=== PATIENT | male | born 1945 | race Caucasian/White ===

== ENCOUNTER → 2018-11-10 07:46 | Outpatient (CLI) | payer MEDICARE, OTHER, SELFPAY ==
--- NOTE | 2018-11-10 | DI.CT.S_ITS ---
PROCEDURE: CT CHEST ABD PEL W CON INDICATIONS: ESOPHAGEAL CANCER TECHNIQUE: After the administration of oral and intravenous contrast, 5 mm thick sections acquired from the lung apices to the symphysis. 5 mm coronal and sagittal reformats were performed, with additional 7 mm coronal MIP reformats through the lungs. For radiation dose reduction, the following was used: automated exposure control, adjustment of mA and/or kV according to patient size. COMPARISON: [facility], CT, ABDOMEN WITH CONTRAST, 01/10/2011, 13:27. FINDINGS: Image quality: Excellent. CHEST: Lungs and pleura: There is biapical scarring. Centrilobular emphysema is seen. There is no focal air space opacity. No discrete pulmonary nodule or mass is identified. No pleural effusions or pneumothorax. Central and peripheral airways appear patent and normal in caliber. Mediastinum: Heart size is normal. No pericardial effusion. No mediastinal or hilar adenopathy by size criteria. Subcentimeter lymph nodes are seen scattered in mediastinal and bilateral hilar region measures up to 8 mm in short axis diameter in the AP window. Thoracic aorta and central pulmonary arteries are normal in size. There is suggestion of prior esophagectomy with gastric pull-through. There is suggestion of circumferential wall thickening involving gastric wall within lower thorax, and may be related to posttreatment changes. No definite discrete esophageal or gastric wall mass is identified. Chest wall: No axillary or supraclavicular adenopathy by size criteria. 9 x 4 mm hypodense nodule is seen involving posterior aspect of mid pole right thyroid lobe. ABDOMEN: Solid organs: Liver is normal in size and enhancement. Gallbladder is within normal limits. Biliary system is non dilated. Pancreas enhances normally. Spleen is normal in size and enhancement. No adrenal nodules. Kidneys demonstrate normal size and enhancement, without hydronephrosis. Peritoneum and bowel: There is no evidence of bowel structure. Bowel loops demonstrate normal wall thickness and caliber. No free fluid or air. Fecal stasis throughout the colon is seen suggestive of mild constipation. Sigmoid diverticulosis is noted, no CT evidence of acute diverticulitis. Nodes and vessels: No retroperitoneal or mesenteric adenopathy by size criteria. Fusiform infrarenal abdominal aortic aneurysm is seen measures up to 3.3 x 3.5 cm in its largest AP and transverse dimensions. Thrombus formation within the aneurysmal sac is seen. IVC is normal in size and appearance. Miscellaneous: No ventral hernias. PELVIS: Genitourinary: There is mild diffuse bladder wall thickening, no discrete bladder wall mass is seen. Enlarged prostate gland with mass effect on floor of urinary bladder is noted. Miscellaneous: No inguinal hernias or adenopathy. Bones: No suspicious bony lesions. No vertebral body compression fractures. IMPRESSION: 1. There is suggestion of prior mid to distal esophagectomy with gastric pull-through. Questionable wall thickening involving stomach within lower thorax, which may represent posttreatment changes. Underlying tumor mass cannot be entirely excluded suggest clinical correlation. No bowel distraction. No small bowel colon wall thickening. No free fluid or free air. Sigmoid diverticulosis with no evidence of acute diverticulitis. 2. Biapical scarring. Moderate cystic emphysematous changes in bilateral lung ly. No definite pulmonary nodule or mass is seen. Airway is patent. 3. Subcentimeter lymph nodes in mediastinum as above. No enlarged lymph nodes are seen in chest, abdomen or pelvis. 4. Right thyroid lobe nodule as above, which may represent nodular goiter. 5. Enlarged prostate gland with mass effect on floor of urinary bladder. Mild diffuse bladder wall thickening. No hydronephrosis. 6. Fusiform infrarenal abdominal aortic aneurysm measures up to 3.3 cm in largest AP diameter. Dictated by: Jose Roberto Monzon M.D. on 11/10/2018 at 12:00 Approved by: Jose Roberto Monzon M.D. on 11/10/2018 at 12:11
--- NOTE | 2018-11-10 | DI.CT.S_ITS ---
PROCEDURE: CT SOFT TISSUE NECK W CON INDICATIONS: ESOPHAGEAL CANCER TECHNIQUE: After the administration of intravenous contrast, 3.0 mm axial sections acquired from the sella to the aortic arch. Additional oblique axial 3.0 mm sections acquired through the pharynx. 3 mm thick coronal and sagittal reformats were generated. For radiation dose reduction, the following was used: automated exposure control. COMPARISON: None. FINDINGS: Image quality: Excellent. Lymph nodes: No enlarged lymph nodes seen throughout the neck. Vessels: Visualized vasculature appears patent. Neck spaces: The oropharynx, nasopharynx, and pharynx demonstrate no mucosal lesions. The vocal cords, false vocal cords, pyriform sinuses, epiglottis, vallecula, and tongue base all appear normal. Extramucosal spaces appear unremarkable. Glands: The parotid and submandibular glands appear normal. 11 x 9 mm hypodense nodule in posterior aspect of mid pole right thyroid lobe is seen. Miscellaneous: Visualized brain and orbits appear normal. Biapical scarring and moderate centrilobular emphysema is seen. Superficial soft tissues appear normal. Post esophagectomy changes in the upper to mid esophagus is seen. Bones: No suspicious bony lesions. Visualized sinuses and mastoids appear unremarkable. IMPRESSION: 1. No evidence of neck soft tissue adenopathy. Airway is patent. No neck soft tissue mass. 2. Right thyroid lobe nodule as above, which may represent nodular goiter. 3. Post esophagectomy changes in the upper to mid esophagus. Dictated by: Jose Roberto Monzon M.D. on 11/10/2018 at 12:11 Approved by: Jose Roberto Monzon M.D. on 11/10/2018 at 12:18
== END ==
PROVIDERS: Family Provider Internal Medicine; PCP Internal Medicine
DX: C15.9 Malignant neoplasm of esophagus, unspecified (principal)
CPT/HCPCS: 70491; 71260; 74177; Q9967

== ENCOUNTER → 2018-11-10 08:10 | Outpatient (CLI) | payer MEDICARE, OTHER, SELFPAY ==
[2018-11-10 08:24] LABS: Add Manual Diff / Slide Review NO; Basophils Percent Auto 1.3 % (0-2); Eosinophils Percent Auto 6.3 % (2-4); Hematocrit 40.2 % (41-53); Hemoglobin 13.5 g/dL (13.5-17.5); Lymphocytes Percent Auto 20.3 % (25-40); Mean Corpuscular HGB Conc 33.6 % (30-36); Mean Corpuscular Hemoglobin 31.1 PG (26-34); Mean Corpuscular Volume 92.5 fL (80-100); Monocytes Percent Auto 8.3 % (3-14); Neutrophils Absolute Auto 4800 /uL (1500-7000); Neutrophils Percent Auto 63.8 % (50-75); Platelet Count 230 X10^3/uL (150-400); Red Blood Cell Count 4.34 X10^6/uL (4.5-5.9); Red Cell Distribution Width 14.7 % (11.6-14.8); White Blood Cell Count 7.6 X10^3/uL (4.5-11.0)
[2018-11-10 08:34] LABS: Alanine Aminotransferase 15 IU/L (21-72); Albumin 4.3 g/dL (3.5-5.0); Albumin Globulin Ratio 1.5 (1.0-2.8); Alkaline Phosphatase 79 U/L (38-126); Aspartate Aminotransferase 15 IU/L (17-59); BUN Creatinine Ratio 17.6 (6-22); Bilirubin Total 0.4 mg/dL (0.2-1.3); Blood Urea Nitrogen 30 mg/dL (9-20); Carbon Dioxide 21 mmol/L (22-32); Chloride 109 mmol/L (98-107); Estimated Glomerular Filt Rate 39.5 mL/min (>60); Globulin 2.8 g/dL (1.7-4.1); Glucose 93 mg/dL (80-110); HEMOLYSIS < 15 (0-50); Potassium 4.8 mmol/L (3.4-5.1); Sodium 139 mmol/L (137-145); Total Protein 7.1 g/dL (6.3-8.2)
== END ==
PROVIDERS: Family Provider Internal Medicine; PCP Internal Medicine
DX: C15.5 Malignant neoplasm of lower third of esophagus (principal)
CPT/HCPCS: 36415; 70491; 71260; 74177; 80053; 85025; Q9967

== ENCOUNTER → 2019-04-27 | Outpatient (ROUT) | payer MEDICARE, OTHER, SELFPAY | PROVIDERS: Family Provider Internal Medicine; PCP Internal Medicine ==

== ENCOUNTER → 2019-10-13 09:34 | Outpatient (CLI) | payer MEDICARE, OTHER, SELFPAY ==
--- NOTE | 2019-10-13 09:38 | DI.CT.S_ITS ---
PROCEDURE: CT CHEST ABD PEL W CON INDICATIONS: Esophageal cancer surveillance TECHNIQUE: After the administration of oral and intravenous contrast, 5 mm thick sections acquired from the lung apices to the symphysis. 5 mm coronal and sagittal reformats were performed, with additional 7 mm coronal MIP reformats through the lungs. For radiation dose reduction, the following was used: automated exposure control, adjustment of mA and/or kV according to patient size. COMPARISON: [facility], CT, CT CHEST ABD PEL W CON, 11/10/2018, 8:48. FINDINGS: Image quality: Excellent. CHEST: Lungs and pleura: No acute airspace opacities. Mild apical predominant emphysema. Mild biapical scarring. No change in 4 mm diameter nodule within the right upper lobe laterally. No pneumothorax. Small right pleural effusion. Mild scarring versus atelectasis within the right lower lobe dependently. Central and peripheral airways appear patent and normal in caliber. Mediastinum: Heart size is enlarged. There is calcification of the coronary vasculature. No pericardial effusion. No mediastinal or hilar adenopathy by size criteria. Thoracic aorta and central pulmonary arteries are normal in size. Left vertebral artery arises directly from the thoracic aortic arch. Gastric pull-through procedure has been performed, as before. Chest wall: No axillary or supraclavicular adenopathy by size criteria. Thyroid gland is within normal limits. ABDOMEN: Solid organs: Liver is normal in size and enhancement. Gallbladder is within normal limits. Biliary system is non dilated. Pancreas enhances normally. Spleen is normal in size and enhancement. No adrenal nodules. Kidneys demonstrate normal size and enhancement, without hydronephrosis. Peritoneum and bowel: Bowel loops demonstrate normal wall thickness and caliber. No free fluid or air. Nodes and vessels: No retroperitoneal or mesenteric adenopathy by size criteria. IVC is within normal limits. There is aneurysmal dilatation of the infrarenal abdominal aorta, measuring roughly 44 mm, as before. Miscellaneous: No ventral hernias. PELVIS: Genitourinary: Bladder wall thickness is normal. Miscellaneous: No inguinal hernias or adenopathy. Bones: No suspicious bony lesions. No vertebral body compression fractures. IMPRESSION: 1. New small right pleural effusion. 2. No change in right upper lobe pulmonary nodule; recommend attention to this region on followup imaging studies. 3. Postsurgical sequelae. 4. Infrarenal abdominal aortic aneurysm. Dictated by: Chester Sandhu M.D. on 10/13/2019 at 17:58 Approved by: Chester Sandhu M.D. on 10/13/2019 at 18:03
[2019-10-13 09:51] LABS: Add Manual Diff / Slide Review NO; Basophils Absolute Auto 100 /uL (0-100); Basophils Percent Auto 0.9 % (0-2); Eosinophils Absolute Auto 300 /uL (0-450); Hemoglobin 13.1 g/dL (13.5-17.5); Lymphocytes Absolute Auto 1300 /uL (1100-4500); Lymphocytes Percent Auto 15.3 % (25-40); Mean Corpuscular HGB Conc 34.5 % (30-36); Mean Corpuscular Hemoglobin 30.9 PG (26-34); Mean Corpuscular Volume 89.5 fL (80-100); Monocytes Absolute Auto 600 /uL (0-900); Monocytes Percent Auto 7.5 % (3-14); Neutrophils Absolute Auto 6000 /uL (1500-7000); Neutrophils Percent Auto 72.3 % (50-75); Platelet Count 245 X10^3/uL (150-400); Red Blood Cell Count 4.24 X10^6/uL (4.5-5.9); Red Cell Distribution Width 13.8 % (11.6-14.8); White Blood Cell Count 8.3 X10^3/uL (4.5-11.0)
[2019-10-13 10:06] LABS: Alanine Aminotransferase 11 IU/L (<50); Albumin 4.2 g/dL (3.5-5.0); Albumin Globulin Ratio 1.5 (1.0-2.8); Alkaline Phosphatase 83 U/L (38-126); Aspartate Aminotransferase 21 IU/L (17-59); Bilirubin Total 0.6 mg/dL (0.2-1.3); Blood Urea Nitrogen 21 mg/dL (9-20); Calcium 9.3 mg/dL (8.4-10.2); Carbon Dioxide 25 mmol/L (22-32); Chloride 104 mmol/L (98-107); Estimated Glomerular Filt Rate 49.3 mL/min (>60); Globulin 2.8 g/dL (1.7-4.1); Glucose 111 mg/dL (80-110); HEMOLYSIS < 15 (0-50); Potassium 4.3 mmol/L (3.4-5.1); Sodium 139 mmol/L (137-145)
== END ==
PROVIDERS: Family Provider Internal Medicine; PCP Internal Medicine
DX: C15.9 Malignant neoplasm of esophagus, unspecified (principal); J90 Pleural effusion, not elsewhere classified; R91.1 Solitary pulmonary nodule; I71.4 Abdominal aortic aneurysm, without rupture
CPT/HCPCS: 36415; 71260; 74177; 80053; 85025; Q9967

== ENCOUNTER → 2020-04-11 09:39 | Outpatient (CLI) | payer MEDICARE, OTHER, SELFPAY ==
[2020-04-11 10:00] LABS: Add Manual Diff / Slide Review NO; Basophils Absolute Auto 100 /uL (0-100); Basophils Percent Auto 0.9 % (0-2); Eosinophils Absolute Auto 300 /uL (0-450); Eosinophils Percent Auto 3.2 % (2-4); Lymphocytes Absolute Auto 1600 /uL (1100-4500); Lymphocytes Percent Auto 17.3 % (25-40); Mean Corpuscular HGB Conc 34.3 % (30-36); Mean Corpuscular Hemoglobin 31.2 PG (26-34); Monocytes Absolute Auto 800 /uL (0-900); Neutrophils Absolute Auto 6600 /uL (1500-7000); Neutrophils Percent Auto 70.6 % (50-75); Platelet Count 348 X10^3/uL (150-400); Red Blood Cell Count 4.18 X10^6/uL (4.5-5.9); Red Cell Distribution Width 14.4 % (11.6-14.8); White Blood Cell Count 9.4 X10^3/uL (4.5-11.0)
[2020-04-11 10:16] LABS: Alanine Aminotransferase 11 IU/L (<50); Albumin Globulin Ratio 1.3 (1.0-2.8); Alkaline Phosphatase 75 U/L (38-126); Aspartate Aminotransferase 21 IU/L (17-59); BUN Creatinine Ratio 17.6 (6-22); Bilirubin Total 0.4 mg/dL (0.2-1.3); Blood Urea Nitrogen 24 mg/dL (9-20); Calcium 9.3 mg/dL (8.4-10.2); Carbon Dioxide 25 mmol/L (22-32); Chloride 106 mmol/L (98-107); Estimated Glomerular Filt Rate 50.8 mL/min (>60); Globulin 3.2 g/dL (1.7-4.1); Glucose 95 mg/dL (80-110); HEMOLYSIS < 15 (0-50); Potassium 4.7 mmol/L (3.4-5.1); Sodium 136 mmol/L (137-145); Total Protein 7.2 g/dL (6.3-8.2)
--- NOTE | 2020-04-11 11:00 | DI.CT.S_ITS ---
PROCEDURE: CT CHEST ABD PEL W CON INDICATIONS: surveillance esophageal cancer TECHNIQUE: After the administration of oral and intravenous contrast, 5 mm thick sections acquired from the lung apices to the symphysis. 5 mm coronal and sagittal reformats were performed, with additional 7 mm coronal MIP reformats through the lungs. For radiation dose reduction, the following was used: automated exposure control, adjustment of mA and/or kV according to patient size. COMPARISON: [facility], CT, CT SOFT TISSUE NECK W CON, 11/10/2018, 8:48. [facility], CT, CT CHEST ABD PEL W CON, 10/13/2019, 10:39. [facility], CT, CT CHEST ABD PEL W CON, 11/10/2018, 8:48. FINDINGS: Image quality: Excellent. CHEST: Lungs and pleura: No acute airspace opacities. There is severe emphysematous change, centrilobular, and a 4 mm nodule at the lateral right upper lobe is stable over time. At the postero-medial pleural surface on the right at the axial level of the david area there is a small area of focal pleural thickening but this has been previously present without change from the prior study. No increasing pleural effusions, or pneumothorax. There is a small right pleural effusion posteriorly, previously present, without evidence of carcinomatosis as the underlying cause. Central and peripheral airways appear patent and normal in caliber. Mediastinum: Heart size is normal. No pericardial effusion. No mediastinal or hilar adenopathy by size criteria. Thoracic aorta and central pulmonary arteries are normal in size. Esophagus is unchanged in appearance in this patient who has undergone prior partial esophagectomy and gastric interposition. Chest wall: No axillary or supraclavicular adenopathy by size criteria. Thyroid gland appears stable over time with a very small nodule at the posterior aspect of the middle third of the right thyroid lobe. ABDOMEN: Solid organs: Liver is normal in size and enhancement. Gallbladder appears normal. Biliary system is non dilated. Pancreas enhances normally. Spleen is normal in size and enhancement. No adrenal nodules. Kidneys demonstrate normal size and enhancement, without hydronephrosis. Peritoneum and bowel: Bowel loops demonstrate normal wall thickness and caliber. No free fluid or air. Nodes and vessels: No retroperitoneal or mesenteric adenopathy by size criteria. Aorta and inferior vena cava are normal in size. Miscellaneous: No ventral hernias. PELVIS: Genitourinary: Bladder wall thickness is normal. Miscellaneous: No inguinal hernias or adenopathy. Bones: No suspicious bony lesions. No vertebral body compression fractures. IMPRESSION: Stable postoperative changes, after esophagectomy and gastric pullup procedure. No sign of development of metastatic disease. Stable appearance of a small 4 mm nodule right upper lobe, and a small degree of pleural scarring at the posterior medial right lung. Overall the appearance is excellent. 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 Small posterior right thyroid nodule is present, identical in appearance to prior studies. Dictated by: Sebastien Knight M.D. on 04/11/2020 at 15:17 Approved by: Sebastien Knight M.D. on 04/11/2020 at 15:24
== END ==
PROVIDERS: Family Provider Internal Medicine; PCP Internal Medicine
DX: C15.9 Malignant neoplasm of esophagus, unspecified (principal); R91.1 Solitary pulmonary nodule; J43.2 Centrilobular emphysema; E04.1 Nontoxic single thyroid nodule
CPT/HCPCS: 36415; 71260; 74177; 80053; 85025; Q9967

== ENCOUNTER 2020-12-21 17:03 | Inpatient (IN) | payer MEDICARE, OTHER, SELFPAY ==
[2020-12-21] VITALS (19 sets, daily range): BP systolic 165–212; BP diastolic 84–94; PULSE 71–84; RESP 14–35; TEMP 36.9–37.4; O2SAT 92–98; BMI 17.7; BMI 18.1
[2020-12-21] MEDS: SODIUM CHLORIDE 0.9% 1,000 ML 1000 ML IV ×2 (17:46→20:08)
[2020-12-21] MEDS: ONDANSETRON 4 MG/2 ML INJ IV ×2 (17:46→21:29)
[2020-12-21 17:55] LABS: INR 1.2 (0.9-1.3); Prothrombin Time 13.3 SECONDS (10.1-12.7)
[2020-12-21 17:57] LABS: PTT Partial Thromboplastin Tim 33 SECONDS (26.4-36.2)
[2020-12-21 17:58] LABS: Add Manual Diff / Slide Review NO; Basophils Absolute Auto 0 /uL (0-100); Basophils Percent Auto 0.1 % (0-2); COVID19 -Nasal RAPID Negative (Negative); Eosinophils Absolute Auto 0 /uL (0-450); Hematocrit 39.8 % (41-53); Hemoglobin 13.6 g/dL (13.5-17.5); Lymphocytes Absolute Auto 900 /uL (1100-4500); Lymphocytes Percent Auto 5.5 % (25-40); Mean Corpuscular HGB Conc 34.1 % (30-36); Mean Corpuscular Hemoglobin 31.1 PG (26-34); Mean Corpuscular Volume 91.2 fL (80-100); Monocytes Absolute Auto 1000 /uL (0-900); Monocytes Percent Auto 6.2 % (3-14); Neutrophils Absolute Auto 14400 /uL (1500-7000); Neutrophils Percent Auto 88.2 % (50-75); Platelet Count 304 X10^3/uL (150-400); Red Blood Cell Count 4.36 X10^6/uL (4.5-5.9); Red Cell Distribution Width 13.7 % (11.6-14.8); White Blood Cell Count 16.4 X10^3/uL (4.5-11.0)
[2020-12-21 18:03] LABS: Alanine Aminotransferase 14 IU/L (<50); Albumin 4.3 g/dL (3.5-5.0); Albumin Globulin Ratio 1.4 (1.0-2.8); Alkaline Phosphatase 82 U/L (38-126); Aspartate Aminotransferase 23 IU/L (17-59); BUN Creatinine Ratio 22.7 (6-22); Bilirubin Total 0.4 mg/dL (0.2-1.3); Blood Urea Nitrogen 34 mg/dL (9-20); Calcium 9.6 mg/dL (8.4-10.2); Carbon Dioxide 30 mmol/L (22-32); Chloride 101 mmol/L (98-107); Estimated Glomerular Filt Rate 45.4 mL/min (>60); Globulin 3.1 g/dL (1.7-4.1); Glucose 165 mg/dL (80-110); HEMOLYSIS < 15 (0-50); Lipase 27 U/L (23-300); Potassium 4.2 mmol/L (3.4-5.1); Sodium 138 mmol/L (137-145); Total Protein 7.4 g/dL (6.3-8.2)
[2020-12-21 18:04] LABS: Lactate (Lactic Acid) 1.7 mmol/L (0.7-2.1)
[2020-12-21 18:20] LABS: Procalcitonin 0.14 ng/mL (<0.5)
--- NOTE | 2020-12-21 19:22 | ED.GENADULT ---
HPI - General Adult General Chief complaint: Abdominal Pain Stated complaint: multiple complaints, has list Time Seen by Provider: 12/21/20 18:54 Source: patient Mode of arrival: Ambulatory Limitations: no limitations History of Present Illness HPI narrative: Patient is a 75-year-old male who arrives to the emergency department today for evaluation of worsening abdominal pain. He states that approximately 2 weeks ago he started noticing that he was having generalized abdominal pain although he did admit that it was left side greater than right. He states the pain seems to come and go. He has seen his primary doctor for this and a consult was placed for a ?abdominal ultrasound ?by his primary doctor although the patient does admit he is unsure as to what his primary doctor was looking for. The patient does have a history of esophageal cancer and has had part of his esophagus removed with reanastomosis so now his stomach is up higher in his chest. He states that yesterday and today he started to develop nausea. He states that the pain is a cramping sensation that builds to the point where he vomits and then he feels somewhat better afterwards. He states there are periods of time over the past couple days where he has not had any discomfort. He did have a bowel movement today which he states was normal for him. Denies any fevers. At the time of my evaluation was not complaining of any symptoms. Related Data Home Medications Medication Instructions Recorded Confirmed rosuvastatin 20 mg PO QPM #0 03/16/11 12/21/20 amlodipine 5 mg PO QPM 10/15/18 12/21/20 metoprolol tartrate 25 mg PO BID 10/15/18 12/21/20 prazosin 1 mg PO QPM 10/15/18 12/21/20 oxycodone 5 mg PO PRN PRN 11/12/18 12/21/20 Allergies Allergy/AdvReac Type Severity Reaction Status Date / Time No Known Drug Allergies Allergy Verified 12/21/20 17:08 Review of Systems Constitutional Constitutional: Denies fever(s) and Denies headache(s) ENT Ears, Nose, Mouth, and Throat: Denies headache(s) Cardiovascular Cardiovascular: Denies chest pain and Denies dyspnea Respiratory Respiratory: Denies dyspnea Gastrointestinal Gastrointestinal: Reports abdominal pain, Denies change in bowel habits, Denies coffee ground emesis, Denies constipation, Denies heartburn, Denies diarrhea, Reports nausea and Reports vomiting Genitourinary Genitourinary: Denies dysuria and Denies testicular pain Genitourinary: Denies dysuria Musculoskeletal Musculoskeletal: Denies arthralgias and Denies myalgias Integumentary/Breasts Skin/Breast: Denies lesions and Denies rash Neurologic Neurologic: Denies behavioral changes and Denies headache(s) Psychiatric Psychiatric: Denies behavioral changes Hematologic/Lymphatic On Anticoagulants: No Allergic/Immunologic Allergic/Immunologic: Denies urticaria Patient History Medical History COPD (chronic obstructive pulmonary disease) Esophageal cancer Hypertension Social History household members: spouse Smoking Status: Current every day smoker alcohol intake: current Smoking Status: Current every day smoker alcohol intake frequency: 0-2 drinks per day Substance Use Type: does not use Exam Initial Vital Signs Initial Vital Signs: Vital Signs Temperature 99.4 F 12/21/20 17:05 Const General: cooperative, healthy appearing, comfortable and well developed Limitations: mental status not altered HENWY Head: normal to inspection and normocephalic Resp Effort & Inspection: normal respiratory effort Auscultation: clear to auscultation bilaterally Cardio Rate: regular rate Rhythm: regular rhythm GI Inspection: non-distended Palpation: soft, No firm and No tender Skin Lesions: no lesions Rashes: no rashes Neuro General: patient alert and patient awake Cognition: normal cognition Speech: speech normal Extrem General: normal to inspection and capillary refill normal Psych Appearance: grossly normal and well kempt Scores GCS Ludmila coma scale eye opening: Spontaneous Ludmila coma scale verbal response: Orientated Ludmila coma scale motor response: Obey commands Ludmila coma scale total score: 15 Course Orders Ordered: ED Orders 12/21/20 17:24 EKG-12 Lead Stat 12/21/20 17:35 COVID19 Stat Complete Blood Count AUTO DIFF Stat Comprehensive Metabolic Panel Stat Lactate (Lactic Acid) Stat Lipase Stat Partial Thromboplastin Time Stat Procalcitonin Stat Prothrombin Time INR Stat 12/21/20 19:23 CT abdomen pelvis w con Stat Sodium Chloride (Normal Saline 0.9%) 1,000 mls @ 125 mls/hr IV CONT JOEY Last Infusion: 12/21/20 22:07 Dose: 125 mls/hr Documented by: Admin: 12/21/20 21:29 Dose: 125 mls/hr Documented by: EDSON Morphine Sulfate (Morphine 2 Mg/Ml Inj) 4 mg IV Q4HR PRN PRN Reason: Pain, Mild (1-3) Last Admin: 12/21/20 22:51 Dose: 4 mg Documented by: KIP Ondansetron HCl (Ondansetron 4 Mg/2 Ml Inj) 4 mg IV Q4HR PRN PRN Reason: Nausea And Vomiting Discontinued Medications Sodium Chloride (Normal Saline 0.9%) 1,000 mls @ 1,000 mls/hr IV BOLUS ONE Stop: 12/21/20 18:31 Last Infusion: 12/21/20 19:44 Dose: 0 mls/hr Documented by: Admin: 12/21/20 17:46 Dose: 1,000 mls/hr Documented by: RON Sodium Chloride (Normal Saline 0.9%) 1,000 mls @ 1,000 mls/hr IV BOLUS ONE Stop: 12/21/20 20:21 Last Infusion: 12/21/20 21:12 Dose: 0 mls/hr Documented by: Admin: 12/21/20 20:08 Dose: 1,000 mls/hr Documented by: VAISHALI Labetalol HCl (Labetalol 20 Mg/4 Ml Syringe) 10 mg IV NOW ONE Stop: 12/21/20 21:38 Last Admin: 12/21/20 21:42 Dose: 10 mg Documented by: EDSON Morphine Sulfate (Morphine 4 Mg/Ml Inj) 4 mg IV NOW ONE Stop: 12/21/20 21:17 Last Admin: 12/21/20 21:29 Dose: 4 mg Documented by: EDSON Ondansetron HCl (Ondansetron 4 Mg/2 Ml Inj) 4 mg IV NOW ONE Stop: 12/21/20 17:33 Last Admin: 12/21/20 17:46 Dose: 4 mg Documented by: RON Ondansetron HCl (Ondansetron 4 Mg/2 Ml Inj) 4 mg IV NOW ONE Stop: 12/21/20 21:17 Last Admin: 12/21/20 21:29 Dose: 4 mg Documented by: EDSON Vital Signs Vital signs: Vital Signs - 8 hr 12/21/20 17:05 02/17/21 17:52 12/21/20 18:00 Temperature 99.4 F Pulse Rate 76 83 Respiratory Rate 14 17 Blood Pressure 189/92 H Pulse Oximetry 98 97 12/21/20 18:30 12/21/20 19:00 12/21/20 19:30 Temperature Pulse Rate 75 75 80 Respiratory Rate 16 16 16 Blood Pressure Pulse Oximetry 95 96 96 12/21/20 20:00 12/21/20 20:09 12/21/20 20:30 Temperature Pulse Rate 76 76 77 Respiratory Rate 18 20 20 Blood Pressure 186/86 H 183/86 H Pulse Oximetry 97 97 95 12/21/20 21:00 Temperature Pulse Rate 79 Respiratory Rate 16 Blood Pressure 196/91 H Pulse Oximetry 98 Medical Decision Making Medical Records Medical records reviewed: Yes I reviewed the patient's medical records. Lab Data Lab results reviewed: Yes I reviewed the patient's lab results. Result diagrams: 12/21/20 17:35 12/21/20 17:35 Labs: Lab Results 12/21/20 12/21/20 12/21/20 Range/Units 17:35 17:35 17:35 WBC 16.4 H (4.5-11.0) X10^3/uL RBC 4.36 L (4.5-5.9) X10^6/uL Hgb 13.6 (13.5-17.5) g/dL Hct 39.8 L (41-53) % MCV 91.2 (80-100) fL MCH 31.1 (26-34) PG MCHC 34.1 (30-36) % RDW 13.7 (11.6-14.8) % Plt Count 304 (150-400) X10^3/uL Neut % (Auto) 88.2 H (50-75) % Lymph % (Auto) 5.5 L (25-40) % [place] % (Auto) 6.2 (3-14) % Eos % (Auto) 0.0 L (2-4) % Baso % (Auto) 0.1 (0-2) % Neut # (Auto) 79389 H (2955-7987) /uL Lymph # (Auto) 900 L (1411-7733) /uL [place] # (Auto) 1000 H (0-900) /uL Eos # (Auto) 0 (0-450) /uL Baso # (Auto) 0 (0-100) /uL PT 13.3 H (10.1-12.7) SECONDS INR 1.2 (0.9-1.3) APTT 33 (26.4-36.2) SECONDS Sodium 138 (137-145) mmol/L Potassium 4.2 (3.4-5.1) mmol/L Chloride 101 (98-107) mmol/L Carbon Dioxide 30 (22-32) mmol/L BUN 34 H (9-20) mg/dL Creatinine 1.50 H (0.66-1.25) mg/dL Estimated GFR 45.4 L (>60) mL/min BUN/Creatinine Ratio 22.7 H (6-22) Glucose 165 H (80-110) mg/dL Lactate (0.7-2.1) mmol/L Calcium 9.6 (8.4-10.2) mg/dL Total Bilirubin 0.4 (0.2-1.3) mg/dL AST 23 (17-59) IU/L ALT 14 (<50) IU/L Alkaline Phosphatase 82 (38-126) U/L Total Protein 7.4 (6.3-8.2) g/dL Albumin 4.3 (3.5-5.0) g/dL Globulin 3.1 (1.7-4.1) g/dL Albumin/Globulin Ratio 1.4 (1.0-2.8) Lipase 27 (23-300) U/L Procalcitonin (<0.5) ng/mL SARS-CoV-2 (PCR) (Negative) 12/21/20 12/21/20 12/21/20 Range/Units 17:35 17:35 17:35 WBC (4.5-11.0) X10^3/uL RBC (4.5-5.9) X10^6/uL Hgb (13.5-17.5) g/dL Hct (41-53) % MCV (80-100) fL MCH (26-34) PG MCHC (30-36) % RDW (11.6-14.8) % Plt Count (150-400) X10^3/uL Neut % (Auto) (50-75) % Lymph % (Auto) (25-40) % [place] % (Auto) (3-14) % Eos % (Auto) (2-4) % Baso % (Auto) (0-2) % Neut # (Auto) (4101-9900) /uL Lymph # (Auto) (1796-8920) /uL [place] # (Auto) (0-900) /uL Eos # (Auto) (0-450) /uL Baso # (Auto) (0-100) /uL PT (10.1-12.7) SECONDS INR (0.9-1.3) APTT (26.4-36.2) SECONDS Sodium (137-145) mmol/L Potassium (3.4-5.1) mmol/L Chloride (98-107) mmol/L Carbon Dioxide (22-32) mmol/L BUN (9-20) mg/dL Creatinine (0.66-1.25) mg/dL Estimated GFR (>60) mL/min BUN/Creatinine Ratio (6-22) Glucose (80-110) mg/dL Lactate 1.7 (0.7-2.1) mmol/L Calcium (8.4-10.2) mg/dL Total Bilirubin (0.2-1.3) mg/dL AST (17-59) IU/L ALT (<50) IU/L Alkaline Phosphatase (38-126) U/L Total Protein (6.3-8.2) g/dL Albumin (3.5-5.0) g/dL Globulin (1.7-4.1) g/dL Albumin/Globulin Ratio (1.0-2.8) Lipase (23-300) U/L Procalcitonin 0.14 (<0.5) ng/mL SARS-CoV-2 (PCR) Negative (Negative) Urine Dip Bedside Urine Glucose Negative Bedside Urine Bilirubin - Negative Bedside Urine Ketone - Negative Urine Specific [place] 1.015 Bedside Urine Occult Blood +/- Bedside Urine pH 6.0 Bedside Urine Protein + 30 Bedside Urine Urobilinogen - Negative Bedside Urine Nitrite - Negative Bedside Urine Leukocytes - Negative Esterase Point of care testing: Urine Dip Bedside Urine Glucose Negative Bedside Urine Bilirubin - Negative Bedside Urine Ketone - Negative Urine Specific [place] 1.015 Bedside Urine Occult Blood +/- Bedside Urine pH 6.0 Bedside Urine Protein + 30 Bedside Urine Urobilinogen - Negative Bedside Urine Nitrite - Negative Bedside Urine Leukocytes - Negative Esterase Imaging Data CT scan - abdomen/pelvis: Radiologist's Impression: [facility] [place] [id number] Scan ReportSigned Patient: Sergio Colón EMR#: [id number]: 3Acct:[id number]/Sex: 75 / MDate of Service: 12/21/20Loc: EDAccession Number: [id number] Procedure: CT abdomen pelvis w con Ordering Provider: Venancio Hartley D.O. PROCEDURE: CT ABDOMEN PELVIS W CON INDICATIONS: Generalized but left greater than right abdominal pain TECHNIQUE: After the administration of intravenous contrast, 5 mm thick sections acquired from the diaphragm to the symphysis. 5 mm coronal and sagittal reformats were acquired. For radiation dose reduction, the following was used: automated exposure control, adjustment of mA and/or kV according to patient size. COMPARISON: [facility], CT, CT CHEST ABD PEL W CON, 04/11/2020, 10:57. FINDINGS: Image quality: Excellent. ABDOMEN: Lung bases: A small right pleural effusion is seen with atelectasis of the right lung base, similar in size when compared to the CT from 04/11/2020. Postsurgical changes are seen from esophagectomy and gastric pull-through. Fluid is seen mildly distending the stomach. Solid organs: Liver is normal in size and enhancement. Gallbladder appears normal. Biliary system is non dilated. Pancreas enhances normally. Spleen is normal in size and enhancement. No adrenal nodules. Kidneys demonstrate normal size and enhancement, without hydronephrosis. Peritoneum and bowel: There is dilation of the distal stomach, duodenum, and the proximal portions of the jejunum with transition point to decompressed bowel in the left upper quadrant. Bowel loops measure up to 4.1 cm in diameter. Multiple diverticula are seen in the sigmoid colon without signs of acute diverticulitis. There is no significant ascites or pneumoperitoneum. Nodes and vessels: No retroperitoneal or mesenteric adenopathy by size criteria. Severe atherosclerotic disease is seen with a fusiform aneurysm of the infrarenal aorta measuring up to 4.1 x 4.0 cm in diameter. Miscellaneous: No ventral hernias. PELVIS: Genitourinary: Bladder wall thickness is normal. Miscellaneous: No inguinal hernias or adenopathy. Bones: No suspicious bony lesions. No vertebral body compression fractures. Multilevel degenerative changes are seen in the spine. IMPRESSION: 1. Acute small bowel obstruction involving the duodenum and proximal jejunum with transition point in the left upper quadrant. 2. Stable postsurgical changes from esophagectomy and gastric pull-through. 3. Small right pleural effusion with atelectasis of the right lung base. 4. Colonic diverticulosis without signs of acute diverticulitis. 5. Infrarenal abdominal aortic aneurysm measures up to 4.1 cm in maximum diameter. Dictated by: Shree Sharpe M.D. on 12/21/2020 at 20:16 Approved by: Shree Sharpe M.D. on 12/21/2020 at 20:28 MDM Narrative Medical decision making narrative: Patient is afebrile. Has a normal lactate. Does have a leukocytosis with a left shift. His CT scan is concerning for small bowel obstruction. This does fit with the symptoms that he presents with today. Discussed the case with Dr. Morales on-call for General surgery who will admit for further evaluation and treatment. Holding orders were placed. I did discuss the case with the patient. He expressed understanding and agreement. Patient was not actively vomiting in his nausea was controlled with Zofran so we will hold on an NG tube for now. General surgery agreed with this. Discharge Plan Departure Patient Disposition: Admitted As Inpatient Clinical Impression: Small bowel obstruction Admit Date/Time: 12/21/20 21:27 Admit Provider: Jimbo Morales
[2020-12-21] MEDS: MORPHINE 4 MG/ML INJ IV (21:29)
[2020-12-21] MEDS: SODIUM CHLORIDE 0.9% 1,000 ML 125 ML IV (21:29)
[2020-12-21] MEDS: LABETALOL 20 MG/4 ML SYRINGE 10 MG IV (21:42)
[2020-12-21] MEDS: MORPHINE 2 MG/ML INJ 4 MG IV (22:51)
[2020-12-22] VITALS (23 sets, daily range): BP systolic 150–202; BP diastolic 64–112; PULSE 67–97; RESP 14–23; TEMP 36.2–38.1; O2SAT 90–100; BMI 18.1
[2020-12-22] MEDS: MORPHINE 2 MG/ML INJ 4 MG IV ×2 (04:24→08:51)
[2020-12-22 05:25] LABS: Hematocrit 37.3 % (41-53); Hemoglobin 12.3 g/dL (13.5-17.5); Mean Corpuscular Hemoglobin 30.4 PG (26-34); Mean Corpuscular Volume 91.9 fL (80-100); Platelet Count 263 X10^3/uL (150-400); Red Blood Cell Count 4.06 X10^6/uL (4.5-5.9); Red Cell Distribution Width 13.6 % (11.6-14.8); White Blood Cell Count 9.2 X10^3/uL (4.5-11.0)
[2020-12-22 05:27] LABS: Add Manual Diff / Slide Review YES
[2020-12-22 05:29] LABS: Alanine Aminotransferase 11 IU/L (<50); Albumin 3.6 g/dL (3.5-5.0); Albumin Globulin Ratio 1.3 (1.0-2.8); Alkaline Phosphatase 72 U/L (38-126); Aspartate Aminotransferase 24 IU/L (17-59); Bilirubin Total 0.4 mg/dL (0.2-1.3); Blood Urea Nitrogen 29 mg/dL (9-20); Calcium 8.7 mg/dL (8.4-10.2); Carbon Dioxide 29 mmol/L (22-32); Chloride 106 mmol/L (98-107); Estimated Glomerular Filt Rate 55.5 mL/min (>60); Globulin 2.8 g/dL (1.7-4.1); Glucose 116 mg/dL (80-110); HEMOLYSIS < 15 (0-50); Potassium 4.3 mmol/L (3.4-5.1); Sodium 140 mmol/L (137-145); Total Protein 6.4 g/dL (6.3-8.2)
[2020-12-22 06:03] LABS: Neutrophils Absolute Manual 7084 /uL (3000-5900); Total Cells Counted 100
[2020-12-22 06:04] LABS: RBC Morphology Normal Morphology
[2020-12-22] MEDS: SODIUM CHLORIDE 0.9% 1,000 ML 125 ML IV (06:18)
--- NOTE | 2020-12-22 06:37 | PC.NURSE ---
Ota Note-Patient has had nausea with scant bile emesis. Medicated with 4mg IV morphine for pain. NS at 125ml/hr.
--- NOTE | 2020-12-22 08:51 | PC.NURSE ---
Addendum entered by Leslie Mora R.N. 12/22/20 14:02: Patient taken down to OR. Addendum entered by Leslie Mora R.N. 12/22/20 11:53: Patient c/o of increased abdominal pain since the small bowel follow through was started, patient vomited about 100cc. Dr Morales aware of patients increase in pain, new orders received. Patient given 4mg IVP morphine and 4mg IVP zofran. Original Note: Patient alert, oriented rates mid abdominal pain 5/10, denies nausea at this time, did had 100cc brown colored emesis at 0700.
--- NOTE | 2020-12-22 09:13 | DI.RAD.S_ITS ---
PROCEDURE: FL SMALL BOWEL FOLLOW THROUGH INDICATIONS: small bowel obstruction. Perform with gastrografin. COMPARISON: None. FINDINGS: KUB: Preprocedural cycle consultant film demonstrates a poorly visualized bowel gas pattern, suspected to represent small bowel dilatation. No suspicious abdominal calcifications. Visualized solid organ contours appear normal. No suspicious bony abnormalities. Small bowel: Small bowel dilatation with very slow transit of oral contrast, Gastrografin, was observed at the initial imaging. Subsequent 3.5 hour delayed imaging shows little additional progress of oral contrast into the fluid dilated small bowel. Emesis occurred over the later portion of the examination to a significant degree. Findings were discussed with the surgeon caring for the patient and the study will be now terminated and operative intervention is anticipated. IMPRESSION: High-grade small bowel obstruction, very little transit of oral contrast over 3.5 hours into the small bowel was observed. Surgeon notified, surgical intervention is anticipated. Dictated by: Sebastien Knight M.D. on 12/22/2020 at 16:32 Approved by: Sebastien Knight M.D. on 12/22/2020 at 16:34
--- NOTE | 2020-12-22 09:45 | P.HP_ITS ---
History of Present Illness History of Present Illness Date Patient Seen: 12/22/20 Time Patient Seen: 09:45 Chief complaint: multiple complaints, has list Narrative: 75-year-old male history of esophagectomy and COPD admitted for small-bowel obstruction. Two days ago he developed some left upper quadrant tenderness and had multiple episodes of emesis. He was evaluated in the emergency room last night underwent a CT abdomen pelvis which demonstrates small bowel obstruction dilated loops of small intestine and a possible transition point in the left upper quadrant. 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 He underwent neoadjuvant chemotherapy and is followed by Oncology here at [facility] T3 N0. At admission afebrile, WBC 9, 9% bands, lactate 1.7 Patient History Medical History COPD (chronic obstructive pulmonary disease) Esophageal cancer Hypertension Family & Social History Social History: household members spouse Prior Living Arrangements House Safety & Behavioral: Feels Safe in Current Yes Environment Been Physically Hurt or No Threatened By a Person Suicidal Ideation Description None Suicide Plan Description No Plan Tobacco & Substance use: Smoking Status Current every day smoker alcohol intake current alcohol intake frequency 0-2 drinks per day Substance Use Type does not use Meds Home Medications and Allergies Home Medications Medication Instructions Recorded Confirmed Type rosuvastatin 20 mg PO QPM #0 03/16/11 12/21/20 History amlodipine 5 mg PO QPM 10/15/18 12/21/20 History metoprolol tartrate 25 mg PO BID 10/15/18 12/21/20 History prazosin 1 mg PO QPM 10/15/18 12/21/20 History oxycodone 5 mg PO PRN PRN 11/12/18 12/21/20 History Allergies Allergy/AdvReac Type Severity Reaction Status Date / Time No Known Drug Allergies Allergy Verified 12/21/20 17:08 Review of Systems Review of Systems ROS: Yes All systems reviewed with the patient and are negative except as otherwise documented Exam Vital Signs (past 8 hours): - 12/22/20 04:20 12/22/20 08:00 12/22/20 09:44 Temperature 97.2 F L 98.0 F Pulse Rate 67 71 Respiratory Rate 18 14 Blood Pressure 173/77 H 156/76 H Pulse Oximetry 98 96 96 Oxygen Delivery Method Room Air Oxygen Flow Rate 0 Narrative Exam Narrative: General-no acute distress, thin elderly male HEENT-moist mucous membranes, no scleral icterus Neck-supple, well-healed left neck incision Chest- non labored respirations, Cardiac-regular rate no peripheral edema Abdomen-soft, minimally distended well-healed midline laparotomy Extremities-warm, well perfused Neurological-alert and oriented, no focal deficits Objective Labs Result Diagrams: 12/22/20 04:55 12/22/20 04:55 Labs: Laboratory Results - last 24 hr 12/21/20 12/21/20 12/21/20 17:35 17:35 17:35 WBC 16.4 H RBC 4.36 L Hgb 13.6 Hct 39.8 L MCV 91.2 MCH 31.1 MCHC 34.1 RDW 13.7 Plt Count 304 Neut % (Auto) 88.2 H Lymph % (Auto) 5.5 L [place] % (Auto) 6.2 Eos % (Auto) 0.0 L Baso % (Auto) 0.1 Neut # (Auto) 51325 H Lymph # (Auto) 900 L [place] # (Auto) 1000 H Eos # (Auto) 0 Baso # (Auto) 0 Total Counted Seg Neutrophils % Band Neutrophils % Lymphocytes % (Manual) Monocytes % (Manual) Eosinophils % (Manual) Basophils % (Manual) Myelocytes % Neutrophils # (Manual) RBC Morphology PT 13.3 H INR 1.2 APTT 33 Sodium 138 Potassium 4.2 Chloride 101 Carbon Dioxide 30 BUN 34 H Creatinine 1.50 H Estimated GFR 45.4 L BUN/Creatinine Ratio 22.7 H Glucose 165 H Lactate Calcium 9.6 Total Bilirubin 0.4 AST 23 ALT 14 Alkaline Phosphatase 82 Total Protein 7.4 Albumin 4.3 Globulin 3.1 Albumin/Globulin Ratio 1.4 Lipase 27 Procalcitonin SARS-CoV-2 (PCR) 12/21/20 12/21/20 12/21/20 17:35 17:35 17:35 WBC RBC Hgb Hct MCV MCH MCHC RDW Plt Count Neut % (Auto) Lymph % (Auto) [place] % (Auto) Eos % (Auto) Baso % (Auto) Neut # (Auto) Lymph # (Auto) [place] # (Auto) Eos # (Auto) Baso # (Auto) Total Counted Seg Neutrophils % Band Neutrophils % Lymphocytes % (Manual) Monocytes % (Manual) Eosinophils % (Manual) Basophils % (Manual) Myelocytes % Neutrophils # (Manual) RBC Morphology PT INR APTT Sodium Potassium Chloride Carbon Dioxide BUN Creatinine Estimated GFR BUN/Creatinine Ratio Glucose Lactate 1.7 Calcium Total Bilirubin AST ALT Alkaline Phosphatase Total Protein Albumin Globulin Albumin/Globulin Ratio Lipase Procalcitonin 0.14 SARS-CoV-2 (PCR) Negative 12/22/20 12/22/20 04:55 04:55 WBC 9.2 RBC 4.06 L Hgb 12.3 L Hct 37.3 L MCV 91.9 MCH 30.4 MCHC 33.0 RDW 13.6 Plt Count 263 Neut % (Auto) Not Reportable Lymph % (Auto) Not Reportable [place] % (Auto) Not Reportable Eos % (Auto) Not Reportable Baso % (Auto) Not Reportable Neut # (Auto) Lymph # (Auto) Not Reportable [place] # (Auto) Not Reportable Eos # (Auto) Baso # (Auto) Not Reportable Total Counted 100 Seg Neutrophils % 68.0 Band Neutrophils % 9.0 H Lymphocytes % (Manual) 9.0 L Monocytes % (Manual) 11.0 Eosinophils % (Manual) 1.0 L Basophils % (Manual) 1.0 Myelocytes % 1.0 H Neutrophils # (Manual) 7084 H RBC Morphology Normal morphology PT INR APTT Sodium 140 Potassium 4.3 Chloride 106 Carbon Dioxide 29 BUN 29 H Creatinine 1.26 H Estimated GFR 55.5 L BUN/Creatinine Ratio 23.0 H Glucose 116 H Lactate Calcium 8.7 Total Bilirubin 0.4 AST 24 ALT 11 Alkaline Phosphatase 72 Total Protein 6.4 Albumin 3.6 Globulin 2.8 Albumin/Globulin Ratio 1.3 Lipase Procalcitonin SARS-CoV-2 (PCR) Assessment & Plan Assessment & Plan narrative: 75-year-old male history of esophagectomy with gastric pull up admitted for a small-bowel obstruction. Laboratory studies and imaging were reviewed. CT abdomen pelvis demonstrates dilated loops of small bowel and a transition point in the left upper quadrant no free fluid or free air. Nontoxic in appearance no peritonitis. Will admit for conservative management of a small-bowel obstruction, there are no current operative indications. -NPO and IV fluids -NG tube if persistent emesis -small-bowel follow-through -SCDs for VTE prophylaxis
[2020-12-22] MEDS: ONDANSETRON 4 MG/2 ML INJ IV ×2 (10:11→23:57)
[2020-12-22] MEDS: METOPROLOL TARTRATE 5 MG/5 ML INJ IV ×3 (10:11→23:45)
[2020-12-22] MEDS: MORPHINE 4 MG/ML INJ IV ×4 (11:34→23:46)
[2020-12-22] MEDS: METOCLOPRAMIDE 10 MG/2 ML INJ IV (12:49)
--- NOTE | 2020-12-22 14:24 | CM.DANOTE ---
DCP: Case received, EMR reviewed and met with patient. , Fiona, was also at bedside. Introduced self and role. Was able to obtain information from patient regarding his baseline activity status prior to hospitalization. DCP assessment completed with information currently available. Patient is a 75 year old male who admitted yesterday evening to the care of the hospitalist team. PCP: Dr. Garcia. Payer: confirmed: Medicare/[facility]. Patient came to the hospital via private vehicle secondary to having abdominal discomfort. Patient was diagnosed with acute small bowel obstruction. He does not have NG tube, since he has had no emesis, but will be going down to surgery this afternoon. Patient has history of esophageal CA, and has had an esophagectomy. He does go to oncology here at [facility], but is not currently undergoing chemo. Met with patient and . He is pleasant, independent at baseline, he drives. Him and his spouse reside in [place]. His primary provider is Dr. Garcia. P: DCP to continue to follow. Patient should be able to go home when he is medically stable. Makenna Jones RN/Diagnostics Tech
[2020-12-22] MEDS: LACTATED RINGERS 1,000 ML 42 ML IV ×2 (14:28→16:11)
[2020-12-22] MEDS: PIPERACILLIN-TAZO 3.375 GM/50 ML FROZ.PIGGY IV (14:48)
[2020-12-22] MEDS: FAMOTIDINE 20 MG/50 ML PIGGYBACK 200 MG IV (15:10)
--- NOTE | 2020-12-22 15:19 | SUR.OPER ---
Supine on padded OR bed, head on pillow, arms secured on padded arm boards at <90 degrees abduction, legs uncrossed, safety belt at thigh, tape over blanket over lower legs.
[2020-12-22] MEDS: BUPIVACAINE 0.25% (PF) VIAL 30 ML INJ (15:27)
--- NOTE | 2020-12-22 16:27 | P.OP_ITS ---
Operative Date/Time/Diagnoses Date of procedure: 12/22/20 Time of procedure: 16:29 Pre-op diagnosis: small bowel obstruction Post-op diagnosis: same Procedure & Clinicians Procedure: exploratory laparotomy lysis of adhesions Same procedure as scheduled: Yes Indications: 75-year-old man with a history of esophagectomy for esophageal adenocarcinoma presented with a small-bowel obstruction. Small-bowel follow- through failed forward progress of the oral contrast and he had significant abdominal pain was therefore taken to the operating room for exploratory laparotomy. Surgeon: Jimbo Morales Autocad Operator: Cecelia Mcneill Anesthesia Type: General Operative Notes Findings: small bowel obstruction at prior J tube site secondary to adhesions. Specimen(s): none sent Estimated Blood Loss (mL): 20 Procedure in detail: The patient was brought to the operating room and placed supine on the table. Bilateral lower extremity compression devices applied. General anesthesia was induced he was intubated with an endotracheal tube. Austin catheter was sterilely placed. He received 3.375 g of Zosyn prior to skin incision. Time-out was performed. The midline laparotomy was made. The skin was divided with a knife the fascia was grasped elevated and sharply incised with a knife the abdomen was entered atraumatically. Upon entry to the abdomen dilated small bowel loops were evident most notably in the left upper quadrant. A Bookwalter was placed to aid with retraction. Careful examination demonstrated that there was adhesions between loops of small bowel and adjacent omentum as well as to the anterior abdominal wall at the site of his prior J- tube. The adhesions were taken down using sharp dissection. The bowel was then followed both proximally and distally to ensure there were no other areas of obstruction. I inspected the prior J-tube site of the small bowel and there was a partial serosal tear on the antimesenteric side of the small bowel was which I imbricated using silk suture in interrupted fashion. The abdomen was then irrigated with 1 L of sterile saline. The fascia was then closed in a running fashion using #1. PDS the skin closed with cesar. Tolerated the procedure well he was extubated and transferred to the recovery room in stable condition. Complications: none Post-operative Condition: stable Disposition: Acute Care
--- NOTE | 2020-12-22 17:12 | SUR.PHASEI ---
pt arrived from OR, lungs coarse and wet cough, per anesthesia, this was his baseline preop. Required 6L O2 via non rebreather to maintain O2 at 92%. easily arrousable and coherent. c/o needing to urinate, explained catheter. NGT to LCS, no output. report to frances rasmussen RN
[2020-12-22] MEDS: SODIUM CHLORIDE 0.9% 1,000 ML 100 ML IV (18:03)
[2020-12-22] MEDS: SODIUM CHLORIDE 0.9% FLUSH 10 ML IV (20:18)
[2020-12-23] VITALS (15 sets, daily range): BP systolic 144–175; BP diastolic 69–81; PULSE 79–90; RESP 16–20; TEMP 36.6–37.2; O2SAT 89–95
[2020-12-23] MEDS: MORPHINE 4 MG/ML INJ IV ×5 (03:43→19:10)
[2020-12-23] MEDS: SODIUM CHLORIDE 0.9% 1,000 ML 100 ML IV (03:43)
[2020-12-23 05:12] LABS: Hematocrit 39.8 % (41-53); Hemoglobin 13.2 g/dL (13.5-17.5); Mean Corpuscular HGB Conc 33.2 % (30-36); Mean Corpuscular Hemoglobin 30.7 PG (26-34); Mean Corpuscular Volume 92.5 fL (80-100); Platelet Count 215 X10^3/uL (150-400); Red Cell Distribution Width 13.7 % (11.6-14.8)
[2020-12-23 05:15] LABS: Add Manual Diff / Slide Review YES
[2020-12-23 05:16] LABS: BUN Creatinine Ratio 20.9 (6-22); Blood Urea Nitrogen 28 mg/dL (9-20); Carbon Dioxide 28 mmol/L (22-32); Chloride 109 mmol/L (98-107); Estimated Glomerular Filt Rate 51.7 mL/min (>60); Glucose 97 mg/dL (80-110); HEMOLYSIS < 15 (0-50); Magnesium 1.7 mg/dL (1.6-2.3); Potassium 4.8 mmol/L (3.4-5.1); Sodium 142 mmol/L (137-145)
[2020-12-23] MEDS: METOPROLOL TARTRATE 5 MG/5 ML INJ IV ×3 (05:44→18:50)
[2020-12-23 05:46] LABS: Total Cells Counted 100
[2020-12-23 05:47] LABS: Neutrophils Absolute Manual 3120 /uL (3000-5900); RBC Morphology Normal Morphology
[2020-12-23] MEDS: ENOXAPARIN 40 MG/0.4 ML SYRINGE SUBCUT (08:39)
--- NOTE | 2020-12-23 09:05 | RT ---
Addendum entered by Dennis Walters, RT 12/23/20 14:10: At 1345, O2 flow weaned to 5 lpm HFNC, O2 sats 92%. Noted that patient and PT accidently pulled out NGT during transfer. Pt now has strong loose cough. Original Note: Pt is post op bowel obstruction. Pt had DSD midline from umbilicus to sternal area. . Upon entering room, staff had Mr Colón on a Nonrebreather mask at 6 lpm; bag was empty. O2 sats low at 86%. Took NRB mask off, trial of standard nasal cannula at 2,3, finally 6 lpm, O2 sats 85%. Replaced standard nasal cannula with high flow humidified nasal cannula, titrated up to 8 lpm for sats of 88%, informed Nurse Rodriguez. Lung sounds distant with musical rhonchi and bibasilar crackles/atelectasis. IS issued, predicted vol is 2300, observed vols of 1200 witnessed. Pt instructed proper splint cough techniques. Requested to the fabulous Nurse Jennifer to try and decrease his ordered 4 mg MSO4 if poss to reduce resp depression and should result in better pulmonary toilet. [ End ]
--- NOTE | 2020-12-23 10:03 | P.PN_ITS ---
Subjective Subjective Date Patient Seen: 12/23/20 Time Patient Seen: 12:16 Interval history: No acute events overnight. The patient had an exploratory laparotomy and lysis of adhesions yesterday in order to resolve his bowel obstruction. He still has NG tube in place, and is not passing any flatus. He says his pain is well controlled, and he generally feels better. Exam Vital Signs (past 8 hours): - 12/23/20 03:43 12/23/20 05:00 12/23/20 05:46 Temperature 98.9 F Pulse Rate 90 85 Respiratory Rate 18 Blood Pressure 171/81 H 155/77 H Pulse Oximetry 93 94 94 12/23/20 06:19 12/23/20 08:00 12/23/20 09:06 Temperature 98.8 F Pulse Rate 79 83 80 Respiratory Rate 19 20 Blood Pressure 148/77 H 163/78 H Pulse Oximetry 91 Oxygen Delivery Method High Flow Nasal Cannula Oxygen Flow Rate 8 Narrative Exam Narrative: GENERAL: Alert, comfortable. Appears older than stated age. Cachectic. Answers questions promptly and appropriately. Vital signs noted. HENT: Normocephalic, atraumatic. Hearing intact. NG tube in place with bilious fluid EYES: Conjunctiva pink, sclera white, no periorbital swelling. CARDIOVASCULAR: Regular rate. No pedal edema. RESPIRATORY: Non-tachypneic, breathing comfortably on 8 L GASTROINTESTINAL: Abdomen soft and non-distended, dressings in place, with some blood staining on the gauze. Appropriate tenderness to palpation for postop day 1 GENITALURINARY: No flank tenderness. Austin in place with clearly straw-colored urine Objective Imaging Chest x-ray: Radiologist's impression: Bilateral infiltrates, possible pneumonia Labs Result Diagrams: 12/23/20 04:40 12/23/20 04:40 Labs: Laboratory Results - last 24 hr 12/23/20 12/23/20 04:40 04:40 WBC 4.0 L D RBC 4.30 L Hgb 13.2 L Hct 39.8 L MCV 92.5 MCH 30.7 MCHC 33.2 RDW 13.7 Plt Count 215 Neut % (Auto) Not Reportable Lymph % (Auto) Not Reportable [place] % (Auto) Not Reportable Eos % (Auto) Not Reportable Baso % (Auto) Not Reportable Lymph # (Auto) Not Reportable [place] # (Auto) Not Reportable Baso # (Auto) Not Reportable Total Counted 100 Seg Neutrophils % 25.0 L D Band Neutrophils % 53.0 H Lymphocytes % (Manual) 17.0 L Monocytes % (Manual) 4.0 Metamyelocytes % 1.0 H Neutrophils # (Manual) 3120 RBC Morphology Normal morphology Sodium 142 Potassium 4.8 Chloride 109 H Carbon Dioxide 28 BUN 28 H Creatinine 1.34 H Estimated GFR 51.7 L BUN/Creatinine Ratio 20.9 Glucose 97 Calcium 8.0 L Phosphorus 4.0 H Magnesium 1.7 PFSH Medical History COPD (chronic obstructive pulmonary disease) Esophageal cancer Hypertension Social History household members: spouse Smoking Status: Current every day smoker alcohol intake: current Assessment & Plan Assessment and plan (1) Small bowel obstruction: Status: Acute (2) Pneumonia: Qualifiers: Pneumonia type: due to unspecified organism Laterality: bilateral Lung location: unspecified part of lung Qualified Code(s): J18.9 - Pneumonia, unspecified organism Status: Acute (3) Status post laparotomy: Status: Acute (4) History of esophageal cancer: Status: Acute (5) COPD (chronic obstructive pulmonary disease): Qualifiers: COPD type: unspecified COPD Qualified Code(s): J44.9 - Chronic obstructive pulmonary disease, unspecified Status: Inactive (6) CKD (chronic kidney disease), stage III: Qualifiers: Chronic kidney disease stage 3 subtype: unspecified whether 3a or 3b Qualified Code(s): N18.30 - Chronic kidney disease, stage 3 unspecified Status: Acute Assessment & Plan narrative: This is a 75-year-old man postop day 1 from exp loratory laparotomy for bowel obstruction. He is on 8 L of oxygen, satting 91%. He looks like he is breathing comfortably, but his chest x-ray is suspicious for pneumonia with patchy bilateral infiltrates. We will put him back on antibiotics empirically. Plan: NG tube to stay in until passing flatus Continue IV fluid Okay to take sips and ice chips Removed Austin Ambulate as tolerated, 20 minutes t.i.d. Patient requested nicotine patch, this was ordered Patient requested his home with zinc supplement medication, and a substitute was ordered COVID-19 COVID-19 status: Negative Result date/Date tested (Pos, Neg/Pending): 12/21/20 Time Spent With Patient Time with patient: 15-24 minutes Quality VTE Deep Vein Thrombosis/Pulmonary Embolism Present on Admission: No
--- NOTE | 2020-12-23 10:03 | DI.RAD.S_ITS ---
PROCEDURE: XR CHEST 1V INDICATIONS: low oxygen saturation TECHNIQUE: One view of the chest was acquired. COMPARISON: [facility], CT, CT ABDOMEN PELVIS W CON, 12/21/2020, 19:36. [facility], CT, CT CHEST ABD PEL W CON, 04/11/2020, 10:57. FINDINGS: Surgical changes and devices: NG tube tip projects to the lower chest. Lungs and pleura: Asymmetric pulmonary infiltrates, left much greater than right. Findings may potentially represent asymmetric pulmonary edema versus bilateral pneumonia. Small right pleural effusion. Mediastinum: Mediastinal contours appear normal. Heart size is normal. Bones and chest wall: No suspicious bony lesions. Overlying soft tissues appear unremarkable. Question abdominal free air. IMPRESSION: 1. Asymmetric pulmonary edema versus bilateral pneumonia. 2. Free intra-abdominal air secondary to recent surgery. 3. NG tube is in the lower chest. However, the patient has had previous esophagectomy and gastric pull-through. Comment: Findings were discussed with Jennifer, the patient's clinical nurse, at the time of study dictation. Dictated by: Clifton Allred M.D. on 12/23/2020 at 10:48 Approved by: Clifton Allred M.D. on 12/23/2020 at 10:59
--- NOTE | 2020-12-23 11:03 | PT.IIE ---
Current Diagnoses Pneumonia, unspecified organism (12/21/20) Chronic obstructive pulmonary disease, unspecified (12/21/20) Intestinal adhesions [bands], unspecified as to partial versus complete obstruction (12/21/20) Unspecified intestinal obstruction, unspecified as to partial versus complete obstruction (12/21/20) Chronic kidney disease, stage 3 unspecified (12/21/20) Personal history of malignant neoplasm of esophagus (12/21/20) Other specified postprocedural states (12/21/20) Surgery Performed Operation Date: 12/22/20 14:30 Actual Procedures p Exploratory Laparotomy and lysis of adhesions - Jimbo Morales MD Medical History (Last Updated 12/23/20 @ 12:19 by Cecelia Mcneill MD) COPD (chronic obstructive pulmonary disease) Esophageal cancer Hypertension Physical Therapy Inpatient Evaluation/Re-Eval M1 PT/OT-IP Prior Functional Status Start: 12/23/20 12:28 Freq: NEEDED Status: Active Protocol: Document 12/23/20 11:03 AB (Rec: 12/23/20 12:38 AB [email or web address]) Medical Review Prior Functional Status Medical History Reviewed Yes Communication able to make needs known; [place] Mobility and Gait per spouse: pt is independent with all mobilities and ambulation without AD Social History Household Members spouse Living Arrangements House Number of Floors (Floors) One Floor Number of Stairs To Enter/Railing? 3 steps with bilateral rails to enter Home Environment Standard Height Toilet,Walk in Shower,Tub/Shower Home Equipment Front Wheel Walker,Straight Cane,Manual Wheelchair Employment Status Retired M2 PT-IP Current Condition Start: 12/23/20 12:28 Freq: NEEDED Status: Active Protocol: Document 12/23/20 11:03 AB (Rec: 12/23/20 12:38 AB [email or web address]) Physical Therapy Current Condition Current Condition Evaluation Date 12/23/20 Treatment Diagnosis SBO s/p ex-lap; difficulty in walking Onset Date 12/21/20 Precautions Abdominal Surgery Precautions Log Roll,Lifting Restrictions, Gait Belt above Incisional Area M3 PT-IP Subjective Start: 12/23/20 12:28 Freq: NEEDED Status: Active Protocol: Document 12/23/20 11:03 AB (Rec: 12/23/20 12:38 AB [email or web address]) Subjective Physical Therapy Visit Type Type Initial Evaluation Visit Start Time 11:03 Visit Stop Time 11:34 Total Visit Minutes 31 Number of EVS MANAGER Visits 0 Physical Therapy Visit Comments Patient Comments pt is agreeable to do PT Therapy Pain Assessment Pain When Pain Assessed At Rest Pain Present Pain Present Pain Reported Location ruq abd Intensity 9 Scale Used Numeric (0 - 10) Pain Management Techniques Distraction,Modification of Treatment,Re-positioning, Timing of Activity with Medications M4 PT-IP Mobility and Gait Start: 12/23/20 12:28 Freq: NEEDED Status: Active Protocol: Document 12/23/20 11:03 AB (Rec: 12/23/20 12:38 AB [email or web address]) PT-Bed Mobility Assessment Rolling Type of Rolling Log Rolling Level of Assist Minimal Assistance,1 Person Assistance PT-Transfer Assessment Sit to and From Stand Sit to and from Stand Minimal Assistance,1 Person Assistance,Use of Upper Extremities Equipment Transfer Assistive Device Gait Belt,Front Wheeled Walker Orthotic/Prosthetic Devices or Brace: No Transfers Transfer Destination Chair Transfer Technique Stand Step Pivot Transfer Ability Level of Assist Minimal Assistance,1 Person Assistance,Use of Upper Extremities Comments Mobility Comments educated pt on abdominal precautions and log roll bed mobility. completed supine to sit min A with HOB elevated. Pt has NG tube, IV tube, O2 tube and aguilar limiting mobility. pt was able to sit on EOB CGA. completed sit to stand min A and cues and was able to complete step transfer to chair min A using FWW. pt ambulated 3 ft forward and backwards using FWW min A. limited due to NG tube attachment. completed marching in place afterwards. agreed to sit up on chair. postiioned on chair. call light and table placed within reach. left pt with spouse in room. O2 sat at start of session: 94%; at end of session: 88-89% Gait Assessment Gait Distance (Feet) 6 Able to Maintain Weight Bearing Status Yes During Gait Assistive Devices Assistive Device Gait Belt,Front Wheeled Walker Orthotic/Prosthetic Devices or Brace: No Gait Deviations General Gait Pattern Decreased Stride Length, Decreased Feet Clearance Factors Limiting Gait Function Factors Limiting Gait Function Decreased Activity Tolerance, Decreased Strength,Pain,Poor Balance,Poor Safety Awareness, Respiratory Distress PT-Balance Assessment Sitting Balance and Reactions Static Sitting Balance Ability Good Dynamic Sitting Balance Ability Fair Standing Balance and Reactions Static Standing Balance Ability Fair Dynamic Standing Balance Ability Fair Device Used FWW M5 PT-IP Objective Assessments Start: 12/23/20 12:28 Freq: NEEDED Status: Active Protocol: Document 12/23/20 11:03 AB (Rec: 12/23/20 12:38 AB [email or web address]) Orientation Orientation/Cognition Level of Alertness Alert Orientation Name Language Function Ability Hard of Hearing Safety Awareness Understands Safety Issues Memory Description Short Term Impaired Gross Range of Motion Lower Extremity ROM Assessment Within Functional Limits Strength Lower Extremity Strength Assessment Within Functional Limits Coordination Assessment Gross Coordination Gross Coordination WNL Muscle Tone Muscle Tone WNL Yes M6 PT-IP Treatment Start: 12/23/20 12:28 Freq: NEEDED Status: Active Protocol: Document 12/23/20 11:03 AB (Rec: 12/23/20 12:38 AB [email or web address]) Physical Therapy Treatment Education Education Provided Precautions,Safety M7 PT-IP Assessment and Plan Start: 12/23/20 12:28 Freq: NEEDED Status: Active Protocol: Document 12/23/20 11:03 AB (Rec: 12/23/20 12:38 AB [email or web address]) PT Summary Assessment and Plan Potential Rehabilitation Potential Good Status of Condition at Evaluation Evolving Summary Impairments Pain,ROM,Strength,Balance, Coordination,Sensation,Tone, Cognition,Bed Mobility, Transfers,Gait,Activity Tolerance Assessment Summary pt requiring min A with mobility and ambulation using FWW. pt will likely progress during hospital stay and plan is for pt to go home with spouse to assist him. will continue to assess progress. Goals Bed Mobility Goal Independent Transfer Goal Independent,Front Wheeled Walker Gait Goal Independent,Front Wheel Walker Gait Distance 200 Other Goals improve ambulation without AD 250 ft SBA up/down 3 steps with B rail SBA Days to Meet Goals 10 Frequency of Treatment Frequency Of Treatment Once a Day Treatment Plan Physical Therapy Treatment Plan Bed Mobility Training,Transfer Training,Gait Training, Therapeutic Exercise,Balance Retraining,Post Op Education, Discharge Planning,Hot or Cold Pack,Neuromuscular Re-ed, Coordination Retraining Recommendations To Nursing Amount of Assist Needed 1 Person Assist Discharge Recommendations PT Discharge Recommendations Home with Assistance,Home Health Transportation Needs at Discharge Private Vehicle
[2020-12-23] MEDS: NICOTINE 14 PATCH 14 MG TOP (11:43)
[2020-12-23] MEDS: ZINC SULFATE 220 MG CAPSULE PO (11:44)
[2020-12-23] MEDS: PIPERACILLIN-TAZO 2.25 GM/50 ML FROZ.PIGGY IV ×2 (12:34→18:23)
[2020-12-23] MEDS: MAGNESIUM SULFATE 2 GM/50 ML PIGGYBACK IV (13:33)
--- NOTE | 2020-12-23 16:48 | DIET.PN ---
Dietary Progress Note Assessment: 75y M c hx of esophageal cancer, CKD 3, and COPD admitted for SBO and d1 s/p exploratory laparotomy and lysis of adhesions referred to nutrition for low BMI. Pt found to have small bowel adhesions at site of previous j-tube. Pt fed via j-tube after partial removal of esophagus and gastric pull up (into chest) for esophageal cancer in 2017. Prior to cancer dx pt was 200#. For the past 3y pt has maintained weight of 135# but has dropped to 122# secondary to poor oral intake related to SBO. Pt reports persistent nausea and vomiting prior to hospitalization with no PO x5d, i would drink a can of 7up, throw that up along with a gallon more liquid. Pt can only tolerate small amounts of food at one time. Pt would like to replete weight to 155# but has yet to be successful, pt dislikes most ONS protein drinks. Usual Day: B: toast c chino butter L: taco salad D: hamburger yamileth c onions and sour cream has bowl vanilla ice cream every other night Pt is current cigarette smoker (5/d) and etoh (0-2/d) HT: 175.2cm WT: 55.7kg UBW: since 2018: 62kg (-9.2% unintentional in <1mo, severe); prior to 2018: 91kg (-38.2% unintentional in 3y, severe) BMI: 18.1 (severe for age) Labs: Cr 1.34 H, eGFR 51.7 L, phos 4.0 H MNA: 11 @ risk Percy: 20 Nutrition Diagnosis: Severe Acute on Chronic PCM r/t altered GI function aeb 9.2% unintentional weight loss in 1mo (severe), BMI 18.1 (severe for age), pt is 40% less weight than prior to esophageal cancer dx, pt had portion of esophagus removed c stomach pull up leading to early satiety, pt experiencing N/V x2w c little to no PO intake x5d, pt currently NPO after SBO and lysis of adhesions. Interventions: 1. Recc ONS soymilk and fruit smoothie bid in addition to meal trays to support protein and kcal needs once safe to do so. 2. Provided pt and spouse handouts and education on high kcal/higher pro (renal in mind) meal and snack ideas to support lean body mass and nutrition repletion. Diet Order: NPO EER: 65g Pro (1.2g/kg), 1900kcal (35kcal/kg per PCM) Monitoring/Evaluations: Diet advancement, labs, POs
[2020-12-23] MEDS: ALBUTEROL/IPRATROPIUM 3 ML AMPUL INH (20:17)
[2020-12-23] MEDS: SODIUM CHLORIDE 0.9% FLUSH 10 ML IV (20:19)
[2020-12-23] MEDS: HEPARIN 5,000 UNIT/ML VIAL 5000 UNIT SUBCUT (20:19)
[2020-12-24] VITALS (18 sets, daily range): BP systolic 156–175; BP diastolic 74–91; PULSE 87–102; RESP 14–21; TEMP 36.4–37.4; O2SAT 85–94
[2020-12-24] MEDS: METOCLOPRAMIDE 10 MG/2 ML INJ IV (01:31)
[2020-12-24] MEDS: METOPROLOL TARTRATE 5 MG/5 ML INJ IV ×4 (01:39→17:17)
[2020-12-24] MEDS: SODIUM CHLORIDE 0.9% 1,000 ML 100 ML IV ×2 (03:48→13:40)
[2020-12-24] MEDS: MORPHINE 4 MG/ML INJ IV ×2 (04:24→13:35)
[2020-12-24] MEDS: PIPERACILLIN-TAZO 2.25 GM/50 ML FROZ.PIGGY IV ×4 (05:42→17:17)
[2020-12-24 05:43] LABS: Hematocrit 38.5 % (41-53); Hemoglobin 12.6 g/dL (13.5-17.5); Mean Corpuscular HGB Conc 32.9 % (30-36); Mean Corpuscular Hemoglobin 30.5 PG (26-34); Mean Corpuscular Volume 92.9 fL (80-100); Platelet Count 223 X10^3/uL (150-400); Red Blood Cell Count 4.14 X10^6/uL (4.5-5.9); Red Cell Distribution Width 13.9 % (11.6-14.8); White Blood Cell Count 13.5 X10^3/uL (4.5-11.0)
[2020-12-24 05:46] LABS: Add Manual Diff / Slide Review YES
[2020-12-24 05:51] LABS: HEMOLYSIS < 15 (0-50); Potassium 3.3 mmol/L (3.4-5.1)
[2020-12-24 05:53] LABS: BUN Creatinine Ratio 22.9 (6-22); Blood Urea Nitrogen 33 mg/dL (9-20); Carbon Dioxide 24 mmol/L (22-32); Chloride 111 mmol/L (98-107); Estimated Glomerular Filt Rate 47.6 mL/min (>60); Glucose 104 mg/dL (80-110); Magnesium 2.4 mg/dL (1.6-2.3); Phosphorous 3.7 mg/dL (2.3-3.7); Sodium 142 mmol/L (137-145)
[2020-12-24 06:16] LABS: Neutrophils Absolute Manual 12150 /uL (3000-5900); Total Cells Counted 100
[2020-12-24 06:17] LABS: Dohle Bodies 1+; RBC Morphology Normal Morphology
[2020-12-24 07:29] LABS: Hematocrit 38.8 % (41-53); Hemoglobin 12.8 g/dL (13.5-17.5); Mean Corpuscular HGB Conc 33.1 % (30-36); Mean Corpuscular Hemoglobin 30.7 PG (26-34); Mean Corpuscular Volume 92.6 fL (80-100); Platelet Count 244 X10^3/uL (150-400); Red Blood Cell Count 4.19 X10^6/uL (4.5-5.9); Red Cell Distribution Width 13.9 % (11.6-14.8); White Blood Cell Count 13.6 X10^3/uL (4.5-11.0)
[2020-12-24 07:33] LABS: Add Manual Diff / Slide Review YES; BUN Creatinine Ratio 23.3 (6-22); Blood Urea Nitrogen 34 mg/dL (9-20); Carbon Dioxide 26 mmol/L (22-32); Chloride 111 mmol/L (98-107); Estimated Glomerular Filt Rate 46.8 mL/min (>60); Glucose 107 mg/dL (80-110); HEMOLYSIS < 15 (0-50); Magnesium 2.4 mg/dL (1.6-2.3); Phosphorous 3.7 mg/dL (2.3-3.7); Sodium 143 mmol/L (137-145)
--- NOTE | 2020-12-24 07:55 | PC.NURSE ---
Day shift: Pt states this AM I sure wish they would take my Austin out. He is calm and cooperative w/ care. denies any chest pain or pain at ABD. Dressing has shadow drainage (approx 1/2 dollar size coin). Makes needds known proper. Agrees to not get OOB w/o help from staff. Denies passing any flatus. BT's.
[2020-12-24 07:59] LABS: Neutrophils Absolute Manual 11016 /uL (3000-5900); Total Cells Counted 100
[2020-12-24 08:00] LABS: Anisocytosis 1+
--- NOTE | 2020-12-24 08:50 | PM.PN.1 ---
Subjective Subjective Date Patient Seen: 12/24/20 Time Patient Seen: 10:30 Interval history: NGT was accidentally pulled out yesterday. Pt has tolerated it being out without nausea/vomiting. Denies passing any gas/stool. Denies significant pain except when he coughs. Exam Vital Signs (past 8 hours): - 12/24/20 02:07 12/24/20 02:37 12/24/20 04:00 Temperature 97.5 F L Pulse Rate 93 H Respiratory Rate 18 Blood Pressure 162/84 H Pulse Oximetry 88 L 94 93 12/24/20 06:00 Temperature Pulse Rate Respiratory Rate Blood Pressure Pulse Oximetry 94 Oxygen Delivery Method High Flow Nasal Cannula Oxygen Flow Rate 6 Narrative Exam Narrative: GENERAL: Alert, comfortable. Appears older than stated age. Cachectic. Answers questions promptly and appropriately. Vital signs noted. HENT: Normocephalic, atraumatic. Hearing intact. EYES: Conjunctiva pink, sclera white, no periorbital swelling. CARDIOVASCULAR: Regular rate. No pedal edema. RESPIRATORY: Non-tachypneic, breathing comfortably on 6 L GASTROINTESTINAL: Abdomen soft and non-distended, dressings in place, with some blood staining on the gauze. Appropriate tenderness to palpation for postop day 2 GENITALURINARY: No flank tenderness. Austin in place with clearly straw-colored urine Objective Labs Result Diagrams: 12/24/20 07:12 12/24/20 07:12 Labs: Laboratory Results - last 24 hr 12/24/20 12/24/20 12/24/20 05:11 05:11 07:12 WBC 13.5 H D 13.6 H RBC 4.14 L 4.19 L Hgb 12.6 L 12.8 L Hct 38.5 L 38.8 L MCV 92.9 92.6 MCH 30.5 30.7 MCHC 32.9 33.1 RDW 13.9 13.9 Plt Count 223 244 Neut % (Auto) Not Reportable Not Reportable Lymph % (Auto) Not Reportable Not Reportable [place] % (Auto) Not Reportable Not Reportable Eos % (Auto) Not Reportable Not Reportable Baso % (Auto) Not Reportable Not Reportable Lymph # (Auto) Not Reportable Not Reportable [place] # (Auto) Not Reportable Not Reportable Baso # (Auto) Not Reportable Not Reportable Total Counted 100 100 Seg Neutrophils % 40.0 D 12.0 L D Band Neutrophils % 50.0 H 69.0 H Lymphocytes % (Manual) 4.0 L 7.0 L Atypical Lymphs % 1.0 H Monocytes % (Manual) 6.0 3.0 Metamyelocytes % 7.0 H Myelocytes % 1.0 H Neutrophils # (Manual) 68838 H 41307 H Dohle Bodies 1+ H RBC Morphology Normal morphology See below Anisocytosis 1+ H Sodium 142 Potassium 3.3 L D Chloride 111 H Carbon Dioxide 24 BUN 33 H Creatinine 1.44 H Estimated GFR 47.6 L BUN/Creatinine Ratio 22.9 H Glucose 104 Calcium 8.0 L Phosphorus 3.7 Magnesium 2.4 H 12/24/20 12/24/20 07:12 07:12 WBC RBC Hgb Hct MCV MCH MCHC RDW Plt Count Neut % (Auto) Lymph % (Auto) [place] % (Auto) Eos % (Auto) Baso % (Auto) Lymph # (Auto) [place] # (Auto) Baso # (Auto) Total Counted Seg Neutrophils % Band Neutrophils % Lymphocytes % (Manual) Atypical Lymphs % Monocytes % (Manual) Metamyelocytes % Myelocytes % Neutrophils # (Manual) Dohle Bodies RBC Morphology Anisocytosis Sodium 143 Potassium 4.0 Chloride 111 H Carbon Dioxide 26 BUN 34 H Creatinine 1.46 H Estimated GFR 46.8 L BUN/Creatinine Ratio 23.3 H Glucose 107 Calcium 8.0 L Phosphorus 3.7 Cancelled Magnesium 2.4 H PFSH Medical History (Updated 12/24/20 @ 10:33 by Cecelia Mcneill MD) COPD (chronic obstructive pulmonary disease) Esophageal cancer Hypertension Social History household members: spouse Smoking Status: Current every day smoker alcohol intake: current Assessment & Plan Assessment and plan (1) Small bowel obstruction: Status: Acute (2) Pneumonia: Qualifiers: Pneumonia type: due to unspecified organism Laterality: bilateral Lung location: unspecified part of lung Qualified Code(s): J18.9 - Pneumonia, unspecified organism Status: Acute (3) Status post laparotomy: Status: Acute (4) History of esophageal cancer: Status: Acute (5) COPD (chronic obstructive pulmonary disease): Qualifiers: COPD type: unspecified COPD Qualified Code(s): J44.9 - Chronic obstructive pulmonary disease, unspecified Status: Inactive (6) CKD (chronic kidney disease), stage III: Qualifiers: Chronic kidney disease stage 3 subtype: unspecified whether 3a or 3b Qualified Code(s): N18.30 - Chronic kidney disease, stage 3 unspecified Status: Acute (7) Leukocytosis: Status: Acute Assessment & Plan narrative: This is a 75-year-old man postop day 2 from exploratory laparotomy for bowel obstruction. He is on 6 L of oxygen, satting 92%. He says he is breathing comfortably, but occasionally coughs which causes pain in the abdominal incision. He had a chest xray yesterday that is suspicious for pneumonia with patchy bilateral infiltrates. He is back on Zosyn. WBC is up today. Could be from pulmonary or urinary source. Austin to be removed today. Plan: DVT ppx heparin Continue IV fluid for now Start clears as tolerated Remove Austin Ambulate as tolerated, 20 minutes t.i.d. advance to full liquids once passing gas/stool COVID-19 COVID-19 status: Negative Result date/Date tested (Pos, Neg/Pending): 12/21/20 Time Spent With Patient Time with patient: 15-24 minutes Quality VTE Deep Vein Thrombosis/Pulmonary Embolism Present on Admission: No
[2020-12-24] MEDS: HEPARIN 5,000 UNIT/ML VIAL 5000 UNIT SUBCUT ×2 (09:45→20:38)
[2020-12-24] MEDS: NICOTINE 14 PATCH 14 MG TOP (09:45)
[2020-12-24] MEDS: ZINC SULFATE 220 MG CAPSULE PO (09:45)
[2020-12-24] MEDS: SODIUM CHLORIDE 0.9% FLUSH 10 ML IV (09:46)
--- NOTE | 2020-12-24 10:47 | CM.DPNOTE ---
DCP Cont Reviewed chart and spoke w/ Dr Mcneill this morning, she anticipates patient will have no DCP needs. Patient is postop day 2 from exploratory laparotomy for bowel obstruction. Patient will begin clears today. Patient is indp at baseline and is eager to return home w/spouse when medically cleared to do so. DCP team will follow closely in case any DC needs or concerns arise. MARÍA
[2020-12-24] MEDS: ALBUTEROL/IPRATROPIUM 3 ML AMPUL INH ×2 (14:04→19:14)
[2020-12-24] MEDS: ACETAMINOPHEN 650 MG SUPP PR (20:38)
[2020-12-25] VITALS (15 sets, daily range): BP systolic 161–186; BP diastolic 82–97; PULSE 84–101; RESP 12–20; TEMP 36.8–37.1; O2SAT 89–94
[2020-12-25] MEDS: SODIUM CHLORIDE 0.9% 1,000 ML 100 ML IV ×2 (00:02→14:12)
[2020-12-25] MEDS: METOPROLOL TARTRATE 5 MG/5 ML INJ IV ×4 (00:03→17:37)
[2020-12-25] MEDS: PIPERACILLIN-TAZO 2.25 GM/50 ML FROZ.PIGGY IV ×2 (00:04→05:40)
[2020-12-25 05:59] LABS: Hematocrit 36.3 % (41-53); Hemoglobin 12.1 g/dL (13.5-17.5); Mean Corpuscular HGB Conc 33.3 % (30-36); Mean Corpuscular Hemoglobin 30.3 PG (26-34); Mean Corpuscular Volume 90.9 fL (80-100); Platelet Count 228 X10^3/uL (150-400); Red Blood Cell Count 3.99 X10^6/uL (4.5-5.9); White Blood Cell Count 12.2 X10^3/uL (4.5-11.0)
[2020-12-25 06:08] LABS: Add Manual Diff / Slide Review YES; BUN Creatinine Ratio 20.2 (6-22); Blood Urea Nitrogen 26 mg/dL (9-20); Calcium 7.8 mg/dL (8.4-10.2); Carbon Dioxide 27 mmol/L (22-32); Chloride 109 mmol/L (98-107); Glucose 109 mg/dL (80-110); HEMOLYSIS < 15 (0-50); Magnesium 2.1 mg/dL (1.6-2.3); Phosphorous 2.3 mg/dL (2.3-3.7); Potassium 2.9 mmol/L (3.4-5.1); Sodium 139 mmol/L (137-145)
[2020-12-25 06:23] LABS: Total Cells Counted 100
[2020-12-25 06:24] LABS: Neutrophils Absolute Manual 11102 /uL (3000-5900); RBC Morphology Normal Morphology
[2020-12-25 06:27] LABS: Dohle Bodies 2+
[2020-12-25] MEDS: ZINC SULFATE 220 MG CAPSULE PO (08:13)
[2020-12-25 08:15] LABS: BUN Creatinine Ratio 22.4 (6-22); Blood Urea Nitrogen 26 mg/dL (9-20); Calcium 8.2 mg/dL (8.4-10.2); Carbon Dioxide 27 mmol/L (22-32); Chloride 108 mmol/L (98-107); Estimated Glomerular Filt Rate > 60.0 mL/min (>60); Glucose 103 mg/dL (80-110); HEMOLYSIS < 15 (0-50); Potassium 3.3 mmol/L (3.4-5.1); Sodium 140 mmol/L (137-145)
[2020-12-25] MEDS: METOCLOPRAMIDE 10 MG/2 ML INJ IV (08:18)
[2020-12-25] MEDS: HEPARIN 5,000 UNIT/ML VIAL 5000 UNIT SUBCUT ×2 (08:18→21:30)
[2020-12-25] MEDS: SODIUM CHLORIDE 0.9% FLUSH 10 ML IV (08:18)
[2020-12-25] MEDS: NICOTINE 14 PATCH 14 MG TOP (08:18)
--- NOTE | 2020-12-25 09:01 | PT.IPTN ---
Current Diagnoses Elevated white blood cell count, unspecified (12/21/20) Pneumonia, unspecified organism (12/21/20) Chronic obstructive pulmonary disease, unspecified (12/21/20) Intestinal adhesions [bands], unspecified as to partial versus complete obstruction (12/21/20) Unspecified intestinal obstruction, unspecified as to partial versus complete obstruction (12/21/20) Chronic kidney disease, stage 3 unspecified (12/21/20) Personal history of malignant neoplasm of esophagus (12/21/20) Other specified postprocedural states (12/21/20) Surgery Performed Operation Date: 12/22/20 14:30 Actual Procedures p Exploratory Laparotomy and lysis of adhesions - Jimbo Morales MD Physical Therapy Treatment Note M2 PT-IP Current Condition Start: 12/23/20 12:28 Freq: NEEDED Status: Active Protocol: Document 12/23/20 11:03 AB (Rec: 12/23/20 12:38 AB [id number]) Physical Therapy Current Condition Current Condition Evaluation Date 12/23/20 Treatment Diagnosis SBO s/p ex-lap; difficulty in walking Onset Date 12/21/20 Precautions Abdominal Surgery Precautions Log Roll,Lifting Restrictions, Gait Belt above Incisional Area M3 PT-IP Subjective Start: 12/23/20 12:28 Freq: NEEDED Status: Active Protocol: Document 12/24/20 10:06 PAWEL (Rec: 12/25/20 09:01 LJ [id number]) Subjective Physical Therapy Visit Type Type Treatment Note Visit Start Time 10:06 Visit Stop Time 10:28 Total Visit Minutes 22 Number of PROFESSOR SCULPTURE Visits 1 Physical Therapy Visit Comments Patient Comments pt is agreeable to do PT Therapy Pain Assessment Pain When Pain Assessed At Rest Pain Present Pain Present Pain Reported M4 PT-IP Mobility and Gait Start: 12/23/20 12:28 Freq: NEEDED Status: Active Protocol: Document 12/24/20 10:06 PAWEL (Rec: 12/25/20 09:01 LJ [id number]) PT-Bed Mobility Assessment Rolling Type of Rolling Log Rolling Level of Assist Contact Guard Assistance,1 Person Assistance PT-Transfer Assessment Sit to and From Stand Sit to and from Stand Contact Guard Assistance, Minimal Assistance,1 Person Assistance,Use of Upper Extremities Equipment Transfer Assistive Device Gait Belt,Front Wheeled Walker Orthotic/Prosthetic Devices or Brace: No Transfers Transfer Destination Chair Transfer Technique Stand Step Pivot Transfer Ability Level of Assist Contact Guard Assistance, Minimal Assistance,1 Person Assistance,Use of Upper Extremities Comments Mobility Comments Pt in bed upon arrival. present. Pt able to perform bed mobility CGA with [place] for lines. Pt stood CGA and ambulate to sink where he stood without support to wash hands. assisting with IV pole. Pt then did a [place] around room CG and assist with lines ~30' then sat in chair with controlled descent using UEs and CGA. Pts O2 dropped to 84% during ambulation and returned to 89% after 2 minutes of rest and PLB. Pt was left in room with and all needs within reach. Gait Assessment Gait Gait Assistance Required: Contact Guard Assist,Minimum Assistance,2 Person Assist Distance (Feet) 30 Able to Maintain Weight Bearing Status Yes During Gait Assistive Devices Assistive Device Gait Belt,Front Wheeled Walker Orthotic/Prosthetic Devices or Brace: No Gait Deviations General Gait Pattern Decreased Stride Length, Decreased Feet Clearance Factors Limiting Gait Function Factors Limiting Gait Function Decreased Activity Tolerance, Decreased Strength,Pain,Poor Balance,Poor Safety Awareness, Respiratory Distress Comments Gait Comments see mobility section. 2 person assist for lines only. Pt able to ambulate with FWW CGA. M5 PT-IP Objective Assessments Start: 12/23/20 12:28 Freq: NEEDED Status: Active Protocol: Document 12/23/20 11:03 AB (Rec: 12/23/20 12:38 AB [id number]) Orientation Orientation/Cognition Level of Alertness Alert Orientation Name Language Function Ability Hard of Hearing Safety Awareness Understands Safety Issues Memory Description Short Term Impaired Gross Range of Motion Lower Extremity ROM Assessment Within Functional Limits Strength Lower Extremity Strength Assessment Within Functional Limits Coordination Assessment Gross Coordination Gross Coordination WNL Muscle Tone Muscle Tone WNL Yes M6 PT-IP Treatment Start: 12/23/20 12:28 Freq: NEEDED Status: Active Protocol: Document 12/24/20 10:06 PAWEL (Rec: 12/25/20 09:01 PAWEL [id number]) Physical Therapy Treatment Education Education Provided Precautions,Safety M7 PT-IP Assessment and Plan Start: 12/23/20 12:28 Freq: NEEDED Status: Active Protocol: Document 12/24/20 10:06 PAWEL (Rec: 12/25/20 09:01 LJ [id number]) PT Summary Assessment and Plan Potential Rehabilitation Potential Good Status of Condition at Evaluation Evolving Summary Impairments Pain,ROM,Strength,Balance, Coordination,Sensation,Tone, Cognition,Bed Mobility, Transfers,Gait,Activity Tolerance Assessment Summary Pt requiring CGA with mobility and assist with lines. Gait remaiins slow with low foot clearance and shortened strides. Limited by respiratory distress and weakness. Progressing from previous treatment Goals Bed Mobility Goal Independent Transfer Goal Independent,Front Wheeled Walker Gait Goal Independent,Front Wheel Walker Gait Distance 200 Other Goals improve ambulation without AD 250 ft SBA up/down 3 steps with B rail SBA Days to Meet Goals 10 Frequency of Treatment Frequency Of Treatment Once a Day Treatment Plan Physical Therapy Treatment Plan Bed Mobility Training,Transfer Training,Gait Training, Therapeutic Exercise,Balance Retraining,Post Op Education, Discharge Planning,Hot or Cold Pack,Neuromuscular Re-ed, Coordination Retraining Recommendations To Nursing Amount of Assist Needed 1 Person Assist Discharge Recommendations PT Discharge Recommendations Home with Assistance,Home Health Transportation Needs at Discharge Private Vehicle
--- NOTE | 2020-12-25 09:09 | P.PN_ITS ---
Subjective Subjective Date Patient Seen: 12/25/20 Time Patient Seen: 09:28 Interval history: No acute events overnight. The patient is having some nausea. He had some pain in the abdomen when coughing. Has not passed any flatus or stool. Has walked around a little bit but not significantly. Exam Vital Signs (past 8 hours): - 12/25/20 02:11 12/25/20 02:12 12/25/20 05:05 Temperature 98.4 F Pulse Rate 88 Respiratory Rate 18 Blood Pressure 176/82 H 178/91 H Pulse Oximetry 93 93 12/25/20 06:00 12/25/20 08:00 12/25/20 08:08 Temperature 98.4 F Pulse Rate 86 Respiratory Rate 12 Blood Pressure 186/93 H Pulse Oximetry 92 90 L 92 Oxygen Delivery Method High Flow Nasal Cannula Oxygen Flow Rate 6 Narrative Exam Narrative: GENERAL: Alert, comfortable. Appears older than stated age. Cachectic. Answers questions promptly and appropriately. Vital signs noted. HENT: Normocephalic, atraumatic. Hearing intact. EYES: Conjunctiva pink, sclera white, no periorbital swelling. CARDIOVASCULAR: Regular rate. No pedal edema. RESPIRATORY: Non-tachypneic, breathing comfortably on 6 L GASTROINTESTINAL: Abdomen soft and non-distended, incision is clean dry and intact. Dressing replaced during exam. Appropriate tenderness to palpation for postop day 3 GENITALURINARY: No flank tenderness. Objective Labs Result Diagrams: 12/25/20 05:38 12/25/20 07:58 Labs: Laboratory Results - last 24 hr 12/25/20 12/25/20 12/25/20 05:38 05:38 07:58 WBC 12.2 H RBC 3.99 L Hgb 12.1 L Hct 36.3 L MCV 90.9 MCH 30.3 MCHC 33.3 RDW 14.0 Plt Count 228 Neut % (Auto) Not Reportable Lymph % (Auto) Not Reportable [place] % (Auto) Not Reportable Eos % (Auto) Not Reportable Baso % (Auto) Not Reportable Lymph # (Auto) Not Reportable [place] # (Auto) Not Reportable Baso # (Auto) Not Reportable Total Counted 100 Seg Neutrophils % 76.0 H D Band Neutrophils % 15.0 H Lymphocytes % (Manual) 5.0 L Monocytes % (Manual) 4.0 Neutrophils # (Manual) 71456 H Dohle Bodies 2+ H RBC Morphology Normal morphology Sodium 139 140 Potassium 2.9 L 3.3 L Chloride 109 H 108 H Carbon Dioxide 27 27 BUN 26 H 26 H Creatinine 1.29 H 1.16 Estimated GFR 54.0 L > 60.0 BUN/Creatinine Ratio 20.2 22.4 H Glucose 109 103 Calcium 7.8 L 8.2 L Phosphorus 2.3 D Magnesium 2.1 PFSH Medical History COPD (chronic obstructive pulmonary disease) Esophageal cancer Hypertension Social History household members: spouse Smoking Status: Current every day smoker alcohol intake: current Assessment & Plan Assessment and plan (1) Pneumonia: Problem details: The etiology of his pneumonia is not clear, but he does have a baseline COPD and emphysema and may have come in with some superimposed community-acquired pneum onia. There was no witnessed aspiration event that has happened during the hospital stay. The most likely thing is that he came in with something that was exacerbated by being on the ventilator during surgery and being sedentary in the bed allowing for atelectasis to contribute to the process. Overall he seems to be improving, as he has gradually come down on the oxygen from 9 L to 6 L. He will remain on Zosyn until his white count normalizes. We will repeat a chest x-ray tomorrow, or consider chest CT if white blood cell count increases again, and to determine whether not he needs to go home on oxygen or antibiotics. Qualifiers: Pneumonia type: due to unspecified organism Laterality: bilateral Lung location: unspecified part of lung Qualified Code(s): J18.9 - Pneumonia, unspecified organism Status: Acute (2) CKD (chronic kidney disease), stage III: Qualifiers: Chronic kidney disease stage 3 subtype: unspecified whether 3a or 3b Qualified Code(s): N18.30 - Chronic kidney disease, stage 3 unspecified Status: Acute (3) History of esophageal cancer: Status: Acute (4) Status post laparotomy: Status: Acute (5) Small bowel obstruction: Status: Acute (6) COPD (chronic obstructive pulmonary disease): Qualifiers: COPD type: unspecified COPD Qualified Code(s): J44.9 - Chronic obs tructive pulmonary disease, unspecified Status: Inactive (7) Leukocytosis: Qualifiers: Leukocytosis type: unspecified Qualified Code(s): D72.829 - Elevated white blood cell count, unspecified Status: Acute Assessment & Plan narrative: This is a 75-year-old man postop day 3 from exploratory laparotomy for bowel obstruction. He is still on 6 L of oxygen, satting 92%. He says he is breathing comfortably, but occasionally coughs which causes pain in the abdominal incision. He says he does not use oxygen at home, but I question whether not his saturations are normally this low at home and are just going on detected. He had a chest xray yesterday that is suspicious for pneumonia with patchy bilateral infiltrates. He was put back on Zosyn at renal dosing due to the suspicious chest x-ray, and today we will increase the dose as his creatinine has normalized. His white blood cell count is down to 12. We will continue clear liquids until he is passing some gas or stool. We will replete his potassium and recheck it later today. Plan: DVT ppx heparin Continue IV fluid for now Clear liquids as tolerated Ambulate as tolerated, 20 minutes t.i.d. advance to full liquids once passing gas/stool COVID-19 COVID-19 status: Negative Result date/Date tested (Pos, Neg/Pending): 12/21/20 Time Spent With Patient Time with patient: 15-24 minutes Quality VTE Deep Vein Thrombosis/Pulmonary Embolism Present on Admission: No
[2020-12-25] MEDS: POTASSIUM CHLORIDE 40 MEQ in SODIUM CHLORIDE 0.9% 500 ML 130 ML IV ×2 (09:28→22:31)
--- NOTE | 2020-12-25 10:17 | PT-IP ANOTE ---
Pt refused working with PT due to feeling too weak and short of breath. This was conveyed to his nurse.
[2020-12-25] MEDS: PIPERACILLIN-TAZO 3.375 GM/50 ML FROZ.PIGGY IV ×2 (11:00→17:37)
[2020-12-25] MEDS: MORPHINE 4 MG/ML INJ IV (14:05)
[2020-12-25 15:07] LABS: BUN Creatinine Ratio 20.7 (6-22); Blood Urea Nitrogen 24 mg/dL (9-20); Carbon Dioxide 26 mmol/L (22-32); Chloride 110 mmol/L (98-107); Estimated Glomerular Filt Rate > 60.0 mL/min (>60); Glucose 99 mg/dL (80-110); HEMOLYSIS < 15 (0-50); Magnesium 2.1 mg/dL (1.6-2.3); Potassium 3.3 mmol/L (3.4-5.1); Sodium 140 mmol/L (137-145)
--- NOTE | 2020-12-25 15:54 | PT.IPTN ---
Current Diagnoses Elevated white blood cell count, unspecified (12/21/20) Pneumonia, unspecified organism (12/21/20) Chronic obstructive pulmonary disease, unspecified (12/21/20) Intestinal adhesions [bands], unspecified as to partial versus complete obstruction (12/21/20) Unspecified intestinal obstruction, unspecified as to partial versus complete obstruction (12/21/20) Chronic kidney disease, stage 3 unspecified (12/21/20) Personal history of malignant neoplasm of esophagus (12/21/20) Other specified postprocedural states (12/21/20) Surgery Performed Operation Date: 12/22/20 14:30 Actual Procedures p Exploratory Laparotomy and lysis of adhesions - Jimbo Morales MD Physical Therapy Treatment Note M2 PT-IP Current Condition Start: 12/23/20 12:28 Freq: NEEDED Status: Active Protocol: Document 12/23/20 11:03 AB (Rec: 12/23/20 12:38 AB [id number]) Physical Therapy Current Condition Current Condition Evaluation Date 12/23/20 Treatment Diagnosis SBO s/p ex-lap; difficulty in walking Onset Date 12/21/20 Precautions Abdominal Surgery Precautions Log Roll,Lifting Restrictions, Gait Belt above Incisional Area M3 PT-IP Subjective Start: 12/23/20 12:28 Freq: NEEDED Status: Active Protocol: Document 12/25/20 15:39 AW (Rec: 12/25/20 15:54 AW [id number]) Subjective Physical Therapy Visit Type Type Treatment Note Visit Start Time 15:23 Visit Stop Time 15:39 Total Visit Minutes 16 Notes Pt's was present and providing encouragement throughout treatment session Number of JAVA SOFTWARE ENGINEER Visits 0 Physical Therapy Visit Comments Patient Comments pt is agreeable to do PT Therapy Pain Assessment Pain When Pain Assessed At Rest Pain Present Pain Present Denied Pain M4 PT-IP Mobility and Gait Start: 12/23/20 12:28 Freq: NEEDED Status: Active Protocol: Document 12/25/20 15:39 AW (Rec: 12/25/20 15:54 AW [id number]) PT-Bed Mobility Assessment Rolling Type of Rolling Log Rolling Level of Assist Contact Guard Assistance,1 Person Assistance PT-Transfer Assessment Sit to and From Stand Sit to and from Stand Contact Guard Assistance,1 Person Assistance,Use of Upper Extremities Equipment Transfer Assistive Device Gait Belt,Front Wheeled Walker Orthotic/Prosthetic Devices or Brace: No Transfers Transfer Destination Bed Transfer Technique Stand Step Pivot Transfer Ability Level of Assist Contact Guard Assistance,1 Person Assistance,Use of Upper Extremities Comments Mobility Comments Pt was reclined in bed upon arrival. SpO2 was 94% on 7L/ min O2. Educated pt again on log roll for bed mobility before he rolled to his right side and transitioned SL to sit CGA. Lines today included NC for O2 and IV line. Pt stood from the bed in lowest position CGA and used the FWW to ambulate a total of 50 feet around the room without rest break. Pt requested return to bed and completed reverse log roll CGA. SpO2 was 84% after activity and 89% after one minute of PLB. Pt was left with call light and all needs in reach. Gait Assessment Gait Gait Assistance Required: Contact Guard Assist,1 Person Assist Distance (Feet) 50 Able to Maintain Weight Bearing Status Yes During Gait Assistive Devices Assistive Device Gait Belt,Front Wheeled Walker Orthotic/Prosthetic Devices or Brace: No Gait Deviations General Gait Pattern Decreased Stride Length, Decreased Feet Clearance Factors Limiting Gait Function Factors Limiting Gait Function Decreased Activity Tolerance, Decreased Strength,Pain,Poor Balance,Poor Safety Awareness, Respiratory Distress Comments Gait Comments See mobility comments for details. PT-Balance Assessment Sitting Balance and Reactions Static Sitting Balance Ability Good Dynamic Sitting Balance Ability Fair Standing Balance and Reactions Static Standing Balance Ability Fair Dynamic Standing Balance Ability Fair Device Used FWW M5 PT-IP Objective Assessments Start: 12/23/20 12:28 Freq: NEEDED Status: Active Protocol: Document 12/23/20 11:03 AB (Rec: 12/23/20 12:38 AB [id number]) Orientation Orientation/Cognition Level of Alertness Alert Orientation Name Language Function Ability Hard of Hearing Safety Awareness Understands Safety Issues Memory Description Short Term Impaired Gross Range of Motion Lower Extremity ROM Assessment Within Functional Limits Strength Lower Extremity Strength Assessment Within Functional Limits Coordination Assessment Gross Coordination Gross Coordination WNL Muscle Tone Muscle Tone WNL Yes M6 PT-IP Treatment Start: 12/23/20 12:28 Freq: NEEDED Status: Active Protocol: Document 12/25/20 15:39 AW (Rec: 12/25/20 15:54 AW [id number]) Physical Therapy Treatment Education Education Provided Precautions,Safety Other Treatments Other Treatment Performed standing hip extension/pelvic tilt and scapular retraction for low-grade stretch across abdomen and postural awareness . M7 PT-IP Assessment and Plan Start: 12/23/20 12:28 Freq: NEEDED Status: Active Protocol: Document 12/25/20 15:39 AW (Rec: 12/25/20 15:54 AW [id number]) PT Summary Assessment and Plan Summary Impairments Pain,ROM,Strength,Balance, Coordination,Sensation,Tone, Cognition,Bed Mobility, Transfers,Gait,Activity Tolerance Progress Towards Goals Slow Progress due to Pain,Slow Progress due to Activity Tolerance Assessment Summary Pt continues to require CGA for mobility but shows improvement in activity tolerance. Pt has FWW at home and his is able to provide appropriate level of assist as needed. Anticipate pt will discharge home with assist and HH once medically cleared. Goals Bed Mobility Goal Independent Transfer Goal Independent,Front Wheeled Walker Gait Goal Independent,Front Wheel Walker Gait Distance 200 Other Goals improve ambulation without AD 250 ft SBA up/down 3 steps with B rail SBA Days to Meet Goals 10 Frequency of Treatment Frequency Of Treatment Once a Day Treatment Plan Physical Therapy Treatment Plan Bed Mobility Training,Transfer Training,Gait Training, Therapeutic Exercise,Balance Retraining,Post Op Education, Discharge Planning,Hot or Cold Pack,Neuromuscular Re-ed, Coordination Retraining Recommendations To Nursing Amount of Assist Needed 1 Person Assist Discharge Recommendations PT Discharge Recommendations Home with Assistance,Home Health Transportation Needs at Discharge Private Vehicle
[2020-12-25] MEDS: ACETAMINOPHEN 325 MG TABLET 650 MG PO (17:38)
[2020-12-25] MEDS: ALBUTEROL/IPRATROPIUM 3 ML AMPUL INH (18:04)
[2020-12-25] MEDS: POTASSIUM PHOSPHATE 15 MMOL in DEXTROSE 5% IN WATER 250 ML 63.75 ML IV (18:26)
[2020-12-26] VITALS (22 sets, daily range): BP systolic 154–184; BP diastolic 87–99; PULSE 80–108; RESP 17–24; TEMP 36.5–37.1; O2SAT 6–95
[2020-12-26] MEDS: METOPROLOL TARTRATE 5 MG/5 ML INJ IV ×4 (00:12→18:40)
[2020-12-26] MEDS: PIPERACILLIN-TAZO 3.375 GM/50 ML FROZ.PIGGY IV ×5 (00:17→23:43)
[2020-12-26] MEDS: ALBUTEROL/IPRATROPIUM 3 ML AMPUL INH ×3 (06:07→19:05)
[2020-12-26 06:29] LABS: Add Manual Diff / Slide Review NO; Basophils Absolute Auto 0 /uL (0-100); Basophils Percent Auto 0.1 % (0-2); Eosinophils Absolute Auto 0 /uL (0-450); Hematocrit 39.7 % (41-53); Hemoglobin 13.2 g/dL (13.5-17.5); Lymphocytes Absolute Auto 500 /uL (1100-4500); Lymphocytes Percent Auto 2.5 % (25-40); Mean Corpuscular HGB Conc 33.2 % (30-36); Mean Corpuscular Hemoglobin 30.1 PG (26-34); Mean Corpuscular Volume 90.6 fL (80-100); Monocytes Absolute Auto 600 /uL (0-900); Monocytes Percent Auto 3.3 % (3-14); Neutrophils Absolute Auto 18300 /uL (1500-7000); Neutrophils Percent Auto 94.1 % (50-75); Platelet Count 226 X10^3/uL (150-400); Red Blood Cell Count 4.38 X10^6/uL (4.5-5.9); Red Cell Distribution Width 14.1 % (11.6-14.8); White Blood Cell Count 19.5 X10^3/uL (4.5-11.0)
[2020-12-26] MEDS: ACETAMINOPHEN 325 MG TABLET 650 MG PO ×2 (06:35→23:17)
[2020-12-26 06:42] LABS: BUN Creatinine Ratio 21.7 (6-22); Blood Urea Nitrogen 25 mg/dL (9-20); Calcium 8.1 mg/dL (8.4-10.2); Carbon Dioxide 25 mmol/L (22-32); Chloride 110 mmol/L (98-107); Estimated Glomerular Filt Rate > 60.0 mL/min (>60); Glucose 97 mg/dL (80-110); HEMOLYSIS < 15 (0-50); Phosphorous 2.6 mg/dL (2.3-3.7); Potassium 3.5 mmol/L (3.4-5.1); Sodium 141 mmol/L (137-145)
--- NOTE | 2020-12-26 08:05 | PC.NURSE ---
Day shift: Pt off unit at approx [address]
--- NOTE | 2020-12-26 08:14 | DI.CT.S_ITS ---
PROCEDURE: CT CHEST W CON INDICATIONS: pneumonia TECHNIQUE: After the administration of intravenous contrast, 5 mm thick sections acquired from the pulmonary apices to the posterior costophrenic angles. 1 mm axial lung, 5 mm thick coronal and sagittal reformats and 7 mm axial MIP were acquired. For radiation dose reduction, the following was used: automated exposure control, adjustment of mA and/or kV according to patient size. COMPARISON: [facility], CT, CT ABDOMEN PELVIS W CON, 12/21/2020, 19:36. FINDINGS: Image quality: Excellent. Lungs and pleura: Small bilateral pleural effusions with adjacent atelectasis. No pneumothorax. Diffuse scarring and chronic atelectasis. Airway thickening in keeping with nonspecific bronchitis and/or reactive airways disease. Increased scattered bilateral ground-glass opacities and prominence of the interseptal lines. Mediastinum: Heart size is normal. Coronary artery calcifications are present. No pericardial effusion. No mediastinal or hilar adenopathy by size criteria. Thoracic aorta and central pulmonary arteries are normal in size. Scattered vascular calcifications seen in the aorta. Bones and chest wall: No suspicious bony lesions. No vertebral body compression fractures. No axillary or supraclavicular adenopathy by size criteria. Thyroid is grossly unremarkable Abdomen: Postsurgical changes related to prior esophagectomy and gastric pull-through are redemonstrated IMPRESSION: Increasing small bilateral pleural effusions with adjacent atelectasis since 12/21/20. Underlying pneumonia cannot be excluded, potentially viral or atypical nature. Also, recommend clinical correlation to exclude pulmonary edema. If there is persistent clinical diagnostic uncertainty, continued surveillance with short interval chest radiographs after treatment is recommended. Additional chronic and incidental findings as above. Dictated by: Alexsander Marshall M.D. on 12/26/2020 at 8:56 Approved by: Alexsander Marshall M.D. on 12/26/2020 at 9:11
--- NOTE | 2020-12-26 08:18 | PC.NURSE ---
Day shift: Pt back on AC unit. Eating regular breakfast. Agrees to go slow when eating today.
[2020-12-26] MEDS: ZINC SULFATE 220 MG CAPSULE PO (09:32)
[2020-12-26] MEDS: HEPARIN 5,000 UNIT/ML VIAL 5000 UNIT SUBCUT ×2 (09:33→21:17)
[2020-12-26] MEDS: FUROSEMIDE 40 MG/4 ML VIAL IV (10:11)
[2020-12-26] MEDS: SODIUM CHLORIDE 0.9% FLUSH 10 ML IV ×2 (10:12→23:44)
--- NOTE | 2020-12-26 10:15 | PM.PNPO.1 ---
Subjective Subjective Date Patient Seen: 12/26/20 Time Patient Seen: 10:16 Interval history: Minimal abdominal pain. +Flatus. Tolerating clears. Ambulating with physical therapy. Exam Vital Signs (past 8 hours): - 12/26/20 05:00 12/26/20 06:07 12/26/20 07:27 Temperature 98.8 F Pulse Rate 99 H 101 H 84 Respiratory Rate 18 21 24 Blood Pressure 157/87 H Pulse Oximetry 95 95 94 12/26/20 08:00 12/26/20 08:05 Temperature 97.7 F Pulse Rate 96 H Respiratory Rate 18 Blood Pressure 184/95 H Pulse Oximetry 89 L 91 Oxygen Delivery Method Nasal Cannula Oxygen Flow Rate 7 Narrative Exam Narrative: gen-Adult male alert and oriented chest-mild tachypnea abdomen-soft non tender, incision CDI Objective Labs Result Diagrams: 12/26/20 06:17 12/26/20 06:17 Labs: Laboratory Results - last 24 hr 12/25/20 12/25/20 12/26/20 14:45 14:45 06:17 WBC 19.5 H D RBC 4.38 L Hgb 13.2 L Hct 39.7 L MCV 90.6 MCH 30.1 MCHC 33.2 RDW 14.1 Plt Count 226 Neut % (Auto) 94.1 H Lymph % (Auto) 2.5 L [place] % (Auto) 3.3 Eos % (Auto) 0.0 L Baso % (Auto) 0.1 Neut # (Auto) 39302 H Lymph # (Auto) 500 L [place] # (Auto) 600 Eos # (Auto) 0 Baso # (Auto) 0 Sodium 140 Potassium 3.3 L Chloride 110 H Carbon Dioxide 26 BUN 24 H Creatinine 1.16 Estimated GFR > 60.0 BUN/Creatinine Ratio 20.7 Glucose 99 Calcium 8.0 L Phosphorus 2.0 L Magnesium 2.1 12/26/20 12/26/20 06:17 06:17 WBC RBC Hgb Hct MCV MCH MCHC RDW Plt Count Neut % (Auto) Lymph % (Auto) [place] % (Auto) Eos % (Auto) Baso % (Auto) Neut # (Auto) Lymph # (Auto) [place] # (Auto) Eos # (Auto) Baso # (Auto) Sodium 141 Potassium 3.5 Chloride 110 H Carbon Dioxide 25 BUN 25 H Creatinine 1.15 Estimated GFR > 60.0 BUN/Creatinine Ratio 21.7 Glucose 97 Calcium 8.1 L Phosphorus 2.6 Magnesium 2.0 PFSH Medical History COPD (chronic obstructive pulmonary disease) Esophageal cancer Hypertension Social History household members: spouse Smoking Status: Current every day smoker alcohol intake: current Assessment & Plan Post-op Postoperative Procedures: Procedures Operation Date: 12/22/20 14:30 Actual Procedures Side Surgeon p Exploratory Laparotomy and lysis of adhesions Jimbo Morales MD Postoperative plan narrative: 75M with COPD and hx of esophagectomy SP exlap lysis of adhesions POD 4 has return of bowel function #Leukocytosis-CT chest today demonstates pleural fluid possible pneumonia no jose consolidation. Start Zosyn. #Acute resp insufficiency-Possible pneumonia has COPD baseline. Wean oxygen as able titrate to maintain sat >88 suspect home O2 will be necessary currently at 8 L #Diet-Advance to regular #Dispo-home probably Saturday or Saturday if PNA responds to abx #SCDs and SQH for VTE prophylaxis Quality VTE Deep Vein Thrombosis/Pulmonary Embolism Present on Admission: No
--- NOTE | 2020-12-26 10:51 | PT.IPTN ---
Current Diagnoses Elevated white blood cell count, unspecified (12/21/20) Pneumonia, unspecified organism (12/21/20) Chronic obstructive pulmonary disease, unspecified (12/21/20) Intestinal adhesions [bands], unspecified as to partial versus complete obstruction (12/21/20) Unspecified intestinal obstruction, unspecified as to partial versus complete obstruction (12/21/20) Chronic kidney disease, stage 3 unspecified (12/21/20) Personal history of malignant neoplasm of esophagus (12/21/20) Other specified postprocedural states (12/21/20) Surgery Performed Operation Date: 12/22/20 14:30 Actual Procedures p Exploratory Laparotomy and lysis of adhesions - Jimbo Morales MD Physical Therapy Treatment Note M2 PT-IP Current Condition Start: 12/23/20 12:28 Freq: NEEDED Status: Active Protocol: Document 12/23/20 11:03 AB (Rec: 12/23/20 12:38 AB [id number]) Physical Therapy Current Condition Current Condition Evaluation Date 12/23/20 Treatment Diagnosis SBO s/p ex-lap; difficulty in walking Onset Date 12/21/20 Precautions Abdominal Surgery Precautions Log Roll,Lifting Restrictions, Gait Belt above Incisional Area M3 PT-IP Subjective Start: 12/23/20 12:28 Freq: NEEDED Status: Active Protocol: Document 12/26/20 10:14 LJ (Rec: 12/26/20 10:51 PAWEL [id number]) Subjective Physical Therapy Visit Type Type Treatment Note Visit Start Time 10:14 Visit Stop Time 10:34 Total Visit Minutes 20 Notes Pt in bed Therapy Pain Assessment Pain When Pain Assessed At Rest Pain Present Pain Present Denied Pain M4 PT-IP Mobility and Gait Start: 12/23/20 12:28 Freq: NEEDED Status: Active Protocol: Document 12/26/20 10:14 LJ (Rec: 12/26/20 10:51 PAWEL [id number]) PT-Bed Mobility Assessment Rolling Type of Rolling Log Rolling Level of Assist Standby Assistance PT-Transfer Assessment Sit to and From Stand Sit to and from Stand Contact Guard Assistance,1 Person Assistance,Use of Upper Extremities Equipment Transfer Assistive Device Gait Belt,Front Wheeled Walker Orthotic/Prosthetic Devices or Brace: No Transfers Transfer Destination Bed Transfer Technique Stand Step Pivot Transfer Ability Level of Assist Contact Guard Assistance,1 Person Assistance,Use of Upper Extremities Comments Mobility Comments Pt in bed upon arrival. O2 at 93%on 7L O2. Pt required assist with IV and O2 lines for preparing to ambulate around room. Pt ambulated around room x2 with multiple rest breaks at the sink and bedside. O2 remained 83%-84% during activity with 1-2 min deep breathing required to bring it up to 85%-86%. Lowest O2 sat at 80% when pt adjusted his positioning in bed. 2 minutes breathng require to bring levle back up to 86%. Pt left in bed with all needs within reach Gait Assessment Gait Gait Assistance Required: Contact Guard Assist,1 Person Assist Distance (Feet) 50 Able to Maintain Weight Bearing Status Yes During Gait Assistive Devices Assistive Device Gait Belt,Front Wheeled Walker Orthotic/Prosthetic Devices or Brace: No Gait Deviations General Gait Pattern Decreased Stride Length, Decreased Feet Clearance Factors Limiting Gait Function Factors Limiting Gait Function Decreased Activity Tolerance, Decreased Strength,Pain,Poor Balance,Poor Safety Awareness, Respiratory Distress Comments Gait Comments See mobility comments for details. M5 PT-IP Objective Assessments Start: 12/23/20 12:28 Freq: NEEDED Status: Active Protocol: Document 12/23/20 11:03 AB (Rec: 12/23/20 12:38 AB [id number]) Orientation Orientation/Cognition Level of Alertness Alert Orientation Name Language Function Ability Hard of Hearing Safety Awareness Understands Safety Issues Memory Description Short Term Impaired Gross Range of Motion Lower Extremity ROM Assessment Within Functional Limits Strength Lower Extremity Strength Assessment Within Functional Limits Coordination Assessment Gross Coordination Gross Coordination WNL Muscle Tone Muscle Tone WNL Yes M6 PT-IP Treatment Start: 12/23/20 12:28 Freq: NEEDED Status: Active Protocol: Document 12/26/20 10:14 PAWEL (Rec: 12/26/20 10:51 PAWEL [id number]) Physical Therapy Treatment Education Education Provided Precautions,Safety Other Treatments Other Treatment Performed PLBx3 for 1-2 minutes each M7 PT-IP Assessment and Plan Start: 12/23/20 12:28 Freq: NEEDED Status: Active Protocol: Document 12/26/20 10:14 PAWEL (Rec: 12/26/20 10:51 PAWEL [id number]) PT Summary Assessment and Plan Potential Rehabilitation Potential Good Status of Condition at Evaluation Evolving Summary Impairments Pain,ROM,Strength,Balance, Coordination,Sensation,Tone, Cognition,Bed Mobility, Transfers,Gait,Activity Tolerance Progress Towards Goals Slow Progress due to Pain,Slow Progress due to Activity Tolerance Assessment Summary Pt requires CGA for mobility and assist with lines. Possibly SBA when lines are no longer hindering his movements. O2 sat levels remain low during activity with pt able to breath appropriately to bring them back up. Goals Bed Mobility Goal Independent Transfer Goal Independent,Front Wheeled Walker Gait Goal Independent,Front Wheel Walker Gait Distance 200 Other Goals improve ambulation without AD 250 ft SBA up/down 3 steps with B rail SBA Days to Meet Goals 10 Frequency of Treatment Frequency Of Treatment Once a Day Treatment Plan Physical Therapy Treatment Plan Bed Mobility Training,Transfer Training,Gait Training, Therapeutic Exercise,Balance Retraining,Post Op Education, Discharge Planning,Hot or Cold Pack,Neuromuscular Re-ed, Coordination Retraining Recommendations To Nursing Amount of Assist Needed 1 Person Assist Discharge Recommendations PT Discharge Recommendations Home with Assistance,Home Health Transportation Needs at Discharge Private Vehicle
--- NOTE | 2020-12-26 13:08 | PC.NURSE ---
Day shift: RN student provided some of Pt's care today. Pt was OK with this. Pt on 4L HF NC at this time with O2 at 90%. Encouraged to use I.S. as much as he can tolerate. Tolerating his reg diet. Has denies any nausea today and reports passing some flatus. Will continue w/ plan of care. Asleep in bed at this time. No c/o pain or discomfort today as well. Call light in reach.
--- NOTE | 2020-12-26 15:45 | CM.DPC ---
DCP Continued: KEO Student met with patient at bedside this date, educated on role of SW and provided contact number. Patient aware and anticipates D/C home with Fiona Colón / , who will also provide transportation. Patient signed ABBEY form this date for potential D/C for tomorrow. Patient continues to need 02 currently on 8L, provider placed consult for respiratory therapy for home 02. PLAN: Anticipate D/C home. CM Team to closely follow. Loyda from [facility] aware of patient potential need for home OT. KEO Epps MSW Student Discharge Planning/Care Management Document 12/26/20 15:41 AL (Rec: 12/26/20 15:45 AL [id number]) Discharge Planning Assessment Assigned Director Of Academic KEO Merida Contact Information Fiona Colón Advance Directives? No History Provided By Patient,Medical Record Has Patient been admitted in last 30 No days? Prior Living Arrangements House Household Members spouse Type of transporation used prior to Drives own vehicle admit Independent with ADL's Yes Is patient alert and oriented? Yes Comment Possible O2 upon D/C Barriers to Discharge No Discharge Plan Home Transportation Arrangement Spouse Whiteboard Updated in Patient Room with Yes name and ext. # of Director Of Academic Review Status In Process Next Review Type Continued Stay Review
--- NOTE | 2020-12-26 19:58 | RT ---
Gave pt's 1899 Duo-neb treatment for COPD. Pt's SpO2 fluctuating 87%-88% with mild SOB/WOB. Pt's SpO2 steady at 87% on 15 LPM HFNC, pt's WOB slightly increased. At 1951, placed on HHFNC at 40 LPM and 50%, SpO2 increased from 88% to 90%. Pt and pt's educated on increasing O2 requirement. Will continue to monitor pt.
--- NOTE | 2020-12-26 20:01 | RT ---
At 2002, pt's WOB has decreased and pt looks more comfortable on HHFNC. Pt's SpO2 91% on 50% FiO2.
[2020-12-27] VITALS (26 sets, daily range): BP systolic 147–200; BP diastolic 72–101; PULSE 75–106; RESP 14–27; TEMP 36.4–37.2; O2SAT 88–96
[2020-12-27] MEDS: METOPROLOL TARTRATE 5 MG/5 ML INJ IV ×2 (00:44→06:19)
[2020-12-27] MEDS: PIPERACILLIN-TAZO 3.375 GM/50 ML FROZ.PIGGY IV ×4 (05:23→23:56)
[2020-12-27] MEDS: SODIUM CHLORIDE 0.9% FLUSH 10 ML IV ×3 (05:23→21:00)
[2020-12-27] MEDS: ACETAMINOPHEN 325 MG TABLET 650 MG PO ×2 (05:29→12:16)
[2020-12-27 05:52] LABS: Hematocrit 38.1 % (41-53); Hemoglobin 12.6 g/dL (13.5-17.5); Mean Corpuscular HGB Conc 32.9 % (30-36); Mean Corpuscular Hemoglobin 29.6 PG (26-34); Mean Corpuscular Volume 89.9 fL (80-100); Platelet Count 223 X10^3/uL (150-400); Red Blood Cell Count 4.24 X10^6/uL (4.5-5.9); Red Cell Distribution Width 13.6 % (11.6-14.8)
[2020-12-27 06:01] LABS: Blood Urea Nitrogen 32 mg/dL (9-20); Calcium 8.5 mg/dL (8.4-10.2); Carbon Dioxide 28 mmol/L (22-32); Chloride 107 mmol/L (98-107); Estimated Glomerular Filt Rate 49.5 mL/min (>60); Glucose 119 mg/dL (80-110); HEMOLYSIS < 15 (0-50); Phosphorous 3.4 mg/dL (2.3-3.7); Sodium 141 mmol/L (137-145)
[2020-12-27 06:02] LABS: Add Manual Diff / Slide Review YES
[2020-12-27 06:19] LABS: Neutrophils Absolute Manual 16380 /uL (3000-5900); RBC Morphology Normal Morphology; Total Cells Counted 100
[2020-12-27 06:34] LABS: Potassium 2.6 mmol/L (3.4-5.1)
--- NOTE | 2020-12-27 06:39 | PC.NURSE ---
Dr. Song paged to report critical lab. value Potassium level was 2.6 awaiting call back.
[2020-12-27] MEDS: POTASSIUM CHLORIDE 40 MEQ in SODIUM CHLORIDE 0.9% 500 ML 130 ML IV ×2 (06:59→14:47)
[2020-12-27] MEDS: ALBUTEROL/IPRATROPIUM 3 ML AMPUL INH ×4 (07:17→21:11)
[2020-12-27] MEDS: POTASSIUM CHLORIDE 20 MEQ TAB 80 MEQ PO (08:08)
[2020-12-27] MEDS: HEPARIN 5,000 UNIT/ML VIAL 5000 UNIT SUBCUT ×2 (08:09→21:29)
[2020-12-27] MEDS: ZINC SULFATE 220 MG CAPSULE PO (08:09)
--- NOTE | 2020-12-27 08:21 | P.PN_ITS ---
Subjective Subjective Date Patient Seen: 12/27/20 Time Patient Seen: 08:21 Interval history: Requiring high-flow O2 overnight of 35 liters/minute to maintain saturations of mid 90. began Zosyn for possible pneumonia yesterday. Has a productive cough. tolerating regular diet. Exam Vital Signs (past 8 hours): - 12/27/20 00:41 12/27/20 01:10 12/27/20 03:00 Temperature 97.6 F Pulse Rate 94 H 79 Respiratory Rate 27 H 20 Blood Pressure 159/95 H Pulse Oximetry 90 L 91 90 L 12/27/20 03:01 12/27/20 04:00 12/27/20 05:00 Temperature 97.8 F Pulse Rate 83 94 H Respiratory Rate 20 24 Blood Pressure 182/92 H Pulse Oximetry 90 L 88 L 12/27/20 05:25 12/27/20 07:17 12/27/20 07:26 Temperature Pulse Rate 86 86 86 Respiratory Rate 21 18 20 Blood Pressure Pulse Oximetry 88 L 92 92 Fraction of Inspired Oxygen 50 Oxygen Delivery Method High Flow Nasal Cannula Oxygen Flow Rate 35 Narrative Exam Narrative: General elderly man alert oriented no acute distress chest mildly labored respirations on high-flow oxygen Abdomen soft nontender incision clean dry intact with cesar Objective Labs Result Diagrams: 12/27/20 05:31 12/27/20 05:31 Labs: Laboratory Results - last 24 hr 12/27/20 12/27/20 05:31 05:31 WBC 18.0 H RBC 4.24 L Hgb 12.6 L Hct 38.1 L MCV 89.9 MCH 29.6 MCHC 32.9 RDW 13.6 Plt Count 223 Neut % (Auto) Not Reportable Lymph % (Auto) Not Reportable [place] % (Auto) Not Reportable Eos % (Auto) Not Reportable Baso % (Auto) Not Reportable Lymph # (Auto) Not Reportable [place] # (Auto) Not Reportable Baso # (Auto) Not Reportable Total Counted 100 Seg Neutrophils % 83.0 H Band Neutrophils % 8.0 H Lymphocytes % (Manual) 4.0 L Monocytes % (Manual) 5.0 Neutrophils # (Manual) 57460 H RBC Morphology Normal morphology Sodium 141 Potassium 2.6 L* Chloride 107 Carbon Dioxide 28 BUN 32 H Creatinine 1.39 H Estimated GFR 49.5 L BUN/Creatinine Ratio 23.0 H Glucose 119 H Calcium 8.5 Phosphorus 3.4 Magnesium 2.0 PFSH Medical History COPD (chronic obstructive pulmonary disease) Esophageal cancer Hypertension Social History household members: spouse Smoking Status: Current every day smoker alcohol intake: current Assessment & Plan Post-op Postoperative Procedures: Procedures Operation Date: 12/22/20 14:30 Actual Procedures Side Surgeon p Exploratory Laparotomy and lysis of adhesions Jimbo Morales MD Postoperative status narrative: 75-year-old man history of COPD and eso phagectomy postoperative day 5 status post laparotomy and lysis of adhesions for small-bowel obstruction. His intestinal function has returned, he is tolerating regular diet. #Acute on chronic respiratory failure-History of COPD, was probably requiring home oxygen prior to this admission however this had never been entirely worked up. Now requiring high-flow oxygen of 35 L/min to maintain oxygen saturation, goal >88%. CT chest yesterday demonstrates pleural effusions no jose consolidation. Given CT findings productive cough and leukocytosis began Zosyn for possible pneumonia. Of note he is at high risk for aspiration pneumonia given prior esophagectomy and admission for a SBO. -Internal Medicine consult for respiratory failure -Continue Zosyn -Wean oxygen as able to maintain sat >88% #Diet-regular #Hypokalemia-80 mEq now, BMP afternoon and replace as necessary #VTE prophylaxis-SCDs and subcutaneous heparin #Disposition-home when oxygen requirements have been weaned to nasal cannula Quality VTE Deep Vein Thrombosis/Pulmonary Embolism Present on Admission: No
--- NOTE | 2020-12-27 09:45 | PT.IPTN ---
Current Diagnoses Elevated white blood cell count, unspecified (12/21/20) Pneumonia, unspecified organism (12/21/20) Chronic obstructive pulmonary disease, unspecified (12/21/20) Intestinal adhesions [bands], unspecified as to partial versus complete obstruction (12/21/20) Unspecified intestinal obstruction, unspecified as to partial versus complete obstruction (12/21/20) Chronic kidney disease, stage 3 unspecified (12/21/20) Personal history of malignant neoplasm of esophagus (12/21/20) Other specified postprocedural states (12/21/20) Surgery Performed Operation Date: 12/22/20 14:30 Actual Procedures p Exploratory Laparotomy and lysis of adhesions - Jimbo Morales MD Physical Therapy Treatment Note M2 PT-IP Current Condition Start: 12/23/20 12:28 Freq: NEEDED Status: Active Protocol: Document 12/23/20 11:03 AB (Rec: 12/23/20 12:38 AB [id number]) Physical Therapy Current Condition Current Condition Evaluation Date 12/23/20 Treatment Diagnosis SBO s/p ex-lap; difficulty in walking Onset Date 12/21/20 Precautions Abdominal Surgery Precautions Log Roll,Lifting Restrictions, Gait Belt above Incisional Area M3 PT-IP Subjective Start: 12/23/20 12:28 Freq: NEEDED Status: Active Protocol: Document 12/27/20 09:45 AB (Rec: 12/27/20 12:42 AB [id number]) Subjective Physical Therapy Visit Type Type Treatment Note Visit Start Time 09:15 Visit Stop Time 10:05 Total Visit Minutes 20 Number of COMMODITY MANAGEMENT SPECIALIST Visits 0 Physical Therapy Visit Comments Patient Comments pt is agreeable to do PT Therapy Pain Assessment Pain When Pain Assessed During Mobility Location Left Chest Intensity 5 Scale Used during deep breathing Pain Management Techniques Distraction,Modification of Treatment,Re-positioning, Timing of Activity with Medications M4 PT-IP Mobility and Gait Start: 12/23/20 12:28 Freq: NEEDED Status: Active Protocol: Document 12/27/20 09:45 AB (Rec: 12/27/20 12:42 AB [id number]) PT-Bed Mobility Assessment Rolling Type of Rolling Log Rolling Level of Assist Standby Assistance Supine to Sit Supine to Sit Standby Assistance,Head of Bed Elevated,Bedrails Sit to Supine Sit to Supine Standby Assistance,Head of Bed Elevated,Bedrails PT-Transfer Assessment Sit to and From Stand Sit to and from Stand Contact Guard Assistance,1 Person Assistance,Use of Upper Extremities Equipment Transfer Assistive Device Gait Belt,Front Wheeled Walker Orthotic/Prosthetic Devices or Brace: No Comments Mobility Comments pt on high flow O2. completed supine to sit log roll SBA with HOB elevated and pt used bed rail to assist. pt completed sit to stand CGA ambulated in room ~ 25 ft using FWW SBA to CGA. limited due to high flow O2 and IV tubing. nurse wants pt back in bed due to room change. pt completed sit to supine log roll SBA and cues. positioned pt in bed. call light and table placed within reach. Left pt with spouse in room. Gait Assessment Gait Gait Assistance Required: Standby Assistance,Contact Guard Assist Distance (Feet) 25 Able to Maintain Weight Bearing Status Yes During Gait Assistive Devices Assistive Device Gait Belt,Front Wheeled Walker Orthotic/Prosthetic Devices or Brace: No Gait Deviations General Gait Pattern Decreased Stride Length, Decreased Feet Clearance,Step- to Gait Factors Limiting Gait Function Factors Limiting Gait Function Decreased Activity Tolerance, Decreased Strength,Pain,Poor Balance,Respiratory Distress M5 PT-IP Objective Assessments Start: 12/23/20 12:28 Freq: NEEDED Status: Active Protocol: Document 12/23/20 11:03 AB (Rec: 12/23/20 12:38 AB [id number]) Orientation Orientation/Cognition Level of Alertness Alert Orientation Name Language Function Ability Hard of Hearing Safety Awareness Understands Safety Issues Memory Description Short Term Impaired Gross Range of Motion Lower Extremity ROM Assessment Within Functional Limits Strength Lower Extremity Strength Assessment Within Functional Limits Coordination Assessment Gross Coordination Gross Coordination WNL Muscle Tone Muscle Tone WNL Yes M6 PT-IP Treatment Start: 12/23/20 12:28 Freq: NEEDED Status: Active Protocol: Document 12/27/20 09:45 AB (Rec: 12/27/20 12:42 AB [id number]) Physical Therapy Treatment Education Education Provided Precautions,Safety M7 PT-IP Assessment and Plan Start: 12/23/20 12:28 Freq: NEEDED Status: Active Protocol: Document 12/27/20 09:45 AB (Rec: 12/27/20 12:42 AB [id number]) PT Summary Assessment and Plan Potential Rehabilitation Potential Good Summary Impairments Pain,ROM,Strength,Balance, Coordination,Sensation,Tone, Cognition,Bed Mobility, Transfers,Gait,Activity Tolerance Progress Towards Goals Slow Progress due to Medical Issues,Slow Progress due to Activity Tolerance Assessment Summary pt requiring SBA to CGA with mobility but has decrease activity tolerance affecting mobility independence. pt with new dx of PNA. will continue working towards goals and pt plans to go home and spouse to assist him. will have to conduct caregiver training if appropriate and also has to complete stair climbing training prior to d/c home. will conitnue to assess progress. Goals Bed Mobility Goal Independent Transfer Goal Independent,Front Wheeled Walker Gait Goal Independent,Front Wheel Walker Gait Distance 200 Other Goals improve ambulation without AD 250 ft SBA up/down 3 steps with B rail SBA Days to Meet Goals 10 Frequency of Treatment Frequency Of Treatment Once a Day Treatment Plan Physical Therapy Treatment Plan Bed Mobility Training,Transfer Training,Gait Training, Therapeutic Exercise,Balance Retraining,Post Op Education, Discharge Planning,Hot or Cold Pack,Neuromuscular Re-ed, Coordination Retraining Recommendations To Nursing Amount of Assist Needed 1 Person Assist Discharge Recommendations PT Discharge Recommendations Home with Assistance,Home Health Transportation Needs at Discharge Private Vehicle
--- NOTE | 2020-12-27 10:41 | PC.NURSE ---
Addendum entered by Karin Hatfield R.N. 12/27/20 13:03: Patient reported 5/10 to chest and abdomen, pain worse when taking a deep breath. Medicated with Tylenol per emar and pt now resting and appears comfortable. RR in the low 20s, SpO2 94-95% on heated HFNC (no change in settings). HR in the 90-110s sinus, BP 200/98 and 194/101 on recheck. PO metoprolol and prn IV labetolol administered per MD orders. HR now in the 70-80s and BP 151/72. Denies pain at this time. Original Note: Transfer Note Received patient to room 228 from room 218 at 1015. Pt transported via bed on 15L NRB, RT at bedside and placed pt back on heated HFNC once in room. Currently at a FiO2 of 50% and at 35L, SPO2 at 90-92% upon arrival. RR in the 20s. NSR BBB in the 80-90s. Pt denies pain, reports mild shortness of breath but that it's improved. Coarse crackles to bases bilaterally. All belongings with pt including glasses and clothing. at bedside. K rider infusing to right F/A IV, patent and without pain or discomfort. Call light within reach, using appropriately to make needs known. Oriented to ICU room.
--- NOTE | 2020-12-27 10:46 | DI.ECHO.S_ITS ---
[place] [facility]---------+ [facility] +---------+ : : [address] [place] : : : : [id number] : : : : Phone: [phone]+ Echocardiogram Report + + :Name: STACEY GONZALES Study Date: 12/27/2020 Height: 69 in : :[facility] ReadingLocation: Weight: 122 lb : : Gender: Male BSA: 1.7 m2 : :: 1945 Age: 75 yrs BP: 200/98 mmHg: :Reason For Study: PULMONARY EMBOLISM : :Ordering Physician: : :CHRISTINAISTHARRIETT Performed By: Mary Santizo : :Referring: VIOLETTE MACIAS D.O. : + + Interpretation Summary The left ventricle is normal in size and wall thickness. Left ventricular systolic function is moderately reduced. The ejection fraction is estimated to be 35-40%. LVEF has decreased. There is a significant dyssynchronous contraction pattern, consistent with a conduction abnormality. Diastolic parameters suggest a relaxation abnormality of the left ventricle, consistent with probable normal filling pressures. The right ventricle is normal in size and function. The right ventricular systolic pressure is estimated to be at least 42 mmHg based on an estimated right atrial pressure of 3 mm Hg. The left atrial size is normal. Right atrial size is normal. There is mild to moderate aortic regurgitation. Compared to the prior echo study, there has been an increase in the severity of aortic regurgitation. There is no other significant valvular heart disease. The aortic root is normal size. Procedure: A two-dimensional transthoracic echocardiogram with color flow and Doppler was performed. The study quality was technically adequate. Comparison is made with the echocardiogram of . The patient was in sinus rhythm with heart rates between 81-93 bpm during the exam. Left Ventricle: The left ventricle is normal in size and wall thickness. Left ventricular systolic function is moderately reduced. The ejection fraction is estimated to be 35-40%. There is a significant dyssynchronous contraction pattern, consistent with a conduction abnormality. Diastolic parameters suggest a relaxation abnormality of the left ventricle, consistent with probable normal filling pressures. Right Ventricle: The right ventricle is normal in size and function. Atria: The left atrial size is normal. Right atrial size is normal. There is no Doppler evidence for an interatrial shunt. Mitral Valve: There is moderate mitral annular calcification. The mitral valve leaflets appear mildly thickened, but open well. There is trace mitral regurgitation. Aortic Valve: The aortic valve is mildly calcified. There is no aortic valve stenosis. There is mild to moderate aortic regurgitation. Compared to the prior echo study, there has been an increase in the severity of aortic regurgitation. Tricuspid Valve: The tricuspid valve is normal in structure and function. There is a trace or physiologic amount of tricuspid regurgitation. The right ventricular systolic pressure is estimated to be at least 42 mmHg based on an estimated right atrial pressure of 3 mm Hg. There is mild tricuspid regurgitation. Pulmonic Valve: The pulmonic valve leaflets are thin and pliable; valve motion is normal. There is no pulmonic valvular regurgitation. There is no other significant valvular heart disease. Great Vessels: The aortic root is normal size. The ascending aorta could not be visualized. The IVC is of normal diameter and collapses greater than 50% with a sniff. This suggests a low right atrial pressure of 3 mm Hg. Pericardium/ Pleura There is no pericardial effusion. There is a pleural effusion present. MMode/2D Measurements & Calculations LVIDd: 4.0 cm LVOT diam: 2.0 cm LVIDs: 3.2 cm Ao root diam: 3.5 cm FS: 20.5 % Ao Arch Diam (Prox Trans): 3.1 cm EPSS: 1.00 cm IVSd: 0.85 cm LVPWd: 0.62 cm LV martínez. diameter/BSA (cm/m^2): 2.4 LV sys. diameter/BSA (cm/m^2): 1.9 LA A2 area: 13.7 cm2 RA long axis: 5.0 cm LA A4 area: 15.1 cm2 RA area: 13.6 cm2 LA length (vol): 5.6 cm RA vol: 31.1 ml LA vol: 31.5 ml RA : 18.6 ml/m2 LA vol index: 18.8 ml/m2 IVC diam: 2.0 cm RVD1 (basal): 3.2 cm TAPSE: 3.3 cm Doppler Measurements & Calculations Ao V2 max: 124.7 cm/sec LVOT Max Zacarias: 100.8 cm/sec Ao V2 mean: 83.0 cm/sec LV V1 max P.1 mmHg Ao max P.2 mmHg LV V1 VTI: 22.6 cm Ao mean P.1 mmHg MARTHA(I,D): 2.9 cm2 Ao V2 VTI: 24.0 cm MARTHA(V,D): 2.5 cm2 sev ratio: 0.94 MARTHA indexed to BSA (cm^2/m^2): 1.8 AI P1/2t: 467.9 msec AI dec slope: 256.2 cm/sec2 MV E max zacarias: 41.4 cm/sec TR max zacarias: 310.7 cm/sec MV A max zacarias: 113.5 cm/sec TR max P.6 mmHg MV E/A: 0.36 PA V2 max: 89.5 cm/sec Med Peak E' Zacarias: 5.4 cm/sec PA V2 mean: 50.8 cm/sec E/E' med: 7.7 PA mean P.3 mmHg Lat Peak E' Zacarias: 3.7 cm/sec PA pr(Accel): 25.9 mmHg E/E' lat: 11.2 E/e' average: 9.5 MV dec time: 0.20 sec SV(LVOT): 70.6 ml Reading Physician:01:07 PM
--- NOTE | 2020-12-27 10:53 | P.CONS_ITS ---
History of Present Illness Consult details Date Patient Seen: 12/27/20 Chief complaint: multiple complaints, has list Requesting provider: Jimbo Morales Narrative: This is a 75-year-old male with past medical history of esophageal cancer status post esophagectomy any adjuvant chemotherapy in remission, CKD, hypertension, COPD, hyperlipidemia who presents to the hospital on 12/21 with abdominal pain and was found to have a bowel obstruction. The patient underwent ex lap with lysis of adhesions on 12/[address] Morales and was having a routine postop course. He is tolerating an oral diet and is passing gas and some stool. Unfortunately his postoperative course has been complicated by worsening hypoxic respiratory failure and a leukocytosis. While he was initially on room air, his oxygen requirement has steadily increased from 6 L on 12/22 to high- flow nasal cannula (35 liters/minute, 50% FiO2) on 12/27. Additionally, he has had a rising leukocytosis since 12/24 in, initially at 13.5 now up to 18. He had chest CT on 12/26 which showed small bilateral pleural effusions with adjacent atelectasis, underlying pneumonia could not be excluded; pulmonary edema was also in the differential. The patient was started on Zosyn 12/25 for presumed PNA. The hospital medicine service was asked to consult on the patient today, 12/27. Patient was seen and examined on 12/[address] Augustine, the attending hospitalist. The patient reports mild dyspnea. He does describe an increased cough from baseline. He states that he has a long history of smoking but quit several years ago. He states he does not use any home inhalers. He denies any fevers, chills, chest pain. Meds Home Medications and Allergies Home Medications Medication Instructions Recorded Confirmed Type rosuvastatin 20 mg PO QPM #0 03/16/11 12/21/20 History amlodipine 5 mg PO QPM 10/15/18 12/21/20 History metoprolol tartrate 25 mg PO BID 10/15/18 12/21/20 History prazosin 1 mg PO QPM 10/15/18 12/21/20 History oxycodone 5 mg PO PRN PRN 11/12/18 12/21/20 History Allergies Allergy/AdvReac Type Severity Reaction Status Date / Time No Known Drug Allergies Allergy Verified 12/21/20 17:08 Review of Systems Review of Systems ROS: Yes All systems reviewed with the patient and are negative except as otherwise documented Constitutional Constitutional: Denies chills and Denies fever(s) Eyes Eyes: Denies blurry vision and Denies change in vision ENT Ears, Nose, Mouth, and Throat: Yes abnormal hearing, No epistaxis and No nasal congestion Cardiovascular Cardiovascular: Denies chest pain and Reports dyspnea Respiratory Respiratory: Reports cough, Reports dyspnea and Denies wheezing Gastrointestinal Gastrointestinal: Denies abdominal pain, Denies nausea and Denies vomiting Genitourinary Genitourinary: Denies difficulty urinating Musculoskeletal Musculoskeletal: Denies back pain Neurologic Neurologic: Reports abnormal hearing, Denies abnormal speech and Denies behavioral changes Psychiatric Psychiatric: Denies behavioral changes Allergic/Immunologic Allergic/Immunologic: Denies wheezing Exam Vital Signs (past 8 hours): - 12/27/20 03:00 12/27/20 03:01 12/27/20 04:00 Temperature 97.8 F Pulse Rate 83 Respiratory Rate 20 24 Blood Pressure 182/92 H Pulse Oximetry 90 L 90 L 12/27/20 05:00 12/27/20 05:25 12/27/20 07:17 Temperature Pulse Rate 94 H 86 86 Respiratory Rate 21 18 Blood Pressure Pulse Oximetry 88 L 88 L 92 12/27/20 07:26 12/27/20 08:20 12/27/20 09:00 Temperature 98 F Pulse Rate 86 95 H Respiratory Rate 20 19 Blood Pressure 185/99 H Pulse Oximetry 92 89 L 90 L 12/27/20 10:35 Temperature 98.0 F Pulse Rate 99 H Respiratory Rate 16 Blood Pressure 200/98 H Pulse Oximetry 93 Fraction of Inspired Oxygen 0.51 Oxygen Delivery Method Heated High Flow Oxygen Flow Rate 35 Narrative Exam Narrative: Const General: cooperative Orientation: alert, awake and oriented x3 HENMT Head: normal to inspection, normocephalic and atraumatic Eyes General: appearance normal, both eyes and all related structures Pupils: PERRL EOM: EOM intact bilaterally Neck Neck: normal visual inspection and full ROM Chest Chest: normal inspection of the chest and normal palpation of entire chest wall Resp Effort & Inspection: Patient with tachypnea, currently on high-flow nasal cannula Auscultation: Bibasilar crackles Cardio Palpation: normal PMI Rate: Tachycardic Rhythm: regular rhythm Heart Sounds: S1 normal and S2 normal GI Inspection: Midline abdominal wound with a dressing that is CDI Palpation: soft, No guarding and No tender Auscultation: normal bowel sounds Neuro General: patient alert, patient awake, patient oriented x3 and CN's II-XI intact bilaterally Motor: muscle tone normal throughout Sensory Exam: no sensory deficits noted Extrem General: normal to inspection, no lower extremity edema Psych Mood: congruent mood Affect: normal affect Attitude: cooperative Thought Content: normal Objective Imaging CT scan - chest: Radiologist's impression: IMPRESSION: Increasing small bilateral pleural effusions with adjacent atelectasis since 12/21/20. Underlying pneumonia cannot be excluded, potentially viral or atypical nature. Also, recommend clinical correlation to exclude pulmonary edema. If there is persistent clinical diagnostic uncertainty, continued surveillance with short interval chest radiographs after treatment is recommended. Additional chronic and incidental findings as above. Dictated by: Alexsander Marshall M.D. on 12/26/2020 at 8:56 Approved by: Alexsander Marshall M.D. on 12/26/2020 at 9:11 Labs Result Diagrams: 12/27/20 05:31 12/27/20 05:31 Labs: Laboratory Results - last 24 hr 12/27/20 12/27/20 05:31 05:31 WBC 18.0 H RBC 4.24 L Hgb 12.6 L Hct 38.1 L MCV 89.9 MCH 29.6 MCHC 32.9 RDW 13.6 Plt Count 223 Neut % (Auto) Not Reportable Lymph % (Auto) Not Reportable [place] % (Auto) Not Reportable Eos % (Auto) Not Reportable Baso % (Auto) Not Reportable Lymph # (Auto) Not Reportable [place] # (Auto) Not Reportable Baso # (Auto) Not Reportable Total Counted 100 Seg Neutrophils % 83.0 H Band Neutrophils % 8.0 H Lymphocytes % (Manual) 4.0 L Monocytes % (Manual) 5.0 Neutrophils # (Manual) 77777 H RBC Morphology Normal morphology Sodium 141 Potassium 2.6 L* Chloride 107 Carbon Dioxide 28 BUN 32 H Creatinine 1.39 H Estimated GFR 49.5 L BUN/Creatinine Ratio 23.0 H Glucose 119 H Calcium 8.5 Phosphorus 3.4 Magnesium 2.0 Assessment & Plan Assessment & Plan narrative: Assessment: This is a 75-year-old male with past medical history of esophageal cancer status post esophagectomy and neoadjuvant chemoradiation, CKD, hypertension, COPD, hyperlipidemia who presented to the hospital with abdominal pain and was found to have small-bowel obstruction, now status post lysis of adhesions on 12/22, and has since developed worsening hypoxic respiratory failure. #. Acute hypoxic respiratory failure He is requiring high-flow nasal cannula currently with FiO2 of 50%. CT of his chest suggests pneumonia versus pulmonary edema. Peripherally he does not appear to be volume overloaded. He did receive 40 mg of IV Lasix yesterday but without noticeable improvement in his oxygenation. -will obtain echocardiogram -check BNP -monitor intake and output -RT following, appreciate input -consider additional Lasix based on results of above studies -check EKG -he does not have significant wheeze to suggest COPD exacerbation, will treat with DuoNebs q.i.d. #. Pneumonia Possible aspiration pneumonia due to bilateral nature of infiltrates. Continue Zosyn, start date of 12/25. Check blood and sputum cultures. Recheck COVID-19 PCR and flu PCR. #. Small-bowel obstruction, status post ex lap with lysis of adhesions on 12/22 Being followed by surgery, Dr. Morales. He is now tolerating an oral diet and appears to be improving from a GI standpoint. Continue with pain control and antiemetics as needed. #. CKD Baseline creatinine appears to be around 1.3. Currently at baseline. Monitor. #. Hypertension He is having intermittent hypertensive episodes up to 200/98. He is continued on his home amlodipine 5 mg nightly and Lopressor 25 mg twice daily. Will also add labetalol 10 mg IV q.4 hours as needed SBP > 160. #. Hypokalemia Potassium down to 2.6 this morning in setting of diuresis. Status post replacement. Recheck this afternoon. #. Hyperlipidemia Resume home statin Code status: Full code DVT prophylaxis: Heparin subQ b.i.d. Dispo: Currently ICU status COVID-19 COVID-19 status: Negative
[2020-12-27 12:00] LABS: COVID19 -Nasal RAPID Negative (Negative)
[2020-12-27] MEDS: LABETALOL 20 MG/4 ML SYRINGE 10 MG IV (12:13)
[2020-12-27] MEDS: METOPROLOL IR 25 MG TABLET PO ×2 (12:13→21:30)
[2020-12-27 12:37] LABS: Influenza A - CEPHEID Flu A NEGATIVE (NEGATIVE); Influenza B - CEPHEID Flu B NEGATIVE (NEGATIVE)
[2020-12-27 14:22] LABS: BUN Creatinine Ratio 25.2 (6-22); Blood Urea Nitrogen 34 mg/dL (9-20); Calcium 8.4 mg/dL (8.4-10.2); Carbon Dioxide 28 mmol/L (22-32); Chloride 108 mmol/L (98-107); Estimated Glomerular Filt Rate 51.2 mL/min (>60); Glucose 139 mg/dL (80-110); HEMOLYSIS < 15 (0-50); Potassium 3.4 mmol/L (3.4-5.1); Sodium 142 mmol/L (137-145)
[2020-12-27 14:31] LABS: NT-proBNP (BNP-Adult 18+) 25900 pg/mL (<450)
[2020-12-27] MEDS: POTASSIUM CHLORIDE 20 MEQ/15 ML UDC 40 MEQ PO (14:48)
[2020-12-27] MEDS: FUROSEMIDE 40 MG/4 ML VIAL IV ×2 (14:59→17:33)
--- NOTE | 2020-12-27 15:57 | DIET.PN ---
Dietary Progress Note RD f/u as pt moved to ICU status secondary to acute hypoxic respiratory failure. Pts POs have been 25-50% over weekend. Today trialled high pro peach yogurt smoothie at lunch, pt enjoyed, will send tid to support pts protein intake and breathing. Nutrition Diagnosis: Ongoing Severe Acute on Chronic PCM r/t altered GI function aeb 9.2% unintentional weight loss in 1mo (severe), BMI 18.1 (severe for age), pt is 40% less weight than prior to esophageal cancer dx, pt had portion of esophagus removed c stomach pull up leading to early satiety, pt experiencing N/V x2w c little to no PO intake x5d, pt currently NPO after SBO and lysis of adhesions.
[2020-12-27] MEDS: MORPHINE 4 MG/ML INJ IV (16:15)
[2020-12-27] MEDS: ROSUVASTATIN 10 MG TABLET 20 MG PO (16:15)
[2020-12-27] MEDS: AMLODIPINE 5 MG TABLET PO (16:15)
[2020-12-27] MEDS: METOCLOPRAMIDE 10 MG/2 ML INJ IV (21:35)
--- NOTE | 2020-12-27 22:34 | PC.NURSE ---
Addendum entered by Edith Barahona R.N. 12/27/20 22:44: RT contacted for pt O2 saturation at 86%, changes to HHF 60%/40L, pt tolerating well, will continue to monitor Original Note: Evening shift note: A/Ox4, sitting up in bed, Currently HHF 50%/ 35L saturations 87-90% RR in the 20s, 40mg K rider infusing per emar, just received Lasix. SR with HR in the 90s BP 178/80, updated provider advised to administer regular cardiac meds early before administer prn. BP improved to 140/68 on recheck. Administered prn morphine for pain 03/13. Abdominal dressing CDI, bed low and locked, call light within reach, will continue to monitor
[2020-12-28] VITALS (29 sets, daily range): BP systolic 125–170; BP diastolic 63–82; PULSE 69–98; RESP 15–30; TEMP 36.4–37.1; O2SAT 91–97
[2020-12-28] MEDS: ACETAMINOPHEN 325 MG TABLET 650 MG PO ×2 (00:28→06:10)
[2020-12-28] MEDS: MORPHINE 4 MG/ML INJ IV ×2 (00:28→19:15)
[2020-12-28] MEDS: FUROSEMIDE 40 MG/4 ML VIAL IV (05:06)
[2020-12-28 05:27] LABS: Add Manual Diff / Slide Review NO; Basophils Absolute Auto 0 /uL (0-100); Basophils Percent Auto 0.1 % (0-2); Eosinophils Absolute Auto 0 /uL (0-450); Eosinophils Percent Auto 0.3 % (2-4); Hematocrit 35.4 % (41-53); Hemoglobin 11.6 g/dL (13.5-17.5); Lymphocytes Absolute Auto 800 /uL (1100-4500); Lymphocytes Percent Auto 4.9 % (25-40); Mean Corpuscular HGB Conc 32.9 % (30-36); Mean Corpuscular Hemoglobin 29.7 PG (26-34); Mean Corpuscular Volume 90.5 fL (80-100); Monocytes Absolute Auto 900 /uL (0-900); Monocytes Percent Auto 5.8 % (3-14); Neutrophils Absolute Auto 14100 /uL (1500-7000); Neutrophils Percent Auto 88.9 % (50-75); Platelet Count 226 X10^3/uL (150-400); Red Blood Cell Count 3.92 X10^6/uL (4.5-5.9); Red Cell Distribution Width 13.7 % (11.6-14.8); White Blood Cell Count 15.9 X10^3/uL (4.5-11.0)
[2020-12-28 05:34] LABS: BUN Creatinine Ratio 22.6 (6-22); Blood Urea Nitrogen 35 mg/dL (9-20); Calcium 8.2 mg/dL (8.4-10.2); Carbon Dioxide 33 mmol/L (22-32); Chloride 105 mmol/L (98-107); Estimated Glomerular Filt Rate 43.7 mL/min (>60); Glucose 135 mg/dL (80-110); HEMOLYSIS < 15 (0-50); Magnesium 1.9 mg/dL (1.6-2.3); Potassium 3.4 mmol/L (3.4-5.1); Sodium 140 mmol/L (137-145)
[2020-12-28] MEDS: LABETALOL 20 MG/4 ML SYRINGE 10 MG IV (05:59)
[2020-12-28] MEDS: POTASSIUM CHLORIDE 20 MEQ/15 ML UDC 60 MEQ PO (06:12)
[2020-12-28] MEDS: PIPERACILLIN-TAZO 3.375 GM/50 ML FROZ.PIGGY IV ×4 (06:14→23:52)
[2020-12-28] MEDS: ALBUTEROL/IPRATROPIUM 3 ML AMPUL INH ×3 (07:54→16:50)
--- NOTE | 2020-12-28 08:07 | RT ---
pt tori neb tx well followed by Acapella device. Pt on HFNC, no distress noted and states feeling good
[2020-12-28] MEDS: METOPROLOL IR 25 MG TABLET PO ×2 (08:27→21:54)
[2020-12-28] MEDS: HEPARIN 5,000 UNIT/ML VIAL 5000 UNIT SUBCUT ×2 (08:28→21:54)
[2020-12-28] MEDS: SODIUM CHLORIDE 0.9% FLUSH 10 ML IV ×3 (08:29→23:52)
[2020-12-28] MEDS: ZINC SULFATE 220 MG CAPSULE PO (08:30)
--- NOTE | 2020-12-28 09:04 | P.PN_ITS ---
Subjective Subjective Date Patient Seen: 12/28/20 Time Patient Seen: 09:04 Interval history: -transferred to ICU yesterday for high flow oxygen requirements -echo cardiogram demonstrates reduced ejection fraction 35-40%. -overnight required 60 L O2 per minute to maintain saturations now down to 40 liters/minute and 0.6 FiO2 -continues to have productive cough -tolerating regular diet Exam Vital Signs (past 8 hours): - 12/28/20 02:00 12/28/20 02:52 12/28/20 03:00 Temperature 97.6 F Pulse Rate 71 73 70 Respiratory Rate 16 15 16 Blood Pressure 147/71 H 162/75 H Pulse Oximetry 95 94 95 12/28/20 04:00 12/28/20 04:17 12/28/20 05:51 Temperature Pulse Rate 75 70 Respiratory Rate 15 18 Blood Pressure 146/70 H 167/81 H Pulse Oximetry 93 92 93 12/28/20 05:59 12/28/20 06:22 12/28/20 07:54 Temperature Pulse Rate 70 69 70 Respiratory Rate 18 Blood Pressure 167/81 H 148/76 H Pulse Oximetry 96 12/28/20 08:00 12/28/20 08:08 12/28/20 08:33 Temperature 98.0 F Pulse Rate 80 78 Respiratory Rate 22 18 Blood Pressure 141/68 H Pulse Oximetry 95 93 Fraction of Inspired Oxygen 0.60 Oxygen Delivery Method High Flow Nasal Cannula Oxygen Flow Rate 40 Narrative Exam Narrative: General elderly man alert oriented no acute distress Chest mildly labored respirations on 40 liters/minute O2 it to 0.6 FiO2 to Abdomen soft incision clean dry intact with cesar Extremities warm well perfused without edema Objective Labs Result Diagrams: 12/28/20 04:46 12/28/20 04:46 Labs: Laboratory Results - last 24 hr 12/27/20 12/27/20 12/27/20 10:34 10:46 11:01 WBC RBC Hgb Hct MCV MCH MCHC RDW Plt Count Neut % (Auto) Lymph % (Auto) [place] % (Auto) Eos % (Auto) Baso % (Auto) Neut # (Auto) Lymph # (Auto) [place] # (Auto) Eos # (Auto) Baso # (Auto) Sodium Potassium Chloride Carbon Dioxide BUN Creatinine Estimated GFR BUN/Creatinine Ratio Glucose Calcium Phosphorus Magnesium NT-Pro-B Natriuret Pep Nasal Screen MRSA (PCR) Negative for mrsa SARS-CoV-2 (PCR) Negative Influenza A (RT-PCR) Flu a negative Influenza B (RT-PCR) Flu b negative 12/27/20 12/28/20 12/28/20 13:38 04:46 04:46 WBC 15.9 H RBC 3.92 L Hgb 11.6 L Hct 35.4 L MCV 90.5 MCH 29.7 MCHC 32.9 RDW 13.7 Plt Count 226 Neut % (Auto) 88.9 H Lymph % (Auto) 4.9 L [place] % (Auto) 5.8 Eos % (Auto) 0.3 L Baso % (Auto) 0.1 Neut # (Auto) 28968 H Lymph # (Auto) 800 L [place] # (Auto) 900 Eos # (Auto) 0 Baso # (Auto) 0 Sodium 142 140 Potassium 3.4 3.4 Chloride 108 H 105 Carbon Dioxide 28 33 H BUN 34 H 35 H Creatinine 1.35 H 1.55 H Estimated GFR 51.2 L 43.7 L BUN/Creatinine Ratio 25.2 H 22.6 H Glucose 139 H 135 H Calcium 8.4 8.2 L Phosphorus 3.0 Magnesium 1.9 NT-Pro-B Natriuret Pep 86360 H Nasal Screen MRSA (PCR) SARS-CoV-2 (PCR) Influenza A (RT-PCR) Influenza B (RT-PCR) PFSH Medical History COPD (chronic obstructive pulmonary disease) Esophageal cancer Hypertension Social History household members: spouse Smoking Status: Current every day smoker alcohol intake: current Assessment & Plan Post-op Postoperative Procedures: Procedures Operation Date: 12/22/20 14:30 Actual Procedures Side Surgeon p Exploratory Laparotomy and lysis of adhesions Jimbo Morales MD Postoperative plan narrative: 75-year-old man history of esophagectomy for esophageal cancer postoperative day 6 status post laparotomy with lysis of adhesions for small-bowel obstruction. Obstruction is resolved normal intestinal function without issue. #Acute on chronic respiratory failure/pneumonia -Continue Zosyn antibiotic coverage is appropriate -Incentive spirometry and ambulation -Continue pulmonary tolieting for COPD -Wean O2 as able will need home O2 at discharge #Hypokalemia -Replace #Congestive heart failure -Continue metoprolol -no further diuresis at this point, no significant edema and Cr is mildly elevated #VTE prophylaxis -SCDs -SQH Quality VTE Deep Vein Thrombosis/Pulmonary Embolism Present on Admission: No
[2020-12-28] MEDS: OXYCODONE IR 5 MG TABLET PO (09:06)
[2020-12-28 09:45] LABS: Procalcitonin 1.08 ng/mL (<0.5)
--- NOTE | 2020-12-28 10:23 | PT.IPTN ---
Current Diagnoses Elevated white blood cell count, unspecified (12/21/20) Pneumonia, unspecified organism (12/21/20) Chronic obstructive pulmonary disease, unspecified (12/21/20) Intestinal adhesions [bands], unspecified as to partial versus complete obstruction (12/21/20) Unspecified intestinal obstruction, unspecified as to partial versus complete obstruction (12/21/20) Chronic kidney disease, stage 3 unspecified (12/21/20) Personal history of malignant neoplasm of esophagus (12/21/20) Other specified postprocedural states (12/21/20) Surgery Performed Operation Date: 12/22/20 14:30 Actual Procedures p Exploratory Laparotomy and lysis of adhesions - Jimbo Morales MD Physical Therapy Treatment Note M2 PT-IP Current Condition Start: 12/23/20 12:28 Freq: NEEDED Status: Active Protocol: Document 12/23/20 11:03 AB (Rec: 12/23/20 12:38 AB [id number]) Physical Therapy Current Condition Current Condition Evaluation Date 12/23/20 Treatment Diagnosis SBO s/p ex-lap; difficulty in walking Onset Date 12/21/20 Precautions Abdominal Surgery Precautions Log Roll,Lifting Restrictions, Gait Belt above Incisional Area M3 PT-IP Subjective Start: 12/23/20 12:28 Freq: NEEDED Status: Active Protocol: Document 12/28/20 10:03 SP (Rec: 12/28/20 13:01 SP [id number]) Subjective Physical Therapy Visit Type Type Treatment Note Visit Start Time 10:03 Visit Stop Time 10:23 Total Visit Minutes 20 Notes NORRIS Burch attended and provided extra tubing mgt when needed during gait. Number of [employer] Visits 1 Physical Therapy Visit Comments Patient Comments Pt was agreeable to working with therapy. Therapy Pain Assessment Pain When Pain Assessed During Mobility Pain Present Pain Present Pain Reported Location ruq abd Scale Used reported low level pain (no scale provded) Pain Management Techniques Re-positioning,Timing of Activity with Medications M4 PT-IP Mobility and Gait Start: 12/23/20 12:28 Freq: NEEDED Status: Active Protocol: Document 12/28/20 10:03 SP (Rec: 12/28/20 13:01 SP [id number]) PT-Bed Mobility Assessment Rolling Type of Rolling Log Rolling,Roll to Right Level of Assist Standby Assistance Supine to Sit Supine to Sit Standby Assistance,Bedrails Scooting Scooting to Edge of Bed Standby Assistance PT-Transfer Assessment Sit to and From Stand Sit to and from Stand Standby Assistance,Use of Upper Extremities Equipment Transfer Assistive Device Gait Belt,Front Wheeled Walker Orthotic/Prosthetic Devices or Brace: No Transfers Transfer Destination Chair Transfer Technique Pt ambulated using FWW. Transfer Ability Level of Assist Standby Assistance,Contact Guard Assistance,1 Person Assistance,Use of Upper Extremities Comments Mobility Comments Pt on high flow O2 40 L. supine>LR R> sitting HOB flat using bed rail, scoot to EOB SBA. Sit>stand SBA using FWW and cuing for proper hand placement push from bed. Pt ambulated around room to chair approx 15 ft, stood in front FWW and gathered things from provided personal bag with nursing SBA then SPT using FWW to sit in chair using BUE and good slow descent SBA. Pt rested in chair for 3 min before walking further distance to door and back 30 ft total sBA using FWW, [employer] and SPTA managing tubing. Pt was reclined in chair with call light and all needs in reach before left. Pt maintained 94% SaO2 on high flow throughout mobility and no SOB. Gait Assessment Gait Gait Assistance Required: Standby Assistance,Contact Guard Assist Distance (Feet) 30 Able to Maintain Weight Bearing Status Yes During Gait Assistive Devices Assistive Device Gait Belt,Front Wheeled Walker Orthotic/Prosthetic Devices or Brace: No Gait Deviations General Gait Pattern Decreased Stride Length, Decreased Feet Clearance Factors Limiting Gait Function Factors Limiting Gait Function Decreased Activity Tolerance, Decreased Strength,Pain, Respiratory Distress Comments Gait Comments See mobility comments. Stair Climbing Assessment Comments Stair Climbing Comments Unable at this time. Will need to assess 3 stair mgt using B HR before DC. PT-Balance Assessment Sitting Balance and Reactions Static Sitting Balance Ability Good Dynamic Sitting Balance Ability Good Standing Balance and Reactions Static Standing Balance Ability Good Dynamic Standing Balance Ability Fair Device Used FWW M5 PT-IP Objective Assessments Start: 12/23/20 12:28 Freq: NEEDED Status: Active Protocol: Document 12/23/20 11:03 AB (Rec: 12/23/20 12:38 AB [id number]) Orientation Orientation/Cognition Level of Alertness Alert Orientation Name Language Function Ability Hard of Hearing Safety Awareness Understands Safety Issues Memory Description Short Term Impaired Gross Range of Motion Lower Extremity ROM Assessment Within Functional Limits Strength Lower Extremity Strength Assessment Within Functional Limits Coordination Assessment Gross Coordination Gross Coordination WNL Muscle Tone Muscle Tone WNL Yes M6 PT-IP Treatment Start: 12/23/20 12:28 Freq: NEEDED Status: Active Protocol: Document 12/28/20 10:03 SP (Rec: 12/28/20 13:01 SP [id number]) Physical Therapy Treatment Education Education Provided Precautions,Safety M7 PT-IP Assessment and Plan Start: 12/23/20 12:28 Freq: NEEDED Status: Active Protocol: Document 12/28/20 10:03 SP (Rec: 12/28/20 13:01 SP [id number]) PT Summary Assessment and Plan Potential Rehabilitation Potential Good Status of Condition at Evaluation Evolving Summary Impairments Pain,ROM,Strength,Balance, Coordination,Sensation,Tone, Cognition,Bed Mobility, Transfers,Gait,Activity Tolerance Progress Towards Goals Progressing Toward Goals,Slow Progress due to Medical Issues ,Slow Progress due to Activity Tolerance Assessment Summary Pt requiring SBA during all mobility but has decrease activity tolerance affecting mobility independence. pt with new dx of PNA. will continue working towards goals and pt plans to go home and spouse to assist him. will have to conduct caregiver training if appropriate and also has to complete stair climbing training prior to d/c home. will conitnue to assess progress. Goals Bed Mobility Goal Independent Transfer Goal Independent,Front Wheeled Walker Gait Goal Independent,Front Wheel Walker Gait Distance 200 Other Goals improve ambulation without AD 250 ft SBA up/down 3 steps with B rail SBA Days to Meet Goals 10 Frequency of Treatment Frequency Of Treatment Once a Day Treatment Plan Physical Therapy Treatment Plan Bed Mobility Training,Transfer Training,Gait Training, Therapeutic Exercise,Balance Retraining,Post Op Education, Discharge Planning,Hot or Cold Pack,Neuromuscular Re-ed, Coordination Retraining Other Recommendations and Next Treatment Gait, standing balance, stair Focus mgt when able, caregiver training prior to DC. Recommendations To Nursing Amount of Assist Needed Standby Assistance Discharge Recommendations PT Discharge Recommendations Home with Assistance,Home Health Transportation Needs at Discharge Private Vehicle
[2020-12-28 11:34] LABS: HCO3 ABG 31 mmol/L (22-26); Oxygen Saturation ABG 97 % (95-100); PCO2 ABG 37.5 mmHg (35-45); PO2 ABG 84 mmHg (80-100); TCO2 ABG 32 mmol/L (21-31); pH ABG 7.52 (7.35-7.45)
--- NOTE | 2020-12-28 13:42 | PM.PN.1 ---
Subjective Subjective Date Patient Seen: 12/28/20 Interval history: The patient was seen examined at bedside. Overall he reports feeling better than he was yesterday. He denies significant dyspnea however, his oxygen requirements did increase up to 60 liters/minute of high-flow at 60% FiO2. He is now down to high-flow at 40 liters/minute, 60% FiO2. Procalcitonin is elevated significantly which correlates with his diagnosis of pneumonia. His ABG today shows a PO2 of 84 mm Hg on 60% FiO2. He does not appear to be retaining CO2. Exam Vital Signs (past 8 hours): - 12/28/20 05:51 12/28/20 05:59 12/28/20 06:22 Temperature Pulse Rate 70 70 69 Respiratory Rate 18 Blood Pressure 167/81 H 167/81 H 148/76 H Pulse Oximetry 93 12/28/20 07:54 12/28/20 08:00 12/28/20 08:08 Temperature Pulse Rate 70 80 78 Respiratory Rate 18 22 18 Blood Pressure 141/68 H Pulse Oximetry 96 95 93 12/28/20 08:33 12/28/20 09:00 12/28/20 10:00 Temperature 98.0 F Pulse Rate 82 Respiratory Rate 30 H Blood Pressure 125/63 Pulse Oximetry 93 94 12/28/20 12:00 12/28/20 12:11 Temperature 97.8 F Pulse Rate 81 73 Respiratory Rate 25 H 18 Blood Pressure 170/82 H Pulse Oximetry 92 95 Fraction of Inspired Oxygen 60 Oxygen Delivery Method Heated High Flow Oxygen Flow Rate 40 Narrative Exam Narrative: Const General: Appears frail and cachectic. [facility] Head: normal to inspection, normocephalic and atraumatic Eyes General: appearance normal, both eyes and all related structures Pupils: PERRL EOM: EOM intact bilaterally Neck Neck: normal visual inspection and full ROM Chest Chest: normal inspection of the chest and normal palpation of entire chest wall Resp: Bilateral rhonchorous breath sounds. Patient remains on high-flow nasal cannula. Cardio Palpation: normal PMI Rate: regular rate Rhythm: regular rhythm Heart Sounds: S1 normal and S2 normal GI Inspection: normal to inspection Palpation: soft, No guarding and No tender Auscultation: normal bowel sounds Neuro General: patient alert, patient awake, patient oriented x3 and CN's II-XI intact bilaterally Motor: muscle tone normal throughout Sensory Exam: no sensory deficits noted Extrem General: normal to inspection Psych Mood: congruent mood Affect: normal affect Attitude: cooperative Thought Content: normal Objective Labs Result Diagrams: 12/28/20 04:46 12/28/20 04:46 Labs: Laboratory Results - last 24 hr 12/27/20 12/28/20 12/28/20 13:38 04:46 04:46 WBC 15.9 H RBC 3.92 L Hgb 11.6 L Hct 35.4 L MCV 90.5 MCH 29.7 MCHC 32.9 RDW 13.7 Plt Count 226 Neut % (Auto) 88.9 H Lymph % (Auto) 4.9 L [place] % (Auto) 5.8 Eos % (Auto) 0.3 L Baso % (Auto) 0.1 Neut # (Auto) 32062 H Lymph # (Auto) 800 L [place] # (Auto) 900 Eos # (Auto) 0 Baso # (Auto) 0 ABG pH ABG pCO2 ABG pO2 ABG HCO3 ABG Total CO2 ABG O2 Saturation ABG Base Excess FiO2 Sodium 142 140 Potassium 3.4 3.4 Chloride 108 H 105 Carbon Dioxide 28 33 H BUN 34 H 35 H Creatinine 1.35 H 1.55 H Estimated GFR 51.2 L 43.7 L BUN/Creatinine Ratio 25.2 H 22.6 H Glucose 139 H 135 H Calcium 8.4 8.2 L Phosphorus 3.0 Magnesium 1.9 NT-Pro-B Natriuret Pep 84167 H Procalcitonin 12/28/20 12/28/20 04:46 11:16 WBC RBC Hgb Hct MCV MCH MCHC RDW Plt Count Neut % (Auto) Lymph % (Auto) [place] % (Auto) Eos % (Auto) Baso % (Auto) Neut # (Auto) Lymph # (Auto) [place] # (Auto) Eos # (Auto) Baso # (Auto) ABG pH 7.52 H ABG pCO2 37.5 ABG pO2 84 ABG HCO3 31 H ABG Total CO2 32 H ABG O2 Saturation 97 ABG Base Excess 8.0 H FiO2 Sodium Potassium Chloride Carbon Dioxide BUN Creatinine Estimated GFR BUN/Creatinine Ratio Glucose Calcium Phosphorus Magnesium NT-Pro-B Natriuret Pep Procalcitonin 1.08 H [facility] Medical History COPD (chronic obstructive pulmonary disease) Esophageal cancer Hypertension Social History household members: spouse Smoking Status: Current every day smoker alcohol intake: current Assessment & Plan Assessment & Plan narrative: Assessment & Plan narrative: Assessment: This is a 75-year-old male with past medical history of esophageal cancer status post esophagectomy and neoadjuvant chemoradiation, CKD, hypertension, COPD, hyperlipidemia who presented to the hospital with abdominal pain and was found to have small-bowel obstruction, now status post lysis of adhesions on 12/22, and has since developed worsening hypoxic respiratory failure. #. Acute hypoxic respiratory failure #. COPD, not in exacerbation He is requiring high-flow nasal cannula currently with FiO2 of 60%. CT of his chest suggests pneumonia. He does not appear to be volume overloaded. He does not appear to be volume overloaded. Echo shows EF at 35-40%. He remains on Zosyn. MRSA PCR was negative yesterday. He is continued on q.i.d. DuoNebs for hx of COPD. #. Pneumonia Possible aspiration pneumonia due to bilateral infiltrates with and hx of esophagectomy. Continue Zosyn, start date of 12/25. MRSA PCR negative. Follow blood and sputum cultures. #. Small-bowel obstruction, status post ex lap with lysis of adhesions on 12/22 Being followed by surgery, Dr. Morales. He is now tolerating an oral diet and appears to be improving from a GI standpoint. Continue with pain control and antiemetics as needed. #. CKD Baseline creatinine appears to be around 1.3. Currently uptrending with administration of lasix, will hold diuresis and monitor. #. Hypertension Resume on his home amlodipine 5 mg nightly and Lopressor 25 mg twice daily. Add labetalol 10 mg IV q.4 hours as needed SBP > 160. #. Hypokalemia s/p repletion #. Hyperlipidemia Resume home statin Code status: Full code DVT prophylaxis: Heparin subQ b.i.d. Dispo: Currently ICU status COVID-19 COVID-19 status: Negative Result date/Date tested (Pos, Neg/Pending): 12/27/20 Quality VTE Deep Vein Thrombosis/Pulmonary Embolism Present on Admission: No
[2020-12-28] MEDS: AMLODIPINE 5 MG TABLET PO (17:05)
[2020-12-28] MEDS: ROSUVASTATIN 10 MG TABLET 20 MG PO (17:06)
[2020-12-29] VITALS (29 sets, daily range): BP systolic 125–159; BP diastolic 62–76; PULSE 72–88; RESP 15–24; TEMP 36.5–37.1; O2SAT 89–98
[2020-12-29 05:21] LABS: Add Manual Diff / Slide Review NO; Basophils Absolute Auto 0 /uL (0-100); Basophils Percent Auto 0.2 % (0-2); Eosinophils Absolute Auto 200 /uL (0-450); Eosinophils Percent Auto 1.4 % (2-4); Hematocrit 33.6 % (41-53); Hemoglobin 11.1 g/dL (13.5-17.5); Lymphocytes Absolute Auto 1000 /uL (1100-4500); Lymphocytes Percent Auto 6.2 % (25-40); Mean Corpuscular HGB Conc 33.1 % (30-36); Mean Corpuscular Hemoglobin 29.9 PG (26-34); Mean Corpuscular Volume 90.2 fL (80-100); Monocytes Absolute Auto 800 /uL (0-900); Neutrophils Absolute Auto 13500 /uL (1500-7000); Neutrophils Percent Auto 87.2 % (50-75); Platelet Count 227 X10^3/uL (150-400); Red Blood Cell Count 3.73 X10^6/uL (4.5-5.9); Red Cell Distribution Width 13.8 % (11.6-14.8); White Blood Cell Count 15.5 X10^3/uL (4.5-11.0)
[2020-12-29 05:29] LABS: BUN Creatinine Ratio 33.1 (6-22); Blood Urea Nitrogen 48 mg/dL (9-20); Calcium 8.4 mg/dL (8.4-10.2); Carbon Dioxide 36 mmol/L (22-32); Chloride 100 mmol/L (98-107); Estimated Glomerular Filt Rate 47.2 mL/min (>60); Glucose 107 mg/dL (80-110); HEMOLYSIS < 15 (0-50); Magnesium 1.9 mg/dL (1.6-2.3); Phosphorous 3.8 mg/dL (2.3-3.7); Potassium 3.8 mmol/L (3.4-5.1); Sodium 138 mmol/L (137-145)
[2020-12-29] MEDS: PIPERACILLIN-TAZO 3.375 GM/50 ML FROZ.PIGGY IV ×2 (06:17→11:20)
[2020-12-29] MEDS: ZINC SULFATE 220 MG CAPSULE PO (08:21)
[2020-12-29] MEDS: HEPARIN 5,000 UNIT/ML VIAL 5000 UNIT SUBCUT ×2 (08:21→21:10)
[2020-12-29] MEDS: METOPROLOL IR 25 MG TABLET PO ×2 (08:21→21:10)
[2020-12-29] MEDS: SODIUM CHLORIDE 0.9% FLUSH 10 ML IV ×4 (08:22→21:10)
[2020-12-29] MEDS: ALBUTEROL/IPRATROPIUM 3 ML AMPUL INH ×4 (09:17→20:12)
--- NOTE | 2020-12-29 10:10 | PM.PN.1 ---
Subjective Subjective Date Patient Seen: 12/29/20 Interval history: Patient seen examined at bedside. Reports improved energy. Is eating all of his breakfast without complications. Repeat oxygenation is improving somewhat. Time and no acute complaints. ROS otherwise negative. Exam Vital Signs (past 8 hours): - 12/29/20 03:02 12/29/20 03:53 12/29/20 04:00 Temperature 98.2 F Pulse Rate 72 75 Respiratory Rate 18 16 Blood Pressure 159/74 H 144/70 H Pulse Oximetry 97 95 96 12/29/20 05:04 12/29/20 06:12 12/29/20 08:00 Temperature 98 F 98.4 F Pulse Rate 72 74 84 Respiratory Rate 19 15 18 Blood Pressure 144/76 H 158/75 H 151/76 H Pulse Oximetry 97 94 89 L 12/29/20 09:18 12/29/20 09:22 12/29/20 10:00 Temperature 98.3 F Pulse Rate 79 82 80 Respiratory Rate 18 20 15 Blood Pressure 142/74 H Pulse Oximetry 94 94 93 Fraction of Inspired Oxygen 0.46 Oxygen Delivery Method High Flow Nasal Cannula Oxygen Flow Rate 40 Narrative Exam Narrative: Const General: cooperative, cachectic appearing Orientation: alert, awake and oriented x3 HENMT Head: normal to inspection, normocephalic and atraumatic Eyes General: appearance normal, both eyes and all related structures Pupils: PERRL EOM: EOM intact bilaterally Neck Neck: normal visual inspection and full ROM Chest Chest: normal inspection of the chest and normal palpation of entire chest wall Resp Effort & Inspection: normal respiratory effort Auscultation: no rales, no rhonchi and no wheezes Cardio Palpation: normal PMI Rate: regular rate Rhythm: regular rhythm Heart Sounds: S1 normal and S2 normal GI Inspection: normal to inspection Palpation: soft, No guarding and No tender Auscultation: normal bowel sounds Neuro General: patient alert, patient awake, patient oriented x3 and CN's II-XI intact bilaterally Motor: muscle tone normal throughout Sensory Exam: no sensory deficits noted Extrem General: normal to inspection Psych Mood: congruent mood Affect: normal affect Attitude: cooperative Thought Content: normal Objective Labs Result Diagrams: 12/29/20 04:49 12/29/20 04:49 Labs: Laboratory Results - last 24 hr 02/24/21 02/25/21 02/25/21 11:16 04:49 04:49 WBC 15.5 H RBC 3.73 L Hgb 11.1 L Hct 33.6 L MCV 90.2 MCH 29.9 MCHC 33.1 RDW 13.8 Plt Count 227 Neut % (Auto) 87.2 H Lymph % (Auto) 6.2 L [place] % (Auto) 5.0 Eos % (Auto) 1.4 L Baso % (Auto) 0.2 Neut # (Auto) 02828 H Lymph # (Auto) 1000 L [place] # (Auto) 800 Eos # (Auto) 200 Baso # (Auto) 0 ABG pH 7.52 H ABG pCO2 37.5 ABG pO2 84 ABG HCO3 31 H ABG Total CO2 32 H ABG O2 Saturation 97 ABG Base Excess 8.0 H FiO2 Sodium 138 Potassium 3.8 Chloride 100 Carbon Dioxide 36 H BUN 48 H Creatinine 1.45 H Estimated GFR 47.2 L BUN/Creatinine Ratio 33.1 H Glucose 107 Calcium 8.4 Phosphorus 3.8 H Magnesium 1.9 PFSH Medical History COPD (chronic obstructive pulmonary disease) Esophageal cancer Hypertension Social History household members: spouse Smoking Status: Current every day smoker alcohol intake: current Assessment & Plan Assessment & Plan narrative: Assessment & Plan narrative: Assessment & Plan narrative: Assessment: This is a 75-year-old male with past medical history of esophageal cancer status post esophagectomy and neoadjuvant chemoradiation, CKD, hypertension, COPD, hyperlipidemia who presented to the hospital with abdominal pain and was found to have small-bowel obstruction, now status post lysis of adhesions on 12/22, and has since developed worsening hypoxic respiratory failure. #. Acute hypoxic respiratory failure #. COPD, not in exacerbation #. Aspiration Pneumonia CT of his chest suggests multifocal pneumonia, likely aspiration PNA. He currently appears euvolemic. He does not appear to be volume overloaded. Echo shows EF at 35-40%. MRSA PCR was negative. Blood Cx negative. ABG shows hypoxemia without hypercarbia. He is continued on q.i.d. DuoNebs for hx of COPD. Target sats 88-92%. Sputum growing Klebsiella sensitive to Zosyn (d1 12/25). #. Small-bowel obstruction, status post ex lap with lysis of adhesions on 12/22 Being followed by surgery, Dr. Morales. He is now tolerating an oral diet and appears to be improving from a GI standpoint. Continue with pain control and antiemetics as needed. #. CKD Baseline creatinine appears to be around 1.3. #. Hypertension Resume on his home amlodipine 5 mg nightly and Lopressor 25 mg twice daily. Add labetalol 10 mg IV q.4 hours as needed SBP > 160. #. Hypokalemia s/p repletion #. Hyperlipidemia Resume home statin Code status: Full code DVT prophylaxis: Heparin subQ b.i.d. Dispo: Currently ICU status Quality VTE Deep Vein Thrombosis/Pulmonary Embolism Present on Admission: No
[2020-12-29] MEDS: OXYCODONE IR 5 MG TABLET PO ×2 (11:16→14:54)
[2020-12-29] MEDS: ACETAMINOPHEN 325 MG TABLET 650 MG PO ×2 (11:17→18:55)
--- NOTE | 2020-12-29 11:43 | CM.DPC ---
DCP Cont: Per Surgeon, pt remains medically stable from surgery and now mostly medical complications due to COPD/oxygen needs. Per Hospitalist, pt started on Zosyn 3 days ago and slowly improving with his pneumonia/oxygen needs although still requiring Heated high flow oxygen around 8L at this time. RT is hopeful to titrate pt down on his oxygen needs and begin trialling NC oxygen soon. If pt can reduce his oxygen needs, RT will work on setting up home oxygen for d/c home when stable and Surgeon has already signed the pwk for home oxygen. If pt cannot safely d/c home with oxygen pt would likely require SNF vs maybe LTAC if pt remains on highflow oxygen. SW contacted [facility] SNF and confirmed they cannot accept pt on highflow O2 but can take pt on 10L NC max but preference to manage more efficiently would be 8L NC O2 or less. [facility] willing to review in case SNF needed at d/c and SW made referral. Plan: SW to follow closely over the next couple days towards determining pt's oxygen needs for plan of either home with spouse and new home oxygen vs SNF if 10LNC Oxygen or less vs possible LTAC if highflow cannot be weaned? [facility] reviewing at this time. Celina Salcedo MSW
--- NOTE | 2020-12-29 12:45 | P.PN_ITS ---
Subjective Subjective Date Patient Seen: 12/29/20 Time Patient Seen: 12:50 Interval history: No major overnight events. He is tolerating a diet and having bowel function. Minimal abdominal pain. Continues to have productive cough and requiring 40 L of oxygen. Exam Vital Signs (past 8 hours): - 12/29/20 05:04 12/29/20 06:12 12/29/20 08:00 Temperature 98 F 98.4 F Pulse Rate 72 74 84 Respiratory Rate 19 15 18 Blood Pressure 144/76 H 158/75 H 151/76 H Pulse Oximetry 97 94 89 L 12/29/20 09:18 12/29/20 09:22 12/29/20 10:00 Temperature 98.3 F Pulse Rate 79 82 80 Respiratory Rate 18 20 15 Blood Pressure 142/74 H Pulse Oximetry 94 94 93 12/29/20 12:00 Temperature 98.4 F Pulse Rate 83 Respiratory Rate 19 Blood Pressure 131/62 Pulse Oximetry 94 Fraction of Inspired Oxygen 0.46 Oxygen Delivery Method High Flow Nasal Cannula Oxygen Flow Rate 40 Narrative Exam Narrative: General adult male alert oriented no acute distress Chest mildly labored respirations 40 L of high-flow oxygen Abdomen midline incision clean dry intact Objective Labs Result Diagrams: 12/29/20 04:49 12/29/20 04:49 Labs: Laboratory Results - last 24 hr 12/29/20 12/29/20 04:49 04:49 WBC 15.5 H RBC 3.73 L Hgb 11.1 L Hct 33.6 L MCV 90.2 MCH 29.9 MCHC 33.1 RDW 13.8 Plt Count 227 Neut % (Auto) 87.2 H Lymph % (Auto) 6.2 L [place] % (Auto) 5.0 Eos % (Auto) 1.4 L Baso % (Auto) 0.2 Neut # (Auto) 51436 H Lymph # (Auto) 1000 L [place] # (Auto) 800 Eos # (Auto) 200 Baso # (Auto) 0 Sodium 138 Potassium 3.8 Chloride 100 Carbon Dioxide 36 H BUN 48 H Creatinine 1.45 H Estimated GFR 47.2 L BUN/Creatinine Ratio 33.1 H Glucose 107 Calcium 8.4 Phosphorus 3.8 H Magnesium 1.9 PFSH Medical History COPD (chronic obstructive pulmonary disease) Esophageal cancer Hypertension Social History household members: spouse Smoking Status: Current every day smoker alcohol intake: current Assessment & Plan Post-op Postoperative Procedures: Procedures Operation Date: 12/22/20 14:30 Actual Procedures Side Surgeon p Exploratory Laparotomy and lysis of adhesions Jimbo Morales MD Postoperative status narrative: 75-year-old man postoperative day 7 status post laparotomy lysis of adhesions for small-bowel obstruction. His intestinal function is now normal his surgical issue was resolved. He remains in the hospital for pneumonia. # pneumonia-sputum culture finalized demonstrates Klebsiella which is sensitive to Zosyn. -continue Zosyn # acute on chronic respiratory failure-continues to require high-flow oxygen for pneumonia superimposed on COPD. -Nebulizers -Incentive spirometry -Wean oxygen to maintain sats greater than 88%. # VT prophylaxis-subcu heparin and SCDs Quality VTE Deep Vein Thrombosis/Pulmonary Embolism Present on Admission: No
--- NOTE | 2020-12-29 13:26 | PT.IPTN ---
Current Diagnoses Elevated white blood cell count, unspecified (12/21/20) Pneumonia, unspecified organism (12/21/20) Chronic obstructive pulmonary disease, unspecified (12/21/20) Intestinal adhesions [bands], unspecified as to partial versus complete obstruction (12/21/20) Unspecified intestinal obstruction, unspecified as to partial versus complete obstruction (12/21/20) Chronic kidney disease, stage 3 unspecified (12/21/20) Personal history of malignant neoplasm of esophagus (12/21/20) Other specified postprocedural states (12/21/20) Surgery Performed Operation Date: 12/22/20 14:30 Actual Procedures p Exploratory Laparotomy and lysis of adhesions - Jimbo Morales MD Physical Therapy Treatment Note M2 PT-IP Current Condition Start: 12/23/20 12:28 Freq: NEEDED Status: Active Protocol: Document 12/23/20 11:03 AB (Rec: 12/23/20 12:38 AB [id number]) Physical Therapy Current Condition Current Condition Evaluation Date 12/23/20 Treatment Diagnosis SBO s/p ex-lap; difficulty in walking Onset Date 12/21/20 Precautions Abdominal Surgery Precautions Log Roll,Lifting Restrictions, Gait Belt above Incisional Area M3 PT-IP Subjective Start: 12/23/20 12:28 Freq: NEEDED Status: Active Protocol: Document 12/29/20 13:08 CLB (Rec: 12/29/20 13:57 CLB [id number]) Subjective Physical Therapy Visit Type Type Treatment Note Visit Start Time 13:08 Visit Stop Time 13:26 Total Visit Minutes 18 Notes RT present assisted with lines Number of RANGE AID Visits 2 Physical Therapy Visit Comments Patient Comments Pt was agreeable to work with therapy. Therapy Pain Assessment Pain When Pain Assessed During Mobility Pain Present Pain Present Pain Reported M4 PT-IP Mobility and Gait Start: 12/23/20 12:28 Freq: NEEDED Status: Active Protocol: Document 12/29/20 13:08 CLB (Rec: 12/29/20 13:57 CLB [id number]) PT-Bed Mobility Assessment Rolling Type of Rolling Log Rolling,Roll to Left Level of Assist Standby Assistance Supine to Sit Supine to Sit Standby Assistance,Bedrails Scooting Scooting to Edge of Bed Standby Assistance PT-Transfer Assessment Sit to and From Stand Sit to and from Stand Standby Assistance,Use of Upper Extremities Equipment Transfer Assistive Device Gait Belt,Front Wheeled Walker Orthotic/Prosthetic Devices or Brace: No Transfers Transfer Destination Bed,Chair Transfer Technique Pt ambulated using FWW. Transfer Ability Level of Assist Standby Assistance,Contact Guard Assistance,1 Person Assistance,Use of Upper Extremities Comments Mobility Comments Pt performed LR and sidelying to sit SBA, pt then stood SBA and ambulated in room CGA with RT assisting with lines and giving cues for PLB during mobility. Pt ambulated ~15ft x2 with Sp02 ranging between 88-90%. Pt performed standing marches. Pt sat on EOB SBA and after a short rest pt stood and transferred to chair. Pt Sp02 decreased to 85 and pt given cues for PLB. Pt left in chair with RT and MEDICAL ACCOUNTANT present . Gait Assessment Gait Gait Assistance Required: Standby Assistance,Contact Guard Assist Distance (Feet) 30 Able to Maintain Weight Bearing Status Yes During Gait Assistive Devices Assistive Device Gait Belt,Front Wheeled Walker Orthotic/Prosthetic Devices or Brace: No Gait Deviations General Gait Pattern Decreased Stride Length, Decreased Feet Clearance Factors Limiting Gait Function Factors Limiting Gait Function Decreased Activity Tolerance, Decreased Strength,Pain, Respiratory Distress Comments Gait Comments See mobility comments. Stair Climbing Assessment Comments Stair Climbing Comments Unable at this time. Will need to assess 3 stair mgt using B HR before DC. PT-Balance Assessment Sitting Balance and Reactions Static Sitting Balance Ability Good Dynamic Sitting Balance Ability Good Standing Balance and Reactions Static Standing Balance Ability Good Dynamic Standing Balance Ability Fair Device Used FWW M5 PT-IP Objective Assessments Start: 12/23/20 12:28 Freq: NEEDED Status: Active Protocol: Document 12/23/20 11:03 AB (Rec: 12/23/20 12:38 AB [id number]) Orientation Orientation/Cognition Level of Alertness Alert Orientation Name Language Function Ability Hard of Hearing Safety Awareness Understands Safety Issues Memory Description Short Term Impaired Gross Range of Motion Lower Extremity ROM Assessment Within Functional Limits Strength Lower Extremity Strength Assessment Within Functional Limits Coordination Assessment Gross Coordination Gross Coordination WNL Muscle Tone Muscle Tone WNL Yes M6 PT-IP Treatment Start: 12/23/20 12:28 Freq: NEEDED Status: Active Protocol: Document 12/28/20 10:03 SP (Rec: 12/28/20 13:01 SP [id number]) Physical Therapy Treatment Education Education Provided Precautions,Safety M7 PT-IP Assessment and Plan Start: 12/23/20 12:28 Freq: NEEDED Status: Active Protocol: Document 12/29/20 13:08 CLB (Rec: 12/29/20 13:57 CLB [id number]) PT Summary Assessment and Plan Potential Rehabilitation Potential Good Status of Condition at Evaluation Evolving Summary Impairments Pain,ROM,Strength,Balance, Coordination,Sensation,Tone, Cognition,Bed Mobility, Transfers,Gait,Activity Tolerance Progress Towards Goals Progressing Toward Goals,Slow Progress due to Medical Issues ,Slow Progress due to Activity Tolerance Assessment Summary Pt continues to have decreased activity tolerance due to weakness and SOB. Goals Bed Mobility Goal Independent Transfer Goal Independent,Front Wheeled Walker Gait Goal Independent,Front Wheel Walker Gait Distance 200 Other Goals improve ambulation without AD 250 ft SBA up/down 3 steps with B rail SBA Days to Meet Goals 10 Frequency of Treatment Frequency Of Treatment Once a Day Treatment Plan Physical Therapy Treatment Plan Bed Mobility Training,Transfer Training,Gait Training, Therapeutic Exercise,Balance Retraining,Post Op Education, Discharge Planning,Hot or Cold Pack,Neuromuscular Re-ed, Coordination Retraining Other Recommendations and Next Treatment Gait, standing balance, stair Focus mgt when able, caregiver training prior to DC. Recommendations To Nursing Amount of Assist Needed Standby Assistance Discharge Recommendations PT Discharge Recommendations Home with Assistance,Home Health Transportation Needs at Discharge Private Vehicle
--- NOTE | 2020-12-29 14:43 | PC.NURSE ---
Pt has done well with pulmonary toilet today. Using IS and acapella independently. Able to wean O2 to 5L High flow NC. Pt was able to walk to bathroom and shower with assistance today. Midline abd dsg removed per order. Incision is well approximated with cesar. Pt overrall feels much improved today. He did require 1 dose of oxycodone for pain reported to left rib cage/chest after aggressively using IS. Post med administration, pt reports pain as improved and tolerable. Using call light appropriately.
--- NOTE | 2020-12-29 14:58 | CM.DPNOTE ---
Sent referral via right fax to [facility] after [facility] stated they could take patient but not until he is under 10L NC and only breathing treatments can be inhaler versus nebulizer.
[2020-12-29] MEDS: POTASSIUM CHLORIDE 20 MEQ/15 ML UDC 40 MEQ PO (15:48)
[2020-12-29] MEDS: CEFTRIAXONE 2 GM/50 ML FROZ.PIGGY IV (16:37)
[2020-12-29] MEDS: AMLODIPINE 5 MG TABLET PO (16:37)
[2020-12-29] MEDS: ROSUVASTATIN 10 MG TABLET 20 MG PO (16:38)
--- NOTE | 2020-12-29 16:53 | PC.NURSE ---
Pt up to chair at the bedside, sats 94% on 5L NC. Has been complaining of some left lower chest pain described as a pulled muscle. Medicated with Oxycodone with some relief. Ice pack placed to left posterior chest for comfort.
[2020-12-29] MEDS: SODIUM CHLORIDE 0.9% 250 ML 21 ML IV (17:30)
[2020-12-29] MEDS: OXYCODONE IR 10 MG TABLET PO (18:55)
[2020-12-30] VITALS (21 sets, daily range): BP systolic 114–169; BP diastolic 63–80; PULSE 72–93; RESP 14–22; TEMP 36.4–37.2; O2SAT 85–99
[2020-12-30 04:57] LABS: Add Manual Diff / Slide Review NO; Basophils Absolute Auto 0 /uL (0-100); Basophils Percent Auto 0.2 % (0-2); Eosinophils Absolute Auto 400 /uL (0-450); Eosinophils Percent Auto 2.1 % (2-4); Hematocrit 33.7 % (41-53); Hemoglobin 10.9 g/dL (13.5-17.5); Lymphocytes Absolute Auto 1000 /uL (1100-4500); Mean Corpuscular HGB Conc 32.4 % (30-36); Mean Corpuscular Hemoglobin 29.5 PG (26-34); Mean Corpuscular Volume 91.1 fL (80-100); Monocytes Absolute Auto 600 /uL (0-900); Monocytes Percent Auto 3.9 % (3-14); Neutrophils Absolute Auto 14400 /uL (1500-7000); Neutrophils Percent Auto 87.8 % (50-75); Platelet Count 233 X10^3/uL (150-400); Red Cell Distribution Width 13.9 % (11.6-14.8); White Blood Cell Count 16.4 X10^3/uL (4.5-11.0)
[2020-12-30 05:02] LABS: BUN Creatinine Ratio 37.2 (6-22); Blood Urea Nitrogen 48 mg/dL (9-20); Calcium 8.5 mg/dL (8.4-10.2); Carbon Dioxide 35 mmol/L (22-32); Chloride 100 mmol/L (98-107); Glucose 95 mg/dL (80-110); HEMOLYSIS < 15 (0-50); Potassium 4.1 mmol/L (3.4-5.1); Sodium 136 mmol/L (137-145)
[2020-12-30] MEDS: ALBUTEROL/IPRATROPIUM 3 ML AMPUL INH ×3 (08:00→17:50)
[2020-12-30] MEDS: ZINC SULFATE 220 MG CAPSULE PO (08:21)
[2020-12-30] MEDS: METOPROLOL IR 25 MG TABLET PO ×2 (08:21→20:26)
[2020-12-30] MEDS: SODIUM CHLORIDE 0.9% FLUSH 10 ML IV ×3 (08:21→20:27)
[2020-12-30] MEDS: HEPARIN 5,000 UNIT/ML VIAL 5000 UNIT SUBCUT ×2 (08:22→20:26)
[2020-12-30] MEDS: OXYCODONE IR 5 MG TABLET PO (10:06)
[2020-12-30] MEDS: ACETAMINOPHEN 325 MG TABLET 650 MG PO (10:07)
--- NOTE | 2020-12-30 11:03 | PC.NURSE ---
Pt ambulated in hallway with gait belt, fww, sba. Initially placed on 4L high flow NC yielding SPO2 99%. Titrated O2 to 2L and pt was noted to be 91% with ambulation. Transitioned to RA and pt dropped SPO2 to 85%. He reported pain to his left lower chest/rib area with deep inspiration consistent with the pain he reported yesterday. Placed pt on 2L NC and he was able to walk back to his room with a steady gait. He went to the BR and then sat up to chair. SPO2 dropped to 83% after this activity necessitating titration of O2 to 5L. After resting for about 10 minutes, he recovered to 88%. Administered PRN pain rx with good effect. Able to titrate O2 back down to 3L. Pt sitting up to chair with call light in easy reach.
--- NOTE | 2020-12-30 12:11 | DI.RAD.S_ITS ---
PROCEDURE: XR CHEST 2V INDICATIONS: r/o chf TECHNIQUE: 2 views of the chest were acquired. COMPARISON: [facility], CT, CT CHEST ABD PEL W CON, 04/11/2020, 10:57. [facility], CT, CT CHEST W CON, 12/26/2020, 8:04. [facility], CR, CHEST 2 VIEW, 09/03/2013, 13:31. [facility], CR, XR CHEST 1V, 12/23/2020, 10:11. FINDINGS: Surgical changes and devices: Surgical clips in the right neck. Lungs and pleura: Bilateral interstitial infiltrates. Small pleural effusions are present bilaterally. No pneumothorax. Mediastinum: Mediastinal contours are normal. Heart size is normal. Bones and chest wall: No suspicious bony abnormalities. Soft tissues appear unremarkable. IMPRESSION: 1. Bilateral interstitial infiltrates consistent with interstitial pneumonia. Superimposed CHF may be present. 2. Small pleural effusions bilaterally. Dictated by: Deysi Lawrence M.D. on 12/30/2020 at 13:12 Approved by: Deysi Lawrence M.D. on 12/30/2020 at 13:15
[2020-12-30 12:47] LABS: COVID19 -Nasal RAPID Negative (Negative)
[2020-12-30] MEDS: OXYCODONE IR 10 MG TABLET PO ×2 (13:35→20:27)
[2020-12-30] MEDS: FUROSEMIDE 20 MG/2 ML VIAL IV (13:36)
--- NOTE | 2020-12-30 15:40 | PM.PN.1 ---
Subjective Subjective Date Patient Seen: 12/30/20 Time Patient Seen: 17:05 Interval history: No acute events overnight. Patient is tolerating p.o., having bowel movements normally, and denies abdominal pain. Exam Vital Signs (past 8 hours): - 12/30/20 08:00 12/30/20 08:40 12/30/20 09:26 Temperature 98.3 F Pulse Rate 81 Respiratory Rate 18 Blood Pressure 168/80 H Pulse Oximetry 95 92 95 12/30/20 10:00 12/30/20 10:05 12/30/20 10:10 Temperature Pulse Rate Respiratory Rate Blood Pressure Pulse Oximetry 99 91 85 L 12/30/20 10:30 12/30/20 10:45 12/30/20 13:17 Temperature 98.5 F Pulse Rate 83 Respiratory Rate 14 Blood Pressure 124/63 Pulse Oximetry 88 L 95 91 12/30/20 13:34 12/30/20 14:45 Temperature Pulse Rate 82 Respiratory Rate 20 Blood Pressure Pulse Oximetry 93 91 Fraction of Inspired Oxygen 40 Oxygen Delivery Method High Flow Nasal Cannula Oxygen Flow Rate 3 Narrative Exam Narrative: General adult male alert oriented no acute distress Chest mildly labored respirations 3 L of 40% oxygen Abdomen midline incision clean dry intact Abdomen nontender nondistended Objective Labs Result Diagrams: 12/30/20 04:34 12/30/20 04:34 Labs: Laboratory Results - last 24 hr 12/30/20 12/30/20 12/30/20 04:34 04:34 12:05 WBC 16.4 H RBC 3.70 L Hgb 10.9 L Hct 33.7 L MCV 91.1 MCH 29.5 MCHC 32.4 RDW 13.9 Plt Count 233 Neut % (Auto) 87.8 H Lymph % (Auto) 6.0 L [place] % (Auto) 3.9 Eos % (Auto) 2.1 Baso % (Auto) 0.2 Neut # (Auto) 89741 H Lymph # (Auto) 1000 L [place] # (Auto) 600 Eos # (Auto) 400 Baso # (Auto) 0 Sodium 136 L Potassium 4.1 Chloride 100 Carbon Dioxide 35 H BUN 48 H Creatinine 1.29 H Estimated GFR 54.0 L BUN/Creatinine Ratio 37.2 H Glucose 95 Calcium 8.5 Phosphorus 4.0 H Magnesium 2.0 SARS-CoV-2 (PCR) Negative [facility] Medical History COPD (chronic obstructive pulmonary disease) Esophageal cancer Hypertension Social History household members: spouse Smoking Status: Current every day smoker alcohol intake: current Assessment & Plan Assessment & Plan narrative: 75-year-old man with history of COPD who has pneumonia, and is postop day 8 from lysis of adhesions, now with good return of bowel function and normal p.o. intake. Awaiting dispo based on his pneumonia. Regular diet as tolerated Dispo per hospitalist Quality VTE Deep Vein Thrombosis/Pulmonary Embolism Present on Admission: No
--- NOTE | 2020-12-30 15:41 | PT.IPTN ---
Current Diagnoses Elevated white blood cell count, unspecified (12/21/20) Pneumonia, unspecified organism (12/21/20) Chronic obstructive pulmonary disease, unspecified (12/21/20) Intestinal adhesions [bands], unspecified as to partial versus complete obstruction (12/21/20) Unspecified intestinal obstruction, unspecified as to partial versus complete obstruction (12/21/20) Chronic kidney disease, stage 3 unspecified (12/21/20) Personal history of malignant neoplasm of esophagus (12/21/20) Other specified postprocedural states (12/21/20) Surgery Performed Operation Date: 12/22/20 14:30 Actual Procedures p Exploratory Laparotomy and lysis of adhesions - Jimbo Morales MD Physical Therapy Treatment Note M2 PT-IP Current Condition Start: 12/23/20 12:28 Freq: NEEDED Status: Active Protocol: Document 12/23/20 11:03 AB (Rec: 12/23/20 12:38 AB [id number]) Physical Therapy Current Condition Current Condition Evaluation Date 12/23/20 Treatment Diagnosis SBO s/p ex-lap; difficulty in walking Onset Date 12/21/20 Precautions Abdominal Surgery Precautions Log Roll,Lifting Restrictions, Gait Belt above Incisional Area M3 PT-IP Subjective Start: 12/23/20 12:28 Freq: NEEDED Status: Active Protocol: Document 12/30/20 15:29 HH (Rec: 12/30/20 15:41 HH [id number]) Subjective Physical Therapy Visit Type Type Treatment Note Visit Start Time 15:08 Visit Stop Time 15:28 Total Visit Minutes 20 Notes at bedside Number of DRILLING FOREMAN Visits 0 Physical Therapy Visit Comments Patient Comments Pt was agreeable to work with therapy. Therapy Pain Assessment Pain When Pain Assessed During Mobility Pain Present Pain Present Pain Reported Location Left Ribs Intensity 3 Scale Used Numeric (0 - 10) Description Aching Pain Management Techniques Apply Cold,Timing of Activity with Medications M4 PT-IP Mobility and Gait Start: 12/23/20 12:28 Freq: NEEDED Status: Active Protocol: Document 12/30/20 15:29 HH (Rec: 12/30/20 15:41 HH [id number]) PT-Transfer Assessment Sit to and From Stand Sit to and from Stand Standby Assistance,Use of Upper Extremities Equipment Transfer Assistive Device Gait Belt,Front Wheeled Walker Orthotic/Prosthetic Devices or Brace: No Transfers Transfer Destination Chair Transfer Technique Pt ambulated using FWW. Transfer Ability Level of Assist Standby Assistance,1 Person Assistance,Use of Upper Extremities Comments Mobility Comments Pt was in bedside chair with 3L O2 SpO2 at 91% upon PT arrival. at bedside. Pt agreeable to mobilize with PT. Pt stood up from chair by pushing off from chair SBA. He then used FWW to walk around [facility] for 1 lap with portable O2. Pt's SpO2 maintained at 88-91% with 4L O2/min. No SOB but slight pain at L ribcage. Pt then went back to chair with SBA. He was safe and steady without c/o discomfort. However, his SpO2 went down to 77% while switching his NC from portable O2 tank and wall O2 unit but he was able to recover to 91% within 30 seconds. Call light placed within reach. Gait Assessment Gait Gait Assistance Required: Standby Assistance,Contact Guard Assist Distance (Feet) 160 Able to Maintain Weight Bearing Status Yes During Gait Assistive Devices Assistive Device Gait Belt,Front Wheeled Walker Orthotic/Prosthetic Devices or Brace: No Gait Deviations General Gait Pattern Decreased Stride Length, Decreased Feet Clearance Factors Limiting Gait Function Factors Limiting Gait Function Decreased Activity Tolerance, Decreased Strength,Pain, Respiratory Distress Comments Gait Comments See mobility comments. Stair Climbing Assessment Comments Stair Climbing Comments Unable at this time. Will need to assess 3 stair mgt using B HR before DC. PT-Balance Assessment Sitting Balance and Reactions Static Sitting Balance Ability Good Dynamic Sitting Balance Ability Good Standing Balance and Reactions Static Standing Balance Ability Good Dynamic Standing Balance Ability Fair Device Used FWW M5 PT-IP Objective Assessments Start: 12/23/20 12:28 Freq: NEEDED Status: Active Protocol: Document 12/23/20 11:03 AB (Rec: 12/23/20 12:38 AB [id number]) Orientation Orientation/Cognition Level of Alertness Alert Orientation Name Language Function Ability Hard of Hearing Safety Awareness Understands Safety Issues Memory Description Short Term Impaired Gross Range of Motion Lower Extremity ROM Assessment Within Functional Limits Strength Lower Extremity Strength Assessment Within Functional Limits Coordination Assessment Gross Coordination Gross Coordination WNL Muscle Tone Muscle Tone WNL Yes M6 PT-IP Treatment Start: 12/23/20 12:28 Freq: NEEDED Status: Active Protocol: Document 12/28/20 10:03 SP (Rec: 12/28/20 13:01 SP [id number]) Physical Therapy Treatment Education Education Provided Precautions,Safety M7 PT-IP Assessment and Plan Start: 12/23/20 12:28 Freq: NEEDED Status: Active Protocol: Document 12/30/20 15:29 HH (Rec: 12/30/20 15:41 HH [id number]) PT Summary Assessment and Plan Potential Rehabilitation Potential Good Status of Condition at Evaluation Evolving Summary Impairments Pain,ROM,Strength,Balance, Coordination,Sensation,Tone, Cognition,Bed Mobility, Transfers,Gait,Activity Tolerance Progress Towards Goals Progressing Toward Goals,Slow Progress due to Medical Issues ,Slow Progress due to Activity Tolerance Assessment Summary Pt shows significant improvements today with increased amb distance with 4L O2 via NC. His O2 maintained at 88-91% with slight dsicomfort at L ribcage. However, pt is still from baseline and cont recommend home with assistance (with oxygen access) and HH. Goals Bed Mobility Goal Independent Transfer Goal Independent,Front Wheeled Walker Gait Goal Independent,Front Wheel Walker Gait Distance 200 Other Goals improve ambulation without AD 250 ft SBA up/down 3 steps with B rail SBA Days to Meet Goals 10 Frequency of Treatment Frequency Of Treatment Once a Day Treatment Plan Physical Therapy Treatment Plan Bed Mobility Training,Transfer Training,Gait Training, Therapeutic Exercise,Balance Retraining,Post Op Education, Discharge Planning,Hot or Cold Pack,Neuromuscular Re-ed, Coordination Retraining Other Recommendations and Next Treatment attempt to gait training Focus without AD Gait, standing balance, stair mgt when able, caregiver training prior to DC. Recommendations To Nursing Amount of Assist Needed Standby Assistance Discharge Recommendations PT Discharge Recommendations Home with Assistance,Home Health Transportation Needs at Discharge Private Vehicle
--- NOTE | 2020-12-30 16:10 | PM.PN.1 ---
Subjective Subjective Date Patient Seen: 12/30/20 Interval history: Patient is a 75-year-old male with a history of esophageal cancer who presented to the hospital with a small-bowel obstruction. He underwent exploratory laparotomy and lysis of adhesion. Postoperatively the patient developed an elevated white count and hypoxia. He does have a history of COPD. The patient was smoking 6 cigars per day for several years. He at baseline is on no oxygen and does not use inhalers for his shortness of breath. Patient has received several L of fluid here in the hospital. An echocardiogram showed an ejection fraction which was reduced at 35-40%. He has been on antibiotics. His oxygenation has improved as he is no longer requiring high-flow oxygen but does desaturate with minimal activity. Patient dropped his O2 sat into the 83% when walking on 3 L. he was given IV Lasix with minimal response previously. Exam Vital Signs (past 8 hours): - 12/30/20 08:40 12/30/20 09:26 12/30/20 10:00 Temperature Pulse Rate Respiratory Rate Blood Pressure Pulse Oximetry 92 95 99 12/30/20 10:05 12/30/20 10:10 12/30/20 10:30 Temperature Pulse Rate Respiratory Rate Blood Pressure Pulse Oximetry 91 85 L 88 L 12/30/20 10:45 12/30/20 13:17 12/30/20 13:34 Temperature 98.5 F Pulse Rate 83 82 Respiratory Rate 14 20 Blood Pressure 124/63 Pulse Oximetry 95 91 93 12/30/20 14:45 12/30/20 15:30 Temperature 98.0 F Pulse Rate Respiratory Rate 16 Blood Pressure 114/67 Pulse Oximetry 91 92 Fraction of Inspired Oxygen 40 Oxygen Delivery Method High Flow Nasal Cannula Oxygen Flow Rate 3 Narrative Exam Narrative: Ill-appearing male sitting in a chair with oxygen Lungs: Decreased breath sounds, with occasional scattered rhonchi Cardiac exam: Regular rate and rhythm normal S1-S2 Abdomen: Soft nontender nondistended, midline incision with cesar in place, no board-like rigidity, no rebound tender Extremities no edema Objective Labs Result Diagrams: 12/30/20 04:34 12/30/20 04:34 Labs: Laboratory Results - last 24 hr 12/30/20 12/30/20 12/30/20 04:34 04:34 12:05 WBC 16.4 H RBC 3.70 L Hgb 10.9 L Hct 33.7 L MCV 91.1 MCH 29.5 MCHC 32.4 RDW 13.9 Plt Count 233 Neut % (Auto) 87.8 H Lymph % (Auto) 6.0 L [place] % (Auto) 3.9 Eos % (Auto) 2.1 Baso % (Auto) 0.2 Neut # (Auto) 12847 H Lymph # (Auto) 1000 L [place] # (Auto) 600 Eos # (Auto) 400 Baso # (Auto) 0 Sodium 136 L Potassium 4.1 Chloride 100 Carbon Dioxide 35 H BUN 48 H Creatinine 1.29 H Estimated GFR 54.0 L BUN/Creatinine Ratio 37.2 H Glucose 95 Calcium 8.5 Phosphorus 4.0 H Magnesium 2.0 SARS-CoV-2 (PCR) Negative [facility] Medical History COPD (chronic obstructive pulmonary disease) Esophageal cancer Hypertension Social History household members: spouse Smoking Status: Current every day smoker alcohol intake: current Assessment & Plan Assessment & Plan narrative: Assessment & Plan narrative: Assessment & Plan narrative: Assessment & Plan narrative: Assessment: This is a 75-year-old male with past medical history of esophageal cancer status post esophagectomy and neoadjuvant chemoradiation, CKD, hypertension, COPD, hyperlipidemia who presented to the hospital with abdominal pain and was found to have small-bowel obstruction, now status post lysis of adhesions on 12/22, and has since developed worsening hypoxic respiratory failure. 1. Acute Hypoxic Respiratory Failure -Muiltfactorial -Suspect Aspiration Pneumonia given multiple episodes of Nausea/Vomitting -WBC still elevated, will continue antibiotics for now -Repeat Chest Xray reveals bilateral interstitial infiltrates with ? superimposed CHF 2. Acute Systolic Heart Failure -EF 35-40%, with some hypokinesis -resume lasix for diuresis given I/0 + 7 liters -will follow labs -monitor oxygenation closely 3. COPD -chronic no evidence of exacerbation #. Small-bowel obstruction, status post ex lap with lysis of adhesions on 12/22 Being followed by surgery, Dr. Morales. He is now tolerating an oral diet and appears to be improving from a GI standpoint. Continue with pain control and antiemetics as needed. #. CKD Baseline creatinine appears to be around 1.3. #. Hypertension Resume on his home amlodipine 5 mg nightly and Lopressor 25 mg twice daily. Lasix will help blood pressure as well #. Hypokalemia s/p repletion #. Hyperlipidemia Resume home statin Code status: Full code DVT prophylaxis: Heparin subQ b.i.d. Home vs. SNF when oxygenation improved Quality VTE Deep Vein Thrombosis/Pulmonary Embolism Present on Admission: No
[2020-12-30] MEDS: ROSUVASTATIN 10 MG TABLET 20 MG PO (17:01)
[2020-12-30] MEDS: AMLODIPINE 5 MG TABLET PO (17:02)
[2020-12-30] MEDS: FUROSEMIDE 40 MG/4 ML VIAL IV (17:02)
[2020-12-30] MEDS: CEFTRIAXONE 2 GM/50 ML FROZ.PIGGY IV (17:02)
[2020-12-31] MEDS: OXYCODONE IR 10 MG TABLET PO ×2 (01:56→08:33)
[2020-12-31 02:00] VITALS: O2SAT 95
[2020-12-31] MEDS: FUROSEMIDE 40 MG/4 ML VIAL IV (05:07)
[2020-12-31 05:15] VITALS: BP 141/76; PULSE 74; RESP 16; TEMP 37.1; O2SAT 92
[2020-12-31 05:23] LABS: Add Manual Diff / Slide Review NO; Basophils Absolute Auto 100 /uL (0-100); Basophils Percent Auto 0.3 % (0-2); Eosinophils Absolute Auto 300 /uL (0-450); Eosinophils Percent Auto 1.6 % (2-4); Hematocrit 33.9 % (41-53); Hemoglobin 11.1 g/dL (13.5-17.5); Lymphocytes Absolute Auto 1000 /uL (1100-4500); Lymphocytes Percent Auto 5.3 % (25-40); Mean Corpuscular HGB Conc 32.7 % (30-36); Mean Corpuscular Hemoglobin 29.5 PG (26-34); Mean Corpuscular Volume 90.3 fL (80-100); Monocytes Absolute Auto 800 /uL (0-900); Monocytes Percent Auto 4.2 % (3-14); Neutrophils Absolute Auto 16800 /uL (1500-7000); Neutrophils Percent Auto 88.6 % (50-75); Platelet Count 279 X10^3/uL (150-400); Red Blood Cell Count 3.75 X10^6/uL (4.5-5.9); Red Cell Distribution Width 13.9 % (11.6-14.8)
[2020-12-31 05:34] LABS: Alanine Aminotransferase 44 IU/L (<50); Albumin 2.8 g/dL (3.5-5.0); Alkaline Phosphatase 103 U/L (38-126); Aspartate Aminotransferase 45 IU/L (17-59); BUN Creatinine Ratio 33.1 (6-22); Bilirubin Total 0.3 mg/dL (0.2-1.3); Blood Urea Nitrogen 45 mg/dL (9-20); Calcium 8.5 mg/dL (8.4-10.2); Carbon Dioxide 35 mmol/L (22-32); Chloride 96 mmol/L (98-107); Estimated Glomerular Filt Rate 50.8 mL/min (>60); Globulin 2.8 g/dL (1.7-4.1); Glucose 100 mg/dL (80-110); HEMOLYSIS < 15 (0-50); Potassium 3.9 mmol/L (3.4-5.1); Sodium 134 mmol/L (137-145); Total Protein 5.6 g/dL (6.3-8.2)
[2020-12-31 05:39] LABS: Phosphorous 5.2 mg/dL (2.3-3.7)
[2020-12-31 05:43] LABS: NT-proBNP (BNP-Adult 18+) 6860 pg/mL (<450)
[2020-12-31 06:00] VITALS: O2SAT 94
[2020-12-31 07:40] VITALS: O2SAT 86
[2020-12-31] MEDS: ALBUTEROL/IPRATROPIUM 3 ML AMPUL INH (07:43)
[2020-12-31 07:45] VITALS: PULSE 84; RESP 16; O2SAT 92
[2020-12-31 08:00] VITALS: BP 128/58; PULSE 82; RESP 18; TEMP 36.6; O2SAT 92
[2020-12-31] MEDS: METOPROLOL IR 25 MG TABLET PO (08:30)
[2020-12-31] MEDS: POTASSIUM CHLORIDE 20 MEQ TAB 40 MEQ PO (08:31)
[2020-12-31] MEDS: SODIUM CHLORIDE 0.9% FLUSH 10 ML IV (08:32)
[2020-12-31] MEDS: HEPARIN 5,000 UNIT/ML VIAL 5000 UNIT SUBCUT (08:32)
[2020-12-31] MEDS: ACETAMINOPHEN 325 MG TABLET 650 MG PO (08:32)
[2020-12-31] MEDS: ZINC SULFATE 220 MG CAPSULE PO (08:36)
--- NOTE | 2020-12-31 09:31 | PT.IPTN ---
Current Diagnoses Elevated white blood cell count, unspecified (12/21/20) Pneumonia, unspecified organism (12/21/20) Chronic obstructive pulmonary disease, unspecified (12/21/20) Intestinal adhesions [bands], unspecified as to partial versus complete obstruction (12/21/20) Unspecified intestinal obstruction, unspecified as to partial versus complete obstruction (12/21/20) Chronic kidney disease, stage 3 unspecified (12/21/20) Personal history of malignant neoplasm of esophagus (12/21/20) Other specified postprocedural states (12/21/20) Surgery Performed Operation Date: 12/22/20 14:30 Actual Procedures p Exploratory Laparotomy and lysis of adhesions - Jimbo Morales MD Physical Therapy Treatment Note M2 PT-IP Current Condition Start: 12/23/20 12:28 Freq: NEEDED Status: Active Protocol: Document 12/23/20 11:03 AB (Rec: 12/23/20 12:38 AB [id number]) Physical Therapy Current Condition Current Condition Evaluation Date 12/23/20 Treatment Diagnosis SBO s/p ex-lap; difficulty in walking Onset Date 12/21/20 Precautions Abdominal Surgery Precautions Log Roll,Lifting Restrictions, Gait Belt above Incisional Area M3 PT-IP Subjective Start: 12/23/20 12:28 Freq: NEEDED Status: Active Protocol: Document 12/31/20 09:31 AB (Rec: 12/31/20 10:38 AB [id number]) Subjective Physical Therapy Visit Type Type Treatment Note Visit Start Time 09:31 Visit Stop Time 12:05 Total Visit Minutes 34 Notes split visits: 931 to 947 am and 1149 to 1205 pm Number of SURGICAL SPECIALIST Visits 0 Physical Therapy Visit Comments Patient Comments pt is agreeable to do PT Therapy Pain Assessment Pain When Pain Assessed At Rest Pain Present Pain Present Pain Reported Location Back Scale Used pain scale not stated M4 PT-IP Mobility and Gait Start: 12/23/20 12:28 Freq: NEEDED Status: Active Protocol: Document 12/31/20 09:31 AB (Rec: 12/31/20 10:38 AB [id number]) PT-Bed Mobility Assessment Rolling Type of Rolling Log Rolling Level of Assist Standby Assistance Supine to Sit Supine to Sit Standby Assistance PT-Transfer Assessment Sit to and From Stand Sit to and from Stand Standby Assistance Equipment Transfer Assistive Device Gait Belt,Front Wheeled Walker Orthotic/Prosthetic Devices or Brace: No Transfers Transfer Destination Toilet Transfer Technique ambulated using FWW Transfer Ability Level of Assist Standby Assistance,Contact Guard Assistance,Use of Upper Extremities Comments Mobility Comments O2 sat at rest on 5L/min 88-90 %. informed nurse and stated that pt can go to 6L/min with activity. pt completed supine to sit log roll SBA. pt was able to sit on EOB SBA. completed sit to stand SBA. pt ambulated in the hallway ~ 150 ft using FWW SBA with occasional CGA towards end of ambulation with increase trunk leaning and slower pace towards the end of ambulation. O2 sat at 6L/min during ambulation 87-90%. cued pt for deep breathing. pt requested to use the toilet and ambulate using FWW to the toilet. pt wanted to use the toilet for a few minutes. call light positioned next to pt and instructed. informed nurse that pt is using the toilet and nurse acknowledged. came back to see pt for stair climbing training due to plan for pt to go home today and did not have d/c order previously. Pt completed sit to stand SBA and ambulated towards the step SBA using FWW. spouse stated that they have 3 platform steps and FWW will fit on it. pt completed platform step using FWW SBA. ambulated back to room using FWW SBA and sat on chair. positioned on chair. call light within reach. left pt with spouse. Gait Assessment Gait Gait Assistance Required: Standby Assistance,Contact Guard Assist Distance (Feet) 150 Able to Maintain Weight Bearing Status Yes During Gait Assistive Devices Assistive Device Gait Belt,Front Wheeled Walker Orthotic/Prosthetic Devices or Brace: No Gait Deviations General Gait Pattern Decreased Stride Length, Decreased Feet Clearance,Step- to Gait Factors Limiting Gait Function Factors Limiting Gait Function Decreased Activity Tolerance, Decreased Strength,Pain,Poor Balance,Respiratory Distress Comments Gait Comments pls refer to mobility section for details Stair Climbing Assessment Evaluation Level of Assist On Stairs Standby Assistance Devices Stair Climbing Assistive Devices Front Wheel Walker Technique/Endurance Stair Climbing Direction Ascend and Descend Stair Climbing Technique Step to Step Number of Steps Climbed 1 Stair Climbing Set # Repetitions (reps) 2 M5 PT-IP Objective Assessments Start: 12/23/20 12:28 Freq: NEEDED Status: Active Protocol: Document 02/19/21 11:03 AB (Rec: 12/23/20 12:38 AB [id number]) Orientation Orientation/Cognition Level of Alertness Alert Orientation Name Language Function Ability Hard of Hearing Safety Awareness Understands Safety Issues Memory Description Short Term Impaired Gross Range of Motion Lower Extremity ROM Assessment Within Functional Limits Strength Lower Extremity Strength Assessment Within Functional Limits Coordination Assessment Gross Coordination Gross Coordination WNL Muscle Tone Muscle Tone WNL Yes M6 PT-IP Treatment Start: 12/23/20 12:28 Freq: NEEDED Status: Active Protocol: Document 12/31/20 09:31 AB (Rec: 12/31/20 10:38 AB [id number]) Physical Therapy Treatment Education Education Provided Precautions,Safety M7 PT-IP Assessment and Plan Start: 12/23/20 12:28 Freq: NEEDED Status: Active Protocol: Document 12/31/20 09:31 AB (Rec: 12/31/20 10:38 AB [id number]) PT Summary Assessment and Plan Potential Rehabilitation Potential Good Summary Impairments Pain,ROM,Strength,Balance, Coordination,Bed Mobility, Transfers,Gait,Activity Tolerance Progress Towards Goals Slow Progress due to Medical Issues,Slow Progress due to Activity Tolerance Assessment Summary pt is progressing with mobility requiring SBA to CGA with ambulation using FWW and completed up/down platform step using FWW SBA. pt plans to go home and spouse to assist pt. Goals Bed Mobility Goal Independent Transfer Goal Independent,Front Wheeled Walker Gait Goal Independent,Front Wheel Walker Gait Distance 200 Other Goals improve ambulation without AD 250 ft SBA up/down 3 steps with B rail SBA Days to Meet Goals 10 Frequency of Treatment Frequency Of Treatment Once a Day Treatment Plan Physical Therapy Treatment Plan Bed Mobility Training,Transfer Training,Gait Training, Therapeutic Exercise,Balance Retraining,Post Op Education, Discharge Planning,Hot or Cold Pack,Neuromuscular Re-ed, Coordination Retraining Other Recommendations and Next Treatment attempt to gait training Focus without AD Gait, standing balance, stair mgt when able, caregiver training prior to DC. Recommendations To Nursing Amount of Assist Needed Standby Assistance Discharge Recommendations PT Discharge Recommendations Home with Assistance,Home Health Transportation Needs at Discharge Private Vehicle
--- NOTE | 2020-12-31 09:31 | PT.IPTN ---
Current Diagnoses Elevated white blood cell count, unspecified (12/21/20) Pneumonia, unspecified organism (12/21/20) Chronic obstructive pulmonary disease, unspecified (12/21/20) Intestinal adhesions [bands], unspecified as to partial versus complete obstruction (12/21/20) Unspecified intestinal obstruction, unspecified as to partial versus complete obstruction (12/21/20) Chronic kidney disease, stage 3 unspecified (12/21/20) Personal history of malignant neoplasm of esophagus (12/21/20) Other specified postprocedural states (12/21/20) Surgery Performed Operation Date: 12/22/20 14:30 Actual Procedures p Exploratory Laparotomy and lysis of adhesions - Jimbo Morales MD Physical Therapy Treatment Note M2 PT-IP Current Condition Start: 12/23/20 12:28 Freq: NEEDED Status: Active Protocol: Document 12/23/20 11:03 AB (Rec: 12/23/20 12:38 AB [id number]) Physical Therapy Current Condition Current Condition Evaluation Date 12/23/20 Treatment Diagnosis SBO s/p ex-lap; difficulty in walking Onset Date 12/21/20 Precautions Abdominal Surgery Precautions Log Roll,Lifting Restrictions, Gait Belt above Incisional Area M3 PT-IP Subjective Start: 12/23/20 12:28 Freq: NEEDED Status: Active Protocol: Document 12/31/20 09:31 AB (Rec: 12/31/20 10:38 AB [email or web address]) Subjective Physical Therapy Visit Type Type Treatment Note Visit Start Time 09:31 Visit Stop Time 09:47 Total Visit Minutes 18 Number of AUDITING CODER Visits 0 Physical Therapy Visit Comments Patient Comments pt is agreeable to do PT Therapy Pain Assessment Pain When Pain Assessed At Rest Pain Present Pain Present Pain Reported Location Back Scale Used pain scale not stated M4 PT-IP Mobility and Gait Start: 12/23/20 12:28 Freq: NEEDED Status: Active Protocol: Document 12/31/20 09:31 AB (Rec: 12/31/20 10:38 AB [id number]) PT-Bed Mobility Assessment Rolling Type of Rolling Log Rolling Level of Assist Standby Assistance Supine to Sit Supine to Sit Standby Assistance PT-Transfer Assessment Sit to and From Stand Sit to and from Stand Standby Assistance Equipment Transfer Assistive Device Gait Belt,Front Wheeled Walker Orthotic/Prosthetic Devices or Brace: No Transfers Transfer Destination Toilet Transfer Technique ambulated using FWW Transfer Ability Level of Assist Standby Assistance,Contact Guard Assistance,Use of Upper Extremities Comments Mobility Comments O2 sat at rest on 5L/min 88-90 %. informed nurse and stated that pt can go to 6L/min with activity. pt completed supine to sit log roll SBA. pt was able to sit on EOB SBA. completed sit to stand SBA. pt ambulated in the hallway ~ 150 ft using FWW SBA with occasional CGA towards end of ambulation with increase trunk leaning and slower pace towards the end of ambulation. O2 sat at 6L/min during ambulation 87-90%. cued pt for deep breathing. pt requested to use the toilet and ambulate using FWW to the toilet. pt wanted to use the toilet for a few minutes. call light positioned next to pt and instructed. informed nurse that pt is using the toilet and nurse acknowledged. Gait Assessment Gait Gait Assistance Required: Standby Assistance,Contact Guard Assist Distance (Feet) 150 Able to Maintain Weight Bearing Status Yes During Gait Assistive Devices Assistive Device Gait Belt,Front Wheeled Walker Orthotic/Prosthetic Devices or Brace: No Gait Deviations General Gait Pattern Decreased Stride Length, Decreased Feet Clearance,Step- to Gait Factors Limiting Gait Function Factors Limiting Gait Function Decreased Activity Tolerance, Decreased Strength,Pain,Poor Balance,Respiratory Distress Comments Gait Comments pls refer to mobility section for details M5 PT-IP Objective Assessments Start: 12/23/20 12:28 Freq: NEEDED Status: Active Protocol: Document 12/23/20 11:03 AB (Rec: 12/23/20 12:38 AB [id number]) Orientation Orientation/Cognition Level of Alertness Alert Orientation Name Language Function Ability Hard of Hearing Safety Awareness Understands Safety Issues Memory Description Short Term Impaired Gross Range of Motion Lower Extremity ROM Assessment Within Functional Limits Strength Lower Extremity Strength Assessment Within Functional Limits Coordination Assessment Gross Coordination Gross Coordination WNL Muscle Tone Muscle Tone WNL Yes M6 PT-IP Treatment Start: 12/23/20 12:28 Freq: NEEDED Status: Active Protocol: Document 12/31/20 09:31 AB (Rec: 12/31/20 10:38 AB [id number]) Physical Therapy Treatment Education Education Provided Precautions,Safety M7 PT-IP Assessment and Plan Start: 12/23/20 12:28 Freq: NEEDED Status: Active Protocol: Document 12/31/20 09:31 AB (Rec: 12/31/20 10:38 AB [id number]) PT Summary Assessment and Plan Potential Rehabilitation Potential Good Summary Impairments Pain,ROM,Strength,Balance, Coordination,Bed Mobility, Transfers,Gait,Activity Tolerance Progress Towards Goals Slow Progress due to Medical Issues,Slow Progress due to Activity Tolerance Assessment Summary pt is progressing with mobility requiring SBA to CGA with ambulation using FWW. pt plans to go home and spouse to assist pt. will have to conduct caregiver training when appropriate and also complete stair climbing training. will continue to assess progress. Goals Bed Mobility Goal Independent Transfer Goal Independent,Front Wheeled Walker Gait Goal Independent,Front Wheel Walker Gait Distance 200 Other Goals improve ambulation without AD 250 ft SBA up/down 3 steps with B rail SBA Days to Meet Goals 10 Frequency of Treatment Frequency Of Treatment Once a Day Treatment Plan Physical Therapy Treatment Plan Bed Mobility Training,Transfer Training,Gait Training, Therapeutic Exercise,Balance Retraining,Post Op Education, Discharge Planning,Hot or Cold Pack,Neuromuscular Re-ed, Coordination Retraining Other Recommendations and Next Treatment attempt to gait training Focus without AD Gait, standing balance, stair mgt when able, caregiver training prior to DC. Recommendations To Nursing Amount of Assist Needed Standby Assistance Discharge Recommendations PT Discharge Recommendations Home with Assistance,Home Health Transportation Needs at Discharge Private Vehicle
[2020-12-31] MEDS: predniSONE 20 MG TABLET 40 MG PO (09:55)
[2020-12-31 10:19] LABS: Procalcitonin 0.47 ng/mL (<0.5)
--- NOTE | 2020-12-31 11:25 | P.DS_ITS ---
History of Present Illness History of Present Illness Date Patient Seen: 12/31/20 Chief complaint: multiple complaints, has list Narrative: 75-year-old male history of esophagectomy and COPD admitted for small-bowel obstruction. Two days ago he developed some left upper quadrant tenderness and had multiple episodes of emesis. He was evaluated in the emergency room last night underwent a CT abdomen pelvis which demonstrates small bowel obstruction dilated loops of small intestine and a possible transition point in the left upper quadrant. 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 He underwent neoadjuvant chemotherapy and is followed by Oncology here at [facility] T3 N0. At admission afebrile, WBC 9, 9% bands, lactate 1.7 Discharge Providers Provider Date of admission: 12/21/20 21: Discharge Date: 12/31/20 Primary care physician: Albina Garcia MD Consults: 12/21/20 21:35 Consult to General Surgery Urgent Comment: Consulting Provider: Jimbo Morales Reason for consultation: Small-bowel obstruction Has provider been notified: Yes 12/21/20 22:25 Consult to Dietitian, Adult Routine Comment: Reason For Exam: low BMI 12/22/20 16:23 Consult to Physical Therapy Evaluate & Treat Comment: Physician Instructions: Evaluate and Treat 12/22/20 17:17 Consult to Respiratory Therapy Evaluate & Treat Comment: Physician Instructions: Evaluate and treat 12/26/20 10:15 Consult to Respiratory Therapy Evaluate & Treat Comment: Physician Instructions: Evaluate for home oxygen 12/27/20 07:52 Consult to Hospitalist Service Routine Comment: Consulting Provider: [facility] Reason for consultation: resp insufficiency and leukocytosis 12/31/20 11:19 Consult to Respiratory Therapy Evaluate & Treat Comment: Rest and Exercise 02 for home O2 eval Physician Instructions: Evaluate and treat Discharge provider: Deanna Ardon MD Summary Hospital Course Discharge Diagnosis: 1. Acute hypoxic respiratory failure, secondary to 2. Aspiration pneumonia 3. Acute systolic heart failure 4. COPD 5. Status post exploratory laparotomy for small-bowel obstruction 6. History of esophageal cancer 7. Hypertension 8. Severe protein calorie malnutrition 9. Hyperlipidemia 10. Hyponatremia Hospital Course: Patient was admitted to the hospital for treatment of a small- bowel obstruction. He was taken to the operating room for definitive surgical treatment. Patient tolerated the procedure without difficulty. Unfortunately postoperatively he developed significant hypoxemia. The patient was placed on high-flow oxygen. COVID testing at the time of admission and yesterday have both been negative. The patient underwent a cardiac echo. This showed an EF of 35-40% with some hypokinesis. He was initially diuresed without much improvement. His proBNP at the time was 25,000. The patient was also noted to have bibasilar infiltrates. CT a of the chest showed no evidence of pulmonary embolus. However there was small bilateral pleural effusions, and interstitial infiltrates. The patient was treated for aspiration pneumonia. He was placed on albuterol Atrovent nebulizers. He also remained on oxygen. He was ultimately able to be tapered off the high-flow oxygen. Patient was able to robyn ntain his room air sat of 91-92% on 2 L at rest. With activity he desaturated and needed 3.5 L of oxygen to maintain a saturation of 92%. The patient was diuresed with Lasix. He had a small increase in his creatinine. Lasix was not discontinued. Given the patient's ongoing hypoxemia and exertional dyspnea on exertion he was started on a 5 day course of prednisone at 40 mg per day. The patient will also be discharged home on nebulizer treatment. He is still significantly weak. He was seen by Nutrition therapy where they noted him to have severe protein calorie malnutrition. This clearly puts him at high risk for both morbidity and mortality related to his surgery as well as his ongoing respiratory issues. The patient was able to ambulate with physical therapy and occupational therapy. Although weak he was deemed appropriate for discharge. The patient will be discharged home on home O2, he will have home health visiting at home. He will continue on the medications as prescribed. He should follow-up with Dr. Morales and 8 days for staple removal. He will also need to follow-up with his primary care physician for continuous weaning of his oxygen. Patient had a slight elevation of his white count. He had no fever, no worsening symptomatology, and it was felt that he had no evidence of infection. His repeat procalcitonin was 0.47 at discharge. Exam Vital Signs (past 8 hours): - 12/31/20 05:15 12/31/20 06:00 12/31/20 07:40 Temperature 98.8 F Pulse Rate 74 Respiratory Rate 16 Blood Pressure 141/76 H Pulse Oximetry 92 94 86 L 12/31/20 07:45 12/31/20 08:00 Temperature 97.8 F Pulse Rate 84 82 Respiratory Rate 16 18 Blood Pressure 128/58 L Pulse Oximetry 92 92 Fraction of Inspired Oxygen 40 Oxygen Delivery Method High Flow Nasal Cannula Oxygen Flow Rate 5 Narrative Exam Narrative: Cachectic ill-appearing male, with bitemporal wasting Lungs: Decreased breath sounds Cardiac exam: Regular rate and rhythm normal S1-S2 Abdomen: Soft nontender, cesar in place Extremities: No edema Objective Labs Result Diagrams: 12/31/20 05:05 12/31/20 05:05 Labs: Laboratory Results - last 24 hr 12/30/20 12/31/20 12/31/20 12:05 05:05 05:05 WBC 19.0 H RBC 3.75 L Hgb 11.1 L Hct 33.9 L MCV 90.3 MCH 29.5 MCHC 32.7 RDW 13.9 Plt Count 279 Neut % (Auto) 88.6 H Lymph % (Auto) 5.3 L [place] % (Auto) 4.2 Eos % (Auto) 1.6 L Baso % (Auto) 0.3 Neut # (Auto) 89306 H Lymph # (Auto) 1000 L [place] # (Auto) 800 Eos # (Auto) 300 Baso # (Auto) 100 Sodium Cancelled Potassium Cancelled Chloride Cancelled Carbon Dioxide Cancelled BUN Cancelled Creatinine Cancelled Estimated GFR Cancelled BUN/Creatinine Ratio Cancelled Glucose Cancelled Calcium Cancelled Phosphorus 5.2 H D Magnesium 2.0 Total Bilirubin AST ALT Alkaline Phosphatase NT-Pro-B Natriuret Pep Total Protein Albumin Globulin Albumin/Globulin Ratio Procalcitonin SARS-CoV-2 (PCR) Negative 12/31/20 12/31/20 05:05 05:05 WBC RBC Hgb Hct MCV MCH MCHC RDW Plt Count Neut % (Auto) Lymph % (Auto) [place] % (Auto) Eos % (Auto) Baso % (Auto) Neut # (Auto) Lymph # (Auto) [place] # (Auto) Eos # (Auto) Baso # (Auto) Sodium 134 L Potassium 3.9 Chloride 96 L Carbon Dioxide 35 H BUN 45 H Creatinine 1.36 H Estimated GFR 50.8 L BUN/Creatinine Ratio 33.1 H Glucose 100 Calcium 8.5 Phosphorus Magnesium Total Bilirubin 0.3 AST 45 ALT 44 Alkaline Phosphatase 103 NT-Pro-B Natriuret Pep 6860 H Total Protein 5.6 L Albumin 2.8 L Globulin 2.8 Albumin/Globulin Ratio 1.0 Procalcitonin 0.47 SARS-CoV-2 (PCR) PFSH Medical History COPD (chronic obstructive pulmonary disease) Esophageal cancer Hypertension Social History household members: spouse Smoking Status: Current every day smoker alcohol intake: current Discharge Assessment & Plan Assessment and Plan Assessment: Acute hypoxic respiratory failure, multifactorial secondary to, 1. COPD 2. Aspiration pneumonia 3. Acute systolic heart 4. Status post exploratory laparotomy for small-bowel obstruction Number esophageal cancer with remote history of esophagectomy 6. Severe protein calorie malnutrition Plan of Treatment: Discharge home with plans as outlined above Patient will be discharged home on home oxygen, he will need 2 L at rest, and 3.5 L with activity Discharge Plan Discharge Plan Patient Disposition: Home Health Service Transfer to: [facility] Provider Discharge Comment: She will resume home health at discharge Discharge orders & Medications Prescriptions: New prednisone 20 mg Tablet 40 mg PO DAILY Qty: 8 RF: 0 zinc sulfate 220 (50) mg Capsule 220 mg PO DAILY 30 Days RF: 0 amoxicillin-pot clavulanate [Augmentin] 875-125 mg tablet 1 tab PO BID Qty: 14 RF: 0 zinc sulfate 220 (50) mg capsule 220 mg PO DAILY Qty: 30 RF: 0 albuterol sulfate 90 mcg/actuation aerosol powdr breath activated 2 inh inhalation Q6H PRN (Reason: COPd) Qty: 1 RF: 0 tiotropium bromide 18 mcg capsule, w/inhalation device 1 cap inhalation DAILY Qty: 30 RF: 0 Continued rosuvastatin 20 mg PO QPM Qty: 0 RF: 0 prazosin 1 mg Capsule 1 mg PO QPM RF: 0 amlodipine 5 mg Tablet 5 mg PO QPM RF: 0 metoprolol tartrate 25 mg Tablet 25 mg PO BID RF: 0 oxycodone 5 mg Tablet 5 mg PO PRN PRN (Reason: Pain (Scale Score 1-3)) RF: 0 Follow up/Referrals: Albina Garcia MD [Primary Care Provider] - Diet/Activity/Treatments Diet: Diet as Tolerated Oxygen: home oxygen, need to increase to 3-4 liters with activity, 1-2 ltrs resting Skin/Wound/Dressing Care Report to your healthcare provider any signs of infection, such as:: chills, fever and night sweats Discharge Data Primary Care Provider: Albina Garcia VTE Deep Vein Thrombosis/Pulmonary Embolism Present on Admission: No
--- NOTE | 2020-12-31 14:08 | CM.DPNOTE ---
DC Note This [employer]ER prepared for patient's DC yesterday to [facility] and patient was inevitably found not to be medically ready for DC. Updated April at [facility]. Today, patient medically ready for DC and requests to return home, okay to HH RN/PT/OT. RT arranging home O2 and PT attempting stairs this morning; otherwise cleared from a therapy standpoint for return home. Spouse agreeable to taking patient home. Placed call to [facility] based on calendar rotation and gave referral for HH RN/PT/OT, faxed completed and signed F2F, HH order , DC summary and other clinical to geovani WILKES Updated Inocencia at [facility] that patient was going home. In addition, heard from [place] that patient had been accepted if he needed a bed there. Plan: DC w/spouse, home O2 and [facility] RN/PT/OT JW
[2021-01-05 12:47] LABS: Fractionated Inspired Oxygen 60
== END 2020-12-31 13:15 | disposition home or self-care (01) | DRG 335 ==
LOC: ED 20:38 → AC 12-22 07:09 → ICU 12-27 09:55
PROVIDERS: Emergency Medicine; Hospitalist; Internal Medicine; Surgery; Admitting Provider Surgery; Emergency Provider Emergency Medicine; Family Provider Internal Medicine; PCP Internal Medicine; Referring Provider Emergency Medicine; Visit Provider Surgery
PROC: 0DNU0ZZ Release Omentum, Open Approach (ICD-10-PCS; CPT 49000; principal; 2020-12-22 14:30)
DX: K56.50 Intestinal adhesions [bands], unspecified as to partial versus complete obstruction (principal); E43 Unspecified severe protein-calorie malnutrition; J96.01 Acute respiratory failure with hypoxia; J15.0 Pneumonia due to Klebsiella pneumoniae; J69.0 Pneumonitis due to inhalation of food and vomit; I50.21 Acute systolic (congestive) heart failure; Z68.1 Body mass index [BMI] 19.9 or less, adult; J44.0 Chronic obstructive pulmonary disease with (acute) lower respiratory infection; I13.0 Hypertensive heart and chronic kidney disease with heart failure and stage 1 through stage 4 chronic kidney disease, or unspecified chronic kidney disease; E87.6 Hypokalemia; N18.30 Chronic kidney disease, stage 3 unspecified; B96.1 Klebsiella pneumoniae [K. pneumoniae] as the cause of diseases classified elsewhere; F17.210 Nicotine dependence, cigarettes, uncomplicated; Z20.822 Contact with and (suspected) exposure to COVID-19; Z85.01 Personal history of malignant neoplasm of esophagus; E78.5 Hyperlipidemia, unspecified
CPT/HCPCS: 36415; 36592; 36600; 44005; 71045; 71046; 71260; 74177; 74250; 80048; 80053; 81003; 82805; 83605; 83690; 83735; 83880; 84100; 84145; 85007; 85025; 85610; 85730; 87040; 87070; 87077; 87186; 87205; 87502; 87635; 87797; 93005; 93010; 93306; 94618; 94640; 94667; 94668; 94760; 94762; 96361; 96374; 96375; 96376; 97116; 97162; 97530; 99233; 99284; C9803; J0696; J1100; J1170; J1644; J1650; J1940; J2250; J2270; J2274; J2405; J2543; J2704; J2765; J3010; J3475; J3480; Q9967

== ENCOUNTER → 2021-06-28 11:05 | Outpatient (CLI) | payer MEDICARE, OTHER, SELFPAY ==
[2020-12-21 22:20] VITALS: BMI 18.1
--- NOTE | 2021-06-28 | DI.RAD.S_ITS ---
PROCEDURE: XR CHEST 2V INDICATIONS: COUGH TECHNIQUE: 2 views of the chest were acquired. COMPARISON: [facility], CR, XR CHEST 2V, 12/30/2020, 12:12. [facility], CR, XR CHEST 1V, 12/23/2020, 10:11. FINDINGS: Surgical changes and devices: None. Lungs and pleura: Lungs are abnormal with pulmonary hyperexpansion and chronic interstitial prominence with lung base scarring. No pleural effusions or pneumothorax. Mediastinum: Mediastinal contours are normal. Heart size is normal. Bones and chest wall: No suspicious bony abnormalities. Soft tissues appear unremarkable. IMPRESSION: Severe COPD, chronic interstitial prominence consistent longstanding smoking history. Mild lung base scarring. No definite acute disease. The lungs appear somewhat improved from the comparison study 12/30/20. Dictated by: Sebastien Knight M.D. on 06/28/2021 at 13:05 Approved by: Sebastien Knight M.D. on 06/28/2021 at 13:06
== END ==
PROVIDERS: Family Provider Internal Medicine; PCP Internal Medicine; Referring Provider Internal Medicine; Visit Provider Internal Medicine
DX: R05 Cough (principal); J44.9 Chronic obstructive pulmonary disease, unspecified
CPT/HCPCS: 71046

== ENCOUNTER 2022-04-28 09:10 | Emergency (ER) | payer MEDICARE, OTHER, SELFPAY ==
[2020-12-21 22:20] VITALS: BMI 18.1
[2022-04-28] VITALS (10 sets, daily range): BP systolic 149–181; BP diastolic 67–77; PULSE 61–70; RESP 14–23; TEMP 35.5; O2SAT 93–100; BMI 18.4
--- NOTE | 2022-04-28 09:26 | ED.GENADULT ---
HPI - General Adult General Chief complaint: Abdominal Pain Stated complaint: ABD PAIN LOWER LEFT Time Seen by Provider: 04/28/22 09:15 Source: patient Mode of arrival: Ambulatory History of Present Illness HPI narrative: 77-year-old male. Has a history of small-bowel obstructions requiring surgery and resections who is here for evaluation of left upper quadrant abdominal pain. Symptoms started at approximately 0100 hours in the morning. It has been persistent since then although it is somewhat better now than what it has been. He has not had a bowel movement since the onset. He has urinated in this has not changed any of his symptoms. Has had some nausea but no vomiting. His nausea is improved. No fevers. No skin rashes. Has not tried anything for the symptoms prior to arrival. Related Data Home Medications Medication Instructions Recorded Confirmed metoprolol tartrate 25 mg tablet 25 mg PO BID 10/15/18 03/29/22 prazosin 1 mg capsule 1 mg PO QPM 10/15/18 03/29/22 tramadol 100 mg tablet,extended 100 mg PO DAILY 01/29/22 03/29/22 release 24 hr Previous Rx's Medication Instructions Recorded albuterol sulfate 90 mcg/actuation 2 inh inhalation Q6H PRN COPd #1 ea 12/31/20 breath activated powder inhaler tiotropium bromide 18 mcg capsule 1 cap inhalation DAILY #30 12/31/20 with inhalation device inhalations zinc sulfate 50 mg zinc (220 mg) 220 mg PO DAILY #30 caps 12/31/20 capsule Allergies Allergy/AdvReac Type Severity Reaction Status Date / Time minoxidil AdvReac Intermediate Hypotension Verified 04/28/22 09:20 Review of Systems Constitutional Constitutional: Denies fever(s) and Denies headache(s) ENT Ears, Nose, Mouth, and Throat: Denies headache(s) Cardiovascular Cardiovascular: Denies chest pain and Denies dyspnea Respiratory Respiratory: Denies cough and Denies dyspnea Gastrointestinal Gastrointestinal: Reports as per HPI and Reports system reviewed and no additional complaints, except as documented Genitourinary Genitourinary: Reports system reviewed and no additional complaints, except as documented Musculoskeletal Musculoskeletal: Denies back pain Integumentary/Breasts Skin/Breast: Denies rash Neurologic Neurologic: Denies headache(s) Hematologic/Lymphatic On Anticoagulants: No Patient History Medical History CKD (chronic kidney disease), stage III COPD (chronic obstructive pulmonary disease) Esophageal cancer Hypertension Small bowel obstruction Social History household members: spouse Smoking Status: Current every day smoker alcohol intake: current Smoking Status: Current every day smoker alcohol intake frequency: 0-2 drinks per day Substance Use Type: does not use Exam Initial Vital Signs Initial Vital Signs: Vital Signs Temperature 96 F L 04/28/22 09:10 Pulse Rate 67 04/28/22 09:10 Respiratory Rate 18 04/28/22 09:10 Blood Pressure 174/77 H 04/28/22 09:10 Pulse Oximetry 95 04/28/22 09:10 Oxygen Delivery Method 04/28/22 09:10 Const General: cooperative and comfortable HENMT Head: normal to inspection and normocephalic Resp Effort & Inspection: normal respiratory effort Auscultation: clear to auscultation bilaterally Cardio Rate: regular rate Rhythm: regular rhythm GI Inspection: normal to inspection, no edema and non-distended Palpation: soft, No firm, No guarding and tender (Left upper quadrant) Back/Spine/Pelvis Back: No CVA tenderness Skin General: no rashes or lesions noted Neuro General: patient alert, patient awake and moves all extremities Extrem General: normal to inspection and capillary refill normal Psych Appearance: grossly normal and well kempt Course Orders Ordered: ED Orders 04/28/22 09:27 XR chest 1V Stat 04/28/22 09:28 Complete Blood Count AUTO DIFF Stat Comprehensive Metabolic Panel Stat Lipase Stat Troponin & CK Cardiac Panel Stat 04/28/22 09:40 Urinalysis and Microscopic Stat Urine Culture Stat 04/28/22 09:46 CT abdomen pelvis w con Stat Vital Signs Vital signs: Vital Signs - 8 hr 04/28/22 09:10 04/28/22 09:16 04/28/22 09:19 Temperature 96 F L Pulse Rate 67 70 Respiratory Rate 18 Blood Pressure 174/77 H 174/77 H Pulse Oximetry 95 93 Oxygen Delivery Method Room Air 04/28/22 09:19 04/28/22 09:30 04/28/22 09:30 Temperature Pulse Rate 66 67 Respiratory Rate 20 19 Blood Pressure 181/72 H Pulse Oximetry 98 99 Oxygen Delivery Method 04/28/22 10:00 04/28/22 10:36 04/28/22 10:37 Temperature Pulse Rate 63 66 64 Respiratory Rate 20 16 16 Blood Pressure Pulse Oximetry 99 98 99 Oxygen Delivery Method 04/28/22 10:37 04/28/22 11:00 04/28/22 11:00 Temperature Pulse Rate 62 Respiratory Rate 17 Blood Pressure 150/69 H 160/74 H Pulse Oximetry 100 Oxygen Delivery Method 04/28/22 11:30 04/28/22 11:30 04/28/22 12:00 Temperature Pulse Rate 61 Respiratory Rate 14 Blood Pressure 150/72 H 149/67 H Pulse Oximetry 100 Oxygen Delivery Method 04/28/22 12:00 Temperature Pulse Rate 68 Respiratory Rate 23 Blood Pressure Pulse Oximetry 99 Oxygen Delivery Method Medical Decision Making Medical Records Medical records reviewed: Yes I reviewed the patient's medical records. Lab Data Lab results reviewed: Yes I reviewed the patient's lab results. Result diagrams: 04/28/22 09:28 04/28/22 09:28 Labs: Lab Results 04/28/22 04/28/22 04/28/22 Range/Units 09:28 09:28 09:28 WBC 8.9 (4.5-11.0) X10^3/uL RBC 3.96 L (4.5-5.9) X10^6/uL Hgb 10.5 L (13.5-17.5) g/dL Hct 32.6 L (41-53) % MCV 82.4 (80-100) fL MCH 26.7 (26-34) PG MCHC 32.3 (30-36) % RDW 19.2 H (11.6-14.8) % Plt Count 240 (150-400) X10^3/uL Neut % (Auto) 88.1 H (50-75) % Lymph % (Auto) 7.5 L (25-40) % [place] % (Auto) 3.1 (3-14) % Eos % (Auto) 0.6 L (2-4) % Baso % (Auto) 0.7 (0-2) % Neut # (Auto) 7900 H (5869-1438) /uL Lymph # (Auto) 700 L (1225-3178) /uL [place] # (Auto) 300 (0-900) /uL Eos # (Auto) 0 (0-450) /uL Baso # (Auto) 100 (0-100) /uL Sodium 138 (137-145) mmol/L Potassium 5.3 H (3.4-5.1) mmol/L Chloride 108 H (98-107) mmol/L Carbon Dioxide 21 L (22-32) mmol/L BUN 31 H (9-20) mg/dL Creatinine 1.89 H (0.66-1.25) mg/dL Estimated GFR 36 L (>60) mL/min BUN/Creatinine Ratio 16.4 (6-22) Glucose 188 H (80-110) mg/dL Calcium 8.5 (8.4-10.2) mg/dL Total Bilirubin 0.3 (0.2-1.3) mg/dL AST 27 (17-59) IU/L ALT 23 (<50) IU/L Alkaline Phosphatase 86 (38-126) U/L Total Creatine Kinase 42 L (55-170) U/L CK-MB (CK-2) TNP CK-MB (CK-2) Rel Index TNP Troponin I < 0.012 (0.01-0.034) ng/mL Total Protein 7.4 (6.3-8.2) g/dL Albumin 4.2 (3.5-5.0) g/dL Globulin 3.2 (1.7-4.1) g/dL Albumin/Globulin Ratio 1.3 (1.0-2.8) Lipase 23 (23-300) U/L Urine Color Urine Appearance Urine pH (4.5-8.0) Ur Specific [place] (1.000-1.035) Urine Protein (Negative) Urine Glucose (UA) (Negative) g/dL Urine Ketones (NEGATIVE) Urine Occult Blood (Negative) Urine Nitrate (Negative) Urine Bilirubin (NEGATIVE) Urine Urobilinogen (0.2) E.U./dL Ur Leukocyte Esterase (NEGATIVE) Urine RBC (0-5/HPF) Urine WBC (0-5/HPF) Ur Squamous Epith Cells (0-5/HPF) Urine Bacteria (None) Ur Culture Indicated? 04/28/22 Range/Units 09:40 WBC (4.5-11.0) X10^3/uL RBC (4.5-5.9) X10^6/uL Hgb (13.5-17.5) g/dL Hct (41-53) % MCV (80-100) fL MCH (26-34) PG MCHC (30-36) % RDW (11.6-14.8) % Plt Count (150-400) X10^3/uL Neut % (Auto) (50-75) % Lymph % (Auto) (25-40) % [place] % (Auto) (3-14) % Eos % (Auto) (2-4) % Baso % (Auto) (0-2) % Neut # (Auto) (0491-0270) /uL Lymph # (Auto) (0824-8718) /uL [place] # (Auto) (0-900) /uL Eos # (Auto) (0-450) /uL Baso # (Auto) (0-100) /uL Sodium (137-145) mmol/L Potassium (3.4-5.1) mmol/L Chloride (98-107) mmol/L Carbon Dioxide (22-32) mmol/L BUN (9-20) mg/dL Creatinine (0.66-1.25) mg/dL Estimated GFR (>60) mL/min BUN/Creatinine Ratio (6-22) Glucose (80-110) mg/dL Calcium (8.4-10.2) mg/dL Total Bilirubin (0.2-1.3) mg/dL AST (17-59) IU/L ALT (<50) IU/L Alkaline Phosphatase (38-126) U/L Total Creatine Kinase (55-170) U/L CK-MB (CK-2) CK-MB (CK-2) Rel Index Troponin I (0.01-0.034) ng/mL Total Protein (6.3-8.2) g/dL Albumin (3.5-5.0) g/dL Globulin (1.7-4.1) g/dL Albumin/Globulin Ratio (1.0-2.8) Lipase (23-300) U/L Urine Color Yellow Urine Appearance Cloudy Urine pH 5.0 (4.5-8.0) Ur Specific [place] 1.020 (1.000-1.035) Urine Protein 2+ H (Negative) Urine Glucose (UA) Negative (Negative) g/dL Urine Ketones Negative (NEGATIVE) Urine Occult Blood 3+ H (Negative) Urine Nitrate Negative (Negative) Urine Bilirubin Negative (NEGATIVE) Urine Urobilinogen 0.2 (0.2) E.U./dL Ur Leukocyte Esterase Trace H (NEGATIVE) Urine RBC 30-100/hpf H (0-5/HPF) Urine WBC 1-5/hpf (0-5/HPF) Ur Squamous Epith Cells None seen (0-5/HPF) Urine Bacteria Occasional (0-1) (None) Ur Culture Indicated? Specimen cultured Imaging Data Chest x-ray: Radiologist's Impression: [address] [address] XRay Report Signed Patient: Sergio Colón MR#: [id number] : 1945 Acct:[id number] Age/Sex: 77 / M Date of Service: 04/28/22 Loc: ED Accession Number: [id number] ?? Procedure: XR chest 1V Ordering Provider: Venancio Hartley D.O. PROCEDURE:? XR CHEST 1V ? INDICATIONS:? Left upper quadrant and left lower quadrant pain ? TECHNIQUE:? One view of the chest was acquired.? ? COMPARISON:? [facility], CR, XR CHEST 2V, 12/30/2020, 12:12.? [facility], CR, XR CHEST 2V, 06/28/2021, 11:13.? [facility], CR, XR CHEST 1V, 12/23/2020, 10:11. ? FINDINGS:? ? Surgical changes and devices:? None.? ? Lungs and pleura:? There is blunting of the right costophrenic angle with opacity at the right pleural parenchymal interface along the lateral and basilar aspect of the right lung.? Mild left costophrenic angle blunting.? Hazy ground-glass airspace opacity in the right mid lung and right basilar lung. ? Mediastinum:? Mediastinal contours appear normal.? Heart size is normal.? ? Bones and chest wall:? No suspicious bony lesions.? Overlying soft tissues appear unremarkable.? ? IMPRESSION:? Suspect small bilateral pleural effusions with probable right pleural scarring or thickening.? Findings are new from prior study.? Correlate for other clinical evidence of infection.? CT scan should be considered for further evaluation.? ? Dictated by: Luis Mills M.D. on 04/28/2022 at 10:35 ? ? Approved by: Luis Mills M.D. on 04/28/2022 at 10:38? CT scan - abdomen/pelvis: Radiologist's Impression: [address] [address] [address] Scan Report Signed Patient: Sergio Colón MR#: [id number] : 1945 Acct:[id number] Age/Sex: 77 / M Date of Service: 04/28/22 Loc: ED Accession Number: [id number] ?? Procedure: CT abdomen pelvis w con Ordering Provider: Venancio Hartley D.O. PROCEDURE:? CT ABDOMEN PELVIS W CON ? INDICATIONS:? LLQ abd pain hx of SBO ? TECHNIQUE:? After the administration of intravenous contrast, axial sections acquired from the lung bases to the pubic symphysis.? Coronal and sagittal reformats were performed.? For radiation dose reduction, the following was used:? automated exposure control, adjustment of mA and/or kV according to patient size.? ? COMPARISON:? [facility], CT, CT ABDOMEN PELVIS W CON, 12/21/2020, 19:36. ? FINDINGS:? Image quality:? Excellent.? ? Lung bases:? There are stable interstitial changes with findings of emphysema.? There is bibasilar atelectasis/scarring with small bilateral pleural effusions increased from prior exam.? Status post esophagectomy with gastric pull-through. Heart:? Normal in size.? Coronary vascular calcifications. ? ABDOMEN: Liver:? Unremarkable.? ? Gallbladder:? Surgically absent. Biliary ducts:? Within normal limits given surgical status. Pancreas:? Diminutive in appearance without suspicious enhancement.? No ductal dilation. Spleen:? Unremarkable.? ? Adrenal Glands:? Stable left greater than right adrenal thickening without discrete nodule. Kidneys and Ureters:? Punctate nonobstructing nephrolith within the lower pole of the right kidney.? A mild amount of vascular calcifications. ? Stomach and Bowel:? Status post esophagectomy with gastric pull-through.? The stomach is prominently filled with fluid.? There is no dilated loops of bowel.? There are however multiple slightly prominent fluid-filled loops of small bowel with increased mucosal enhancement within the mid to lower abdomen.? The large bowel demonstrates [id number] stool burden with diffuse diverticulosis.? The appendix is normal.? No wall thickening or surrounding inflammation to suggest diverticulitis.? Peritoneum:? No abnormal intraperitoneal fluid.? No free air.? ? Ventral Wall: ? No hernias.? Abdominal Nodes:? No retroperitoneal or mesenteric adenopathy by size criteria.? Vessels:? There is enlargement of the previously noted infrarenal abdominal aortic aneurysm.? This measures 4.5 x 4.5 today exam compared of 4.7 by 4.0 cm on similar measurements from most recent examination.? There is diffuse calcified and noncalcified atherosclerosis.? No definite evidence of dissection.? No surrounding inflammation. ? PELVIS: Pelvic Organs:? Unremarkable.? ? Bladder:? Unremarkable.? ? Pelvic Nodes: No enlarged lymph nodes.? Miscellaneous:? Small fat containing right inguinal hernia. ? Bones:? Degenerative changes of the hips and spine.? No evidence of acute osseous abnormalities suspicious osseous lesion. ? ? IMPRESSION:? ? A few low prominent yet nondilated loops of small bowel within the mid to lower abdomen/pelvis with mild increased mucosal enhancement is nonspecific but may represent enteritis.? Developing early small-bowel obstruction/ileus not excluded. ? Enlarging infrarenal abdominal aortic aneurysm measuring 4.7 x 4.4 cm compared to 4.3 x 4.0 cm on 12/21/2020 comparison. ? Diverticulosis. ? Small bilateral pleural effusions with findings of emphysema and stable interstitial changes. ? Coronary vascular calcifications. ? Postsurgical changes of esophagectomy with gastric pull-through.? The stomach is dilated with fluid.? ? Dictated by: Korey Abdi D.O. on 04/28/2022 at 9:46 ? ? Approved by: Korey Abdi D.O. on 04/28/2022 at 10:06 ECG Data Attestation: I personally reviewed and interpreted this ECG as follows: Interpretation: Sinus rhythm Ventricular rate is 64 Normal axis Normal QRS Normal QTC No ST T wave changes MDM Narrative Medical decision making narrative: During his stay his abdominal pain completely resolved. He is no longer nauseous. He has not had any diarrhea. Labs are unremarkable. CT scan shows colitis. This could very well be the cause of his symptoms however there is no other indication for surgical issue no infectious issue. I did discuss this with the patient. We discussed return precautions follow-up instructions. He expressed understanding and agreement. Discharge Plan Departure Patient Disposition: Home Clinical Impression: Abdominal pain, Colitis Instructions: DI for Abdominal Pain-Adult Activity Restrictions/Additional Instructions: Your workup here in the emergency department is very reassuring and there was no signs of any surgical or infectious process that would be causing your abdominal pain. Continue all of your medications as directed. Contact her primary doctor for a follow-up. Return to the emergency department for any new or worsening symptoms. Prescriptions: No Action prazosin 1 mg Capsule 1 mg PO QPM metoprolol tartrate 25 mg Tablet 25 mg PO BID tramadol 100 mg Tablet Extended Release 24 Hr 100 mg PO DAILY zinc sulfate 220 (50) mg capsule 220 mg PO DAILY Qty: 30 0RF albuterol sulfate 90 mcg/actuation aerosol powdr breath activated 2 inh inhalation Q6H PRN (Reason: COPd) Qty: 1 0RF tiotropium bromide 18 mcg capsule, w/inhalation device 1 cap inhalation DAILY Qty: 30 0RF Rx Instructions: puncture 1 cap using device; one dose = 2 inhalations Referrals: Albina Garcia MD [Primary Care Provider] - Visit Report Forms: Patient Portal/API
--- NOTE | 2022-04-28 09:27 | DI.RAD.S_ITS ---
PROCEDURE: XR CHEST 1V INDICATIONS: Left upper quadrant and left lower quadrant pain TECHNIQUE: One view of the chest was acquired. COMPARISON: [facility], CR, XR CHEST 2V, 12/30/2020, 12:12. [facility], CR, XR CHEST 2V, 06/28/2021, 11:13. [facility], CR, XR CHEST 1V, 12/23/2020, 10:11. FINDINGS: Surgical changes and devices: None. Lungs and pleura: There is blunting of the right costophrenic angle with opacity at the right pleural parenchymal interface along the lateral and basilar aspect of the right lung. Mild left costophrenic angle blunting. Hazy ground-glass airspace opacity in the right mid lung and right basilar lung. Mediastinum: Mediastinal contours appear normal. Heart size is normal. Bones and chest wall: No suspicious bony lesions. Overlying soft tissues appear unremarkable. IMPRESSION: Suspect small bilateral pleural effusions with probable right pleural scarring or thickening. Findings are new from prior study. Correlate for other clinical evidence of infection. CT scan should be considered for further evaluation. Dictated by: Luis Mills M.D. on 04/28/2022 at 10:35 Approved by: Luis Mills M.D. on 04/28/2022 at 10:38
[2022-04-28 09:37] LABS: Add Manual Diff / Slide Review NO; Basophils Absolute Auto 100 /uL (0-100); Basophils Percent Auto 0.7 % (0-2); Eosinophils Absolute Auto 0 /uL (0-450); Eosinophils Percent Auto 0.6 % (2-4); Hematocrit 32.6 % (41-53); Hemoglobin 10.5 g/dL (13.5-17.5); Lymphocytes Absolute Auto 700 /uL (1100-4500); Lymphocytes Percent Auto 7.5 % (25-40); Mean Corpuscular HGB Conc 32.3 % (30-36); Mean Corpuscular Hemoglobin 26.7 PG (26-34); Mean Corpuscular Volume 82.4 fL (80-100); Monocytes Absolute Auto 300 /uL (0-900); Monocytes Percent Auto 3.1 % (3-14); Neutrophils Absolute Auto 7900 /uL (1500-7000); Neutrophils Percent Auto 88.1 % (50-75); Platelet Count 240 X10^3/uL (150-400); Red Blood Cell Count 3.96 X10^6/uL (4.5-5.9); Red Cell Distribution Width 19.2 % (11.6-14.8); White Blood Cell Count 8.9 X10^3/uL (4.5-11.0)
--- NOTE | 2022-04-28 09:43 | PC.NURSE ---
Pt states he took himself off of Plavix, due to excessive bruising. Pt states he commonly has skin tears and the Plavix caused excessive bleeding with the tears.
[2022-04-28 09:46] LABS: Creatine Kinase 42 U/L (55-170)
--- NOTE | 2022-04-28 09:46 | DI.CT.S_ITS ---
PROCEDURE: CT ABDOMEN PELVIS W CON INDICATIONS: LLQ abd pain hx of SBO TECHNIQUE: After the administration of intravenous contrast, axial sections acquired from the lung bases to the pubic symphysis. Coronal and sagittal reformats were performed. For radiation dose reduction, the following was used: automated exposure control, adjustment of mA and/or kV according to patient size. COMPARISON: [facility], CT, CT ABDOMEN PELVIS W CON, 12/21/2020, 19:36. FINDINGS: Image quality: Excellent. Lung bases: There are stable interstitial changes with findings of emphysema. There is bibasilar atelectasis/scarring with small bilateral pleural effusions increased from prior exam. Status post esophagectomy with gastric pull-through. Heart: Normal in size. Coronary vascular calcifications. ABDOMEN: Liver: Unremarkable. Gallbladder: Surgically absent. Biliary ducts: Within normal limits given surgical status. Pancreas: Diminutive in appearance without suspicious enhancement. No ductal dilation. Spleen: Unremarkable. Adrenal Glands: Stable left greater than right adrenal thickening without discrete nodule. Kidneys and Ureters: Punctate nonobstructing nephrolith within the lower pole of the right kidney. A mild amount of vascular calcifications. Stomach and Bowel: Status post esophagectomy with gastric pull-through. The stomach is prominently filled with fluid. There is no dilated loops of bowel. There are however multiple slightly prominent fluid-filled loops of small bowel with increased mucosal enhancement within the mid to lower abdomen. The large bowel demonstrates [id number] stool burden with diffuse diverticulosis. The appendix is normal. No wall thickening or surrounding inflammation to suggest diverticulitis. Peritoneum: No abnormal intraperitoneal fluid. No free air. Ventral Wall: No hernias. Abdominal Nodes: No retroperitoneal or mesenteric adenopathy by size criteria. Vessels: There is enlargement of the previously noted infrarenal abdominal aortic aneurysm. This measures 4.5 x 4.5 today exam compared of 4.7 by 4.0 cm on similar measurements from most recent examination. There is diffuse calcified and noncalcified atherosclerosis. No definite evidence of dissection. No surrounding inflammation. PELVIS: Pelvic Organs: Unremarkable. Bladder: Unremarkable. Pelvic Nodes: No enlarged lymph nodes. Miscellaneous: Small fat containing right inguinal hernia. Bones: Degenerative changes of the hips and spine. No evidence of acute osseous abnormalities suspicious osseous lesion. IMPRESSION: A few low prominent yet nondilated loops of small bowel within the mid to lower abdomen/pelvis with mild increased mucosal enhancement is nonspecific but may represent enteritis. Developing early small-bowel obstruction/ileus not excluded. Enlarging infrarenal abdominal aortic aneurysm measuring 4.7 x 4.4 cm compared to 4.3 x 4.0 cm on 12/21/2020 comparison. Diverticulosis. Small bilateral pleural effusions with findings of emphysema and stable interstitial changes. Coronary vascular calcifications. Postsurgical changes of esophagectomy with gastric pull-through. The stomach is dilated with fluid. Dictated by: Korey Abdi D.O. on 04/28/2022 at 9:46 Approved by: Korey Abdi D.O. on 04/28/2022 at 10:06
[2022-04-28 09:48] LABS: Alanine Aminotransferase 23 IU/L (<50); Albumin 4.2 g/dL (3.5-5.0); Albumin Globulin Ratio 1.3 (1.0-2.8); Alkaline Phosphatase 86 U/L (38-126); Aspartate Aminotransferase 27 IU/L (17-59); BUN Creatinine Ratio 16.4 (6-22); Bilirubin Total 0.3 mg/dL (0.2-1.3); Blood Urea Nitrogen 31 mg/dL (9-20); Calcium 8.5 mg/dL (8.4-10.2); Carbon Dioxide 21 mmol/L (22-32); Chloride 108 mmol/L (98-107); Estimated Glomerular Filt Rate 36 mL/min (>60); Globulin 3.2 g/dL (1.7-4.1); Glucose 188 mg/dL (80-110); HEMOLYSIS < 15 (0-50); Lipase 23 U/L (23-300); Potassium 5.3 mmol/L (3.4-5.1); Sodium 138 mmol/L (137-145); Total Protein 7.4 g/dL (6.3-8.2)
[2022-04-28 09:49] LABS: Appearance Urine UA CLOUDY; Bilirubin Urine UA NEGATIVE (NEGATIVE); Color Urine UA YELLOW; Glucose Urine UA NEGATIVE (Negative); Ketones Urine UA NEGATIVE (NEGATIVE); Leukocyte Esterase Urine UA TRACE (NEGATIVE); Nitrite Urine UA NEGATIVE (Negative); Occult Blood Urine UA 3+ (Negative); Protein Urine UA 2+ (Negative); Urobilinogen Urine UA 0.2 E.U./dL (0.2)
[2022-04-28 09:59] LABS: Troponin I < 0.012 ng/mL (0.01-0.034)
[2022-04-28 10:00] LABS: Bacteria Urine Occasional (0-1); Culture Indicated Urine Specimen Cultured; RBC Urine 30-100/HPF (0-5/HPF); Squamous Epithelial Cell Urine None Seen (0-5/HPF); WBC Urine 1-5/HPF (0-5/HPF)
== END 2022-04-28 12:08 | disposition home or self-care (01) ==
PROVIDERS: Emergency Provider Emergency Medicine; Family Provider Internal Medicine; PCP Internal Medicine
DX: K52.9 Noninfective gastroenteritis and colitis, unspecified (principal); R10.12 Left upper quadrant pain; R11.0 Nausea
CPT/HCPCS: 36415; 71045; 74177; 80053; 81001; 82550; 83690; 84484; 85025; 87086; 99283; 99284; Q9967

== ENCOUNTER 2022-10-12 11:56 | Emergency (ER) | payer MEDICARE, OTHER, SELFPAY ==
[2020-12-21 22:20] VITALS: BMI 18.1
[2022-10-12] VITALS (7 sets, daily range): BP systolic 112–133; BP diastolic 59–65; PULSE 46–75; RESP 14–18; TEMP 36.4; O2SAT 92–99; BMI 17.7
--- NOTE | 2022-10-12 12:18 | DI.RAD.S_ITS ---
PROCEDURE: XR CHEST 1V INDICATIONS: rt LL pneumonia? hx COPD TECHNIQUE: One view of the chest was acquired. COMPARISON: [facility], CR, XR CHEST 1V, 04/28/2022, 10:18. FINDINGS: Surgical changes and devices: None. Lungs and pleura: Chronic emphysematous changes are again seen. Blunting of right costophrenic angle is noted suggestive of small right pleural effusion. No definite focal infiltrate. No pneumothorax. Mediastinum: Mediastinal contours appear normal. Heart size is normal. Bones and chest wall: No suspicious bony lesions. Overlying soft tissues appear unremarkable. IMPRESSION: COPD and small right pleural effusion. No definite focal infiltrate. No pneumothorax. Dictated by: Jose Roberto Monzon M.D. on 10/12/2022 at 12:44 Approved by: Jose Roberto Monzon M.D. on 10/12/2022 at 12:44
--- NOTE | 2022-10-12 12:32 | ED.BACK ---
HPI - Back Pain/Injury <Yasmine Sosa [facility] - Last Filed: 10/12/22 14:46> General Chief Complaint: Back Pain/Injury Stated Complaint: pain under RT ribcage started in back moved front Time Seen by Provider: 10/12/22 12:09 Source: patient History of Present Illness HPI Narrative: This is a 77-year-old male with history of complicated abdominal/esophageal surgical history including esophagectomy with gastric pull-through, an enlarging infrarenal abdominal aortic aneurysm, COPD, nephrolithiasis who presents to the emergency department today complaining of right flank pain which started the posterior near his right kidney and now is radiating anteriorly to his right inguinal region, patient states this started last night and his pain has gotten worse. He denies recent fever, chills, nausea, vomiting, urinary changes or dysuria. He denies any stool changes, states that his cough is the same. Denies being unwell, everything else has been normal for him. He denies having a headache. He denies any chest pain or palpitations, he takes clopidogrel, metoprolol, QVAR, prazosin, tramadol as needed for pain Related Data Home Medications Medication Instructions Recorded Confirmed metoprolol tartrate 25 mg tablet 25 mg PO BID 10/15/18 03/29/22 prazosin 1 mg capsule 1 mg PO QPM 10/15/18 03/29/22 tramadol 100 mg tablet,extended 100 mg PO DAILY 01/29/22 03/29/22 release 24 hr Previous Rx's Medication Instructions Recorded albuterol sulfate 90 mcg/actuation 2 inh inhalation Q6H PRN COPd #1 ea 12/31/20 breath activated powder inhaler tiotropium bromide 18 mcg capsule 1 cap inhalation DAILY #30 12/31/20 with inhalation device inhalations zinc sulfate 50 mg zinc (220 mg) 220 mg PO DAILY #30 caps 12/31/20 capsule diclofenac sodium 1 % topical gel 2 g topical QID #100 grams 10/12/22 hydrocodone 5 mg-acetaminophen 325 1 tab PO BID PRN pain #14 tabs 10/12/22 mg tablet lidocaine 5 % topical patch 1 patch topical DAILY #15 ea 10/12/22 (Lidoderm) Allergies Allergy/AdvReac Type Severity Reaction Status Date / Time minoxidil AdvReac Intermediate Hypotension Verified 10/12/22 12:08 Review of Systems <MANUELITO Shannon - Last Filed: 10/12/22 14:46> Review of Systems ROS Unobtainable: All systems reviewed & are unremarkable except as noted in HPI and below Patient History <MANUELITO Shannon - Last Filed: 10/12/22 14:46> Medical History CKD (chronic kidney disease), stage III COPD (chronic obstructive pulmonary disease) Esophageal cancer Hypertension Small bowel obstruction Social History household members: spouse Smoking Status: Former smoker alcohol intake: current Smoking Status: Former smoker alcohol intake frequency: holidays/special occasions only Substance Use Type: does not use Exam <MANUELITO Shannon - Last Filed: 10/12/22 14:46> Narrative Exam Narrative: Reviewed vitals signs and nursing notes. General: cooperative, comfortable, in no acute distress, well groomed HEENT: symmetrical facial expressions, moist mucous membranes Cardiovascular: regular rate and rhythm, no peripheral edema, warm extremities Respiratory: normal effort, able to speak in complete sentences, occasional cough, right lower lobe is, without crackles or rhonchi, without wheezing, GI: abdomen soft, nontender to palpation, nondistended, without masses, rebound tenderness or exquisite tenderness with exam. Right flank pain and tenderness to palpation, no CVA tenderness on the left MSK: moves all extremities, neurovascularly intact, no weakness, normal tone Skin: brisk capillary refill, without pallor or erythema Neuro: normal speech and cognition, A&O x3, ambulatory, clear speech Psych: mental status is grossly normal, congruent mood, normal affect, pleasant and cooperative Initial Vital Signs Initial Vital Signs: Vital Signs Temperature 97.5 F L 10/12/22 12:03 Pulse Rate 75 10/12/22 12:03 Respiratory Rate 14 10/12/22 12:03 Blood Pressure 112/59 L 10/12/22 12:03 Pulse Oximetry 96 10/12/22 12:03 Oxygen Delivery Method 10/12/22 12:03 <Venancio Hartley DO - Last Filed: 10/12/22 15:07> Initial Vital Signs Initial Vital Signs: Vital Signs Temperature 97.5 F L 10/12/22 12:03 Pulse Rate 75 10/12/22 12:03 Respiratory Rate 14 10/12/22 12:03 Blood Pressure 112/59 L 10/12/22 12:03 Pulse Oximetry 96 10/12/22 12:03 Oxygen Delivery Method 10/12/22 12:03 Course <MANUELITO Shannon - Last Filed: 10/12/22 14:46> Orders Ordered: ED Orders 10/12/22 12:18 XR chest 1V Stat RT Consult Eval and Treat NOW 10/12/22 12:40 BNP [NT-proBNP (BNP-Adult 18+)] Stat CBC Auto Diff [Complete Blood Count AUTO DIFF] Stat CMP [Comprehensive Metabolic Panel] Stat CRP [C-Reactive Protein Quant] Stat Procalcitonin Stat Troponin & CK Cardiac Panel Stat 10/12/22 12:45 EKG-12 Lead Stat 10/12/22 12:55 CT kidney ureter bladder (KUB) Stat 10/12/22 13:47 Urine Microscopic Stat Discontinued Medications Hydrocodone Bitart/Acetaminophen (Hydrocodone/Acet 5/325 Tablet) 1 tab PO NOW ONE Stop: 10/12/22 14:13 Last Admin: 10/12/22 14:29 Dose: 1 tab Documented By: JULIO C Hydromorphone HCl (Hydromorphone 0.5 Mg Inj) 0.5 mg IV NOW ONE Stop: 10/12/22 12:37 Last Admin: 10/12/22 12:45 Dose: 0.5 mg Documented By: ASHANTI Ketorolac Tromethamine (Ketorolac 30 Mg/Ml Vial) 15 mg IV NOW ONE Stop: 10/12/22 12:21 Last Admin: 10/12/22 12:42 Dose: Not Given Documented By: ASHANTI Lidocaine (Lidocaine Patch 1 Each Adh..Patch) 1 each TOP NOW ONE Stop: 10/12/22 14:13 Last Admin: 10/12/22 14:30 Dose: 1 each Documented By: JULIO C Reevaluation(s) Reevaluation #1: On chart review it appears that patient had an increasing infrarenal abdominal aneurysm last viewed on CT without contrast on 04/28/2022 showing size increase from 4.3 x 4.0 cm on 12/21/2020 up to 4.7 x 4.4 cm. Patient had history of small bilateral pleural effusions with emphysema and stable interstitial changes at that time as well. Reviewed patient's chest x-ray on screen which appears that patient has a right lower lobe pleural effusion without evidence of patchy opacity or acute localized consolidation Consultations Consultation #1: Consultation with Dr. Lew patient's CT imaging showing right hydronephrosis with hydroureter and worsening creatinine/BUN Patient's urine is negative for WBCs and hematuria Vital Signs Vital signs: Vital Signs - 8 hr 10/12/22 12:03 10/12/22 12:39 10/12/22 12:41 Temperature 97.5 F L Pulse Rate 75 56 L 57 L Respiratory Rate 14 Blood Pressure 112/59 L Pulse Oximetry 96 92 99 Oxygen Delivery Method Room Air Room Air 10/12/22 12:41 10/12/22 13:02 10/12/22 13:03 Temperature Pulse Rate 46 L 53 L Respiratory Rate Blood Pressure 133/65 Pulse Oximetry 96 96 Oxygen Delivery Method Room Air 10/12/22 13:03 10/12/22 13:30 10/12/22 13:30 Temperature Pulse Rate 59 L Respiratory Rate Blood Pressure 123/64 123/60 Pulse Oximetry 96 Oxygen Delivery Method 10/12/22 14:00 Temperature Pulse Rate 60 Respiratory Rate 18 Blood Pressure 126/60 Pulse Oximetry 97 Oxygen Delivery Method <Venancio Hartley, DO - Last Filed: 10/12/22 15:07> Orders Ordered: ED Orders 10/12/22 12:18 XR chest 1V Stat RT Consult Eval and Treat NOW 10/12/22 12:40 BNP [NT-proBNP (BNP-Adult 18+)] Stat CBC Auto Diff [Complete Blood Count AUTO DIFF] Stat CMP [Comprehensive Metabolic Panel] Stat CRP [C-Reactive Protein Quant] Stat Procalcitonin Stat Troponin & CK Cardiac Panel Stat 10/12/22 12:45 EKG-12 Lead Stat 10/12/22 12:55 CT kidney ureter bladder (KUB) Stat 10/12/22 13:47 Urine Microscopic Stat Discontinued Medications Hydrocodone Bitart/Acetaminophen (Hydrocodone/Acet 5/325 Tablet) 1 tab PO NOW ONE Stop: 10/12/22 14:13 Last Admin: 10/12/22 14:29 Dose: 1 tab Documented By: JULIO C Hydromorphone HCl (Hydromorphone 0.5 Mg Inj) 0.5 mg IV NOW ONE Stop: 10/12/22 12:37 Last Admin: 10/12/22 12:45 Dose: 0.5 mg Documented By: ASHANTI Ketorolac Tromethamine (Ketorolac 30 Mg/Ml Vial) 15 mg IV NOW ONE Stop: 10/12/22 12:21 Last Admin: 10/12/22 12:42 Dose: Not Given Documented By: ASHANTI Lidocaine (Lidocaine Patch 1 Each Adh..Patch) 1 each TOP NOW ONE Stop: 10/12/22 14:13 Last Admin: 10/12/22 14:30 Dose: 1 each Documented By: JULIO C Vital Signs Vital signs: Vital Signs - 8 hr 10/12/22 12:03 10/12/22 12:39 10/12/22 12:41 Temperature 97.5 F L Pulse Rate 75 56 L 57 L Respiratory Rate 14 Blood Pressure 112/59 L Pulse Oximetry 96 92 99 Oxygen Delivery Method Room Air Room Air 10/12/22 12:41 10/12/22 13:02 10/12/22 13:03 Temperature Pulse Rate 46 L 53 L Respiratory Rate Blood Pressure 133/65 Pulse Oximetry 96 96 Oxygen Delivery Method Room Air 10/12/22 13:03 10/12/22 13:30 10/12/22 13:30 Temperature Pulse Rate 59 L Respiratory Rate Blood Pressure 123/64 123/60 Pulse Oximetry 96 Oxygen Delivery Method 10/12/22 14:00 Temperature Pulse Rate 60 Respiratory Rate 18 Blood Pressure 126/60 Pulse Oximetry 97 Oxygen Delivery Method MDM - Back Pain/Injury <Yasmine Sosa [facility] - Last Filed: 10/12/22 14:46> Lab Data Result diagrams: 10/12/22 12:40 10/12/22 12:40 Labs: Lab Results 10/12/22 10/12/22 10/12/22 Range/Units 12:40 12:40 12:40 WBC 9.8 (4.5-11.0) X10^3/uL RBC 3.71 L (4.5-5.9) X10^6/uL Hgb 10.2 L (13.5-17.5) g/dL Hct 31.0 L (41-53) % MCV 83.6 (80-100) fL MCH 27.6 (26-34) PG MCHC 33.1 (30-36) % RDW 17.3 H (11.6-14.8) % Plt Count 343 (150-400) X10^3/uL Neut % (Auto) 81.2 H (50-75) % Lymph % (Auto) 8.3 L (25-40) % [place] % (Auto) 7.3 (3-14) % Eos % (Auto) 2.4 (2-4) % Baso % (Auto) 0.8 (0-2) % Neut # (Auto) 8000 H (6757-3307) /uL Lymph # (Auto) 800 L (2294-1281) /uL [place] # (Auto) 700 (0-900) /uL Eos # (Auto) 200 (0-450) /uL Baso # (Auto) 100 (0-100) /uL Sodium 135 L (137-145) mmol/L Potassium 5.1 (3.4-5.1) mmol/L Chloride 104 (98-107) mmol/L Carbon Dioxide 18 L (22-32) mmol/L BUN 29 H (9-20) mg/dL Creatinine 2.24 H (0.66-1.25) mg/dL Estimated GFR 29 L (>60) mL/min BUN/Creatinine Ratio 12.9 (6-22) Glucose 149 H (80-110) mg/dL Calcium 8.0 L (8.4-10.2) mg/dL Total Bilirubin 0.2 (0.2-1.3) mg/dL AST 41 (17-59) IU/L ALT 55 H (<50) IU/L Alkaline Phosphatase 85 (38-126) U/L Total Creatine Kinase (55-170) U/L CK-MB (CK-2) CK-MB (CK-2) Rel Index Troponin I (0.01-0.034) ng/mL C-Reactive Protein 1.7 H (<1.0) mg/dL NT-Pro-B Natriuret Pep 728 H (<450) pg/mL Total Protein 6.8 (6.3-8.2) g/dL Albumin 3.4 L (3.5-5.0) g/dL Globulin 3.4 (1.7-4.1) g/dL Albumin/Globulin Ratio 1.0 (1.0-2.8) Procalcitonin 0.07 (<0.5) ng/mL 10/12/22 Range/Units 12:40 WBC (4.5-11.0) X10^3/uL RBC (4.5-5.9) X10^6/uL Hgb (13.5-17.5) g/dL Hct (41-53) % MCV (80-100) fL MCH (26-34) PG MCHC (30-36) % RDW (11.6-14.8) % Plt Count (150-400) X10^3/uL Neut % (Auto) (50-75) % Lymph % (Auto) (25-40) % [place] % (Auto) (3-14) % Eos % (Auto) (2-4) % Baso % (Auto) (0-2) % Neut # (Auto) (8309-0165) /uL Lymph # (Auto) (9758-3424) /uL [place] # (Auto) (0-900) /uL Eos # (Auto) (0-450) /uL Baso # (Auto) (0-100) /uL Sodium (137-145) mmol/L Potassium (3.4-5.1) mmol/L Chloride (98-107) mmol/L Carbon Dioxide (22-32) mmol/L BUN (9-20) mg/dL Creatinine (0.66-1.25) mg/dL Estimated GFR (>60) mL/min BUN/Creatinine Ratio (6-22) Glucose (80-110) mg/dL Calcium (8.4-10.2) mg/dL Total Bilirubin (0.2-1.3) mg/dL AST (17-59) IU/L ALT (<50) IU/L Alkaline Phosphatase (38-126) U/L Total Creatine Kinase 37 L (55-170) U/L CK-MB (CK-2) TNP CK-MB (CK-2) Rel Index TNP Troponin I < 0.012 (0.01-0.034) ng/mL C-Reactive Protein (<1.0) mg/dL NT-Pro-B Natriuret Pep (<450) pg/mL Total Protein (6.3-8.2) g/dL Albumin (3.5-5.0) g/dL Globulin (1.7-4.1) g/dL Albumin/Globulin Ratio (1.0-2.8) Procalcitonin (<0.5) ng/mL Urine Dip Bedside Urine Glucose Negative Bedside Urine Bilirubin - Negative Bedside Urine Ketone - Negative Urine Specific [place] 1.03 Bedside Urine Occult Blood - Negative Bedside Urine pH 6.0 Bedside Urine Protein + 30 Bedside Urine Urobilinogen - Negative Bedside Urine Nitrite - Negative Bedside Urine Leukocytes - Negative Esterase Imaging Data Chest x-ray: Radiologist's Impression: PROCEDURE:? XR CHEST 1V ? INDICATIONS:? rt LL pneumonia? hx COPD ? TECHNIQUE:? One view of the chest was acquired.? ? COMPARISON:? [facility], CR, XR CHEST 1V, 04/28/2022, 10:18. ? FINDINGS:? ? Surgical changes and devices:? None.? ? Lungs and pleura:? Chronic emphysematous changes are again seen.? Blunting of right costophrenic angle is noted suggestive of small right pleural effusion.? No definite focal infiltrate.? No pneumothorax. ? Mediastinum:? Mediastinal contours appear normal.? Heart size is normal.? ? Bones and chest wall:? No suspicious bony lesions.? Overlying soft tissues appear unremarkable.? ? IMPRESSION:? COPD and small right pleural effusion.? No definite focal infiltrate.? No pneumothorax. ? ? Dictated by: Jose Roberto Monzon M.D. on 10/12/2022 at 12:44 ? ? Approved by: Jose Roberto Monzon M.D. on 10/12/2022 at 12:44 ? ECG Data Interpretation: EKG independently reviewed by myself at 1245 reveals sinus bradycardia at 55 bpm with regular axis and intervals. No STEMI, ST segment changes, arrhythmia, or acute ischemic changes. MDM Narrative Medical decision making narrative: This is a 77-year-old with history significant for esophagectomy with gastric pull-up, infrarenal abdominal aneurysm, COPD, nephrolithiasis who presents to the emergency department complaining of right flank pain and was tender to palpation with symptoms starting last night. He has been without fever, nausea vomiting, diarrhea, new illness or systemic symptoms of illness. His pain was his main symptom. UA is negative for infection or hematuria, patient has history of anemia and his CBC is unchanged from priors, chemistry shows worsening creatinine and GFR, patient has history of CKD with EVELYN currently. Most recent creatinine is 1.89 with a GFR of 36, today he is 2.24 with a GFR of 29, no lactic acidosis or elevation of troponin. Mild elevation of CRP, BNP is 728 but this is significantly less than all of his other BNP using on exam he appears dry. Procalcitonin 0.07. Chest x-ray negative for acute consolidation or patchy opacity, right pleural effusion is present and consistent on prior exams. Abdomen pelvis CT without contrast shows mild right-sided hydronephrosis and hydroureter without obstructing stone and findings may represent a passed stone with nonobstructing bilateral renal calculi as above no left-sided hydro nephrosis or ureter, diffuse bladder wall thickening with no discrete masses, enlarged prostate with mass effect on floor of urinary bladder and no bowel obstruction or bowel wall thickening, infrarenal abdominal aortic aneurysm measures up to 4.6 and largest AP diameter on the current study and this is not significantly changed from 04/28/2022. Differential includes early dissection of the infrarenal location, recent nephrolithiasis with passed stone, patient's symptoms were worse last night and this morning than they are currently. Consultation with Dr. Lew about patient's CT and presentation who does not recommend antibiotics or any intervention at this point. Patient may follow-up if his symptoms change and we discussed differential diagnoses to include the renal perfusion. Recommend pain medication, hydration, return for worsening symptoms. No peritoneal signs on abdominal exam. Patient remains p.o. tolerant. Serial abdominal exam without increase in abdominal pain. Given history and exam, low suspicion for acute abdominal process, such as acute cholecystitis, pancreatitis, ovarian cyst, STI, perforated viscus, atypical appendicitis, colitis, diverticulitis or torsion. Extensive conversation about ER return precautions and need for close follow-up. <Venancio Hartley, DO - Last Filed: 10/12/22 15:07> Lab Data Labs: Lab Results 10/12/22 10/12/22 10/12/22 Range/Units 12:40 12:40 12:40 WBC 9.8 (4.5-11.0) X10^3/uL RBC 3.71 L (4.5-5.9) X10^6/uL Hgb 10.2 L (13.5-17.5) g/dL Hct 31.0 L (41-53) % MCV 83.6 (80-100) fL MCH 27.6 (26-34) PG MCHC 33.1 (30-36) % RDW 17.3 H (11.6-14.8) % Plt Count 343 (150-400) X10^3/uL Neut % (Auto) 81.2 H (50-75) % Lymph % (Auto) 8.3 L (25-40) % [place] % (Auto) 7.3 (3-14) % Eos % (Auto) 2.4 (2-4) % Baso % (Auto) 0.8 (0-2) % Neut # (Auto) 8000 H (7729-2149) /uL Lymph # (Auto) 800 L (0504-1655) /uL [place] # (Auto) 700 (0-900) /uL Eos # (Auto) 200 (0-450) /uL Baso # (Auto) 100 (0-100) /uL Sodium 135 L (137-145) mmol/L Potassium 5.1 (3.4-5.1) mmol/L Chloride 104 (98-107) mmol/L Carbon Dioxide 18 L (22-32) mmol/L BUN 29 H (9-20) mg/dL Creatinine 2.24 H (0.66-1.25) mg/dL Estimated GFR 29 L (>60) mL/min BUN/Creatinine Ratio 12.9 (6-22) Glucose 149 H (80-110) mg/dL Calcium 8.0 L (8.4-10.2) mg/dL Total Bilirubin 0.2 (0.2-1.3) mg/dL AST 41 (17-59) IU/L ALT 55 H (<50) IU/L Alkaline Phosphatase 85 (38-126) U/L Total Creatine Kinase (55-170) U/L CK-MB (CK-2) CK-MB (CK-2) Rel Index Troponin I (0.01-0.034) ng/mL C-Reactive Protein 1.7 H (<1.0) mg/dL NT-Pro-B Natriuret Pep 728 H (<450) pg/mL Total Protein 6.8 (6.3-8.2) g/dL Albumin 3.4 L (3.5-5.0) g/dL Globulin 3.4 (1.7-4.1) g/dL Albumin/Globulin Ratio 1.0 (1.0-2.8) Procalcitonin 0.07 (<0.5) ng/mL 10/12/22 Range/Units 12:40 WBC (4.5-11.0) X10^3/uL RBC (4.5-5.9) X10^6/uL Hgb (13.5-17.5) g/dL Hct (41-53) % MCV (80-100) fL MCH (26-34) PG MCHC (30-36) % RDW (11.6-14.8) % Plt Count (150-400) X10^3/uL Neut % (Auto) (50-75) % Lymph % (Auto) (25-40) % [place] % (Auto) (3-14) % Eos % (Auto) (2-4) % Baso % (Auto) (0-2) % Neut # (Auto) (2624-2782) /uL Lymph # (Auto) (1339-3083) /uL [place] # (Auto) (0-900) /uL Eos # (Auto) (0-450) /uL Baso # (Auto) (0-100) /uL Sodium (137-145) mmol/L Potassium (3.4-5.1) mmol/L Chloride (98-107) mmol/L Carbon Dioxide (22-32) mmol/L BUN (9-20) mg/dL Creatinine (0.66-1.25) mg/dL Estimated GFR (>60) mL/min BUN/Creatinine Ratio (6-22) Glucose (80-110) mg/dL Calcium (8.4-10.2) mg/dL Total Bilirubin (0.2-1.3) mg/dL AST (17-59) IU/L ALT (<50) IU/L Alkaline Phosphatase (38-126) U/L Total Creatine Kinase 37 L (55-170) U/L CK-MB (CK-2) TNP CK-MB (CK-2) Rel Index TNP Troponin I < 0.012 (0.01-0.034) ng/mL C-Reactive Protein (<1.0) mg/dL NT-Pro-B Natriuret Pep (<450) pg/mL Total Protein (6.3-8.2) g/dL Albumin (3.5-5.0) g/dL Globulin (1.7-4.1) g/dL Albumin/Globulin Ratio (1.0-2.8) Procalcitonin (<0.5) ng/mL Urine Dip Bedside Urine Glucose Negative Bedside Urine Bilirubin - Negative Bedside Urine Ketone - Negative Urine Specific [place] 1.03 Bedside Urine Occult Blood - Negative Bedside Urine pH 6.0 Bedside Urine Protein + 30 Bedside Urine Urobilinogen - Negative Bedside Urine Nitrite - Negative Bedside Urine Leukocytes - Negative Esterase Discharge Plan Departure Patient Disposition: Home Clinical Impression: Rt flank pain, Acute kidney injury superimposed on chronic kidney disease, Hydroureter without obstruction Hydronephrosis Qualifiers: Hydronephrosis type: other Qualified Code(s): N13.39 - Other hydronephrosis Instructions: Hydronephrosis -- Adult, DI for Kidney Stones Activity Restrictions/Additional Instructions: *You have been diagnosed with acute kidney injury likely secondary to passing a small stone. There is no evidence of a stone in your ureter or bladder however it is likely that you passed it last night or this morning when your pain was severe. Please use the pain pills as needed, stay hydrated, use lidocaine patches over the area of pain every 12 hours, that might be very helpful. Follow-up with Dr. Lew if you have worsening symptoms or come back to the emergency department if you experience a tearing like sensation, worsening pain. Ensure that you stay on top of your medications including for your blood pressure. It was nice to meet you, feel better soon. Remember that pain pills cause constipation that might not go well for you. Consider MiraLax in conjunction with them. *What to do: *Please continue to take your regular medications as directed. [x ] New medication prescriptions sent to your pharmacy: [[facility] ] [ ] New medication written as a paper prescription [ ] No new medications given *Please follow up with your primary care provider in 2-3 days, call for an appointment. Let them know you were seen in the Emergency Department and that we asked that you be seen for follow-up. We will electronically transmit a record of today's note if your PCP is in our system *If you do not have a primary care provider please contact [phone] to establish care with one of the [facility] primary care providers. *Return to Emergency Department if you should have any new, worsening, or concerning symptoms, such as [fever greater than 101F, chills, worsening pain, persistent vomiting or other bothersome symptoms]. Prescriptions: New hydrocodone-acetaminophen 5-325 mg tablet 1 tab PO BID PRN (Reason: pain) Qty: 14 0RF lidocaine [Lidoderm] 5 % adhesive patch,medicated 1 patch topical DAILY Qty: 15 0RF Rx Instructions: leave on most painful area for up to 12 hrs diclofenac sodium 1 % gel 2 g topical QID Qty: 100 0RF No Action prazosin 1 mg Capsule 1 mg PO QPM metoprolol tartrate 25 mg Tablet 25 mg PO BID tramadol 100 mg Tablet Extended Release 24 Hr 100 mg PO DAILY zinc sulfate 220 (50) mg capsule 220 mg PO DAILY Qty: 30 0RF albuterol sulfate 90 mcg/actuation aerosol powdr breath activated 2 inh inhalation Q6H PRN (Reason: COPd) Qty: 1 0RF tiotropium bromide 18 mcg capsule, w/inhalation device 1 cap inhalation DAILY Qty: 30 0RF Rx Instructions: puncture 1 cap using device; one dose = 2 inhalations Referrals: Albina Garcia MD [Primary Care Provider] - Sigifredo Lew MD [Physician] - Visit Report Forms: Patient Portal/API <Venancio Hartley, DO - Last Filed: 10/12/22 15:07> Cosign ED Attending Cosignature Attestation: Dr Hartley Co-Sign Statement: I was available for consultation during this patient's emergency department visit. This chart is signed by myself for administrative purposes only. I did not have direct contact with this patient during this visit. They were seen independently by the APC.
[2022-10-12] MEDS: HYDROMORPHONE 0.5 MG INJ IV (12:45)
[2022-10-12 12:53] LABS: Add Manual Diff / Slide Review NO; Basophils Absolute Auto 100 /uL (0-100); Basophils Percent Auto 0.8 % (0-2); Eosinophils Absolute Auto 200 /uL (0-450); Eosinophils Percent Auto 2.4 % (2-4); Hemoglobin 10.2 g/dL (13.5-17.5); Lymphocytes Absolute Auto 800 /uL (1100-4500); Lymphocytes Percent Auto 8.3 % (25-40); Mean Corpuscular HGB Conc 33.1 % (30-36); Mean Corpuscular Hemoglobin 27.6 PG (26-34); Mean Corpuscular Volume 83.6 fL (80-100); Monocytes Absolute Auto 700 /uL (0-900); Monocytes Percent Auto 7.3 % (3-14); Neutrophils Absolute Auto 8000 /uL (1500-7000); Neutrophils Percent Auto 81.2 % (50-75); Platelet Count 343 X10^3/uL (150-400); Red Blood Cell Count 3.71 X10^6/uL (4.5-5.9); Red Cell Distribution Width 17.3 % (11.6-14.8); White Blood Cell Count 9.8 X10^3/uL (4.5-11.0)
--- NOTE | 2022-10-12 12:55 | DI.CT.S_ITS ---
PROCEDURE: CT KIDNEY URETER BLADDER (KUB) INDICATIONS: rt flank, aneurysmal vs nephro? TECHNIQUE: Axial sections were acquired from the lung bases to the pubic symphysis. Coronal and sagittal reformats were performed. For radiation dose reduction, the following was used: automated exposure control, adjustment of mA and/or kV according to patient size. COMPARISON: [facility], CT, CT ABDOMEN PELVIS W CON, 04/28/2022, 10:30. FINDINGS: Image quality: Excellent. Lung bases: Dependent atelectasis/scarring in posterior aspect of bilateral lung bases are seen. Small bilateral pleural effusion are also noted slightly more prominent on the left side. Heart: Heart size is enlarged, no pericardial effusion. Large hiatal hernia is seen. URINARY: Right Kidney: Mild right-sided hydronephrosis is seen. Nonobstructing stone measures 3 millimeter in size is seen in lower pole of right kidney. No obstructing renal stone is seen. Right Ureter: There is proximal to mid hydroureter. No definite obstructing right ureteral stone is noted. Left Kidney: 2 millimeter nonobstructing stone is seen in midpole left kidney. No hydronephrosis. Left Ureter: No hydroureter. Bladder: Mild diffuse bladder wall thickening is seen. No stones. Enlarged prostate gland with mass effect on floor of urinary bladder is noted. ABDOMEN: Liver: Unremarkable. Gallbladder: Unremarkable. Biliary ducts: Unremarkable. Pancreas: Unremarkable. Spleen: Unremarkable. Adrenal Glands: Unremarkable. Stomach and Bowel: There is no bowel obstruction or abnormal bowel wall thickening. Significant fecal stasis throughout the colon is seen. Peritoneum: No abnormal intraperitoneal fluid. No free air. Ventral Wall: No hernia. Abdominal Nodes: No enlarged retroperitoneal or mesenteric lymph nodes. Vessels: Moderate atherosclerotic calcifications throughout abdominal aorta is seen. Fusiform infrarenal abdominal aortic aneurysm is again seen measures up to 4.6 cm in largest AP diameter series 5, image 41 and series 2, image 33 not significantly changed from 04/28/2022 study. No periaortic fluid collection is noted to suggest rupture. PELVIS: Pelvic Organs: Enlarged prostate gland as above.. Pelvic Nodes: Unremarkable. Miscellaneous: No inguinal hernias are seen. Bones: No suspicious bony lesion. No acute vertebral body compression fracture. IMPRESSION: 1. Mild right-sided hydronephrosis and hydroureter. No obstructing stone is seen. Finding may represent a passed stone. Nonobstructing bilateral renal calculi as above. No left-sided hydronephrosis or hydroureter. 2. Diffuse bladder wall thickening, no discrete bladder wall mass. Enlarged prostate gland with mass effect on floor of urinary bladder. 3. No bowel obstruction or abnormal bowel wall thickening. No free fluid or free air. No abscess collection. 4. Fusiform infrarenal abdominal aortic aneurysm measures up to 4.6 cm in largest AP diameter on the current study not significantly changed from 04/28/2022 study. Moderate atherosclerotic disease. Dictated by: Jose Roberto Monzon M.D. on 10/12/2022 at 13:19 Approved by: Jose Roberto Monzon M.D. on 10/12/2022 at 13:30
[2022-10-12 13:12] LABS: Creatine Kinase 37 U/L (55-170)
[2022-10-12 13:15] LABS: Alanine Aminotransferase 55 IU/L (<50); Albumin 3.4 g/dL (3.5-5.0); Alkaline Phosphatase 85 U/L (38-126); Aspartate Aminotransferase 41 IU/L (17-59); BUN Creatinine Ratio 12.9 (6-22); Bilirubin Total 0.2 mg/dL (0.2-1.3); Blood Urea Nitrogen 29 mg/dL (9-20); C-Reactive Protein Quant 1.7 mg/dL (<1.0); Carbon Dioxide 18 mmol/L (22-32); Chloride 104 mmol/L (98-107); Estimated Glomerular Filt Rate 29 mL/min (>60); Globulin 3.4 g/dL (1.7-4.1); Glucose 149 mg/dL (80-110); HEMOLYSIS < 15 (0-50); Potassium 5.1 mmol/L (3.4-5.1); Sodium 135 mmol/L (137-145); Total Protein 6.8 g/dL (6.3-8.2)
[2022-10-12 13:21] LABS: NT-proBNP (BNP-Adult 18+) 728 pg/mL (<450)
[2022-10-12 13:25] LABS: Troponin I < 0.012 ng/mL (0.01-0.034)
[2022-10-12 13:28] LABS: Procalcitonin 0.07 ng/mL (<0.5)
[2022-10-12] MEDS: HYDROCODONE/ACET 5/325 TABLET 1 TAB PO (14:29)
[2022-10-12] MEDS: LIDOCAINE PATCH 1 EACH ADH..PATCH TOP (14:30)
[2022-10-12 15:24] LABS: Bacteria Urine Moderate (10-30); Culture Indicated Urine Cult Not Indicated; Hyaline Casts Urine 0-1/LPF; Mucus Urine 1+ (Negative); RBC Urine 1-5/HPF (0-5/HPF); Squamous Epithelial Cell Urine 1-5 /HPF (0-5/HPF); WBC Urine 1-5/HPF (0-5/HPF)
== END 2022-10-12 14:43 | disposition home or self-care (01) ==
PROVIDERS: Emergency Provider Nurse Practitioner Critical Care Medicine; Family Provider Internal Medicine; PCP Internal Medicine
DX: N13.39 Other hydronephrosis (principal); R00.1 Bradycardia, unspecified
CPT/HCPCS: 36415; 71045; 74176; 80053; 81003; 81015; 82550; 83880; 84145; 84484; 85025; 86140; 93005; 93010; 96374; 96375; 99284; J1170

== ENCOUNTER → 2024-04-02 12:34 | Outpatient (CLI) | payer MEDICARE, OTHER, SELFPAY ==
[2020-12-21 22:20] VITALS: BMI 18.1
[2024-04-02 14:02] LABS: Add Manual Diff / Slide Review NO; Basophils Absolute Auto 0 /uL (0-100); Basophils Percent Auto 0.5 % (0-2); Eosinophils Absolute Auto 100 /uL (0-450); Eosinophils Percent Auto 1.2 % (2-4); Hemoglobin 12.3 g/dL (13.5-17.5); Lymphocytes Absolute Auto 700 /uL (1100-4500); Lymphocytes Percent Auto 7.2 % (25-40); Mean Corpuscular HGB Conc 33.3 % (30-36); Mean Corpuscular Hemoglobin 29.4 PG (26-34); Mean Corpuscular Volume 88.2 fL (80-100); Monocytes Absolute Auto 600 /uL (0-900); Monocytes Percent Auto 6.9 % (3-14); Neutrophils Absolute Auto 7700 /uL (1500-7000); Neutrophils Percent Auto 84.2 % (50-75); Platelet Count 309 X10^3/uL (150-400); Red Cell Distribution Width 15.2 % (11.6-14.8); White Blood Cell Count 9.2 X10^3/uL (4.5-11.0)
[2024-04-02 14:30] LABS: Alanine Aminotransferase 24 IU/L (<50); Albumin 3.4 g/dL (3.5-5.0); Albumin Globulin Ratio 1.2 (1.0-2.8); Alkaline Phosphatase 79 U/L (38-126); Aspartate Aminotransferase 28 IU/L (17-59); BUN Creatinine Ratio 16.8 (6-22); Bilirubin Total 0.5 mg/dL (0.2-1.3); Blood Urea Nitrogen 25 mg/dL (9-20); Calcium 8.2 mg/dL (8.4-10.2); Carbon Dioxide 27 mmol/L (22-32); Chloride 104 mmol/L (98-107); Estimated Glomerular Filt Rate 47 mL/min (>60); Globulin 2.9 g/dL (1.7-4.1); Glucose 123 mg/dL (80-110); HEMOLYSIS < 15 (0-50); Potassium 4.5 mmol/L (3.4-5.1); Sodium 136 mmol/L (137-145); Total Protein 6.3 g/dL (6.3-8.2)
[2024-04-02 14:31] LABS: HEMOLYSIS < 15 (0-50); Iron 41 ug/dL (49-181)
[2024-04-02 14:43] LABS: Percent Iron Saturation 20 % (20-50); Total Iron Binding Capacity 202 ug/dL (261-462); Transferrin 132 mg/dL (206-381)
[2024-04-02 15:04] LABS: Ferritin 144 ng/mL (18-464)
== END ==
PROVIDERS: Family Provider Internal Medicine; PCP Internal Medicine; Referring Provider Internal Medicine Hematology & Oncology; Visit Provider Internal Medicine Hematology & Oncology
DX: C15.9 Malignant neoplasm of esophagus, unspecified (principal); D64.9 Anemia, unspecified; Z85.01 Personal history of malignant neoplasm of esophagus
CPT/HCPCS: 36415; 80053; 82728; 83540; 83550; 85025

== ENCOUNTER → 2024-06-12 08:24 | Outpatient (CLI) | payer MEDICARE, OTHER, SELFPAY ==
[2020-12-21 22:20] VITALS: BMI 18.1
--- NOTE | 2024-06-12 | DI.US.S_ITS ---
PROCEDURE: US ABD AORTA ANEURYSM SCREEN INDICATIONS: Unspecified abdominal pain TECHNIQUE: Real-time scanning was performed of the aorta and proximal common iliac arteries, with image documentation. COMPARISON: [facility], CT, CT KIDNEY URETER BLADDER (KUB), 10/12/2022, 12:58. FINDINGS: Aorta: Abdominal aorta is normal in caliber proximal at 2.6 cm maximal axial dimension. At the middle 3rd of the aorta extending into the distal 3rd there is a fusiform aortic aneurysm measuring up to 13 cm craniocaudad including upper and lower tapering tips. Maximal axial dimension is 5.8 cm by ultrasound and on repeat measurement of the CT scan 10/12/22 it had measured 5.2 cm AP and 4.7 cm transverse. Therefore this appears to have mildly enlarged. The more distal tapering portion of the aneurysm extends to the bifurcation but the common iliac arteries bilaterally are normal in caliber at 1.2 cm. . Iliacs: Proximal common iliac arteries are normal in caliber. IMPRESSION: Mild interval enlargement of a mid to distal fusiform long abdominal aortic aneurysm now measuring up to 5.8 cm in maximal axial dimension and previously having measured 4.7 x 5.2 cm at the largest. The absence of a comparison study from 2021 to the current ultrasound is noted, and six-month follow-up sequential aortic ultrasound evaluations are recommended given current symptomatology and the enlargement of the aorta noted. Surgical consultation also is recommended if this has not recently been performed. Dictated by: Sebastien Knight M.D. on 06/12/2024 at 11:38 Approved by: Sebastien Knight M.D. on 06/12/2024 at 11:44
== END ==
PROVIDERS: Family Provider Internal Medicine; PCP Internal Medicine; Referring Provider Internal Medicine; Visit Provider Internal Medicine
DX: I71.40 Abdominal aortic aneurysm, without rupture, unspecified (principal); R10.12 Left upper quadrant pain; R10.11 Right upper quadrant pain
CPT/HCPCS: 76706

== ENCOUNTER → 2024-06-18 09:43 | Outpatient (CLI) | payer MEDICARE, OTHER, SELFPAY ==
[2020-12-21 22:20] VITALS: BMI 18.1
--- NOTE | 2024-06-18 09:44 | DI.CT.S_ITS ---
PROCEDURE: CT CHEST WO CON INDICATIONS: CHEST PAIN / PLEURAL EFFUSION TECHNIQUE: Noncontrast 5 mm thick sections acquired from the pulmonary apices to the posterior costophrenic angles. 1 mm lung window, 5 mm thick coronal and sagittal and 7 mm axial MIP reformats were then acquired. For radiation dose reduction, the following was used: automated exposure control, adjustment of mA and/or kV according to patient size. COMPARISON: None. FINDINGS: Image quality: Diagnostic. Lower Neck: No enlarged lymph nodes. Thyroid: There is a 1.1 cm nodule within the posterior right thyroid lobe. Axillae: No enlarged lymph nodes. Chest Wall: Unremarkable. Bones: Multilevel degenerative disc disease throughout the thoracic spine. Trachea: Mucous secretions are seen in the mid trachea. Lungs and Pleura: No pneumothorax . Small bilateral pleural effusions, right greater than left. Extensive emphysematous changes. Scarring /atelectasis along the dependent portions of the lower lungs. Heart: Heart is enlarged. No pericardial effusion. Thoracic Vessels: Partially visualized infrarenal aortic artery aneurysm. Coronary artery calcifications. Mediastinum and Elissa: No enlarged lymph nodes. Esophagus: Large hiatal hernia. Upper Abdomen: Enteric tube terminates in the stomach located in the thorax. Non-obstructing renal calculi in the left kidney. IMPRESSION: 1. Small bilateral pleural effusions, right greater than left. 2. Extensive emphysema. 3. There are mucous secretions within the trachea. Clinically correlate for aspiration. 4. There is a 1.1 centimeter nodule within the posterior right thyroid lobe. This can be evaluated with a thyroid ultrasound on a nonemergent basis. 5. Scarring/atelectasis are seen along the dependent portions of the lower lungs. 6. Large hiatal hernia. 7 coronary artery calcifications. Dictated by: Rk Hernández M.D. on 06/18/2024 at 16:00 Approved by: Rk Hernández M.D. on 06/18/2024 at 16:26
== END ==
PROVIDERS: Family Provider Internal Medicine; PCP Internal Medicine; Referring Provider Internal Medicine Pulmonary Disease; Visit Provider Internal Medicine Pulmonary Disease
DX: J90 Pleural effusion, not elsewhere classified (principal); R07.9 Chest pain, unspecified; E04.1 Nontoxic single thyroid nodule; M51.34 Other intervertebral disc degeneration, thoracic region; I51.7 Cardiomegaly; I25.10 Atherosclerotic heart disease of native coronary artery without angina pectoris; K44.9 Diaphragmatic hernia without obstruction or gangrene; I71.43 Infrarenal abdominal aortic aneurysm, without rupture; J43.9 Emphysema, unspecified
CPT/HCPCS: 71250

== ENCOUNTER → 2024-06-24 12:45 | Outpatient (CLI) | payer MEDICARE, OTHER, SELFPAY ==
[2020-12-21 22:20] VITALS: BMI 18.1
[2024-06-24 14:47] LABS: Add Manual Diff / Slide Review NO; Basophils Absolute Auto 100 /uL (0-100); Basophils Percent Auto 0.7 % (0-2); Eosinophils Absolute Auto 100 /uL (0-450); Eosinophils Percent Auto 1.1 % (2-4); Hematocrit 34.1 % (41-53); Hemoglobin 11.4 g/dL (13.5-17.5); Lymphocytes Absolute Auto 900 /uL (1100-4500); Lymphocytes Percent Auto 11.4 % (25-40); Mean Corpuscular HGB Conc 33.4 % (30-36); Mean Corpuscular Volume 89.7 fL (80-100); Monocytes Absolute Auto 500 /uL (0-900); Monocytes Percent Auto 6.3 % (3-14); Neutrophils Absolute Auto 6200 /uL (1500-7000); Neutrophils Percent Auto 80.5 % (50-75); Platelet Count 187 X10^3/uL (150-400); White Blood Cell Count 7.7 X10^3/uL (4.5-11.0)
[2024-06-24 15:23] LABS: BUN Creatinine Ratio 20.9 (6-22); Blood Urea Nitrogen 27 mg/dL (9-20); Calcium 8.1 mg/dL (8.4-10.2); Carbon Dioxide 29 mmol/L (22-32); Chloride 99 mmol/L (98-107); Cholesterol 93 mg/dL (140-199); Estimated Glomerular Filt Rate 56 mL/min (>60); Glucose 103 mg/dL (80-110); HDL Cholesterol 46 mg/dL (40-60); HEMOLYSIS < 15 (0-50); LDL Cholesterol Calculated 34 mg/dL (<100); Potassium 3.6 mmol/L (3.4-5.1); Sodium 133 mmol/L (137-145); Triglycerides 64 mg/dL (35-150)
== END ==
PROVIDERS: Family Provider Internal Medicine; PCP Internal Medicine; Referring Provider Internal Medicine Cardiovascular Disease; Visit Provider Internal Medicine Cardiovascular Disease
DX: I10 Essential (primary) hypertension (principal)
CPT/HCPCS: 36415; 80048; 80061; 85025

== ENCOUNTER → 2024-07-03 11:43 | Outpatient (CLI) | payer MEDICARE, OTHER, SELFPAY ==
[2020-12-21 22:20] VITALS: BMI 18.1
--- NOTE | 2024-07-03 11:47 | DI.CT.S_ITS ---
PROCEDURE: CT CHEST WO CON INDICATIONS: PLEURAL EFFUSION,CHEST PAIN TECHNIQUE: Noncontrast 5 mm thick sections acquired from the pulmonary apices to the posterior costophrenic angles. 1 mm lung window, 5 mm thick coronal and sagittal and 7 mm axial MIP reformats were then acquired. For radiation dose reduction, the following was used: automated exposure control, adjustment of mA and/or kV according to patient size. COMPARISON: [facility], CT, CT CHEST WO CON, 06/18/2024, 9:49. FINDINGS: Image quality: Diagnostic Lungs and pleura: Small right pleural effusion. There is circumferential pleural thickening involving the right hemithorax. Bronchiectasis and diffuse mucous plugging. More focal opacity seen in the superior segment of the right lower lobe. Background advanced emphysematous changes. Scattered centrilobular nodules, for example left lower lobe, probably infectious/inflammatory. Mediastinum, heart, and esophagus: Postsurgical esophageal/gastric changes. If this is a gastric pull-through, the portion in the chest is moderately distended. Coronary, valvular, and annular calcifications. No pathologic lymph nodes by size criteria Chest wall and thyroid: Multiple small thyroid nodules not well assessed on this study. None appears to measure over 1.5 centimeters. Mild diffuse anasarca Upper abdomen: No gross abnormality on these noncontrast images Bones: Degenerative findings are present. IMPRESSION: Scattered infectious/inflammatory pulmonary opacities are seen bilaterally. Background findings of bronchitis, mucous plugging, and advanced emphysema. However, there is background pleural thickening involving the right hemithorax, given history of malignancy, this is suspicious. Small right pleural effusion is present. Consider further evaluation with contrast-enhanced CT or PET-CT at clinical discretion. Other findings above. Dictated by: Anjel Rodriguez M.D. on 07/07/2024 at 15:01 Approved by: Anjel Rodriguez M.D. on 07/07/2024 at 15:08
--- NOTE | 2024-07-03 11:48 | DI.RAD.S_ITS ---
PROCEDURE: XR CHEST 2V INDICATIONS: PLEURAL EFFUSION,CHEST PAIN TECHNIQUE: 2 views of the chest were acquired. COMPARISON: [facility], CR, XR CHEST 1V, 10/12/2022, 12:25. [facility], CR, XR CHEST 1V, 04/28/2022, 10:18. FINDINGS: Surgical changes and devices: None. Lungs and pleura: Lungs are abnormal with severe pulmonary hyperexpansion previously present. There also now is a generalized right-sided pneumonia pattern, and a small subpulmonic right pleural effusion. No pleural effusions or pneumothorax. Mediastinum: Mediastinal contours are normal. Heart size is normal. Bones and chest wall: No suspicious bony abnormalities. Soft tissues appear unremarkable. IMPRESSION: Severe COPD, new pneumonia right lung with small subpulmonic effusion. Dictated by: Sebastien Knight M.D. on 07/03/2024 at 13:27 Approved by: Sebastien Knight M.D. on 07/03/2024 at 13:28
== END ==
PROVIDERS: Family Provider Internal Medicine; PCP Internal Medicine; Referring Provider Internal Medicine Pulmonary Disease; Visit Provider Internal Medicine Pulmonary Disease
DX: J90 Pleural effusion, not elsewhere classified (principal); R07.9 Chest pain, unspecified; E04.2 Nontoxic multinodular goiter; R91.8 Other nonspecific abnormal finding of lung field; J40 Bronchitis, not specified as acute or chronic; J43.9 Emphysema, unspecified; I25.10 Atherosclerotic heart disease of native coronary artery without angina pectoris; I70.90 Unspecified atherosclerosis
CPT/HCPCS: 71046; 71250

== ENCOUNTER 2024-07-30 11:11 | Emergency (ER) | payer MEDICARE, OTHER, SELFPAY ==
[2020-12-21 22:20] VITALS: BMI 18.1
[2024-07-30] VITALS (16 sets, daily range): BP systolic 139–170; BP diastolic 66–120; PULSE 72–109; RESP 18–25; TEMP 36.6; O2SAT 94–99; BMI 16.2
--- NOTE | 2024-07-30 11:21 | DI.CT.S_ITS ---
PROCEDURE: CT HEAD/BRAIN WO CON INDICATIONS: right vision loss now resolved TECHNIQUE: Noncontrast 4.5 mm thick angled axial sections acquired from the foramen magnum to the vertex, with coronal and sagittal reformats. For radiation dose reduction, the following was used: automated exposure control, adjustment of mA and/or kV according to patient size. COMPARISON: None. FINDINGS: Image quality: Diagnostic. CSF spaces: Basal cisterns are patent. No extra-axial fluid collections. The ventricles are symmetric in size and shape. Brain: No intracranial bleeds or masses. There is cerebral volume loss for age, with resultant ventricular and sulcal prominence. There are periventricular and deep white matter chronic small vessel ischemic changes. There is intracranial internal carotid artery atherosclerosis. Skull and face: Calvarium and visualized facial bones appear intact, without suspicious lesions. Sinuses: Visualized sinuses and mastoids are clear. IMPRESSION: No acute intracranial hemorrhage is seen. No acute intracranial process is seen. If there is strong clinical suspicion for an acute stroke, please consider a brain MRI for further evaluation, as it is more sensitive (assuming that there is no contraindication to MRI). Dictated by: Felix Alaniz M.D. on 07/30/2024 at 11:08 Approved by: Felix Alaniz M.D. on 07/30/2024 at 11:09
--- NOTE | 2024-07-30 11:21 | DI.CT.S_ITS ---
PROCEDURE: CT ANGIO HEAD AND NECK INDICATIONS: right vision loss now resolved TECHNIQUE: After the administration of intravenous contrast, 1 mm thick sections acquired from the aortic arch through the [place] of [place]. 3-dimensional hyxgfhu-zcrwqzuhg-ariskfmvkd (MIP) and/or volume rendering reformats were acquired of the central intracranial vasculature and neck separately. For radiation dose reduction, the following was used: automated exposure control, adjustment of mA and/or kV according to patient size. COMPARISON: [facility], CT, CT SOFT TISSUE NECK W CON, 11/10/2018, 8:48. [facility], CT, CT HEAD/BRAIN WO CON, 07/30/2024, 11:30. FINDINGS: Image quality: Limited by bolus timing, with venous contamination. BRAIN: CSF spaces: Ventricles are normal in size and shape. Basal cisterns are patent. No extra-axial fluid collections. Brain: No significant abnormality of the brain can be seen. Skull and face: Calvarium and facial bones appear intact, without suspicious lesions. Orbits appear normal. Sinuses: Sinuses and mastoids are clear. HEAD CT ANGIOGRAPHY: Anterior circulation: Intracranial internal carotid arteries are normal in size and flow. There is a diminutive right A1 segment, with a corresponding robust left A1 segment. This is considered to be a normal developmental variant of the [place] of [place], of typically no clinical consequence. The flow within the paired anterior cerebral arteries is otherwise normal and symmetric. The flow within the middle cerebral arteries is normal and symmetric. The anterior communicating artery is seen. No aneurysms are seen. Posterior circulation: Visualized portions of the vertebral arteries demonstrate normal caliber, and join to form a normal appearing basilar artery. Flow within the posterior cerebral arteries is normal and symmetric. No aneurysms are seen. NECK CT ANGIOGRAPHY: Carotid system: The great vessels demonstrate a conventional anatomy as they arise from the aortic arch. The origins of the common carotid arteries appear patent. The common carotid arteries demonstrate normal caliber and courses. Endarterectomy change can be seen. Along the distal aspect of the inter actually change, there is 50% narrowing seen, soft plaque, as on series 5, image 146. Atherosclerotic change can be seen on both sides, left worse than right. There is 50% narrowing seen involving the left proximal internal carotid artery. The more distal internal carotid arteries demonstrate normal course and caliber. Posterior circulation: The origins of the vertebral arteries both appear widely patent. The more superior extracranial portions of both vertebral arteries also demonstrate normal courses and calibers. They join to form a normal appearing basilar artery. Soft tissues: Visualized neck soft tissues demonstrate no suspicious abnormalities. Generalized pleural thickening can be seen on the right-side. Underlying emphysematous changes are seen. Bones: No suspicious bony lesions. Visualized cervical spine appears normally aligned. Moderate cervical spine degenerative change is seen. IMPRESSION: No significant intracranial arterial abnormality is seen. 50% narrowing seen involving the left proximal internal carotid artery. Prior right carotid endarterectomy, with 50% narrowing seen involving the distal aspect of the endarterectomy change. Pleural changes are seen on the right, with thickening. Underlying emphysematous changes are seen. Any quantitative measurements of stenosis were performed using NASCET criteria. Dictated by: Felix Alaniz M.D. on 07/30/2024 at 11:01 Approved by: Felix Alaniz M.D. on 07/30/2024 at 11:08
--- NOTE | 2024-07-30 11:21 | EKG_ITS ---
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
--- NOTE | 2024-07-30 11:25 | ED_ITS ---
HPI - Neuro Symptoms/Deficit General Chief Complaint: Neuro Symptoms/Deficit Stated Complaint: Thinks he had a stroke Time Seen by Provider: 07/30/24 11:16 Source: patient Mode of arrival: Ambulatory History of Present Illness HPI Narrative: Patient is a 79-year-old male history of esophageal cancer, COPD, previous TIA carotid endarterectomy presenting today with right visual change. He reports that around 815 this morning he had some right upper quadrant visual disturbance. He says it lasted for 5 minutes and resolved. He denies any numbness tingling weakness no facial droop difficulty speaking or ambulating. He says this is exactly how his previous TIA presented. He said about 10 years ago he had something similar which then led to a carotid endarterectomy med he has not had recurrence of symptoms. He is on both aspirin and Plavix. He took both of those medications last night. He also thinks he may have had a heart attack yesterday he had chest heaviness suddenly yesterday afternoon his blood pressure was 60/40 and symptoms resolved. He denies any sort of chest pain now. He has not anymore short of breath than normal he has not chronically on oxygen. His is here at bedside confirming information. AAA Dr. Sandhu at [facility] Related Data Home Medications Medication Instructions Recorded Confirmed metoprolol tartrate 25 mg tablet 25 mg PO BID 10/15/18 03/29/22 prazosin 1 mg capsule 1 mg PO QPM 10/15/18 03/29/22 tramadol 100 mg tablet,extended 100 mg PO DAILY 01/29/22 03/29/22 release 24 hr Previous Rx's Medication Instructions Recorded albuterol sulfate 90 mcg/actuation 2 inh inhalation Q6H PRN COPd #1 ea 12/31/20 breath activated powder inhaler tiotropium bromide 18 mcg capsule 1 cap inhalation DAILY #30 12/31/20 with inhalation device inhalations zinc sulfate 50 mg zinc (220 mg) 220 mg (4.4 x 50 mg zinc (220 mg)) 12/31/20 capsule PO DAILY #30 caps diclofenac sodium 1 % topical gel 2 g topical QID #100 grams 10/12/22 hydrocodone 5 mg-acetaminophen 325 1 tab PO BID PRN pain #14 tabs 10/12/22 mg tablet lidocaine 5 % topical patch 1 patch topical DAILY #15 ea 10/12/22 (Lidoderm) ticagrelor 90 mg tablet (Brilinta) 90 mg PO BID #90 tabs 07/30/24 Allergies Allergy/AdvReac Type Severity Reaction Status Date / Time minoxidil AdvReac Intermediate Hypotension Verified 07/30/24 11:20 Patient History Medical History CKD (chronic kidney disease), stage III Hypertension COPD (chronic obstructive pulmonary disease) Small bowel obstruction Esophageal cancer Social History household members: spouse Smoking Status: Former smoker alcohol intake: current Smoking Status: Former smoker alcohol intake frequency: holidays/special occasions only Substance Use Type: does not use Exam Initial Vital Signs Initial Vital Signs: Vital Signs Temperature 97.8 F 07/30/24 11:11 Pulse Rate 109 H 07/30/24 11:11 Respiratory Rate 25 H 07/30/24 11:11 Blood Pressure 161/84 H 07/30/24 11:11 Pulse Oximetry 94 07/30/24 11:11 Oxygen Delivery Method Room Air 07/30/24 11:11 GENERAL: Alert week pale cachectic male and in no acute distress. HEENT: Head atraumatic,EOMI, pupils reactive, face symmetric, moist mucous membranes CARDIOVASCULAR: Regular rate and rhythm without murmurs, rubs or gallops. RESPIRATORY: Breath sounds equal bilaterally, no wheezes rales or rhonchi. ABDOMEN: Soft, nontender. Normoactive bowel sounds all 4 quadrants. No guarding or rebound. EXTREMITIES: Normal range of motion, no clubbing or edema. Neurovascularly intact NEUROLOGICAL: Alert and oriented x4.Normal gait and speech. Cranial nerves II through XII grossly intact. Good [id number], good [id number], strength equal bilaterally, no dysarthria or aphasia, sensation in tact to soft touch bilaterally, no visual changes, no facial droop SKIN: Warm, dry, no laceration, no petechiae, no rashes or lesions. Scores ABCD2 Age >= 60 years: yes Initial BP. Either SBP >= 140 or DBP >= 90.: yes Clinical features of the TIA: other symptoms Duration of symptoms: < 10 minutes History of diabetes: no ABCD2 Score: 2 NIH Stroke Scale Level of Conciousness: Alert, keenly responsive Ask month/age: Answers both questions correctly. Open/close eyes, close hand: Performs both tasks correctly Best gaze horizontal: Normal Visual ly: No visual loss Facial palsy: Normal symetrical movement Left arm drift: No drift for full 10 sec Right arm drift: No drift for full 10 sec Left leg drift: No drift for full 5 sec Right leg drift: No drift for full 5 sec Limb ataxia: Absent Sensory on face/arms/legs: Normal, no sensory loss Best language: No aphasia, normal Dysarthria: Normal Extinction or inattention: No abnormality Total NIH Stroke scale score: 0 Course Orders Ordered: ED Orders 07/30/24 11:13 Complete Blood Count AUTO DIFF Stat Comprehensive Metabolic Panel Stat Ethanol (ETOH) Stat PTT Partial Thromboplastin Yasmani Stat Prothrombin Time INR Stat Troponin & CK Cardiac Panel Stat 07/30/24 11:21 CT angio head and neck Stat CT head/brain wo con Stat EKG-12 Lead Stat 07/30/24 12:16 Urinalysis and Microscopic Stat Urine Drug Screen, Rapid Stat 07/30/24 12:53 MR head/brain wo con Stat Vital Signs Vital signs: Vital Signs - 8 hr 07/30/24 11:11 07/30/24 11:16 07/30/24 11:16 Temperature 97.8 F Pulse Rate 109 H 79 Respiratory Rate 25 H Blood Pressure 161/84 H 161/84 H Pulse Oximetry 94 Oxygen Delivery Method Room Air 07/30/24 11:34 07/30/24 11:35 07/30/24 11:35 Temperature Pulse Rate 89 91 H Respiratory Rate 21 22 Blood Pressure 144/68 H Pulse Oximetry 98 95 Oxygen Delivery Method Room Air 07/30/24 12:00 07/30/24 12:00 07/30/24 12:30 Temperature Pulse Rate 93 H 74 Respiratory Rate 20 19 Blood Pressure 139/66 Pulse Oximetry 95 96 Oxygen Delivery Method Room Air 07/30/24 12:30 07/30/24 13:00 07/30/24 13:00 Temperature Pulse Rate 79 Respiratory Rate 24 Blood Pressure 143/70 H 147/72 H Pulse Oximetry 97 Oxygen Delivery Method 07/30/24 13:30 07/30/24 13:30 07/30/24 14:00 Temperature Pulse Rate 76 77 Respiratory Rate 19 19 Blood Pressure 162/73 H Pulse Oximetry 96 96 Oxygen Delivery Method 07/30/24 14:00 07/30/24 15:14 07/30/24 15:15 Temperature Pulse Rate 76 76 Respiratory Rate 18 Blood Pressure 146/72 H Pulse Oximetry 99 Oxygen Delivery Method Room Air Room Air 07/30/24 15:15 07/30/24 15:30 07/30/24 15:30 Temperature Pulse Rate 74 Respiratory Rate 19 Blood Pressure 163/120 H 166/83 H Pulse Oximetry 99 Oxygen Delivery Method 07/30/24 16:00 07/30/24 16:00 07/30/24 16:30 Temperature Pulse Rate 72 76 Respiratory Rate 19 18 Blood Pressure 149/72 H Pulse Oximetry 97 97 Oxygen Delivery Method Room Air 07/30/24 16:30 07/30/24 17:00 07/30/24 17:00 Temperature Pulse Rate 77 Respiratory Rate 22 Blood Pressure 163/79 H 170/81 H Pulse Oximetry 96 Oxygen Delivery Method Room Air 07/30/24 17:30 07/30/24 17:30 Temperature Pulse Rate 80 Respiratory Rate 24 Blood Pressure 159/85 H Pulse Oximetry 96 Oxygen Delivery Method MDM - Neuro Symptoms/Deficit Lab Data 07/30/24 11:13 07/30/24 11:13 Labs: Lab Results 07/30/24 07/30/24 07/30/24 Range/Units 11:13 12:16 12:16 WBC 8.9 (4.5-11.0) X10^3/uL RBC 2.48 L (4.5-5.9) X10^6/uL Hgb 7.6 L (13.5-17.5) g/dL Hct 23.0 L (41-53) % MCV 92.7 (80-100) fL MCH 30.8 (26-34) PG MCHC 33.2 (30-36) % RDW 17.8 H (11.6-14.8) % Plt Count 268 (150-400) X10^3/uL Neut % (Auto) 80.0 H (50-75) % Lymph % (Auto) 11.2 L (25-40) % [place] % (Auto) 7.8 (3-14) % Eos % (Auto) 0.6 L (2-4) % Baso % (Auto) 0.4 (0-2) % Neut # (Auto) 7100 H (9898-0103) /uL Lymph # (Auto) 1000 L (2835-7414) /uL [place] # (Auto) 700 (0-900) /uL Eos # (Auto) 0 (0-450) /uL Baso # (Auto) 0 (0-100) /uL PT 12.0 (9.4-12.5) SECONDS INR 1.0 (0.9-1.3) APTT 31 (25.1-36.5) SECONDS Sodium 133 L (137-145) mmol/L Potassium 4.7 (3.4-5.1) mmol/L Chloride 106 (98-107) mmol/L Carbon Dioxide 19 L (22-32) mmol/L BUN 37 H (9-20) mg/dL Creatinine 1.40 H (0.66-1.25) mg/dL Estimated GFR 50 L (>60) mL/min BUN/Creatinine Ratio 26.4 H (6-22) Glucose 102 (80-110) mg/dL Calcium 8.9 (8.4-10.2) mg/dL Total Bilirubin 0.4 (0.2-1.3) mg/dL AST 27 (17-59) IU/L ALT 23 (<50) IU/L Alkaline Phosphatase 64 (38-126) U/L Total Creatine Kinase 38 L (55-170) U/L Troponin I < 0.012 (0.01-0.034) ng/mL Total Protein 6.1 L (6.3-8.2) g/dL Albumin 3.2 L (3.5-5.0) g/dL Globulin 2.9 (1.7-4.1) g/dL Albumin/Globulin Ratio 1.1 (1.0-2.8) Urine Color Yellow Urine Appearance Clear Urine pH 5.5 Normal (4.5-8.0) Ur Specific [place] 1.020 (1.000-1.035) Urine Protein Trace H (Negative) Urine Glucose (UA) Negative (Negative) g/dL Urine Ketones Negative (NEGATIVE) Urine Occult Blood Trace-intact (Negative) Urine Nitrate Negative (Negative) Urine Bilirubin Negative (NEGATIVE) Urine Urobilinogen 0.2 (0.2) E.U./dL Ur Leukocyte Esterase Negative (NEGATIVE) Urine RBC 0-1/hpf (0-5/HPF) Urine WBC None seen (0-5/HPF) Ur Squamous Epith Cells 1-5 /hpf (0-5/HPF) Urine Bacteria None seen (None) Ur Culture Indicated? Cult not indicated Vol Urine Centrifuged 10ml (spun) U Opiates 300ng/mL cut Negative (Negative) Ur Oxycodone Screen Negative (Negative) Urine Methadone Screen Negative (Negative) Ur Barbiturates Screen Negative (Negative) U Tricyclic Antidepress Negative (Negative) Ur Phencyclidine Scrn Negative (Negative) Ur Amphetamines Screen Negative (Negative) U Methamphetamines Scrn Negative (Negative) Ur MDMA Scrn (Ecstasy) Negative (Negative) U Benzodiazepines Scrn Negative (Negative) Urine Cocaine Screen Negative (Negative) U Marijuana (THC) Screen Negative (Negative) Urine Specific [place] Normal (Normal) Ethyl Alcohol < 10 ( - 10) mg/dL Ur Creatinine Normal (Normal) Point of Care Testing Glucose POC [address] scan - head: Radiologist's Impression: PROCEDURE: CT HEAD/BRAIN WO CON INDICATIONS: right vision loss now resolved TECHNIQUE: Noncontrast 4.5 mm thick angled axial sections acquired from the foramen magnum to the vertex, with coronal and sagittal reformats. For radiation dose reduction, the following was used: automated exposure control, adjustment of mA and/or kV according to patient size. COMPARISON: None. FINDINGS: Image quality: Diagnostic. CSF spaces: Basal cisterns are patent. No extra-axial fluid collections. The ventricles are symmetric in size and shape. Brain: No intracranial bleeds or masses. There is cerebral volume loss for age, with resultant ventricular and sulcal prominence. There are periventricular and deep white matter chronic small vessel ischemic changes. There is intracranial internal carotid artery atherosclerosis. Skull and face: Calvarium and visualized facial bones appear intact, without suspicious lesions. Sinuses: Visualized sinuses and mastoids are clear. IMPRESSION: No acute intracranial hemorrhage is seen. No acute intracranial process is seen. If there is strong clinical suspicion for an acute stroke, please consider a brain MRI for further evaluation, as it is more sensitive (assuming that there is no contraindication to MRI). Dictated by: Felix Alaniz M.D. on 07/30/2024 at 11:08 CTA - brain/neck: Radiologist's Impression: PROCEDURE: CT ANGIO HEAD AND NECK INDICATIONS: right vision loss now resolved TECHNIQUE: After the administration of intravenous contrast, 1 mm thick sections acquired from the aortic arch through the [place] of [place]. 3-dimensional sbpyndb-mvjkuywgi-okbwgwwtle (MIP) and/or volume rendering reformats were acquired of the central intracranial vasculature and neck separately. For radiation dose reduction, the following was used: automated exposure control, adjustment of mA and/or kV according to patient size. COMPARISON: [facility], CT, CT SOFT TISSUE NECK W CON, 11/10/2018, 8:48. [facility], CT, CT HEAD/BRAIN WO CON, 07/30/2024, 11:30. FINDINGS: Image quality: Limited by bolus timing, with venous contamination. BRAIN: CSF spaces: Ventricles are normal in size and shape. Basal cisterns are patent. No extra-axial fluid collections. Brain: No significant abnormality of the brain can be seen. Skull and face: Calvarium and facial bones appear intact, without suspicious lesions. Orbits appear normal. Sinuses: Sinuses and mastoids are clear. HEAD CT ANGIOGRAPHY: Anterior circulation: Intracranial internal carotid arteries are normal in size and flow. There is a diminutive right A1 segment, with a corresponding robust left A1 segment. This is considered to be a normal developmental variant of the [place] of [place], of typically no clinical consequence. The flow within the paired anterior cerebral arteries is otherwise normal and symmetric. The flow within the middle cerebral arteries is normal and symmetric. The anterior communicating artery is seen. No aneurysms are seen. Posterior circulation: Visualized portions of the vertebral arteries demonstrate normal caliber, and join to form a normal appearing basilar artery. Flow within the posterior cerebral arteries is normal and symmetric. No aneurysms are seen. NECK CT ANGIOGRAPHY: Carotid system: The great vessels demonstrate a conventional anatomy as they arise from the aortic arch. The origins of the common carotid arteries appear patent. The common carotid arteries demonstrate normal caliber and courses. Endarterectomy change can be seen. Along the distal aspect of the inter actually change, there is 50% narrowing seen, soft plaque, as on series 5, image 146. Atherosclerotic change can be seen on both sides, left worse than right. There is 50% narrowing seen involving the left proximal internal carotid artery. The more distal internal carotid arteries demonstrate normal course and caliber. Posterior circulation: The origins of the vertebral arteries both appear widely patent. The more superior extracranial portions of both vertebral arteries also demonstrate normal courses and calibers. They join to form a normal appearing basilar artery. Soft tissues: Visualized neck soft tissues demonstrate no suspicious abnormalities. Generalized pleural thickening can be seen on the right-side. Underlying emphysematous changes are seen. Bones: No suspicious bony lesions. Visualized cervical spine appears normally aligned. Moderate cervical spine degenerative change is seen. IMPRESSION: No significant intracranial arterial abnormality is seen. 50% narrowing seen involving the left proximal internal carotid artery. Prior right carotid endarterectomy, with 50% narrowing seen involving the distal aspect of the endarterectomy change. Pleural changes are seen on the right, with thickening. Underlying emphysematous changes are seen. Any quantitative measurements of stenosis were performed using NASCET criteria. Dictated by: Felix Alaniz M.D. on 07/30/2024 at 11:01 MR brain: Radiologist's Impression: PROCEDURE: MR HEAD/BRAIN WO CON INDICATIONS: right visual changes TECHNIQUE: Non-contrast axial T1 spin echo, axial T2 fast spin echo, sagittal and axial FLAIR, coronal T2 fast spin echo, axial gradient echo, axial diffusion and ADC through the brain. COMPARISON: [facility], CT, CT HEAD/BRAIN WO CON, 07/30/2024, 11:30. FINDINGS: Image quality: Excellent. CSF spaces: Ventricles appear symmetric in size and shape. Basal cisterns are patent. No extra-axial fluid collections. Brain: No intracranial bleeds or mass effects. There is cerebral volume loss for age. There are periventricular and deep white matter chronic small vessel ischemic changes including within the brainstem. Diffusion-weighted images show no acute infarct. No chronic ischemic insults. Normal intravascular flow voids are present. Skull and face: Calvarial bone marrow is normal in signal. Orbits are normal. Sinuses: Paranasal sinuses are clear. Small right and trace left mastoid effusions. IMPRESSION: No acute or subacute infarct. No acute intracranial abnormalities. Age-related global volume loss and chronic microvascular ischemic changes are present. Dictated by: Vincenzo Monahan M.D. on 07/30/2024 at 15:12 ECG Data Attestation: I personally reviewed and interpreted this ECG as follows: Prior ECG tracings: available for review Interpretation: Normal sinus rhythm rate 84 ME interval 166 QRS 84 QTC 437 [facility] Narrative Medical decision making narrative: [facility] CC: Right visual changes Complicating co-morbidities: Prior TIA, esophageal cancer hypertension hyperlipidemia, COPD Data collected from: at bedside Medical records reviewed: Differential considered: TIA, CVA, visual disturbance Exam documented above, pertinent findings include: NIH stroke scale 0 no visual disturbance now no weakness appears chronically ill cachectic mildly pain Lab Test results independently reviewed as above. Pertinent findings: CBC patient is found to be anemic with a hemoglobin of 7.6/23, previously on June 24 was 11.4 and 34.1 CMP stable electrolytes creatinine stable at 1 4 previously 1.2-1.4 Troponin negative Independently reviewed EKG as above sinus rhythm no ischemia Imaging studies independently reviewed: Head CT CT angio and MRI do not show acute CVA no significant stenosis or large vessel occlusion Consultations: 1545 Dr Lawrence, on-call stroke physician has reviewed images updated on patient's symptoms and test results she will review results and get back to 17:18 , has reviewed images and recommends that patient has failed Plavix recommends Brilinta and can follow-up in stroke clinic if needed Treatments: We do not have Brilinta at this hospital. Re-evaluations: Patient has had no recurrent symptoms Discussion: Patient history of prior TIA presenting today with right visual field deficits lasted less than 5 minutes. He has had no further stroke symptoms he has a negative stroke workup. He is found to be anemic with a significant drop. He denies any black stool stool although he is taking iron pills. I called patient after he was discharged to make sure that you would follow up with his primary care provider for outpatient blood work. Also encouraged him to return to the ED if he was having worsening symptoms or worsening stools. Discharge Plan Departure Patient Disposition: Home Clinical Impression: Brain TIA, Anemia Instructions: DI for Transient Ischemic Attack Activity Restrictions/Additional Instructions: *You have been diagnosed with TIA *What to do: You may require genetic testing [id number], please discuss this with your primary care provider and/or your stroke Dr. *Continue to take medications as directed Aspirin 81 mg daily Brilinta 180 mg for the 1st dose in the 90 mg twice a day Take Plavix only until you start Brilinta *Follow up with your primary care provider in 2-3 days or call [phone] You will need a referral to [facility]/she had a stroke clinic done by your primary care provider *Return to ER if you should have such as or any new, worsening or concerning symptoms Prescriptions: New Brilinta 90 mg tablet 90 mg PO BID Qty: 90 0RF No Action prazosin 1 mg Capsule 1 mg PO QPM metoprolol tartrate 25 mg Tablet 25 mg PO BID tramadol 100 mg Tablet Extended Release 24 Hr 100 mg PO DAILY zinc sulfate 220 (50) mg capsule 220 mg PO DAILY Qty: 30 0RF albuterol sulfate 90 mcg/actuation aerosol powdr breath activated 2 inh inhalation Q6H PRN (Reason: COPd) Qty: 1 0RF tiotropium bromide 18 mcg capsule, w/inhalation device 1 cap inhalation DAILY Qty: 30 0RF Rx Instructions: puncture 1 cap using device; one dose = 2 inhalations hydrocodone-acetaminophen 5-325 mg tablet 1 tab PO BID PRN (Reason: pain) Qty: 14 0RF lidocaine [Lidoderm] 5 % adhesive patch,medicated 1 patch topical DAILY Qty: 15 0RF Rx Instructions: leave on most painful area for up to 12 hrs diclofenac sodium 1 % gel 2 g topical QID Qty: 100 0RF Referrals: Albina Garcia MD [Primary Care Provider] - Stand Alone Forms: Patient Portal/API
[2024-07-30 11:30] LABS: Add Manual Diff / Slide Review NO; Basophils Absolute Auto 0 /uL (0-100); Basophils Percent Auto 0.4 % (0-2); Eosinophils Absolute Auto 0 /uL (0-450); Eosinophils Percent Auto 0.6 % (2-4); Hemoglobin 7.6 g/dL (13.5-17.5); Lymphocytes Absolute Auto 1000 /uL (1100-4500); Lymphocytes Percent Auto 11.2 % (25-40); Mean Corpuscular HGB Conc 33.2 % (30-36); Mean Corpuscular Hemoglobin 30.8 PG (26-34); Mean Corpuscular Volume 92.7 fL (80-100); Monocytes Absolute Auto 700 /uL (0-900); Monocytes Percent Auto 7.8 % (3-14); Neutrophils Absolute Auto 7100 /uL (1500-7000); Platelet Count 268 X10^3/uL (150-400); Red Blood Cell Count 2.48 X10^6/uL (4.5-5.9); Red Cell Distribution Width 17.8 % (11.6-14.8); White Blood Cell Count 8.9 X10^3/uL (4.5-11.0)
[2024-07-30 11:35] LABS: PTT Partial Thromboplastin Tim 31 SECONDS (25.1-36.5)
[2024-07-30 11:50] LABS: Alanine Aminotransferase 23 IU/L (<50); Albumin 3.2 g/dL (3.5-5.0); Albumin Globulin Ratio 1.1 (1.0-2.8); Alkaline Phosphatase 64 U/L (38-126); Aspartate Aminotransferase 27 IU/L (17-59); BUN Creatinine Ratio 26.4 (6-22); Bilirubin Total 0.4 mg/dL (0.2-1.3); Blood Urea Nitrogen 37 mg/dL (9-20); Calcium 8.9 mg/dL (8.4-10.2); Carbon Dioxide 19 mmol/L (22-32); Chloride 106 mmol/L (98-107); Creatine Kinase 38 U/L (55-170); Estimated Glomerular Filt Rate 50 mL/min (>60); Ethanol (ETOH) < 10 mg/dL; Globulin 2.9 g/dL (1.7-4.1); Glucose 102 mg/dL (80-110); HEMOLYSIS < 15 (0-50); Potassium 4.7 mmol/L (3.4-5.1); Sodium 133 mmol/L (137-145); Total Protein 6.1 g/dL (6.3-8.2)
[2024-07-30 12:01] LABS: Troponin I < 0.012 ng/mL (0.01-0.034)
[2024-07-30 12:24] LABS: Appearance Urine UA CLEAR; Bilirubin Urine UA NEGATIVE (NEGATIVE); Color Urine UA YELLOW; Glucose Urine UA NEGATIVE (Negative); Ketones Urine UA NEGATIVE (NEGATIVE); Leukocyte Esterase Urine UA NEGATIVE (NEGATIVE); Nitrite Urine UA NEGATIVE (Negative); Occult Blood Urine UA TRACE-INTACT (Negative); Protein Urine UA TRACE (Negative); Urobilinogen Urine UA 0.2 E.U./dL (0.2); pH Urine UA 5.5 (4.5-8.0)
[2024-07-30 12:26] LABS: Ur Creatinine Normal (Normal); Ur Specific Gravity Normal (Normal); Urine Amphetamines Negative (Negative); Urine Barbiturates Negative (Negative); Urine Benzodiazepines Negative (Negative); Urine Cocaine Negative (Negative); Urine MDMA Negative (Negative); Urine Methadone Negative (Negative); Urine Methamphetamines Negative (Negative); Urine Opiates Negative (Negative); Urine Oxycodone Negative (Negative); Urine Phencyclidine Negative (Negative); Urine THC Negative (Negative); Urine Tricyclic Antidepressant Negative (Negative); Urine pH Normal (Normal)
[2024-07-30 12:31] LABS: Bacteria Urine None Seen; Culture Indicated Urine Cult Not Indicated; RBC Urine 0-1/HPF (0-5/HPF); Squamous Epithelial Cell Urine 1-5 /HPF (0-5/HPF); Urine Volume 10mL (spun); WBC Urine None Seen (0-5/HPF)
--- NOTE | 2024-07-30 12:53 | DI.MRI.S_ITS ---
PROCEDURE: MR HEAD/BRAIN WO CON INDICATIONS: right visual changes TECHNIQUE: Non-contrast axial T1 spin echo, axial T2 fast spin echo, sagittal and axial FLAIR, coronal T2 fast spin echo, axial gradient echo, axial diffusion and ADC through the brain. COMPARISON: [facility], CT, CT HEAD/BRAIN WO CON, 07/30/2024, 11:30. FINDINGS: Image quality: Excellent. CSF spaces: Ventricles appear symmetric in size and shape. Basal cisterns are patent. No extra-axial fluid collections. Brain: No intracranial bleeds or mass effects. There is cerebral volume loss for age. There are periventricular and deep white matter chronic small vessel ischemic changes including within the brainstem. Diffusion-weighted images show no acute infarct. No chronic ischemic insults. Normal intravascular flow voids are present. Skull and face: Calvarial bone marrow is normal in signal. Orbits are normal. Sinuses: Paranasal sinuses are clear. Small right and trace left mastoid effusions. IMPRESSION: No acute or subacute infarct. No acute intracranial abnormalities. Age-related global volume loss and chronic microvascular ischemic changes are present. Dictated by: Vincenzo Monahan M.D. on 07/30/2024 at 15:12 Approved by: Vincenzo Monahan M.D. on 07/30/2024 at 15:15
== END 2024-07-30 18:03 | disposition home or self-care (01) ==
PROVIDERS: Emergency Provider Emergency Medicine; Family Provider Internal Medicine; PCP Internal Medicine
DX: G45.9 Transient cerebral ischemic attack, unspecified (principal); D64.9 Anemia, unspecified; I10 Essential (primary) hypertension; R29.700 NIHSS score 0; Z86.73 Personal history of transient ischemic attack (TIA), and cerebral infarction without residual deficits; J44.9 Chronic obstructive pulmonary disease, unspecified; Z85.01 Personal history of malignant neoplasm of esophagus; I71.40 Abdominal aortic aneurysm, without rupture, unspecified
CPT/HCPCS: 36415; 70450; 70496; 70498; 70551; 80053; 80305; 80320; 81001; 82550; 82962; 84484; 85025; 85610; 85730; 93005; 93010; 99285; Q9967

== ENCOUNTER 2024-07-31 11:03 | Observation (INO) | payer MEDICARE, OTHER, SELFPAY ==
[2020-12-21 22:20] VITALS: BMI 18.1
[2024-07-31] VITALS (41 sets, daily range): BP systolic 124–175; BP diastolic 58–81; PULSE 50–73; RESP 16–25; TEMP 36.4–36.7; O2SAT 91–99; BMI 16.8
--- NOTE | 2024-07-31 11:19 | DI.CT.S_ITS ---
PROCEDURE: CT ANGIO CHEST ABDOMEN PELVIS INDICATIONS: AAA anemia TECHNIQUE: Precontrast 5 mm thick sections acquired from the lung apices to the iliac crests. After the administration of intravenous contrast, 2.5 mm thick sections again acquired from the lung apices to the iliac crests. Maximum intensity projection (MIP) oblique sagittal and coronal reformats were then acquired. For radiation dose reduction, the following was used: automated exposure control. COMPARISON: [facility], CT, CT ABDOMEN PELVIS W CON, 04/28/2022, 10:30. [facility], CT, CT KIDNEY URETER BLADDER (KUB), 10/12/2022, 12:58. [facility], US, US ABD AORTA ANEURYSM SCREEN, 06/12/2024, 8:36. FINDINGS: Image quality: Diagnostic. AORTA: There is a surgical sized abdominal aortic aneurysm which is not significantly changed in size or appearance compared to the recent aortic ultrasound which was performed on 06/12/2024. By my measurements, maximum dimensions on current axial image 89 of series 5 are 6.0 x 6.1 cm. On image 6 of the ultrasound, my measurements are 5.8 x 5.9 cm. There is large associated thrombus. There is significant interval enlargement in the size of the aneurysm compared to the CT KUB on 10/12/2022, when it measured 4.7 x 4.9 cm. There is question of a potential developing rupture of the right posterior lateral wall present on image 211 of series 5, in which thrombosed contents appear to be poochching outside of the expected perimeter of the aneurysm. Developing rupture is not definite. The aneurysm has no Neck below the lowest renal artery. At the level of the left renal artery, the lowest renal artery, the aneurysm measures 3.4 x 5.1 cm. Reference image 106 of series 5. The right common iliac has diminished opacification which may potentially represent a hemodynamically significant origin stenosis secondary to mural thrombus. The left common iliac and external iliac are patent. There appears to be left common iliac and external iliac hemodynamically significant stenotic disease with extensive calcification. CHEST: Lower Neck: No enlarged lymph nodes. Thyroid: No thyroid nodules which require sonographic evaluation. Axillae: No enlarged lymph nodes. Chest Wall: Unremarkable. Lungs and Pleura: Severe emphysematous change. Bibasilar bronchiectasis. Right basilar scarring and pleural thickening. Heart: Mild cardiomegaly.. No pericardial effusion. Thoracic Vessels: Pulmonary arteries demonstrate normal size. Mediastinum and Elissa: No enlarged lymph nodes. Esophagus: No wall thickening. Large hiatal hernia. ABDOMEN: Liver: No solid mass. Gallbladder: No radiopaque gallstones or wall thickening. Biliary ducts: No biliary dilation. Pancreas: No ductal dilation. Spleen: Size is within normal limits. Adrenal Glands: No adrenal nodules. Kidneys and Ureters: Large right renal pelvic stone measuring 1.7 cm in diameter. No hydronephrosis. Stomach and Bowel: Large hiatal hernia. Unremarkable small bowel. Normal colonic caliber, without significant wall thickening. Moderately large fecal load. Peritoneum: No abnormal intraperitoneal fluid. No free air. Ventral Wall: No hernia. Abdominal Nodes: No retroperitoneal or mesenteric adenopathy by size criteria. Vessels: Inferior vena cava is normal in size. PELVIS: Pelvic Organs: Severe prostatomegaly.. Bladder: Unremarkable. Pelvic Nodes: No enlarged lymph nodes. Miscellaneous: No inguinal hernias are seen. Bones: Lumbar degenerative change. No lytic or blastic bony lesions. No compression fractures. IMPRESSION: 1. Surgical sized abdominal aortic aneurysm which has significantly increased in size since 2021, and may potentially be developing AA impending rupture of the posterior lateral right wall. Developing rupture is not definite. There is large associated thrombus. 2. 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 There is diminished flow in the right iliac, possibly representing significant stenosis relative to mural thrombus in the distal aorta. 3. The left common iliac and external iliac are continuous vessels with probable significant stenosis ease, and extensive calcification. 4. Severe emphysematous change. 5. Large hiatal hernia. 6. Right basilar scarring and pleural thickening. 7. Severe prostatomegaly. Comment: Findings were discussed with Dr. Nur on 07/31/2024 at 1228 hours Dictated by: Clifton Allred M.D. on 07/31/2024 at 12:19 Approved by: Clifton Allred M.D. on 07/31/2024 at 13:01
--- NOTE | 2024-07-31 11:31 | ED_ITS ---
HPI - SOB/Dyspnea General Chief Complaint: Shortness of Breath/Dyspnea Stated Complaint: Told to come back by Doctor . Time Seen by Provider: 07/31/24 11:18 History of Present Illness HPI Narrative: Patient 79-year-old male seen evaluated by myself yesterday had full CVA workup including MRI. He had some right visual changes. Neurology was consulted recommended that he change from Plavix to Brilinta.. However he was called back today due to pretty significant anemia. He does have some weakness some mild shortness of breath. He has a known abdominal aortic aneurysm. He is followed by Dr. Sandhu vascular surgery at [facility]. He is scheduled to have repair in August. He has no abdominal pain he has not passed out. No neurologic changes. Related Data Home Medications Medication Instructions Recorded Confirmed metoprolol tartrate 25 mg tablet 25 mg PO BID 10/15/18 03/29/22 prazosin 1 mg capsule 1 mg PO QPM 10/15/18 03/29/22 tramadol 100 mg tablet,extended 100 mg PO DAILY 01/29/22 03/29/22 release 24 hr Previous Rx's Medication Instructions Recorded albuterol sulfate 90 mcg/actuation 2 inh inhalation Q6H PRN COPd #1 ea 12/31/20 breath activated powder inhaler tiotropium bromide 18 mcg capsule 1 cap inhalation DAILY #30 12/31/20 with inhalation device inhalations zinc sulfate 50 mg zinc (220 mg) 220 mg (4.4 x 50 mg zinc (220 mg)) 12/31/20 capsule PO DAILY #30 caps diclofenac sodium 1 % topical gel 2 g topical QID #100 grams 10/12/22 hydrocodone 5 mg-acetaminophen 325 1 tab PO BID PRN pain #14 tabs 10/12/22 mg tablet lidocaine 5 % topical patch 1 patch topical DAILY #15 ea 10/12/22 (Lidoderm) ticagrelor 90 mg tablet (Brilinta) 90 mg PO BID #90 tabs 07/30/24 Allergies Allergy/AdvReac Type Severity Reaction Status Date / Time minoxidil AdvReac Intermediate Hypotension Verified 07/30/24 11:20 Patient History Medical History CKD (chronic kidney disease), stage III Hypertension COPD (chronic obstructive pulmonary disease) Small bowel obstruction Esophageal cancer Social History household members: spouse Smoking Status: Former smoker alcohol intake: current Smoking Status: Former smoker alcohol intake frequency: holidays/special occasions only Substance Use Type: does not use Exam Initial Vital Signs Initial Vital Signs: Vital Signs Pulse Rate 70 07/31/24 11:12 Pulse Oximetry 93 07/31/24 11:12 GENERAL: Alert pale 79-year-old male and in no acute distress. HEENT: Head atraumatic,EOMI, pupils reactive, face symmetric, moist mucous membranes CARDIOVASCULAR: Regular rate and rhythm without murmurs, rubs or gallops. RESPIRATORY: Breath sounds equal bilaterally, no wheezes rales or rhonchi. No pulsatile mass ABDOMEN: Soft, nontender. Normoactive bowel sounds all 4 quadrants. No guarding or rebound. RECTAL: Black stool present guaiac-positive EXTREMITIES: Normal range of motion, no clubbing or edema. Neurovascularly intact NEUROLOGICAL: Alert and oriented x4.Normal gait and speech. Cranial nerves II through XII grossly intact. SKIN: Warm, dry, no laceration, no petechiae, no rashes or lesions. Course Orders Ordered: ED Orders 07/31/24 11:19 CT angio chest abdomen pelvis Stat 07/31/24 11:26 CBC Auto Diff [Complete Blood Count AUTO DIFF] Stat CMP [Comprehensive Metabolic Panel] Stat PRBC [Packed Cells] Stat PT [Prothrombin Time INR] Stat PTT Partial Thromboplastin Yasmani Stat Type and Screen Stat Acetaminophen (Acetaminophen 325 Mg Tablet) 650 mg PO Q6H PRN PRN Reason: Fever/Mild Pain (1-3) Hydrocodone Bitart/Acetaminophen (Hydrocodone/Acet 5/325 Tablet) 1 tab PO BID PRN PRN Reason: pain Al Hydrox/Mg Hydrox/Simethicone (Mag Hydrox/Alum/Simeth 30 Ml Udc) 30 ml PO Q6HR PRN PRN Reason: Dyspepsia Albuterol (Albuterol 2.5 Mg/3 Ml Neb (Adult)) 2.5 mg INH Q6H PRN PRN Reason: COPd Dextrose/Sodium Chloride (Dextrose 5%-0.45% Ns) 1,000 mls @ 84 mls/hr IV CONT JOEY Ipratropium [place] (Ipratropium 0.5 Mg/2.5 Ml Neb) 0.5 mg INH Q4HRWA [facility] Ipratropium [place] (Ipratropium 0.5 Mg/2.5 Ml Neb) 0.5 mg INH Q2H PRN PRN Reason: Shortness Of Breath Lidocaine (Lidocaine 5% Patch) 1 each TOP DAILY [facility] Lidocaine (Remove Lidocaine Patch) 1 each TOP BEDTIME [facility] Metoprolol Tartrate (Metoprolol Ir 25 Mg Tablet) 25 mg PO BID [facility] Naloxone HCl (Naloxone 0.4 Mg/Ml Vial) 0.2 mg IV Q2MIN PRN PRN Reason: Opiate Reversal Tramadol 100 Mg Tablet Extended Release 24 Hr 100 mg PO DAILY [facility] Ondansetron HCl (Ondansetron 4 Mg/2 Ml Inj) 4 mg IV Q8HR PRN PRN Reason: Nausea And Vomiting Pantoprazole Sodium (Pantoprazole 40 Mg Vial) 40 mg IV BID [facility] Prazosin HCl (Prazosin 1 Mg Capsule) 1 mg PO QPM JOEY Discontinued Medications Pantoprazole Sodium (Pantoprazole 40 Mg Vial) 80 mg IV NOW ONE Stop: 07/31/24 12:17 Last Admin: 07/31/24 12:32 Dose: 80 mg Documented By: LUCIANO Vital Signs Vital signs: Vital Signs - 8 hr 07/31/24 11:12 07/31/24 11:13 07/31/24 11:13 Temperature Pulse Rate 70 66 Respiratory Rate Blood Pressure 124/58 L Pulse Oximetry 93 92 Oxygen Delivery Method Oxygen Flow Rate 07/31/24 11:15 07/31/24 11:30 07/31/24 11:31 Temperature 97.6 F Pulse Rate 69 50 L 51 L Respiratory Rate 20 19 20 Blood Pressure 124/58 L Pulse Oximetry 93 96 96 Oxygen Delivery Method Room Air Oxygen Flow Rate 07/31/24 11:31 07/31/24 12:04 07/31/24 12:30 Temperature Pulse Rate 55 L 51 L Respiratory Rate 23 Blood Pressure 155/70 H Pulse Oximetry 94 98 Oxygen Delivery Method Oxygen Flow Rate 07/31/24 13:00 07/31/24 13:19 07/31/24 13:19 Temperature Pulse Rate 56 L 54 L Respiratory Rate 25 H 20 Blood Pressure 143/68 H Pulse Oximetry 91 92 Oxygen Delivery Method Oxygen Flow Rate 07/31/24 13:20 07/31/24 13:25 07/31/24 13:25 Temperature 97.7 F Pulse Rate 53 L 54 L Respiratory Rate 20 23 Blood Pressure 143/68 H 139/65 Pulse Oximetry 92 Oxygen Delivery Method Oxygen Flow Rate 07/31/24 13:30 07/31/24 13:30 07/31/24 13:34 Temperature 97.6 F Pulse Rate 53 L 53 L Respiratory Rate 20 20 Blood Pressure 137/65 153/72 H Pulse Oximetry 92 Oxygen Delivery Method Nasal Cannula Oxygen Flow Rate 07/31/24 13:35 07/31/24 13:35 07/31/24 13:36 Temperature 97.6 F Pulse Rate 53 L 53 L Respiratory Rate 21 21 Blood Pressure 153/72 H 153/72 H Pulse Oximetry 91 Oxygen Delivery Method Nasal Cannula Oxygen Flow Rate 2 07/31/24 14:00 07/31/24 14:00 07/31/24 14:30 Temperature Pulse Rate 52 L Respiratory Rate 21 Blood Pressure 150/70 H 161/75 H Pulse Oximetry 93 Oxygen Delivery Method Nasal Cannula Oxygen Flow Rate 2 07/31/24 14:30 07/31/24 15:00 07/31/24 15:00 Temperature Pulse Rate 57 L 57 L Respiratory Rate 19 23 Blood Pressure 172/79 H Pulse Oximetry 95 95 Oxygen Delivery Method Nasal Cannula Nasal Cannula Oxygen Flow Rate 2 2 07/31/24 15:23 07/31/24 15:25 07/31/24 15:25 Temperature 98.0 F Pulse Rate 58 L 56 L Respiratory Rate 21 19 Blood Pressure 171/79 H 171/79 H Pulse Oximetry 98 Oxygen Delivery Method Oxygen Flow Rate 07/31/24 15:30 07/31/24 15:30 07/31/24 15:36 Temperature 97.7 F Pulse Rate 56 L 56 L Respiratory Rate 20 21 Blood Pressure 166/77 H 159/76 H Pulse Oximetry 98 Oxygen Delivery Method Nasal Cannula Oxygen Flow Rate 1 MDM - SOB/Dyspnea Lab Data 07/31/24 11:26 07/31/24 11:26 Labs: Lab Results 07/31/24 Range/Units 11:26 WBC 7.0 (4.5-11.0) X10^3/uL RBC 2.31 L (4.5-5.9) X10^6/uL Hgb 7.1 L (13.5-17.5) g/dL Hct 21.5 L (41-53) % MCV 93.2 (80-100) fL MCH 30.9 (26-34) PG MCHC 33.1 (30-36) % RDW 17.6 H (11.6-14.8) % Plt Count 247 (150-400) X10^3/uL Neut % (Auto) 79.1 H (50-75) % Lymph % (Auto) 10.8 L (25-40) % Bibb % (Auto) 7.9 (3-14) % Eos % (Auto) 1.4 L (2-4) % Baso % (Auto) 0.8 (0-2) % Neut # (Auto) 5500 (0205-0083) /uL Lymph # (Auto) 800 L (5003-4718) /uL Bibb # (Auto) 600 (0-900) /uL Eos # (Auto) 100 (0-450) /uL Baso # (Auto) 100 (0-100) /uL PT 12.0 (9.4-12.5) SECONDS INR 1.0 (0.9-1.3) APTT 32 (25.1-36.5) SECONDS Sodium 133 L (137-145) mmol/L Potassium 4.9 (3.4-5.1) mmol/L Chloride 107 (98-107) mmol/L Carbon Dioxide 21 L (22-32) mmol/L BUN 35 H (9-20) mg/dL Creatinine 1.52 H (0.66-1.25) mg/dL Estimated GFR 46 L (>60) mL/min BUN/Creatinine Ratio 23.0 H (6-22) Glucose 100 (80-110) mg/dL Calcium 8.6 (8.4-10.2) mg/dL Total Bilirubin 0.4 (0.2-1.3) mg/dL AST 23 (17-59) IU/L ALT 19 (<50) IU/L Alkaline Phosphatase 64 (38-126) U/L Total Protein 5.9 L (6.3-8.2) g/dL Albumin 3.1 L (3.5-5.0) g/dL Globulin 2.8 (1.7-4.1) g/dL Albumin/Globulin Ratio 1.1 (1.0-2.8) Blood Type A Negative Antibody Screen Negative Crossmatch See Detail Point of Care Testing Stool Occult Blood Positive Imaging Data CT scan - abdomen/pelvis: Radiologist's Impression: PROCEDURE: CT ANGIO CHEST ABDOMEN PELVIS INDICATIONS: AAA anemia TECHNIQUE: Precontrast 5 mm thick sections acquired from the lung apices to the iliac crests. After the administration of intravenous contrast, 2.5 mm thick sections again acquired from the lung apices to the iliac crests. Maximum intensity projection (MIP) oblique sagittal and coronal reformats were then acquired. For radiation dose reduction, the following was used: automated exposure control. COMPARISON: [facility], CT, CT ABDOMEN PELVIS W CON, 04/28/2022, 10:30. [facility], CT, CT KIDNEY URETER BLADDER (KUB), 10/12/2022, 12:58. [facility], US, US ABD AORTA ANEURYSM SCREEN, 06/12/2024, 8:36. FINDINGS: Image quality: Diagnostic. AORTA: There is a surgical sized abdominal aortic aneurysm which is not significantly changed in size or appearance compared to the recent aortic ultrasound which was performed on 06/12/2024. By my measurements, maximum dimensions on current axial image 89 of series 5 are 6.0 x 6.1 cm. On image 6 of the ultrasound, my measurements are 5.8 x 5.9 cm. There is large associated thrombus. There is significant interval enlargement in the size of the aneurysm compared to the CT KUB on 10/12/2022, when it measured 4.7 x 4.9 cm. There is question of a potential developing rupture of the right posterior lateral wall present on image 211 of series 5, in which thrombosed contents appear to be poochching outside of the expected perimeter of the aneurysm. Developing rupture is not definite. The aneurysm has no Neck below the lowest renal artery. At the level of the left renal artery, the lowest renal artery, the aneurysm measures 3.4 x 5.1 cm. Reference image 106 of series 5. The right common iliac has diminished opacification which may potentially represent a hemodynamically significant origin stenosis secondary to mural thrombus. The left common iliac and external iliac are patent. There appears to be left common iliac and external iliac hemodynamically significant stenotic disease with extensive calcification. CHEST: Lower Neck: No enlarged lymph nodes. Thyroid: No thyroid nodules which require sonographic evaluation. Axillae: No enlarged lymph nodes. Chest Wall: Unremarkable. Lungs and Pleura: Severe emphysematous change. Bibasilar bronchiectasis. Right basilar scarring and pleural thickening. Heart: Mild cardiomegaly.. No pericardial effusion. Thoracic Vessels: Pulmonary arteries demonstrate normal size. Mediastinum and Elissa: No enlarged lymph nodes. Esophagus: No wall thickening. Large hiatal hernia. ABDOMEN: Liver: No solid mass. Gallbladder: No radiopaque gallstones or wall thickening. Biliary ducts: No biliary dilation. Pancreas: No ductal dilation. Spleen: Size is within normal limits. Adrenal Glands: No adrenal nodules. Kidneys and Ureters: Large right renal pelvic stone measuring 1.7 cm in diameter. No hydronephrosis. Stomach and Bowel: Large hiatal hernia. Unremarkable small bowel. Normal colonic caliber, without significant wall thickening. Moderately large fecal load. Peritoneum: No abnormal intraperitoneal fluid. No free air. Ventral Wall: No hernia. Abdominal Nodes: No retroperitoneal or mesenteric adenopathy by size criteria. Vessels: Inferior vena cava is normal in size. PELVIS: Pelvic Organs: Severe prostatomegaly.. Bladder: Unremarkable. Pelvic Nodes: No enlarged lymph nodes. Miscellaneous: No inguinal hernias are seen. Bones: Lumbar degenerative change. No lytic or blastic bony lesions. No compression fractures. IMPRESSION: 1. Surgical sized abdominal aortic aneurysm which has significantly increased in size since 2021, and may potentially be developing AA impending rupture of the posterior lateral right wall. Developing rupture is not definite. There is large associated thrombus. 2. 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 There is diminished flow in the right iliac, possibly representing significant stenosis relative to mural thrombus in the distal aorta. 3. The left common iliac and external iliac are continuous vessels with probable significant stenosis ease, and extensive calcification. 4. Severe emphysematous change. 5. Large hiatal hernia. 6. Right basilar scarring and pleural thickening. 7. Severe prostatomegaly. Comment: Findings were discussed with Dr. Nur on 07/31/2024 at 1228 hours Dictated by: Clifton Allred M.D. on 07/31/2024 at 12:19 MDM Narrative Medical decision making narrative: MDM CC: Anemia Complicating co-morbidities: CVA recent TIA abdominal aortic aneurysm remote esophageal cancer, COPD Corroborating data: at bedside Medical records reviewed: Previous ED visits Differential considered: Gastrointestinal bleeding, acute on chronic anemia, ruptured AAA Exam documented above, pertinent findings include: Pale thin cachectic chronically ill male soft abdomen no pulsatile masses nondistended Lab Test results independently reviewed as above. Pertinent findings: Hemoglobin/hematocrit 7.1 /21.5 yesterday .6June 24 it was 11.4/34.1 Independently reviewed EKG as above Imaging studies independently reviewed:There is question of a potential developing rupture of the right posterior lateral wall present on image 211 of series 5, in which thrombosed contents appear to be poochching outside of the expected perimeter of the aneurysm. Consultations: 14:50 Dr. Rey Carnes out of [place] has reviewed imaging from today denies any sort of impending rupture, looks stable. No need for emergency transfer or intervention 15:30 Dr. Morales updated patient's symptoms test results vascular surgery. Understands patient is currently getting packed red blood cell agrees with conservative management 15:40 Dr. Glasgow updated patient's symptoms test results and accepts patient Treatments: 2 PRBCs Protonix Re-evaluations: Patient continues to be hemodynamically stable. Abdomen is soft nontender Discussion: Patient 79-year-old male presenting today request for ongoing anemia. Yesterday he presented with TIA like symptoms he has some visual change on the lasted for less than 5 minutes. Neurology recommended changing from Plavix to Brilinta. However with ongoing anemia, I do have bleeding concerns. He is also found to be guaiac positive hemoglobin hematocrit have dropped even more today. He is given 2 PRBC. There was discussion with vascular surgery about his abdominal aortic aneurysm. There was concern by Radiology for possible impending rupture however vascular surgery has reviewed imaging from today and does not agree. No need for emergent transfer. Have discussed with and patient difficulty treating inset of recent TIA wanting to change antiplatelet medication with ongoing worsening anemia. Risks and benefits to both. They understand need for stopping antiplatelet and an aspirin medication which increases risk of stroke, and continuing can worsen bleeding Discharge Plan Departure Patient Disposition: Admitted as Observation Clinical Impression: Anemia, Abdominal aortic aneurysm Admit Date/Time: 07/31/24 15:38 Admit Provider: Tristan Glasgow V
[2024-07-31 11:38] LABS: Add Manual Diff / Slide Review NO; Basophils Absolute Auto 100 /uL (0-100); Basophils Percent Auto 0.8 % (0-2); Eosinophils Absolute Auto 100 /uL (0-450); Eosinophils Percent Auto 1.4 % (2-4); Hematocrit 21.5 % (41-53); Hemoglobin 7.1 g/dL (13.5-17.5); Lymphocytes Absolute Auto 800 /uL (1100-4500); Lymphocytes Percent Auto 10.8 % (25-40); Mean Corpuscular HGB Conc 33.1 % (30-36); Mean Corpuscular Hemoglobin 30.9 PG (26-34); Mean Corpuscular Volume 93.2 fL (80-100); Monocytes Absolute Auto 600 /uL (0-900); Monocytes Percent Auto 7.9 % (3-14); Neutrophils Absolute Auto 5500 /uL (1500-7000); Neutrophils Percent Auto 79.1 % (50-75); Platelet Count 247 X10^3/uL (150-400); Red Blood Cell Count 2.31 X10^6/uL (4.5-5.9); Red Cell Distribution Width 17.6 % (11.6-14.8)
[2024-07-31 11:46] LABS: PTT Partial Thromboplastin Tim 32 SECONDS (25.1-36.5)
[2024-07-31 11:49] LABS: Alanine Aminotransferase 19 IU/L (<50); Albumin 3.1 g/dL (3.5-5.0); Albumin Globulin Ratio 1.1 (1.0-2.8); Alkaline Phosphatase 64 U/L (38-126); Aspartate Aminotransferase 23 IU/L (17-59); Bilirubin Total 0.4 mg/dL (0.2-1.3); Blood Urea Nitrogen 35 mg/dL (9-20); Calcium 8.6 mg/dL (8.4-10.2); Carbon Dioxide 21 mmol/L (22-32); Chloride 107 mmol/L (98-107); Estimated Glomerular Filt Rate 46 mL/min (>60); Globulin 2.8 g/dL (1.7-4.1); Glucose 100 mg/dL (80-110); HEMOLYSIS < 15 (0-50); Potassium 4.9 mmol/L (3.4-5.1); Sodium 133 mmol/L (137-145); Total Protein 5.9 g/dL (6.3-8.2)
[2024-07-31] MEDS: PANTOPRAZOLE 40 MG VIAL 80 MG IV (12:32)
--- NOTE | 2024-07-31 13:55 | PC.NURSE ---
1330-patient desatting to 89%, placed the patient on 2L to maintain sats above 92%. Patient and patients report that the patient sporadically uses home O2
--- NOTE | 2024-07-31 16:59 | PM.HP.1 ---
History of Present Illness History of Present Illness Date Patient Seen: 07/31/24 Time Patient Seen: 17:40 Date of Onset of Symptoms: 07/31/24 Chief complaint: Told to come back by Doctor . Narrative: 79-year-old man under the primary care of Dr. Albina Garcia was seen in [facility] Emergency Department on 07/30/2024 after an episode of right upper quadrant visual disturbance lasting 5 minutes and resolving completely, without other symptoms. He was taking both aspirin and Plavix, and after brain CT and MRI showed no acute stroke he was advised to start Brilinta. He had also experienced chest heaviness yesterday and transient drop in his blood pressure to 60/40, with resolution of symptoms, and ruling out for TN by cardiac enzymes yesterday. He went home and had no further symptoms though given his known abdominal aortic aneurysm, episode of hypotension yesterday, and anemia he was called back by the emergency department physician and advised to come today. His hematocrit, which had been 34.1% on 06/24/2024 was 23% on 07/30/2024 yesterday and 21.5% today. He had not yet started Brilinta. He tested guaiac-positive in the emergency department. He was transfused 2 units of packed red blood cells and admitted for observation and further management and evaluation. He has plans for upcoming vascular surgery consultation for repair of his known 5.8 cm abdominal aortic aneurysm. He denies abdominal pain, nausea, vomiting, hematemesis and has not been taking NSAIDs be on the usual daily aspirin for vascular prophylaxis. He has a history of esophageal cancer, status post esophagectomy with gastric pull-through. He has chronic severe COPD with chronic dyspnea that he states is at baseline at this point. He lost considerable weight after his esophagectomy but states he has lost an additional 10 lb in the past 6 months. [facility] Medical History CKD (chronic kidney disease), stage III Hypertension COPD (chronic obstructive pulmonary disease) Small bowel obstruction Esophageal cancer Social History household members: spouse Smoking Status: Former smoker alcohol intake: current Meds Home Medications and Allergies Home Medications Medication Instructions Recorded Confirmed Type metoprolol tartrate 25 mg tablet 25 mg PO BID 10/15/18 03/29/22 History prazosin 1 mg capsule 1 mg PO QPM 10/15/18 03/29/22 History albuterol sulfate 90 mcg/actuation 2 inh inhalation Q6H PRN COPd #1 ea 12/31/20 03/29/22 Rx breath activated powder inhaler tiotropium bromide 18 mcg capsule 1 cap inhalation DAILY #30 12/31/20 03/29/22 Rx with inhalation device inhalations zinc sulfate 50 mg zinc (220 mg) 220 mg (4.4 x 50 mg zinc (220 mg)) 12/31/20 03/29/22 Rx capsule PO DAILY #30 caps tramadol 100 mg tablet,extended 100 mg PO DAILY 01/29/22 03/29/22 History release 24 hr diclofenac sodium 1 % topical gel 2 g topical QID #100 grams 10/12/22 Rx hydrocodone 5 mg-acetaminophen 325 1 tab PO BID PRN pain #14 tabs 10/12/22 Rx mg tablet lidocaine 5 % topical patch 1 patch topical DAILY #15 ea 10/12/22 Rx (Lidoderm) ticagrelor 90 mg tablet (Brilinta) 90 mg PO BID #90 tabs 07/30/24 Rx Allergies Allergy/AdvReac Type Severity Reaction Status Date / Time minoxidil AdvReac Intermediate Hypotension Verified 07/30/24 11:20 Review of Systems Review of Systems ROS: Yes All systems reviewed with the patient and are negative except as otherwise documented Exam Vital Signs (past 8 hours): - 07/31/24 11:12 07/31/24 11:13 07/31/24 11:13 Temperature Pulse Rate 70 66 Respiratory Rate Blood Pressure 124/58 L Pulse Oximetry 93 92 Oxygen Delivery Method Oxygen Flow Rate 07/31/24 11:15 07/31/24 11:30 07/31/24 11:31 Temperature 97.6 F Pulse Rate 69 50 L 51 L Respiratory Rate 20 19 20 Blood Pressure 124/58 L Pulse Oximetry 93 96 96 Oxygen Delivery Method Room Air Oxygen Flow Rate 07/31/24 11:31 07/31/24 12:04 07/31/24 12:30 Temperature Pulse Rate 55 L 51 L Respiratory Rate 23 Blood Pressure 155/70 H Pulse Oximetry 94 98 Oxygen Delivery Method Oxygen Flow Rate 07/31/24 13:00 07/31/24 13:19 07/31/24 13:19 Temperature Pulse Rate 56 L 54 L Respiratory Rate 25 H 20 Blood Pressure 143/68 H Pulse Oximetry 91 92 Oxygen Delivery Method Oxygen Flow Rate 07/31/24 13:20 07/31/24 13:25 07/31/24 13:25 Temperature 97.7 F Pulse Rate 53 L 54 L Respiratory Rate 20 23 Blood Pressure 143/68 H 139/65 Pulse Oximetry 92 Oxygen Delivery Method Oxygen Flow Rate 07/31/24 13:30 07/31/24 13:30 07/31/24 13:34 Temperature 97.6 F Pulse Rate 53 L 53 L Respiratory Rate 20 20 Blood Pressure 137/65 153/72 H Pulse Oximetry 92 Oxygen Delivery Method Nasal Cannula Oxygen Flow Rate 07/31/24 13:35 07/31/24 13:35 07/31/24 13:36 Temperature 97.6 F Pulse Rate 53 L 53 L Respiratory Rate 21 21 Blood Pressure 153/72 H 153/72 H Pulse Oximetry 91 Oxygen Delivery Method Nasal Cannula Oxygen Flow Rate 2 07/31/24 14:00 07/31/24 14:00 07/31/24 14:30 Temperature Pulse Rate 52 L Respiratory Rate 21 Blood Pressure 150/70 H 161/75 H Pulse Oximetry 93 Oxygen Delivery Method Nasal Cannula Oxygen Flow Rate 2 07/31/24 14:30 07/31/24 15:00 07/31/24 15:00 Temperature Pulse Rate 57 L 57 L Respiratory Rate 19 23 Blood Pressure 172/79 H Pulse Oximetry 95 95 Oxygen Delivery Method Nasal Cannula Nasal Cannula Oxygen Flow Rate 2 2 07/31/24 15:23 07/31/24 15:25 07/31/24 15:25 Temperature 98.0 F Pulse Rate 58 L 56 L Respiratory Rate 21 19 Blood Pressure 171/79 H 171/79 H Pulse Oximetry 98 Oxygen Delivery Method Oxygen Flow Rate 07/31/24 15:30 07/31/24 15:30 07/31/24 15:36 Temperature 97.7 F Pulse Rate 56 L 56 L Respiratory Rate 20 21 Blood Pressure 166/77 H 159/76 H Pulse Oximetry 98 Oxygen Delivery Method Nasal Cannula Oxygen Flow Rate 1 07/31/24 15:40 07/31/24 15:40 07/31/24 15:59 Temperature Pulse Rate 58 L Respiratory Rate 18 Blood Pressure 159/76 H Pulse Oximetry 97 Oxygen Delivery Method Nasal Cannula Nasal Cannula Oxygen Flow Rate 1 07/31/24 16:00 07/31/24 16:00 07/31/24 16:30 Temperature Pulse Rate 54 L 59 L Respiratory Rate 17 22 Blood Pressure 175/78 H Pulse Oximetry 99 98 Oxygen Delivery Method Oxygen Flow Rate Oxygen Delivery Method Nasal Cannula Oxygen Flow Rate 1 Narrative Exam Narrative: GENERAL: This is a cachectic male patient, in no apparent distress. HEAD: Atraumatic. Normocephalic. No temporal or scalp tenderness. EYES: Pupils equal round and reactive. Extraocular motions intact. No scleral icterus. No injection or drainage. ENT: Mucous membranes pink and moist. NECK: Trachea midline. No JVD, bruits or lymphadenopathy. Supple, nontender, no meningeal signs. CARDIOVASCULAR: Regular rate and rhythm without murmurs, gallops, or rubs. RESPIRATORY: Clear to auscultation, intermittent rhonchorous cough, prominent ribs due to cachexia. GASTROINTESTINAL: Abdomen soft, non-tender, nondistended. EXTREMITIES: Thin. No clubbing, cyanosis, or edema. NEUROLOGIC: Alert, oriented, speech fluent, full upper and lower motor strength, no focal deficits evident. DERMATOLOGIC: No rashes or skin lesions. Objective ECG Impression: EKG 07/30/2024: Normal sinus rhythm at 84 beats per minute, left axis deviation, normal R-wave progression, no acute ischemic changes Imaging *: Radiologist's impression: Chest CT 06/27/2024: 1. Small bilateral pleural effusions, right greater than left. 2. Extensive emphysema. 3. There are mucous secretions within the trachea. Clinically correlate for aspiration. 4. There is a 1.1 centimeter nodule within the posterior right thyroid lobe. This can be evaluated with a thyroid ultrasound on a nonemergent basis. 5. Scarring/atelectasis are seen along the dependent portions of the lower lungs. 6. Large hiatal hernia. 7 coronary artery calcifications. Chest CT 07/03/2024: Scattered infectious/inflammatory pulmonary opacities are seen bilaterally. Background findings of bronchitis, mucous plugging, and advanced emphysema. However, there is background pleural thickening involving the right hemithorax, given history of malignancy, this is suspicious. Small right pleural effusion is present. Consider further evaluation with contrast-enhanced CT or PET-CT at clinical discretion. Chest x-ray 07/03/2024: Severe COPD, new pneumonia right lung with small subpulmonic effusion. 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 Differential includes metastatic disease from prior esophageal cancer. Mild opacities in the left lung lower lobe may be infectious/inflammatory, versus additional metastases with surrounding airspace disease. Large abdominal aortic aneurysm measuring up to 5.8 cm, recommend vascular follow-up. Nonspecific uptake at the left rectus femoris origin max SUV of 4.2. This could be further evaluated MR if clinically indicated. An underlying lesion is possible given malignancy elsewhere. Gastric pull-through changes, focal hypermetabolism along the upper suture line, and adjacent to the diaphragmatic hiatus, consider endoscopy correlation if clinically indicated. This is not well evaluated on PET-CT. 1.5 cm right thyroid nodule, consider nonurgent sonographic follow-up. 1.3 cm right renal pelvis stone with mild pelviectasis. Head CT 07/30/2024: No acute intracranial hemorrhage is seen. No acute intracranial process is seen. If there is strong clinical suspicion for an acute stroke, please consider a brain MRI for further evaluation, as it is more sensitive (assuming that there is no contraindication to MRI). Head/neck CT angiogram 07/30/2024: No significant intracranial arterial abnormality is seen. 50% narrowing seen involving the left proximal internal carotid artery. Prior right carotid endarterectomy, with 50% narrowing seen involving the distal aspect of the endarterectomy change. Pleural changes are seen on the right, with thickening. Underlying emphysematous changes are seen. Brain MRI 07/30/2024: No acute or subacute infarct. No acute intracranial abnormalities. Age-related global volume loss and chronic microvascular ischemic changes are present. Chest/abdomen/pelvis CT angiogram 07/31/2024: 1. Surgical sized abdominal aortic aneurysm which has significantly increased in size since 2021, and may potentially be developing AA impending rupture of the posterior lateral right wall. Developing rupture is not definite. There is large associated thrombus. 2. 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 There is diminished flow in the right iliac, possibly representing significant stenosis relative to mural thrombus in the distal aorta. 3. The left common iliac and external iliac are continuous vessels with probable significant stenosis ease, and extensive calcification. 4. Severe emphysematous change. 5. Large hiatal hernia. 6. Right basilar scarring and pleural thickening. 7. Severe prostatomegaly. Labs 07/31/24 11:26 07/31/24 11:26 Labs: Laboratory Results - last 24 hr 07/31/24 11:26 WBC 7.0 RBC 2.31 L Hgb 7.1 L Hct 21.5 L MCV 93.2 MCH 30.9 MCHC 33.1 RDW 17.6 H Plt Count 247 Neut % (Auto) 79.1 H Lymph % (Auto) 10.8 L Hopkins % (Auto) 7.9 Eos % (Auto) 1.4 L Baso % (Auto) 0.8 Neut # (Auto) 5500 Lymph # (Auto) 800 L Hopkins # (Auto) 600 Eos # (Auto) 100 Baso # (Auto) 100 PT 12.0 INR 1.0 APTT 32 Sodium 133 L Potassium 4.9 Chloride 107 Carbon Dioxide 21 L BUN 35 H Creatinine 1.52 H Estimated GFR 46 L BUN/Creatinine Ratio 23.0 H Glucose 100 Calcium 8.6 Total Bilirubin 0.4 AST 23 ALT 19 Alkaline Phosphatase 64 Total Protein 5.9 L Albumin 3.1 L Globulin 2.8 Albumin/Globulin Ratio 1.1 Blood Type A Negative Antibody Screen Negative Crossmatch See Detail Assessment & Plan Assessment & Plan narrative: 1. Acute on chronic blood loss anemia due to gastrointestinal bleeding. Possible peptic ulcer disease due to chronic aspirin therapy in a patient with prior esophagectomy and gastric pull-through. Transfuse 2 units of packed red blood cells, monitor hematocrits closely, and IV proton pump inhibitor b.i.d.. Consider surgery consultation tomorrow for upper endoscopy if ongoing blood loss. Maintain NPO after midnight in the event of endoscopy. Check iron studies and ferritin. 2. Transient ischemic attack. He is at high risk for stroke, though his bleeding risk is quite high. Blood pressure appears adequately controlled. Monitor on telemetry. Check lipid panel in the morning and discuss statin therapy. Note his cholesterol was 93, LDL 34, HDL 46 on 06/24/2024. 3. Hypertension. Appears adequately controlled. Continue routine medication. 4. Abdominal aortic aneurysm. Appears stable on imaging. The emergency department physician consulted with vascular surgery. No apparent aortic leak was seen on imaging. Outpatient follow-up for repair is planned. 5. Stage 3b chronic kidney disease. appears stable at baseline. 6. COPD, severe. Continue routine inhalers. 7. Severe protein calorie malnutrition. Consult dietary. 8. DVT prophylaxis: Sequential compression devices. Avoid anticoagulation. 9. Code status: Full code. The patient states that he would wish full resuscitation in the event of cardiopulmonary arrest. plan: -admit to observation status -monitor on telemetry -transfuse 2 units of packed blood blood cells -ppi IV b.i.d. -NPO after midnight for possible endoscopy if ongoing blood loss -lipid panel -dietary consult -full code PROFEE Charge Codes Initial inpatient/observation care: [id number]
[2024-07-31 20:26] LABS: Hematocrit 28.8 % (41-53); Hemoglobin 9.8 g/dL (13.5-17.5)
[2024-07-31] MEDS: METOPROLOL IR 25 MG TABLET PO (21:44)
[2024-07-31] MEDS: PANTOPRAZOLE 40 MG VIAL IV (21:44)
[2024-07-31 23:25] LABS: MRSA (Nasal) PCR NOT DETECTED (Not Detect)
[2024-08-01] VITALS (43 sets, daily range): BP systolic 106–165; BP diastolic 56–79; PULSE 53–64; RESP 15–25; TEMP 36.3; O2SAT 95–100
[2024-08-01] MEDS: HYDRALAZINE 20 MG/ML VIAL 5 MG IV ×3 (00:49→10:07)
[2024-08-01] MEDS: DEXTROSE 5%-0.45% NS 1,000 ML 84 ML IV (00:50)
[2024-08-01 05:02] LABS: Add Manual Diff / Slide Review NO; Basophils Absolute Auto 100 /uL (0-100); Basophils Percent Auto 1.8 % (0-2); Eosinophils Absolute Auto 200 /uL (0-450); Eosinophils Percent Auto 2.5 % (2-4); Hematocrit 29.8 % (41-53); Hemoglobin 10.2 g/dL (13.5-17.5); Lymphocytes Absolute Auto 700 /uL (1100-4500); Lymphocytes Percent Auto 8.8 % (25-40); Mean Corpuscular HGB Conc 34.2 % (30-36); Mean Corpuscular Hemoglobin 30.9 PG (26-34); Mean Corpuscular Volume 90.3 fL (80-100); Monocytes Absolute Auto 600 /uL (0-900); Monocytes Percent Auto 7.2 % (3-14); Neutrophils Absolute Auto 6100 /uL (1500-7000); Neutrophils Percent Auto 79.7 % (50-75); Platelet Count 240 X10^3/uL (150-400); Red Cell Distribution Width 16.2 % (11.6-14.8); White Blood Cell Count 7.7 X10^3/uL (4.5-11.0)
[2024-08-01 05:14] LABS: BUN Creatinine Ratio 20.9 (6-22); Blood Urea Nitrogen 27 mg/dL (9-20); Calcium 8.3 mg/dL (8.4-10.2); Carbon Dioxide 20 mmol/L (22-32); Chloride 106 mmol/L (98-107); Cholesterol 94 mg/dL (140-199); Estimated Glomerular Filt Rate 56 mL/min (>60); Glucose 106 mg/dL (80-110); HDL Cholesterol 40 mg/dL (40-60); HEMOLYSIS < 15 (0-50); Iron 85 ug/dL (49-181); LDL Cholesterol Calculated 31 mg/dL (<100); Sodium 130 mmol/L (137-145); Triglycerides 114 mg/dL (35-150)
[2024-08-01 05:25] LABS: Percent Iron Saturation 40 % (20-50); Total Iron Binding Capacity 215 ug/dL (261-462); Transferrin 154 mg/dL (206-381)
--- NOTE | 2024-08-01 05:28 | PC.NURSE ---
BP goal is SBP<140 and DBP <80 - hydralazine available. Given x2. Pt placed NPO at midnight for potential EGD today. mIVF initiated.
[2024-08-01 05:49] LABS: Ferritin 97 ng/mL (18-464)
[2024-08-01] MEDS: PANTOPRAZOLE 40 MG VIAL IV (08:58)
[2024-08-01] MEDS: METOPROLOL IR 25 MG TABLET PO (08:58)
--- NOTE | 2024-08-01 09:29 | CM.DANOTE ---
Addendum entered by KEO Dias 08/01/24 10:41: ADD: Patient being considered for discharge today, Dr Glasgow recommends HH. Met w/patient and spouse, discussed HH services. Patient/sp report patient has never had HH in the past and does not need it now. Patient/sp deny needs from this CM team, state appreciation for the visit. Original Note: Initial DCP Assessment Note Pt is a 79 yo male, resident of [place], presented to the ER 07/30 for full CVA work up, discharged home w/dx of TIA. Returns to the ER 07/31 with severe anemia and admitted for further work up and management of Acute on chronic blood loss anemia due to gastrointestinal bleeding and TIA. According to notes, patient has vascular surgery scheduled at [facility] in August. PCP: Albina Garcia Payer: TERENCE/Heidi Reviewed chart, met with patient to introduce self and role. Patient reports he lives independently with spouse, uses a cane in his home. Patient uses oxygen at night which is managed by [facility]. Patient/sp have 6 children, 4 that live in [place], 2 that live in [place]. Patient reports his spouse can assist him as needed, as can his adult children. Patient denies hx of HH; of note, chart indicates hx of [facility]. Discussed HH services and patient states he will consider if recommended by the provider. No barriers identified at this time to patient's safe discharge home w/family to assist; close outpatient f/u recommended. Patient may benefit from HH services, has had [facility] in the past. CM team will plan to follow clinical course closely in case any DC needs or concerns arise. KEO Snyder Discharge Planning/Care Management CM Discharge Assessment Start: 08/01/24 09:27 Freq: Status: Active Protocol: Document 08/01/24 09:27 MARÍA (Rec: 08/01/24 09:29 MARÍA [id number]) Discharge Planning Assessment Assigned Revenue Tax Specialist KEO Suarez DPOA/Assigned Designee Name Fiona Colón spouse Contact Information [phone] Advance Directives? Yes Advance Directives on File No History Provided By Patient,Significant Other, Medical Record Prior Living Arrangements House Household Members spouse Type of transporation used prior to Relies on Others admit Independent with ADL's Yes Is patient alert and oriented? Yes Needs Assistance With Home Chores / Shopping Patient/Family Preference Home with Home Health Barriers to Discharge No Comment Patient may benefit from HH services and states he will consider. Discharge Plan Home Transportation Arrangement Spouse Referrals Initiated None needed Additional Comment Follow for HH referral, if recommended and patient/sp agreeable.
--- NOTE | 2024-08-01 12:50 | P.DS_ITS ---
History of Present Illness History of Present Illness Date Patient Seen: 08/01/24 Time Patient Seen: 09:35 Chief complaint: Told to come back by Doctor . Narrative: 79-year-old man under the primary care of Dr. Albina Garcia was seen in [facility] Emergency Department on 07/30/2024 after an episode of right upper quadrant visual disturbance lasting 5 minutes and resolving completely, without other symptoms. He was taking both aspirin and Plavix, and after brain CT and MRI showed no acute stroke he was advised to start Brilinta. He had also experienced chest heaviness yesterday and transient drop in his blood pressure to 60/40, with resolution of symptoms, and ruling out for PR by cardiac enzymes yesterday. He went home and had no further symptoms though given his known abdominal aortic aneurysm, episode of hypotension yesterday, and anemia he was called back by the emergency department physician and advised to come today. His hematocrit, which had been 34.1% on 06/24/2024 was 23% on 07/30/2024 yesterday and 21.5% today. He had not yet started Brilinta. He tested guaiac- positive in the emergency department. He was transfused 2 units of packed red blood cells and admitted for observation and further management and evaluation. He has plans for upcoming vascular surgery consultation for repair of his known 5.8 cm abdominal aortic aneurysm. He denies abdominal pain, nausea, vomiting, hematemesis and has not been taking NSAIDs be on the usual daily aspirin for vascular prophylaxis. He has a history of esophageal cancer, status post esophagectomy with gastric pull-through. He has chronic severe COPD with chronic dyspnea that he states is at baseline at this point. He lost considerable weight after his esophagectomy but states he has lost an additional 10 lb in the past 6 months. Discharge Providers Provider Date of admission: 07/31/24 15:38 Discharge Date: 08/01/24 Primary care physician: Albina Garcia MD Discharge provider: Tristan Glasgow MD Summary Hospital Course Discharge Diagnosis: 1. Acute on chronic blood loss anemia due to gastrointestinal bleeding. 2. Transient ischemic attack. 3. Hypertension. Appears adequately controlled. Continue routine medication. 4. Abdominal aortic aneurysm. Appears stable on imaging. The emergency department physician consulted with vascular surgery. No apparent aortic leak was seen on imaging. Outpatient follow-up for repair is planned. 5. Stage 3b chronic kidney disease. appears stable at baseline. 6. COPD, severe. Continue routine inhalers. 7. Severe protein calorie malnutrition. Consult dietary. 8. DVT prophylaxis: Sequential compression devices. Avoid anticoagulation. 9. Code status: Full code. The patient states that he would wish full resuscitation in the event of cardiopulmonary arrest. Hospital Course: The patient was admitted to observation status. He was felt to have possible peptic ulcer disease due to chronic aspirin therapy in a patient with prior esophagectomy and gastric pull-through. Transfused 2 units of packed red blood cells, monitoring hematocrits closely and remaining stable with improvement of the pad her crit from 21-29%, and treated with IV proton pump inhibitor b.i.d.. Endoscopy was not felt indicated. Iron studies and ferritin unremarkable. He is at high risk for stroke due to his recent TIA, though given that his bleeding risk is quite high it was explained that he is at risk for further bleeding and anemia with use of anticoagulants. However given the risk of irreversible stroke, the patient wished to treat with full treatment with Brilinta as previously recommended, to start following discharge. Blood pressure was adequately controlled. No arrhythmias on telemetry. Lipid panel showed cholesterol 94, HDL 40, LDL 31, previously 93, LDL 34, HDL 46 on 06/24/2024 on rosuvastatin 20 mg daily. His stage 3b chronic kidney disease. was stable at baseline. Severe COPD was stable and he was continued on his routine inhalers. The patient has severe protein calorie malnutrition and dietary consultation was ordered. DVT prophylaxis: Sequential compression devices, voiding anticoagulation. Code status was defined as full code, the patient stating that he would wish full resuscitation in the event of cardiopulmonary arrest. He tolerated his breakfast on the morning of discharge and was interested in discharge home on anti-platelet therapy with outpatient follow-up through his primary care provider. He will require close monitoring of blood counts and consideration of endoscopy and stopping of anti-platelet agents if recurrent bleeding occurs. Status at Discharge Cognitive/behavioral status at discharge: oriented Functional status at discharge: independent ambulation Overall status at discharge: patient is back to baseline Time Spent with Patient Time spent: Greater than 30 minutes Exam Vital Signs (past 8 hours): - 08/01/24 04:52 08/01/24 05:00 08/01/24 05:00 Temperature Pulse Rate 53 L 54 L Respiratory Rate 17 Blood Pressure 154/73 H 139/67 Pulse Oximetry 97 Oxygen Delivery Method Oxygen Flow Rate 08/01/24 05:15 08/01/24 05:15 08/01/24 05:22 Temperature Pulse Rate 53 L 55 L Respiratory Rate 17 Blood Pressure 129/61 129/61 Pulse Oximetry 97 Oxygen Delivery Method Oxygen Flow Rate 08/01/24 05:30 08/01/24 05:30 08/01/24 05:45 Temperature Pulse Rate 59 L Respiratory Rate 18 Blood Pressure 122/57 L 129/59 L Pulse Oximetry 97 Oxygen Delivery Method Oxygen Flow Rate 08/01/24 05:45 08/01/24 05:56 08/01/24 06:00 Temperature Pulse Rate 58 L 56 L Respiratory Rate 19 15 Blood Pressure Pulse Oximetry 97 96 99 Oxygen Delivery Method Oxygen Flow Rate 3 08/01/24 06:00 08/01/24 06:30 08/01/24 07:00 Temperature Pulse Rate 64 56 L Respiratory Rate 24 17 Blood Pressure 138/61 Pulse Oximetry 99 100 Oxygen Delivery Method Oxygen Flow Rate 08/01/24 07:00 08/01/24 07:00 08/01/24 07:17 Temperature Pulse Rate 61 Respiratory Rate 20 Blood Pressure 155/71 H Pulse Oximetry 98 Oxygen Delivery Method Nasal Cannula Oxygen Flow Rate 08/01/24 07:17 08/01/24 07:30 08/01/24 07:30 Temperature 97.4 F L Pulse Rate 58 L Respiratory Rate 16 Blood Pressure 136/75 Pulse Oximetry 98 Oxygen Delivery Method Oxygen Flow Rate 08/01/24 08:00 08/01/24 08:01 08/01/24 08:01 Temperature Pulse Rate 55 L 55 L Respiratory Rate 15 16 Blood Pressure 165/70 H Pulse Oximetry 100 100 Oxygen Delivery Method Oxygen Flow Rate 08/01/24 08:08 08/01/24 08:08 08/01/24 08:30 Temperature Pulse Rate 61 54 L Respiratory Rate 23 17 Blood Pressure 144/70 H Pulse Oximetry 100 100 Oxygen Delivery Method Oxygen Flow Rate 08/01/24 08:54 08/01/24 08:54 08/01/24 09:00 Temperature Pulse Rate 59 L Respiratory Rate 17 Blood Pressure 156/71 H 150/72 H Pulse Oximetry 100 Oxygen Delivery Method Oxygen Flow Rate 08/01/24 09:00 08/01/24 09:30 08/01/24 10:00 Temperature Pulse Rate 59 L 58 L Respiratory Rate 18 21 Blood Pressure Pulse Oximetry 100 99 Oxygen Delivery Method Room Air Oxygen Flow Rate 08/01/24 10:00 08/01/24 10:03 08/01/24 10:03 Temperature Pulse Rate 60 62 Respiratory Rate 25 H 24 Blood Pressure 161/79 H Pulse Oximetry 100 100 Oxygen Delivery Method Oxygen Flow Rate 08/01/24 10:07 08/01/24 10:30 08/01/24 10:35 Temperature Pulse Rate 58 L Respiratory Rate 20 Blood Pressure 161/78 H 106/56 L Pulse Oximetry 99 Oxygen Delivery Method Oxygen Flow Rate 08/01/24 10:35 08/01/24 10:37 08/01/24 11:00 Temperature Pulse Rate 57 L 56 L Respiratory Rate 22 Blood Pressure 106/56 L 116/57 L Pulse Oximetry 98 Oxygen Delivery Method Oxygen Flow Rate 08/01/24 11:00 Temperature Pulse Rate 56 L Respiratory Rate 19 Blood Pressure Pulse Oximetry 98 Oxygen Delivery Method Oxygen Flow Rate Oxygen Delivery Method Room Air Oxygen Flow Rate 3 Narrative Exam Narrative: GENERAL: This is a cachectic male patient, in no apparent distress. EYES: Pupils equal round and reactive. Extraocular motions intact. No scleral icterus. No injection or drainage. ENT: Mucous membranes pink and moist. NECK: Trachea midline. No JVD, bruits or lymphadenopathy. Supple, nontender, no meningeal signs. CARDIOVASCULAR: Regular rate and rhythm without murmurs, gallops, or rubs. RESPIRATORY: Clear to auscultation, intermittent rhonchorous cough, prominent ribs due to cachexia. GASTROINTESTINAL: Abdomen soft, non-tender, nondistended. EXTREMITIES: Thin. No clubbing, cyanosis, or edema. NEUROLOGIC: Alert, oriented, speech fluent, full upper and lower motor strength, no focal deficits evident. DERMATOLOGIC: No rashes or skin lesions. Objective Labs 08/01/24 04:40 08/01/24 04:40 Labs: Laboratory Results - last 24 hr 07/31/24 07/31/24 07/31/24 11:26 20:18 21:55 WBC RBC Hgb 9.8 L Hct 28.8 L MCV MCH MCHC RDW Plt Count Neut % (Auto) Lymph % (Auto) Weber % (Auto) Eos % (Auto) Baso % (Auto) Neut # (Auto) Lymph # (Auto) Weber # (Auto) Eos # (Auto) Baso # (Auto) Sodium Potassium Chloride Carbon Dioxide BUN Creatinine Estimated GFR BUN/Creatinine Ratio Glucose Calcium Iron TIBC % Saturation Transferrin Ferritin Triglycerides Cholesterol LDL Cholesterol, Calc HDL Cholesterol Nasal Screen MRSA (PCR) Not detected Blood Type A Negative Antibody Screen Negative Crossmatch See Detail 08/01/24 04:40 WBC 7.7 RBC 3.30 L Hgb 10.2 L Hct 29.8 L MCV 90.3 MCH 30.9 MCHC 34.2 RDW 16.2 H Plt Count 240 Neut % (Auto) 79.7 H Lymph % (Auto) 8.8 L Weber % (Auto) 7.2 Eos % (Auto) 2.5 Baso % (Auto) 1.8 Neut # (Auto) 6100 Lymph # (Auto) 700 L Weber # (Auto) 600 Eos # (Auto) 200 Baso # (Auto) 100 Sodium 130 L Potassium 4.0 Chloride 106 Carbon Dioxide 20 L BUN 27 H Creatinine 1.29 H Estimated GFR 56 L BUN/Creatinine Ratio 20.9 Glucose 106 Calcium 8.3 L Iron 85 D TIBC 215 L % Saturation 40 Transferrin 154 L Ferritin 97 Triglycerides 114 Cholesterol 94 L LDL Cholesterol, Calc 31 HDL Cholesterol 40 Nasal Screen MRSA (PCR) Blood Type Antibody Screen Crossmatch [facility] Medical History CKD (chronic kidney disease), stage III Hypertension COPD (chronic obstructive pulmonary disease) Small bowel obstruction Esophageal cancer Social History household members: spouse Smoking Status: Former smoker alcohol intake: current Discharge Plan Discharge Plan Patient Disposition: Home Provider Discharge Comment: Followup with Dr. Garcia this week Discharge orders & Medications Prescriptions: New omeprazole 40 mg capsule,delayed release(DR/EC) 40 mg PO BID Qty: 60 0RF Brilinta 90 mg tablet 90 mg PO BID Qty: 60 0RF Continued prazosin 1 mg Capsule 1 mg PO QPM zinc sulfate 220 (50) mg capsule 220 mg PO DAILY Qty: 30 0RF albuterol sulfate 90 mcg/actuation aerosol powdr breath activated 2 inh inhalation Q6H PRN (Reason: COPd) Qty: 1 0RF ascorbic acid (vitamin C) 100 mg DAILY furosemide 20 mg DAILY rosuvastatin 20 mg tablet 20 mg PO BEDTIME metoprolol succinate 50 mg tablet extended release 24 hr 50 mg PO DAILY oxycodone-acetaminophen 5-325 mg tablet 1 tab PO Q4HR prednisone 5 mg tablet 5 mg PO DAILY spironolactone 25 mg tablet 25 mg PO DAILY docosahexaenoic acid-epa capsule 120 - 180 mg DAILY Follow up/Referrals: Albina Garcia MD [Primary Care Provider] - Visit Report/Discharge Packet Stand Alone Forms: Patient Portal/API, Stroke Signs & Symptoms Discharge Data Primary Care Provider: Albina Garcia Attending Provider: Tristan Glasgow V Admit Date/Time: 07/31/24 15:38 Quality MIPS - Admit I confirm the patient?s Advance Care Plan is present, Code status is documented, Surrogate decision maker is in patient?s record [If Yes, STOP here]: Yes MIPS - Meds 'Current medications' to include all prescriptions, [id number] products, herbals, cannabis/cannabidiol products, and vitamin/mineral/dietary (nutritional) supplements. I have utilized all available resources to obtain, update, or review the patient?s current medications. [If Yes, STOP here]: Yes MIPS - DC The patient has a history of heart transplant or Left Ventricular Assist Device (LVAD). If yes, STOP here.: No The patient has current or prior documentation of left ventricular ejection fraction (LVEF) less than or equal to 40%, or moderate or severely depressed left ventricular systolic function.: No A. The patient was prescribed or already taking an Angiotensin-Converting Enzyme (PEPPER) Inhibitor, or Angiotensin Receptor Dena (ARB).: No B. The patient was prescribed or already taking a beta-dena. [If Yes to Both A & B, STOP here]: Yes Patient not prescribed/taking PEPPER or ARB, no reason given.: No Patient not prescribed/taking beta-dena, no reason given.: No [facility] PROFEE Charge Codes Discharge inpatient/observation: [id number]
== END 2024-08-01 12:46 | disposition home or self-care (01) ==
LOC: ED 11:18 → AC 15:39 → ICU 16:28
PROVIDERS: Admitting Provider Internal Medicine; Emergency Provider Emergency Medicine; Family Provider Internal Medicine; PCP Internal Medicine; Referring Provider Emergency Medicine; Visit Provider Internal Medicine
DX: D62 Acute posthemorrhagic anemia (principal); J44.9 Chronic obstructive pulmonary disease, unspecified; I12.9 Hypertensive chronic kidney disease with stage 1 through stage 4 chronic kidney disease, or unspecified chronic kidney disease; N18.32 Chronic kidney disease, stage 3b; E43 Unspecified severe protein-calorie malnutrition; I71.40 Abdominal aortic aneurysm, without rupture, unspecified; Z85.01 Personal history of malignant neoplasm of esophagus; Z87.891 Personal history of nicotine dependence; R19.5 Other fecal abnormalities
CPT/HCPCS: 36415; 36430; 71275; 74174; 80048; 80053; 80061; 82272; 82728; 83540; 83550; 85014; 85018; 85025; 85610; 85730; 86850; 86900; 86901; 87797; 96361; 96374; 96375; 96376; 99285; G0378; P9016; J0360; J2470; Q9967

== ENCOUNTER 2024-08-07 20:53 | Emergency (ER) | payer MEDICARE, OTHER, SELFPAY ==
[2024-07-31 15:59] VITALS: BMI 16.8
[2024-08-07] VITALS (15 sets, daily range): BP systolic 92–183; BP diastolic 54–84; PULSE 66–82; RESP 16–27; TEMP 36.8; O2SAT 87–99; BMI 16.9
--- NOTE | 2024-08-07 20:58 | EKG_ITS ---
[id number] [address] Test Date: 2024-08-07 Pat Name: Sergio Colón Department: Located Within [facility] Room: Gender: Male [employer] Supervisor: ROSA ISELA : 1945 Requested By: Order Number: [id number] Reading MD: Jose Rivas MD Measurements Intervals [place] Rate: 66 P: 71 MT: 186 QRS: -13 QRSD: 96 T: 49 QT: 416 QTc: 436 Interpretive Statements Normal sinus rhythm Electronically Signed On 08-09-2024 8:34:52 PDT by Jose Rivas MD
[2024-08-07 21:16] LABS: Add Manual Diff / Slide Review NO; Basophils Absolute Auto 100 /uL (0-100); Basophils Percent Auto 1.1 % (0-2); Eosinophils Absolute Auto 100 /uL (0-450); Eosinophils Percent Auto 1.3 % (2-4); Hematocrit 29.8 % (41-53); Hemoglobin 9.9 g/dL (13.5-17.5); Lymphocytes Absolute Auto 800 /uL (1100-4500); Lymphocytes Percent Auto 9.6 % (25-40); Mean Corpuscular HGB Conc 33.2 % (30-36); Mean Corpuscular Hemoglobin 30.8 PG (26-34); Mean Corpuscular Volume 92.6 fL (80-100); Monocytes Absolute Auto 500 /uL (0-900); Monocytes Percent Auto 6.2 % (3-14); Neutrophils Absolute Auto 6500 /uL (1500-7000); Neutrophils Percent Auto 81.8 % (50-75); Platelet Count 225 X10^3/uL (150-400); Red Blood Cell Count 3.22 X10^6/uL (4.5-5.9); Red Cell Distribution Width 16.3 % (11.6-14.8)
[2024-08-07 21:24] LABS: Alanine Aminotransferase 25 IU/L (<50); Albumin 3.4 g/dL (3.5-5.0); Albumin Globulin Ratio 1.3 (1.0-2.8); Alkaline Phosphatase 66 U/L (38-126); Aspartate Aminotransferase 27 IU/L (17-59); BUN Creatinine Ratio 20.7 (6-22); Bilirubin Total 0.4 mg/dL (0.2-1.3); Blood Urea Nitrogen 30 mg/dL (9-20); Calcium 7.8 mg/dL (8.4-10.2); Carbon Dioxide 21 mmol/L (22-32); Chloride 108 mmol/L (98-107); Estimated Glomerular Filt Rate 48 mL/min (>60); Globulin 2.6 g/dL (1.7-4.1); Glucose 100 mg/dL (80-110); HEMOLYSIS < 15 (0-50); Potassium 4.1 mmol/L (3.4-5.1); Sodium 137 mmol/L (137-145)
[2024-08-07 21:25] LABS: Creatine Kinase 34 U/L (55-170); Ethanol (ETOH) < 10 mg/dL; Lipase 51 U/L (23-300)
--- NOTE | 2024-08-07 21:27 | ED.GENADULT ---
HPI - General Adult General Chief complaint: Abdominal Pain Stated complaint: abd pain Time Seen by Provider: 08/07/24 20:57 Source: patient and EMS Mode of arrival: EMS Limitations: no limitations History of Present Illness HPI narrative: Patient is an 79-year-old male. Has a known abdominal aortic aneurysm. Is scheduled to [facility]. Is here for left upper quadrant abdominal pain. He has had this pain in the past but never this bad. He states that it was a gradual onset that reached its maximum intensity over 15 or 20 minutes. He states now his pain is better than what it was at the onset. Because of the pain he contacted EMS. They did orthostatic blood pressures and found the patient to be hypotensive with standing. He was seen here in the emergency department and subsequently admitted to the hospital approximately 14 days ago where he received 2 units of packed red blood cells. He states he does get somewhat lightheaded with standing but this is not new. He uses a cane to get around for balance. Related Data Home Medications Medication Instructions Recorded Confirmed prazosin 1 mg capsule 1 mg PO QPM 10/15/18 07/31/24 ascorbic acid (vitamin C) 100 mg DAILY 07/31/24 07/31/24 docosahexaenoic acid-epa 120 - 180 mg DAILY 07/31/24 07/31/24 furosemide 20 mg DAILY 07/31/24 07/31/24 metoprolol succinate 50 mg 50 mg PO DAILY 07/31/24 07/31/24 tablet,extended release 24 hr oxycodone-acetaminophen 5 mg-325 1 tab PO Q4HR 07/31/24 07/31/24 mg tablet prednisone 5 mg tablet 5 mg PO DAILY 07/31/24 07/31/24 rosuvastatin 20 mg tablet 20 mg PO BEDTIME 07/31/24 07/31/24 spironolactone 25 mg tablet 25 mg PO DAILY 07/31/24 07/31/24 Previous Rx's Medication Instructions Recorded albuterol sulfate 90 mcg/actuation 2 inh inhalation Q6H PRN COPd #1 ea 12/31/20 breath activated powder inhaler zinc sulfate 50 mg zinc (220 mg) 220 mg (4.4 x 50 mg zinc (220 mg)) 12/31/20 capsule PO DAILY #30 caps omeprazole 40 mg capsule,delayed 40 mg PO BID #60 caps 08/01/24 release ticagrelor 90 mg tablet (Brilinta) 90 mg PO BID #60 tabs 08/01/24 Allergies Allergy/AdvReac Type Severity Reaction Status Date / Time minoxidil AdvReac Intermediate Hypotension Verified 08/07/24 21:04 Review of Systems Review of Systems ROS Unobtainable: All systems reviewed & are unremarkable except as noted in HPI and below Patient History Medical History CKD (chronic kidney disease), stage III Hypertension COPD (chronic obstructive pulmonary disease) Small bowel obstruction Esophageal cancer Social History household members: spouse Smoking Status: Former smoker alcohol intake: current Smoking Status: Former smoker alcohol intake frequency: holidays/special occasions only Substance Use Type: does not use Exam Initial Vital Signs Initial Vital Signs: Vital Signs Temperature 98.2 F 08/07/24 20:54 Pulse Rate 70 08/07/24 20:54 Respiratory Rate 16 08/07/24 20:54 Blood Pressure 173/84 H 08/07/24 20:54 Pulse Oximetry 97 08/07/24 20:54 Oxygen Delivery Method Room Air 08/07/24 20:54 Const General: cooperative, comfortable and No ill appearing HENMT Head: normal to inspection and normocephalic Resp Effort & Inspection: normal respiratory effort Auscultation: clear to auscultation bilaterally Cardio Rate: regular rate Rhythm: regular rhythm GI Inspection: normal to inspection and non-distended Palpation: soft, No firm, No guarding and No tender Skin General: no rashes or lesions noted Neuro General: patient alert, patient awake and moves all extremities Extrem General: capillary refill normal Course Orders Ordered: ED Orders 08/07/24 20:58 EKG-12 Lead Stat 08/07/24 21:00 BNP [NT-proBNP (BNP-Adult 18+)] Stat Complete Blood Count AUTO DIFF Stat Comprehensive Metabolic Panel Stat Ethanol (ETOH) Stat Lipase Stat Troponin & CK Cardiac Panel Stat 08/07/24 22:37 CT angio abdomen pelvis Stat Discontinued Medications Morphine Sulfate (Morphine 4 Mg/Ml Inj) 4 mg IV NOW ONE Stop: 08/07/24 21:29 Last Admin: 08/07/24 21:36 Dose: 4 mg Documented By: ROSELYN Vital Signs Vital signs: Vital Signs - 8 hr 08/07/24 20:54 08/07/24 20:55 08/07/24 20:56 Temperature 98.2 F Pulse Rate 70 69 66 Pulse Rate [Orthostatic Lying] Pulse Rate [Orthostatic Sitting] Pulse Rate [Orthostatic Standing] Respiratory Rate 16 Blood Pressure 173/84 H Blood Pressure [Orthostatic Lying] Blood Pressure [Orthostatic Sitting] Blood Pressure [Orthostatic Standing] Pulse Oximetry 97 87 L 97 Oxygen Delivery Method Room Air 08/07/24 20:56 08/07/24 21:00 08/07/24 21:00 Temperature Pulse Rate 66 Pulse Rate [Orthostatic Lying] Pulse Rate [Orthostatic Sitting] Pulse Rate [Orthostatic Standing] Respiratory Rate 22 Blood Pressure 173/84 H 161/81 H Blood Pressure [Orthostatic Lying] Blood Pressure [Orthostatic Sitting] Blood Pressure [Orthostatic Standing] Pulse Oximetry 98 Oxygen Delivery Method 08/07/24 21:30 08/07/24 21:30 08/07/24 21:52 Temperature Pulse Rate 66 Pulse Rate [Orthostatic Lying] Pulse Rate [Orthostatic Sitting] Pulse Rate [Orthostatic Standing] Respiratory Rate 20 Blood Pressure 183/84 H 148/75 H Blood Pressure [Orthostatic Lying] Blood Pressure [Orthostatic Sitting] Blood Pressure [Orthostatic Standing] Pulse Oximetry 98 Oxygen Delivery Method 08/07/24 21:52 08/07/24 21:54 08/07/24 21:54 Temperature Pulse Rate 66 78 Pulse Rate [Orthostatic Lying] Pulse Rate [Orthostatic Sitting] Pulse Rate [Orthostatic Standing] Respiratory Rate 18 22 Blood Pressure 110/70 Blood Pressure [Orthostatic Lying] Blood Pressure [Orthostatic Sitting] Blood Pressure [Orthostatic Standing] Pulse Oximetry 97 97 Oxygen Delivery Method 08/07/24 21:55 08/07/24 21:55 08/07/24 21:57 Temperature Pulse Rate 81 Pulse Rate [Orthostatic Lying] 66 Pulse Rate [Orthostatic Sitting] 74 Pulse Rate [Orthostatic Standing] 81 Respiratory Rate 25 H Blood Pressure 92/54 L Blood Pressure [Orthostatic Lying] 148/75 H Blood Pressure [Orthostatic Sitting] 110/70 Blood Pressure [Orthostatic Standing] 92/54 L Pulse Oximetry 95 Oxygen Delivery Method 08/07/24 22:00 08/07/24 22:00 08/07/24 22:04 Temperature Pulse Rate 67 Pulse Rate [Orthostatic Lying] Pulse Rate [Orthostatic Sitting] Pulse Rate [Orthostatic Standing] Respiratory Rate 18 Blood Pressure 154/76 H 157/67 H Blood Pressure [Orthostatic Lying] Blood Pressure [Orthostatic Sitting] Blood Pressure [Orthostatic Standing] Pulse Oximetry 96 Oxygen Delivery Method 08/07/24 22:04 08/07/24 22:30 08/07/24 22:30 Temperature Pulse Rate 82 69 Pulse Rate [Orthostatic Lying] Pulse Rate [Orthostatic Sitting] Pulse Rate [Orthostatic Standing] Respiratory Rate 24 27 H Blood Pressure 148/83 H Blood Pressure [Orthostatic Lying] Blood Pressure [Orthostatic Sitting] Blood Pressure [Orthostatic Standing] Pulse Oximetry 93 99 Oxygen Delivery Method 08/07/24 23:00 08/07/24 23:01 08/07/24 23:01 Temperature Pulse Rate 71 71 Pulse Rate [Orthostatic Lying] Pulse Rate [Orthostatic Sitting] Pulse Rate [Orthostatic Standing] Respiratory Rate 23 26 H Blood Pressure 173/81 H Blood Pressure [Orthostatic Lying] Blood Pressure [Orthostatic Sitting] Blood Pressure [Orthostatic Standing] Pulse Oximetry 97 97 Oxygen Delivery Method 08/07/24 23:30 08/07/24 23:30 08/08/24 00:00 Temperature Pulse Rate 68 Pulse Rate [Orthostatic Lying] Pulse Rate [Orthostatic Sitting] Pulse Rate [Orthostatic Standing] Respiratory Rate 22 Blood Pressure 158/74 H 162/79 H Blood Pressure [Orthostatic Lying] Blood Pressure [Orthostatic Sitting] Blood Pressure [Orthostatic Standing] Pulse Oximetry 98 Oxygen Delivery Method 08/08/24 00:00 08/08/24 00:30 08/08/24 00:30 Temperature Pulse Rate 65 68 Pulse Rate [Orthostatic Lying] Pulse Rate [Orthostatic Sitting] Pulse Rate [Orthostatic Standing] Respiratory Rate 18 20 Blood Pressure 156/75 H Blood Pressure [Orthostatic Lying] Blood Pressure [Orthostatic Sitting] Blood Pressure [Orthostatic Standing] Pulse Oximetry 98 97 Oxygen Delivery Method 08/08/24 00:58 08/08/24 00:58 08/08/24 01:00 Temperature Pulse Rate 68 70 Pulse Rate [Orthostatic Lying] Pulse Rate [Orthostatic Sitting] Pulse Rate [Orthostatic Standing] Respiratory Rate 24 Blood Pressure 173/94 H Blood Pressure [Orthostatic Lying] Blood Pressure [Orthostatic Sitting] Blood Pressure [Orthostatic Standing] Pulse Oximetry 97 98 Oxygen Delivery Method 08/08/24 01:00 Temperature Pulse Rate Pulse Rate [Orthostatic Lying] Pulse Rate [Orthostatic Sitting] Pulse Rate [Orthostatic Standing] Respiratory Rate Blood Pressure 162/92 H Blood Pressure [Orthostatic Lying] Blood Pressure [Orthostatic Sitting] Blood Pressure [Orthostatic Standing] Pulse Oximetry 98 Oxygen Delivery Method Medical Decision Making Medical Records Medical records reviewed: Yes I reviewed the patient's medical records. Lab Data Lab results reviewed: Yes I reviewed the patient's lab results. 08/07/24 21:00 08/07/24 21:00 Labs: Lab Results 08/07/24 Range/Units 21:00 WBC 8.0 (4.5-11.0) X10^3/uL RBC 3.22 L (4.5-5.9) X10^6/uL Hgb 9.9 L (13.5-17.5) g/dL Hct 29.8 L (41-53) % MCV 92.6 (80-100) fL MCH 30.8 (26-34) PG MCHC 33.2 (30-36) % RDW 16.3 H (11.6-14.8) % Plt Count 225 (150-400) X10^3/uL Neut % (Auto) 81.8 H (50-75) % Lymph % (Auto) 9.6 L (25-40) % [place] % (Auto) 6.2 (3-14) % Eos % (Auto) 1.3 L (2-4) % Baso % (Auto) 1.1 (0-2) % Neut # (Auto) 6500 (0522-8355) /uL Lymph # (Auto) 800 L (5774-4705) /uL [place] # (Auto) 500 (0-900) /uL Eos # (Auto) 100 (0-450) /uL Baso # (Auto) 100 (0-100) /uL Sodium 137 (137-145) mmol/L Potassium 4.1 (3.4-5.1) mmol/L Chloride 108 H (98-107) mmol/L Carbon Dioxide 21 L (22-32) mmol/L BUN 30 H (9-20) mg/dL Creatinine 1.45 H (0.66-1.25) mg/dL Estimated GFR 48 L (>60) mL/min BUN/Creatinine Ratio 20.7 (6-22) Glucose 100 (80-110) mg/dL Calcium 7.8 L (8.4-10.2) mg/dL Total Bilirubin 0.4 (0.2-1.3) mg/dL AST 27 (17-59) IU/L ALT 25 (<50) IU/L Alkaline Phosphatase 66 (38-126) U/L Total Creatine Kinase 34 L (55-170) U/L Troponin I < 0.012 (0.01-0.034) ng/mL NT-Pro-B Natriuret Pep 1190 H (<450) pg/mL Total Protein 6.0 L (6.3-8.2) g/dL Albumin 3.4 L (3.5-5.0) g/dL Globulin 2.6 (1.7-4.1) g/dL Albumin/Globulin Ratio 1.3 (1.0-2.8) Lipase 51 (23-300) U/L Ethyl Alcohol < 10 ( - 10) mg/dL Imaging Data CT scan - abdomen/pelvis: Radiologist's Impression: PROCEDURE: CT ANGIO ABDOMEN PELVIS INDICATIONS: known AAA vascular requests CT for eval TECHNIQUE: After the administration of intravenous contrast, 2.5 mm thick sections acquired from the diaphragm to the symphysis. 10 mm maximum-intensity projection (MIP) reformats were then acquired. For radiation dose reduction, the following was used: automated exposure control. COMPARISON: [facility], CT, CT ANGIO CHEST ABDOMEN PELVIS, 07/31/2024, 11:57. FINDINGS: Image Quality: Diagnostic. Abdominal aorta: Fusiform abdominal aortic aneurysm is again seen now measures up to 6.4 x 5.9 cm in largest AP and transverse dimension compared to 6.1 x 6 cm in size on previous study series 8, image 77. Large associated thrombus formation is again seen. Previously described area of thrombus content extending outside of the expected parameter of the aneurysm in posterior lateral aspect of right aortic wall is again seen series 8, image 102. No definite area of active contrast accumulation within the thrombus is noted. Dense atherosclerotic calcifications are again seen involving bilateral common iliac arteries and external iliac arteries with suggestion of hemodynamically significant stenosis not significantly changed from previous studies. OTHER: Lower Chest: There is small right pleural effusion and trace left pleural effusion with bibasilar atelectasis/small infiltrates. Heart size is enlarged, no pericardial effusion. Large hiatal hernia is again seen. Liver: No solid mass. Gallbladder: No radiopaque gallstones or wall thickening. Biliary ducts: No biliary dilation. Pancreas: No ductal dilation. Spleen: Size is within normal limits. Adrenal Glands: No adrenal nodules. Kidneys and Ureters: No hydronephrosis. No solid mass. No complex renal cystic lesion which requires follow up. Stomach and Bowel: There is no evidence of bowel obstruction. Extensive colonic diverticulosis is seen without CT evidence of acute diverticulitis. No discrete abscess collection. Fecal stasis in the colon is seen. Peritoneum: Moderate amount of ascites fluid is seen in abdomen and pelvis. No gross free air. Ventral Wall: No hernia. Abdominal Nodes: No retroperitoneal or mesenteric adenopathy by size criteria. Vessels: Aorta and inferior vena cava are normal in size. PELVIS: Pelvic Organs: Enlarged prostate gland with mass effect on floor of urinary bladder.. Bladder: Unremarkable. Pelvic Nodes: No enlarged lymph nodes. Miscellaneous: No inguinal hernias are seen. Bones: No aggressive osseous abnormality. Degenerative disc disease throughout lower thoracic and lumbar spine is seen. IMPRESSION: 1. Interval increase in size of patient's known fusiform abdominal aortic aneurysm now measures up to 6.4 x 5.9 cm in largest AP and transverse diameter compared to 6.1 x 6 cm on previous study. Large amount of associated thrombus formation within the aneurysmal sac. Again noted is area of thrombus content extending outside in the expected parameter of aneurysm in right posterior lateral aortic wall which could represent impending rupture. No definite contrast extravasation or abnormal contrast accumulation within the thrombus to suggest active bleeding. 2. Interval development of significant amount of ascites fluid in abdomen and pelvis. No gross free air. 3. No bowel obstruction. Moderate constipation. No abscess collection. Extensive colonic diverticulosis without evidence of acute diverticulitis. 4. Large hiatal hernia unchanged from prior study. 5. Enlarged prostate gland with mass effect on floor of urinary bladder also unchanged. 6. Small right pleural effusion and trace left pleural effusion with bibasilar infiltrate/atelectasis more prominent on the right side. Dictated by: Jose Roberto Monzon M.D. on 08/07/2024 at 23:04 Approved by: Jose Roberto Monzon M.D. on 08/07/2024 at 23:17 ECG Data Attestation: I personally reviewed and interpreted this ECG as follows: Interpretation: Sinus rhythm Ventricular rate is 66 Normal axis Normal QRS QTC No ST T changes MDM Narrative Medical decision making narrative: patient was having left upper quadrant abdominal pain. He actually reports a vast improvement of the pain at the time of my exam from the onset and after pain medications reports complete resolution of pain. Patient was not tachycardic. He does have a decrease in his blood pressure with standing but is able to ambulate at baseline with his cane. How he was feeling was standing is not new and he has been experiencing this for several weeks if not longer. He was anemic but not at the point where he would require any blood transfusion. He was actually about at the same level from where he was when he was discharged from the hospital 14 days ago. He stated that he was scheduled to get a repeat CT scan of his abdomen and pelvis next week in preparation for his follow-up with the vascular surgeons. That was ordered this evening. He was instructed that he did not need to have another CT scan done next week. The CT scan today shows a potential increase in the size of the aneurysm. I did discuss the case with Dr. Campbell vascular surgery at every 2 was able to view the CT scan. He stated that there was no signs that the aneurysm has ruptured. He did state that he was unable to measure the aneurysm on the computer that he was on but he felt that everything that was seen on the CT scan today is similar to prior CT scans. Patient is now pain-free. Vital signs unremarkable. Will discharge patient home with instructions to contact his vascular surgeon for follow-up. He was given strict return precautions. He expressed understanding and agreement. Discharge Plan Departure Patient Disposition: Home Clinical Impression: Abdominal aortic aneurysm, Abdominal pain Instructions: DI for Abdominal Pain-Adult Activity Restrictions/Additional Instructions: continue to take all of your medications as directed. Recommend that you keep your follow-up appointment with the vascular surgeon on Saturday of next week. Return to the emergency department for new or worsening symptoms. Prescriptions: No Action prazosin 1 mg Capsule 1 mg PO QPM zinc sulfate 220 (50) mg capsule 220 mg PO DAILY Qty: 30 0RF albuterol sulfate 90 mcg/actuation aerosol powdr breath activated 2 inh inhalation Q6H PRN (Reason: COPd) Qty: 1 0RF ascorbic acid (vitamin C) 100 mg DAILY furosemide 20 mg DAILY rosuvastatin 20 mg tablet 20 mg PO BEDTIME metoprolol succinate 50 mg tablet extended release 24 hr 50 mg PO DAILY oxycodone-acetaminophen 5-325 mg tablet 1 tab PO Q4HR prednisone 5 mg tablet 5 mg PO DAILY spironolactone 25 mg tablet 25 mg PO DAILY docosahexaenoic acid-epa capsule 120 - 180 mg DAILY omeprazole 40 mg capsule,delayed release(DR/EC) 40 mg PO BID Qty: 60 0RF Brilinta 90 mg tablet 90 mg PO BID Qty: 60 0RF Referrals: Albina Garcia MD [Primary Care Provider] - Stand Alone Forms: Patient Portal/API
[2024-08-07 21:36] LABS: Troponin I < 0.012 ng/mL (0.01-0.034)
[2024-08-07] MEDS: MORPHINE 4 MG/ML INJ IV (21:36)
--- NOTE | 2024-08-07 22:37 | DI.CT.S_ITS ---
PROCEDURE: CT ANGIO ABDOMEN PELVIS INDICATIONS: known [facility] vascular requests CT for eval TECHNIQUE: After the administration of intravenous contrast, 2.5 mm thick sections acquired from the diaphragm to the symphysis. 10 mm maximum-intensity projection (MIP) reformats were then acquired. For radiation dose reduction, the following was used: automated exposure control. COMPARISON: [facility], CT, CT ANGIO CHEST ABDOMEN PELVIS, 07/31/2024, 11:57. FINDINGS: Image Quality: Diagnostic. Abdominal aorta: Fusiform abdominal aortic aneurysm is again seen now measures up to 6.4 x 5.9 cm in largest AP and transverse dimension compared to 6.1 x 6 cm in size on previous study series 8, image 77. Large associated thrombus formation is again seen. Previously described area of thrombus content extending outside of the expected parameter of the aneurysm in posterior lateral aspect of right aortic wall is again seen series 8, image 102. No definite area of active contrast accumulation within the thrombus is noted. Dense atherosclerotic calcifications are again seen involving bilateral common iliac arteries and external iliac arteries with suggestion of hemodynamically significant stenosis not significantly changed from previous studies. OTHER: Lower Chest: There is small right pleural effusion and trace left pleural effusion with bibasilar atelectasis/small infiltrates. Heart size is enlarged, no pericardial effusion. Large hiatal hernia is again seen. Liver: No solid mass. Gallbladder: No radiopaque gallstones or wall thickening. Biliary ducts: No biliary dilation. Pancreas: No ductal dilation. Spleen: Size is within normal limits. Adrenal Glands: No adrenal nodules. Kidneys and Ureters: No hydronephrosis. No solid mass. No complex renal cystic lesion which requires follow up. Stomach and Bowel: There is no evidence of bowel obstruction. Extensive colonic diverticulosis is seen without CT evidence of acute diverticulitis. No discrete abscess collection. Fecal stasis in the colon is seen. Peritoneum: Moderate amount of ascites fluid is seen in abdomen and pelvis. No gross free air. Ventral Wall: No hernia. Abdominal Nodes: No retroperitoneal or mesenteric adenopathy by size criteria. Vessels: Aorta and inferior vena cava are normal in size. PELVIS: Pelvic Organs: Enlarged prostate gland with mass effect on floor of urinary bladder.. Bladder: Unremarkable. Pelvic Nodes: No enlarged lymph nodes. Miscellaneous: No inguinal hernias are seen. Bones: No aggressive osseous abnormality. Degenerative disc disease throughout lower thoracic and lumbar spine is seen. IMPRESSION: 1. Interval increase in size of patient's known fusiform abdominal aortic aneurysm now measures up to 6.4 x 5.9 cm in largest AP and transverse diameter compared to 6.1 x 6 cm on previous study. Large amount of associated thrombus formation within the aneurysmal sac. Again noted is area of thrombus content extending outside in the expected parameter of aneurysm in right posterior lateral aortic wall which could represent impending rupture. No definite contrast extravasation or abnormal contrast accumulation within the thrombus to suggest active bleeding. 2. Interval development of significant amount of ascites fluid in abdomen and pelvis. No gross free air. 3. No bowel obstruction. Moderate constipation. No abscess collection. Extensive colonic diverticulosis without evidence of acute diverticulitis. 4. Large hiatal hernia unchanged from prior study. 5. Enlarged prostate gland with mass effect on floor of urinary bladder also unchanged. 6. Small right pleural effusion and trace left pleural effusion with bibasilar infiltrate/atelectasis more prominent on the right side. Dictated by: Jose Roberto Monzon M.D. on 08/07/2024 at 23:04 Approved by: Jose Roberto Monzon M.D. on 08/07/2024 at 23:17
[2024-08-07 23:29] LABS: NT-proBNP (BNP-Adult 18+) 1190 pg/mL (<450)
[2024-08-08] VITALS: BP 162/79; PULSE 65; RESP 18; O2SAT 98
[2024-08-08 00:30] VITALS: BP 156/75; PULSE 68; RESP 20; O2SAT 97
[2024-08-08 00:58] VITALS: BP 173/94; PULSE 68; RESP 24; O2SAT 97
[2024-08-08 01:00] VITALS: BP 162/92; PULSE 70; O2SAT 98
== END 2024-08-08 01:06 | disposition home or self-care (01) ==
PROVIDERS: Emergency Provider Emergency Medicine; Family Provider Internal Medicine; PCP Internal Medicine
DX: I71.40 Abdominal aortic aneurysm, without rupture, unspecified (principal); R10.12 Left upper quadrant pain
CPT/HCPCS: 36415; 74174; 80053; 80320; 82550; 83690; 83880; 84484; 85025; 93005; 96374; 99284; J2270; Q9967

== ENCOUNTER 2024-09-04 16:47 | Emergency (ER) | payer MEDICARE, OTHER, SELFPAY ==
[2024-07-31 15:59] VITALS: BMI 16.8
[2024-09-04] VITALS (9 sets, daily range): BP systolic 150–176; BP diastolic 74–89; PULSE 62–77; RESP 24; TEMP 36.7; O2SAT 91–98; BMI 17.1
--- NOTE | 2024-09-04 17:05 | EKG_ITS ---
[place] [id number] [place] [id number] Test Date: 2024-09-04 Pat Name: Sergio Colón Department: [facility] Room: Gender: Male [employer]: CHELSEY : 1945 Requested By: Order Number: [id number] Reading MD: Dennis Dixon Measurements Intervals [place] Rate: 62 P: 41 MN: 146 QRS: -43 QRSD: 82 T: 35 QT: 422 QTc: 428 Interpretive Statements Normal sinus rhythm Left axis deviation Cannot rule out Anterior infarct , age undetermined Electronically Signed On 09-08-2024 18:49:21 PST by Dennis Dixon
[2024-09-04 17:20] LABS: INR 1.1 (0.9-1.3); Prothrombin Time 12.1 SECONDS (9.4-12.5)
[2024-09-04 17:22] LABS: Alanine Aminotransferase 14 IU/L (<50); Albumin 3.7 g/dL (3.5-5.0); Albumin Globulin Ratio 1.1 (1.0-2.8); Alkaline Phosphatase 65 U/L (38-126); Aspartate Aminotransferase 28 IU/L (17-59); BUN Creatinine Ratio 15.3 (6-22); Bilirubin Total 0.7 mg/dL (0.2-1.3); Blood Urea Nitrogen 26 mg/dL (9-20); Calcium 8.2 mg/dL (8.4-10.2); Carbon Dioxide 21 mmol/L (22-32); Chloride 106 mmol/L (98-107); Estimated Glomerular Filt Rate 40 mL/min (>60); Globulin 3.3 g/dL (1.7-4.1); Glucose 119 mg/dL (80-110); HEMOLYSIS 116 (0-50); Lipase 24 U/L (23-300); Potassium 5.2 mmol/L (3.4-5.1); Sodium 137 mmol/L (137-145)
--- NOTE | 2024-09-04 17:23 | ED.ABDPAIN ---
HPI - Abdominal Pain <Celina DO Boom - Last Filed: 09/05/24 07:53> General Chief Complaint: Abdominal Pain Stated Complaint: lower right abd px Time Seen by Provider: 09/04/24 17:21 Source: patient Mode of arrival: Family Vehicle History of Present Illness HPI narrative: Patient is a 79-year-old male with a known abdominal aortic aneurysm pending repair in October, recent admission to hospital with anemia secondary to gastric ulcer presenting today with sudden onset of right lower quadrant pain. He reports it has been ongoing on for the last 2-3 hours. He denies any sort of flank pain no nausea or vomiting. No chest pain or palpitations. No syncopal episodes. Related Data Home Medications Medication Instructions Recorded Confirmed prazosin 1 mg capsule 1 mg PO QPM 10/15/18 07/31/24 ascorbic acid (vitamin C) 100 mg DAILY 07/31/24 07/31/24 docosahexaenoic acid-epa 120 - 180 mg DAILY 07/31/24 07/31/24 furosemide 20 mg DAILY 07/31/24 07/31/24 metoprolol succinate 50 mg 50 mg PO DAILY 07/31/24 07/31/24 tablet,extended release 24 hr oxycodone-acetaminophen 5 mg-325 1 tab PO Q4HR 07/31/24 07/31/24 mg tablet prednisone 5 mg tablet 5 mg PO DAILY 07/31/24 07/31/24 rosuvastatin 20 mg tablet 20 mg PO BEDTIME 07/31/24 07/31/24 spironolactone 25 mg tablet 25 mg PO DAILY 07/31/24 07/31/24 Previous Rx's Medication Instructions Recorded albuterol sulfate 90 mcg/actuation 2 inh inhalation Q6H PRN COPd #1 ea 12/31/20 breath activated powder inhaler zinc sulfate 50 mg zinc (220 mg) 220 mg (4.4 x 50 mg zinc (220 mg)) 12/31/20 capsule PO DAILY #30 caps omeprazole 40 mg capsule,delayed 40 mg PO BID #60 caps 08/01/24 release ticagrelor 90 mg tablet (Brilinta) 90 mg PO BID #60 tabs 08/01/24 cefdinir 300 mg capsule 300 mg PO BID 10 days #20 caps 09/04/24 tamsulosin 0.4 mg capsule 0.4 mg PO DAILY #14 caps 09/04/24 Allergies Allergy/AdvReac Type Severity Reaction Status Date / Time minoxidil AdvReac Intermediate Hypotension Verified 08/07/24 21:04 Patient History <Celina Nur DO - Last Filed: 09/05/24 07:53> Medical History CKD (chronic kidney disease), stage III Hypertension COPD (chronic obstructive pulmonary disease) Small bowel obstruction Esophageal cancer Social History household members: spouse Smoking Status: Former smoker alcohol intake: current Smoking Status: Former smoker alcohol intake frequency: holidays/special occasions only Substance Use Type: does not use Exam <Celina Nur DO - Last Filed: 09/05/24 07:53> Initial Vital Signs Initial Vital Signs: Vital Signs Pulse Rate 77 09/04/24 16:52 Pulse Oximetry 93 09/04/24 16:52 GENERAL: Chronically ill thin cachectic 79-year-old male and in no acute distress. HEENT: Head atraumatic,EOMI, pupils reactive, face symmetric, moist mucous membranes CARDIOVASCULAR: Regular rate and rhythm without murmurs, rubs or gallops. RESPIRATORY: Breath sounds equal bilaterally, no wheezes rales or rhonchi. ABDOMEN: Soft, mildly tender right lower quadrant no guarding or rebound : No CVA tenderness EXTREMITIES: Normal range of motion, no clubbing or edema. Neurovascularly intact NEUROLOGICAL: Alert and oriented x4.Normal gait and speech. SKIN: Warm, dry, no laceration, no petechiae, no rashes or lesions. <Vincent Pedraza MD - Last Filed: 09/04/24 20:11> Initial Vital Signs Initial Vital Signs: Vital Signs Pulse Rate 77 09/04/24 16:52 Pulse Oximetry 93 09/04/24 16:52 Course <Celina Nur DO - Last Filed: 09/05/24 07:53> Orders Ordered: Discontinued Medications Cefdinir (Cefdinir 300 Mg Capsule) 300 mg PO NOW ONE Stop: 09/04/24 19:16 Last Admin: 09/04/24 19:20 Dose: 300 mg Documented By: ILSET Labetalol HCl (Labetalol 20 Mg/4 Ml Syringe) 10 mg IV NOW ONE Stop: 09/04/24 17:31 Last Admin: 09/04/24 17:32 Dose: Not Given Documented By: PRITI Morphine Sulfate (Morphine 2 Mg/Ml Inj) 2 mg IV NOW ONE Stop: 09/04/24 17:33 Last Admin: 09/04/24 17:54 Dose: 2 mg Documented By: LISET Morphine Sulfate (Morphine 4 Mg/Ml Inj) 2 mg IV NOW ONE Stop: 09/04/24 18:46 Last Admin: 09/04/24 19:08 Dose: Not Given Documented By: LISET Morphine Sulfate (Morphine 2 Mg/Ml Inj) 2 mg IV NOW ONE Stop: 09/04/24 19:09 Last Admin: 09/04/24 19:16 Dose: 2 mg Documented By: LISET Ondansetron HCl (Ondansetron 4 Mg/2 Ml Inj) 4 mg IV NOW PRN PRN Reason: Nausea And Vomiting Ondansetron HCl (Ondansetron 4 Mg Odt) 4 mg PO NOW PRN PRN Reason: Nausea And Vomiting Oxycodone/Acetaminophen (Oxycodone/Acetaminophen 5/325 Tablet) 1 tab PO NOW ONE Stop: 09/04/24 18:46 Last Admin: 09/04/24 18:58 Dose: 1 tab Documented By: PRITI Tamsulosin HCl (Tamsulosin 0.4 Mg Capsule) 0.4 mg PO NOW ONE Stop: 09/04/24 18:47 Last Admin: 09/04/24 18:59 Dose: 0.4 mg Documented By: PRITI Vital Signs Vital signs: Vital Signs - 8 hr 09/04/24 16:52 09/04/24 16:54 09/04/24 16:54 Temperature Pulse Rate 77 67 Respiratory Rate Blood Pressure 176/85 H Pulse Oximetry 93 94 Oxygen Delivery Method 09/04/24 16:56 09/04/24 17:00 09/04/24 17:01 Temperature 98.0 F Pulse Rate 70 63 62 Respiratory Rate 24 Blood Pressure 176/85 H Pulse Oximetry 92 97 98 Oxygen Delivery Method Room Air 09/04/24 17:01 09/04/24 17:30 09/04/24 17:30 Temperature Pulse Rate 67 Respiratory Rate Blood Pressure 174/84 H 174/79 H Pulse Oximetry 97 Oxygen Delivery Method 09/04/24 17:54 09/04/24 17:54 09/04/24 18:00 Temperature Pulse Rate 75 67 Respiratory Rate Blood Pressure 175/84 H Pulse Oximetry 91 95 Oxygen Delivery Method 09/04/24 18:00 09/04/24 18:30 09/04/24 18:30 Temperature Pulse Rate 66 Respiratory Rate Blood Pressure 167/89 H 150/74 H Pulse Oximetry 95 Oxygen Delivery Method Room Air <Vincent Pedraza MD - Last Filed: 09/04/24 20:11> Orders Ordered: Discontinued Medications Cefdinir (Cefdinir 300 Mg Capsule) 300 mg PO NOW ONE Stop: 09/04/24 19:16 Last Admin: 09/04/24 19:20 Dose: 300 mg Documented By: LISET Labetalol HCl (Labetalol 20 Mg/4 Ml Syringe) 10 mg IV NOW ONE Stop: 09/04/24 17:31 Last Admin: 09/04/24 17:32 Dose: Not Given Documented By: PRITI Morphine Sulfate (Morphine 2 Mg/Ml Inj) 2 mg IV NOW ONE Stop: 09/04/24 17:33 Last Admin: 09/04/24 17:54 Dose: 2 mg Documented By: LISET Morphine Sulfate (Morphine 4 Mg/Ml Inj) 2 mg IV NOW ONE Stop: 09/04/24 18:46 Last Admin: 09/04/24 19:08 Dose: Not Given Documented By: LISET Morphine Sulfate (Morphine 2 Mg/Ml Inj) 2 mg IV NOW ONE Stop: 09/04/24 19:09 Last Admin: 09/04/24 19:16 Dose: 2 mg Documented By: LISET Ondansetron HCl (Ondansetron 4 Mg/2 Ml Inj) 4 mg IV NOW PRN PRN Reason: Nausea And Vomiting Ondansetron HCl (Ondansetron 4 Mg Odt) 4 mg PO NOW PRN PRN Reason: Nausea And Vomiting Oxycodone/Acetaminophen (Oxycodone/Acetaminophen 5/325 Tablet) 1 tab PO NOW ONE Stop: 09/04/24 18:46 Last Admin: 09/04/24 18:58 Dose: 1 tab Documented By: PRITI Tamsulosin HCl (Tamsulosin 0.4 Mg Capsule) 0.4 mg PO NOW ONE Stop: 09/04/24 18:47 Last Admin: 09/04/24 18:59 Dose: 0.4 mg Documented By: PRITI Vital Signs Vital signs: Vital Signs - 8 hr 09/04/24 16:52 09/04/24 16:54 09/04/24 16:54 Temperature Pulse Rate 77 67 Respiratory Rate Blood Pressure 176/85 H Pulse Oximetry 93 94 Oxygen Delivery Method 09/04/24 16:56 09/04/24 17:00 09/04/24 17:01 Temperature 98.0 F Pulse Rate 70 63 62 Respiratory Rate 24 Blood Pressure 176/85 H Pulse Oximetry 92 97 98 Oxygen Delivery Method Room Air 09/04/24 17:01 09/04/24 17:30 09/04/24 17:30 Temperature Pulse Rate 67 Respiratory Rate Blood Pressure 174/84 H 174/79 H Pulse Oximetry 97 Oxygen Delivery Method 09/04/24 17:54 09/04/24 17:54 09/04/24 18:00 Temperature Pulse Rate 75 67 Respiratory Rate Blood Pressure 175/84 H Pulse Oximetry 91 95 Oxygen Delivery Method 09/04/24 18:00 09/04/24 18:30 09/04/24 18:30 Temperature Pulse Rate 66 Respiratory Rate Blood Pressure 167/89 H 150/74 H Pulse Oximetry 95 Oxygen Delivery Method Room Air MDM - Abdominal Pain <Celina Nur, DO - Last Filed: 09/05/24 07:53> Lab Data 09/04/24 16:58 09/04/24 16:58 Labs: Lab Results 09/04/24 09/04/24 Range/Units 16:58 18:49 WBC 8.1 (4.5-11.0) X10^3/uL RBC 3.52 L (4.5-5.9) X10^6/uL Hgb 10.6 L (13.5-17.5) g/dL Hct 32.4 L (41-53) % MCV 91.9 (80-100) fL MCH 30.2 (26-34) PG MCHC 32.8 (30-36) % RDW 15.3 H (11.6-14.8) % Plt Count 242 (150-400) X10^3/uL Neut % (Auto) 83.0 H (50-75) % Lymph % (Auto) 8.5 L (25-40) % [place] % (Auto) 5.8 (3-14) % Eos % (Auto) 1.4 L (2-4) % Baso % (Auto) 1.3 (0-2) % Neut # (Auto) 6700 (0216-6555) /uL Lymph # (Auto) 700 L (4516-7733) /uL [place] # (Auto) 500 (0-900) /uL Eos # (Auto) 100 (0-450) /uL Baso # (Auto) 100 (0-100) /uL PT 12.1 (9.4-12.5) SECONDS INR 1.1 (0.9-1.3) Sodium 137 (137-145) mmol/L Potassium 5.2 H (3.4-5.1) mmol/L Chloride 106 (98-107) mmol/L Carbon Dioxide 21 L (22-32) mmol/L BUN 26 H (9-20) mg/dL Creatinine 1.70 H (0.66-1.25) mg/dL Estimated GFR 40 L (>60) mL/min BUN/Creatinine Ratio 15.3 (6-22) Glucose 119 H (80-110) mg/dL Calcium 8.2 L (8.4-10.2) mg/dL Total Bilirubin 0.7 (0.2-1.3) mg/dL AST 28 (17-59) IU/L ALT 14 (<50) IU/L Alkaline Phosphatase 65 (38-126) U/L Total Protein 7.0 (6.3-8.2) g/dL Albumin 3.7 (3.5-5.0) g/dL Globulin 3.3 (1.7-4.1) g/dL Albumin/Globulin Ratio 1.1 (1.0-2.8) Lipase 24 (23-300) U/L Urine Color Yellow Urine Appearance Clear Urine pH 6.0 (4.5-8.0) Ur Specific [place] 1.010 (1.000-1.035) Urine Protein Negative (Negative) Urine Glucose (UA) Negative (Negative) g/dL Urine Ketones Negative (NEGATIVE) Urine Occult Blood 2+ H (Negative) Urine Nitrate Negative (Negative) Urine Bilirubin Negative (NEGATIVE) Urine Urobilinogen 0.2 (0.2) E.U./dL Ur Leukocyte Esterase 2+ H (NEGATIVE) Urine RBC 1-5/hpf (0-5/HPF) Urine WBC 10-30/hpf H (0-5/HPF) Ur Squamous Epith Cells 0-1 /hpf (0-5/HPF) Urine Bacteria Few (2-10) H (None) Ur Culture Indicated? Specimen cultured Vol Urine Centrifuged 10ml (spun) MDM Narrative Medical decision making narrative: Patient 79-year-old male with known AAA, previous anemia presenting today with right lower quadrant pain. Blood work is overall reassuring anemia improved hemoglobin 10 point hematocrit 32.4 previously 9.9 no leukocytosis Potassium 5.[address] pending He is given morphine for pain Patient signed out to Dr. Pedraza for further disposition 09/04/24, [place]. Sign-out from Dr. Flip tan. CT abdomen and pelvis results pending. 79-year-old male with history of known AAA not yet repaired, has sudden onset right lower quadrant abdominal discomfort today. Creatinine 1.7 with GFR 40 noted, white blood cell count not elevated, afebrile, vitals unremarkable, CT abdomen and pelvis with IV contrast had been ordered, results are pending at this time. Assumed care CT shows right-sided distal ureteral stone, stable appearing AAA, see radiology report. Incidentally noted is left testicle within the left inguinal canal. Patient did not have any discomfort there. Consider urology follow up. Patient given copy of CT report. Oral tamsulosin dose given, prescription sent to his pharmacy. He has chronic lower back pain, has supply of oxycodone at home, he can take on a more regular schedule an next few days, during attempted stone passage. Follow up with Urology, he has a urologist at [facility], however also given clinic contact information for local urologists if needed. He will be following up at [facility] for vascular surgery endograft for his known stable AAA. Return precautions and follow up discussed. Answered his/family questions. Stable, discharged home with family. <Vincent Pedraza MD - Last Filed: 09/04/24 20:11> Lab Data Labs: Lab Results 09/04/24 09/04/24 Range/Units 16:58 18:49 WBC 8.1 (4.5-11.0) X10^3/uL RBC 3.52 L (4.5-5.9) X10^6/uL Hgb 10.6 L (13.5-17.5) g/dL Hct 32.4 L (41-53) % MCV 91.9 (80-100) fL MCH 30.2 (26-34) PG MCHC 32.8 (30-36) % RDW 15.3 H (11.6-14.8) % Plt Count 242 (150-400) X10^3/uL Neut % (Auto) 83.0 H (50-75) % Lymph % (Auto) 8.5 L (25-40) % [place] % (Auto) 5.8 (3-14) % Eos % (Auto) 1.4 L (2-4) % Baso % (Auto) 1.3 (0-2) % Neut # (Auto) 6700 (9889-5927) /uL Lymph # (Auto) 700 L (5696-3863) /uL [place] # (Auto) 500 (0-900) /uL Eos # (Auto) 100 (0-450) /uL Baso # (Auto) 100 (0-100) /uL PT 12.1 (9.4-12.5) SECONDS INR 1.1 (0.9-1.3) Sodium 137 (137-145) mmol/L Potassium 5.2 H (3.4-5.1) mmol/L Chloride 106 (98-107) mmol/L Carbon Dioxide 21 L (22-32) mmol/L BUN 26 H (9-20) mg/dL Creatinine 1.70 H (0.66-1.25) mg/dL Estimated GFR 40 L (>60) mL/min BUN/Creatinine Ratio 15.3 (6-22) Glucose 119 H (80-110) mg/dL Calcium 8.2 L (8.4-10.2) mg/dL Total Bilirubin 0.7 (0.2-1.3) mg/dL AST 28 (17-59) IU/L ALT 14 (<50) IU/L Alkaline Phosphatase 65 (38-126) U/L Total Protein 7.0 (6.3-8.2) g/dL Albumin 3.7 (3.5-5.0) g/dL Globulin 3.3 (1.7-4.1) g/dL Albumin/Globulin Ratio 1.1 (1.0-2.8) Lipase 24 (23-300) U/L Urine Color Yellow Urine Appearance Clear Urine pH 6.0 (4.5-8.0) Ur Specific [place] 1.010 (1.000-1.035) Urine Protein Negative (Negative) Urine Glucose (UA) Negative (Negative) g/dL Urine Ketones Negative (NEGATIVE) Urine Occult Blood 2+ H (Negative) Urine Nitrate Negative (Negative) Urine Bilirubin Negative (NEGATIVE) Urine Urobilinogen 0.2 (0.2) E.U./dL Ur Leukocyte Esterase 2+ H (NEGATIVE) Urine RBC 1-5/hpf (0-5/HPF) Urine WBC 10-30/hpf H (0-5/HPF) Ur Squamous Epith Cells 0-1 /hpf (0-5/HPF) Urine Bacteria Few (2-10) H (None) Ur Culture Indicated? Specimen cultured Vol Urine Centrifuged 10ml (spun) Imaging Data CT scan - abdomen/pelvis: Radiologist's Impression: [address] [address] [address] Scan Report Signed Patient: Sergio Colón MR#: [id number] : 1945 Acct:[id number] Age/Sex: 79 / M Date of Service: 09/04/24 Loc: ED Accession Number: [id number] Procedure: CT abdomen pelvis w con Ordering Provider: Celina Nur D.O. PROCEDURE: CT ABDOMEN PELVIS W CON INDICATIONS: Right lower quadrant, knownAAA TECHNIQUE: After the administration of intravenous contrast, axial sections acquired from the lung bases to the pubic symphysis. Coronal and sagittal reformats were performed. For radiation dose reduction, the following was used: automated exposure control, adjustment of mA and/or kV according to patient size. COMPARISON: [facility], CT, CT ABDOMEN PELVIS W CON, 04/28/2022, 10:30. [facility], CT, CT ANGIO CHEST ABDOMEN PELVIS, 07/31/2024, 11:57. [facility], CT, CT ANGIO ABDOMEN PELVIS, 08/07/2024, 22:47. FINDINGS: Image quality: Diagnostic. 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 Small bilateral pleural effusions are seen. Emphysematous changes are seen at the lung bases. ABDOMEN: Liver: No solid mass. Gallbladder: No radiopaque gallstones or wall thickening. Biliary ducts: No biliary dilation. Pancreas: No ductal dilation. The pancreas appears atrophic. Spleen: Size is within normal limits. Adrenal Glands: Generalized thickening can be seen of the adrenal glands, without focal adrenal nodules. Kidneys and Ureters: There is moderate to prominent right-sided hydronephrosis, with proximal hydroureter. There is an obstructing stone seen within the right proximal ureter, as on series 2, image 62, measuring up to 3 mm. There is a delayed right-sided nephrogram. No significant left kidney abnormality is seen. Stomach and Bowel: Normal colonic caliber, without significant wall thickening. Colonic diverticulosis is seen, without findings of active diverticulitis. No dilated loops of small bowel are seen. A normal appendix is partially seen, as on series 4, image 41. No focal right lower quadrant inflammatory change. Peritoneum: No abnormal intraperitoneal fluid. No free air. Ventral Wall: No significant ventral hernia. Abdominal Nodes: No retroperitoneal or mesenteric adenopathy by size criteria. Vessels: There is a known abdominal aortic aneurysm seen, measuring 6.3 cm AP. Relatively prominent mural thrombus can be seen. PELVIS: Pelvic Organs: It is believed that the left testicles within the inguinal canal, as on series 2, image 122. The prostate is enlarged, measuring 5.1 cm transversely. Bladder: No bladder wall thickening, accounting for underdistention. Pelvic Nodes: No enlarged lymph nodes. Miscellaneous: No inguinal hernias are seen. Bones: No aggressive osseous abnormality. Focal lower lumbar spine degenerative changes are seen. IMPRESSION: Obstructing 3 mm stone within the right proximal ureter, with right-sided hydronephrosis and hydroureter and a delayed right-sided nephrogram. These findings are new compared to the 08/07/2024 examination. Normal appendix partially seen. Abdominal aortic aneurysm seen, 6.4 cm AP. Stable. No acute abnormality. There are small bilateral pleural effusions. Left testicle within the left inguinal canal. This finding is new compared to the prior examination. Additional findings: Esophagectomy, with gastric pull-through Emphysematous change Focal lower lumbar spine degenerative change Diverticulosis, without active diverticulitis Enlarged prostate Note: Case discussed by telephone with Dr. Pedraza at 6:20 p.m. [place] time on September 04, 2024. Dictated by: Felix Alaniz M.D. on 09/04/2024 at 17:13 Approved by: Felix Alaniz M.D. on 09/04/2024 at 17:21 MDM Narrative Medical decision making narrative: Patient 79-year-old male with known AAA, previous anemia presenting today with right lower quadrant pain. Blood work is overall reassuring anemia improved hemoglobin 10 point hematocrit 32.4 previously no leukocytosis Potassium 5.[address] pending Patient signed out to Dr. Pedraza for further disposition 09/04/24, [place]. Sign-out from Dr. Flip tan. CT abdomen and pelvis results pending. 79-year-old male with history of known AAA not yet repaired, has sudden onset right lower quadrant abdominal discomfort today. Creatinine 1.7 with GFR 40 noted, white blood cell count not elevated, afebrile, vitals unremarkable, CT abdomen and pelvis with IV contrast had been ordered, results are pending at this time. Assumed care CT shows right-sided distal ureteral stone, stable appearing AAA, see radiology report. Incidentally noted is left testicle within the left inguinal canal. Patient did not have any discomfort there. Consider urology follow up. Patient given copy of CT report. Oral tamsulosin dose given, prescription sent to his pharmacy. He has chronic lower back pain, has supply of oxycodone at home, he can take on a more regular schedule an next few days, during attempted stone passage. Follow up with Urology, he has a urologist at [facility], however also given clinic contact information for local urologists if needed. He will be following up at [facility] for vascular surgery endograft for his known stable AAA. Return precautions and follow up discussed. Answered his/family questions. Stable, discharged home with family. Discharge Plan Departure Patient Disposition: Home Clinical Impression: Right ureteral calculus, Abdominal aortic aneurysm, Urinary tract infection Activity Restrictions/Additional Instructions: Acute onset right lower quadrant abdominal discomfort, right flank pain, CT imaging tonight showed presence of a 3 mm proximal (higher up in the ureter) stone in the right ureter that is likely causing your symptoms. You have chronic back pain, take regular scheduled oxycodone next few days for control of this ureteral stone related discomfort. Hopefully this will pass on its own without interventions. Consider use of tamsulosin medication to help expel the stone, stop the medication if you feel dizzy. Urinalysis showed a few bacteria, some inflammatory cells, possible urinary tract infection. In context of obstructing stone we will initiate antibiotics to hopefully prevent complications. No fever at this time noted. First dose cefdinir oral antibiotic given, prescription for further course antibiotics. Follow up with your urologist on Saturday. Incidentally noted on your scan was your known abdominal aortic aneurysm, noted to have 6.4 cm diameter size, appeared stable per radiologist's comparison with numerous previous studies. There was no leaking associated with that finding today. Follow up with your [facility] vascular surgeon for endovascular stenting as planned. There was also incidentally noted left testicle within the left inguinal canal, apparently not having pain in this area, apparently this is a new finding compared to prior examinations. Consider local urologists follow up, if any interventions might be needed. Take pain medications as needed, as well as tamsulosin to help expel the stone, follow up with your regular doctor early next week, follow up with your urologist in would be or in local [place] area. Return earlier to this/nearest emergency department for any change worsening symptoms or any concerns prior Prescriptions: New tamsulosin 0.4 mg capsule 0.4 mg PO DAILY Qty: 14 0RF cefdinir 300 mg capsule 300 mg PO BID 10 Days Qty: 20 0RF No Action prazosin 1 mg Capsule 1 mg PO QPM zinc sulfate 220 (50) mg capsule 220 mg PO DAILY Qty: 30 0RF albuterol sulfate 90 mcg/actuation aerosol powdr breath activated 2 inh inhalation Q6H PRN (Reason: COPd) Qty: 1 0RF ascorbic acid (vitamin C) 100 mg DAILY furosemide 20 mg DAILY rosuvastatin 20 mg tablet 20 mg PO BEDTIME metoprolol succinate 50 mg tablet extended release 24 hr 50 mg PO DAILY oxycodone-acetaminophen 5-325 mg tablet 1 tab PO Q4HR prednisone 5 mg tablet 5 mg PO DAILY spironolactone 25 mg tablet 25 mg PO DAILY docosahexaenoic acid-epa capsule 120 - 180 mg DAILY omeprazole 40 mg capsule,delayed release(DR/EC) 40 mg PO BID Qty: 60 0RF Brilinta 90 mg tablet 90 mg PO BID Qty: 60 0RF Referrals: Marcos Prieto DO [Physician] - Albina Garcia MD [Primary Care Provider] - Sigifredo Lew MD [Physician] - Stand Alone Forms: Patient Portal/API/Survey
[2024-09-04 17:25] LABS: Add Manual Diff / Slide Review NO; Basophils Absolute Auto 100 /uL (0-100); Basophils Percent Auto 1.3 % (0-2); Eosinophils Absolute Auto 100 /uL (0-450); Eosinophils Percent Auto 1.4 % (2-4); Hematocrit 32.4 % (41-53); Hemoglobin 10.6 g/dL (13.5-17.5); Lymphocytes Absolute Auto 700 /uL (1100-4500); Lymphocytes Percent Auto 8.5 % (25-40); Mean Corpuscular HGB Conc 32.8 % (30-36); Mean Corpuscular Hemoglobin 30.2 PG (26-34); Mean Corpuscular Volume 91.9 fL (80-100); Monocytes Absolute Auto 500 /uL (0-900); Monocytes Percent Auto 5.8 % (3-14); Neutrophils Absolute Auto 6700 /uL (1500-7000); Platelet Count 242 X10^3/uL (150-400); Red Blood Cell Count 3.52 X10^6/uL (4.5-5.9); Red Cell Distribution Width 15.3 % (11.6-14.8); White Blood Cell Count 8.1 X10^3/uL (4.5-11.0)
--- NOTE | 2024-09-04 17:32 | DI.CT.S_ITS ---
PROCEDURE: CT ABDOMEN PELVIS W CON INDICATIONS: Right lower quadrant, knownAAA TECHNIQUE: After the administration of intravenous contrast, axial sections acquired from the lung bases to the pubic symphysis. Coronal and sagittal reformats were performed. For radiation dose reduction, the following was used: automated exposure control, adjustment of mA and/or kV according to patient size. COMPARISON: [facility], CT, CT ABDOMEN PELVIS W CON, 04/28/2022, 10:30. [facility], CT, CT ANGIO CHEST ABDOMEN PELVIS, 07/31/2024, 11:57. [facility], CT, CT ANGIO ABDOMEN PELVIS, 08/07/2024, 22:47. FINDINGS: Image quality: Diagnostic. 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 Small bilateral pleural effusions are seen. Emphysematous changes are seen at the lung bases. ABDOMEN: Liver: No solid mass. Gallbladder: No radiopaque gallstones or wall thickening. Biliary ducts: No biliary dilation. Pancreas: No ductal dilation. The pancreas appears atrophic. Spleen: Size is within normal limits. Adrenal Glands: Generalized thickening can be seen of the adrenal glands, without focal adrenal nodules. Kidneys and Ureters: There is moderate to prominent right-sided hydronephrosis, with proximal hydroureter. There is an obstructing stone seen within the right proximal ureter, as on series 2, image 62, measuring up to 3 mm. There is a delayed right-sided nephrogram. No significant left kidney abnormality is seen. Stomach and Bowel: Normal colonic caliber, without significant wall thickening. Colonic diverticulosis is seen, without findings of active diverticulitis. No dilated loops of small bowel are seen. A normal appendix is partially seen, as on series 4, image 41. No focal right lower quadrant inflammatory change. Peritoneum: No abnormal intraperitoneal fluid. No free air. Ventral Wall: No significant ventral hernia. Abdominal Nodes: No retroperitoneal or mesenteric adenopathy by size criteria. Vessels: There is a known abdominal aortic aneurysm seen, measuring 6.3 cm AP. Relatively prominent mural thrombus can be seen. PELVIS: Pelvic Organs: It is believed that the left testicles within the inguinal canal, as on series 2, image 122. The prostate is enlarged, measuring 5.1 cm transversely. Bladder: No bladder wall thickening, accounting for underdistention. Pelvic Nodes: No enlarged lymph nodes. Miscellaneous: No inguinal hernias are seen. Bones: No aggressive osseous abnormality. Focal lower lumbar spine degenerative changes are seen. IMPRESSION: Obstructing 3 mm stone within the right proximal ureter, with right-sided hydronephrosis and hydroureter and a delayed right-sided nephrogram. These findings are new compared to the 08/07/2024 examination. Normal appendix partially seen. Abdominal aortic aneurysm seen, 6.4 cm AP. Stable. No acute abnormality. There are small bilateral pleural effusions. Left testicle within the left inguinal canal. This finding is new compared to the prior examination. Additional findings: Esophagectomy, with gastric pull-through Emphysematous change Focal lower lumbar spine degenerative change Diverticulosis, without active diverticulitis Enlarged prostate Note: Case discussed by telephone with Dr. Pedraza at 6:20 p.m. [place] time on September 04, 2024. Dictated by: Felix Alaniz M.D. on 09/04/2024 at 17:13 Approved by: Felix Alaniz M.D. on 09/04/2024 at 17:21
[2024-09-04] MEDS: MORPHINE 2 MG/ML INJ IV ×2 (17:54→19:16)
[2024-09-04 18:58] LABS: Appearance Urine UA CLEAR; Bilirubin Urine UA NEGATIVE (NEGATIVE); Color Urine UA YELLOW; Glucose Urine UA NEGATIVE (Negative); Ketones Urine UA NEGATIVE (NEGATIVE); Leukocyte Esterase Urine UA 2+ (NEGATIVE); Nitrite Urine UA NEGATIVE (Negative); Occult Blood Urine UA 2+ (Negative); Protein Urine UA NEGATIVE (Negative); Urobilinogen Urine UA 0.2 E.U./dL (0.2)
[2024-09-04] MEDS: OXYCODONE/ACETAMINOPHEN 5/325 TABLET 1 TAB PO (18:58)
[2024-09-04] MEDS: TAMSULOSIN 0.4 MG CAPSULE PO (18:59)
[2024-09-04 19:06] LABS: Bacteria Urine Few (2-10); Culture Indicated Urine Specimen Cultured; RBC Urine 1-5/HPF (0-5/HPF); Squamous Epithelial Cell Urine 0-1 /HPF (0-5/HPF); Urine Volume 10mL (spun); WBC Urine 10-30/HPF (0-5/HPF)
[2024-09-04] MEDS: CEFDINIR 300 MG CAPSULE PO (19:20)
== END 2024-09-04 19:29 | disposition home or self-care (01) ==
PROVIDERS: Emergency Medicine; Emergency Provider Emergency Medicine; Family Provider Internal Medicine; PCP Internal Medicine
DX: N20.1 Calculus of ureter (principal); I71.40 Abdominal aortic aneurysm, without rupture, unspecified; N39.0 Urinary tract infection, site not specified
CPT/HCPCS: 36415; 74177; 80053; 81001; 83690; 85025; 85610; 87086; 93005; 96374; 96376; 99284; J2270; Q9967